=== PATIENT | female | born 1975 | race Two or more races ===

== ENCOUNTER → 2024-08-18 | Outpatient (CLI) | payer MEDICAID, SELFPAY ==
--- NOTE | 2024-08-18 13:30 | XR_ITS ---
Examination: Screening digital mammography, bilateral Computer aided detection 3-D breast Tomosynthesis, bilateral Date and time of exam: August 18, 2024 1338 hours No priors Indication: Screening Technique: Nonmagnified MLO, CC views of the breasts to been obtained, reconstructed from 3-D Tomosynthesis images. R2 computer aided detection program utilized for evaluation of suspicious masses and/or abnormal calcifications. 3-D Tomosynthesis images obtained. Findings: Scattered areas of fibroglandular density. Benign calcifications. No suspicious masses Impression: BI-RADS category II: Benign Findings. Recommend 1 year follow-up mammogram.
== END | disposition home or self-care (01) ==
LOC: CDIM 13:16
PROVIDERS: Referring Provider Obstetrics & Gynecology; Visit Provider Obstetrics & Gynecology
DX: Z12.31 Encounter for screening mammogram for malignant neoplasm of breast (principal); R92.323 Mammographic fibroglandular density, bilateral breasts; R92.1 Mammographic calcification found on diagnostic imaging of breast
CPT/HCPCS: 77063; 77067

== ENCOUNTER 2024-11-13 09:19 | Inpatient (IN) | payer MEDICAID, SELFPAY ==
[2024-11-13] VITALS (8 sets, daily range): BP systolic 94–123; BP diastolic 58–84; PULSE 79–106; RESP 14–98; TEMP 36.8–37.6; O2SAT 96–99; BMI 34.9
--- NOTE | 2024-11-13 09:56 | EKG_ITS ---
[facility] [place] [facility] Test Date: 2024-11-13 Pat Name: LISA STRINGER Department: Room: - Gender: Female Armor Officer: : 1975 Requested By: ED Temporary Provider Order Number: [id number] Reading MD: ED Temporary Provider Measurements Intervals [place] Rate: 88 P: 59 OK: 145 QRS: -1 QRSD: 93 T: 38 QT: 370 QTc: 450 Interpretive Statements SINUS RHYTHM LOW QRS VOLTAGE IN PRECORDIAL LEADS [QRS DEFLECTION < 1.0 mV IN CHEST LEADS] POSSIBLE RIGHT VENTRICULAR CONDUCTION DELAY [RSR (QR) IN V1/V2] No previous ECG available for comparison /store/S0/[id number]
--- NOTE | 2024-11-13 09:56 | PC.NURSE ---
PT BIBA FROM HOME, HAD SYNCOPAL EPISODE LAST NIGHT FELL FACE FORWARD, HAS BRUISING TO FOREHEAD. PT HAD NEAR SYNCOOPAL EPISODE TODAY. PER EMS PT TOOK MELATONIN, SUBOXONE, AND IBUPROFEN. PT UNABLE TO EEP FEET STILL. WHEN ASKING PT WHAT YEAR SHE SAID 2023, THIS RN TOLD PT IT IS 2024, THEN ASKED A FEW MORE QUESTIONS, ASKED THE YEAR AGAIN AND PT CONTINUED TO AY 2023 AFTER BE REMINDED IT WAS 2024 1-2 MINUTES PRIOR. WHEN ASKING PT HER HEIGHT PT REPEATED HEGHT MULTIPLE TIMES, AND KEPT ASKING WHAT DID YOU ASK FOR MY HEIGHT? THEN REPEATED HER HEIGHT AGAIN. AWAITING PROVIDER EEVALUATION
--- NOTE | 2024-11-13 10:15 | PC.NURSE ---
SON AT BEDSIDE ATTENTIVE TO PT. VSS ON TELE
--- NOTE | 2024-11-13 10:33 | XR_ITS ---
Examination: CT brain head without contrast. 2-D sagittal coronal reconstructions Date and time of exam:2024 1119 hours Comparison November 12, 2023 INDICATIONS: Multiple falls yesterday with injury of the head followed by altered mental status CTDI: vol (mGy):3.9 DLP: (mGycm):955 Technique: Multiple CT axial sections of the brain have been obtained, 5 mm slice thickness. Contrast has not been administered. 2-D sagittal, coronal reconstructions have been obtained Low dose protocols were performed. One or more of the following dose reduction techniques were used; automated exposure control, adjustment of the mA and/or KV according to patient size, use of iterative reconstruction technique. Findings: No significant ventricular enlargement. Intra-axial or extra-axial hemorrhage density is not seen. No mass effect or midline shift Basal cisterns are not remarkable. Fourth ventricle is midline. Cranial vault intact. Impression: Negative for acute hemorrhage, mass effect or midline shift Advise clinical correlation follow-up accordingly
[2024-11-13 10:39] LABS: Basophils % (Auto) 0 % (0-2.5); Eosinophils % (Auto) 0 % (0-10); Hematocrit 33.6 % (36.0-46.0); Hemoglobin 11.6 g/dL (12.0-16.0); Immature Granulocytes % (Auto) 0 % (0-0); Immature Granulocytes Auto 0.02 Thou/mm3 (0.00-0.00); Lymphocytes # (Auto) 1.2 Thou/mm3 (1.0-4.8); Lymphocytes % (Auto) 12 % (10-50); Mean Corpuscular HGB Conc 34.5 g/dl (31.0-37.0); Mean Corpuscular Hemoglobin 32.6 pg (25.0-35.0); Mean Corpuscular Volume 94 fL (80-100); Monocytes # (Auto) 0.8 Thou/mm3 (0.0-0.8); Monocytes % (Auto) 8 % (0-12); Neutrophils # (Auto) 7.9 Thou/mm3 (1.8-7.7); Neutrophils % (Auto) 79 % (37-80); Nucleated Red Blood Cell % 0 /100 WBC (0); Platelet Count 353 Thou/mm3 (140-440); RDW Standard Deviation 42.3 fL (36.4-46.3); Red Blood Count 3.56 Miln/mm3 (4.00-5.20)
[2024-11-13 11:02] LABS: Acetaminophen < 2.0 mcg/mL (10.0-20.0); Alanine Aminotransferase 312 U/L (10-49); Albumin, Serum 4.7 gm/dL (3.5-5.0); Albumin/Globulin Ratio 1.6 (1.2-2.2); Alkaline Phosphatase 161 U/L (46-116); Anion Gap 10 (7-16); Aspartate Amino Transferase 130 U/L (0-34); BUN/Creatinine Ratio 16 Ratio (12-20); Bilirubin,Total 0.6 mg/dL (0.3-1.2); Blood Urea Nitrogen 26 mg/dL (9-23); Carbon Dioxide 24.4 mMol/L (20.0-31.0); Chloride 110 mMol/L (98-107); Creatinine (Component) 1.6 mg/dL (0.6-1.3); Estimated Creatinine Clearance 39.7 mL/min (>60); Globulin 2.9 gm/dL (2.3-3.5); Glucose 131 mg/dL (74-106); Osmolality,Calculated 293 (275-295); Potassium 3.5 mMol/L (3.4-5.1); Salicylate < 3.0 mg/dL; Sodium 144 mMol/L (136-145); Total Protein 7.6 gm/dL (5.7-8.2); eGFR 40 See Note
--- NOTE | 2024-11-13 11:16 | PC.NURSE ---
PT AWARE URINE NEEDED.
--- NOTE | 2024-11-13 11:29 | PD.EDSYNC ---
ED Syncope RME/HPI General Chief Complaint: Syncope / Near Syncope Stated Complaint: SYNCOPE Time Seen by Provider: 11/13/24 10:25 Arrival date/time: 11/13/24 09:19 RME / HPI RME / HPI narrative: 48 year old female with history of fibromylagia, anxiety, depression, trouble sleeping presents to the ED BIBA from home for evaluation of syncopal episode today. Patient reports she was in her room when she passed out and does not recall much of what occurred. States she stood up and I just passed out , unable to provide any additional details. Denies having any chest pain, headache, or palpitations prior to syncope. Although states while in the ED is having palpitations. Mentioned she has had one similar episode of passing out in August of this year and consulted with PCP who ordered an MRI. Patient often triangulated back to the same answer of I just passed out . Son additionally reported years ago the patient had overdosed on medications and during that time had similar presentation. PCP: Dr. Hatfield. 1230: Son later quietly adds more information. States last night they found the patient on the ground having a breakdown with empty bottles of medications surrounding her. Most of the pills were on the ground and unaccounted for vs possible overdose. States there were three bottles that were broken and/or do not have lids. Medications unaccounted for and filled on 11/03/2024 include: 100mg Gabapentin 90 tablets, 10mg Propanolol 120 tablets, 20mg Furosemide 30 tablets, Tizanidine (filled 11/11/2024), 20mg Baclofen 120 tablets (bottle empty and covered), Venlafaxine (30 tablets left and 4-5 tablets are unaccounted for). Benazepril filled 11/03/2024 is accounted for. Related Data Home Medications ?Medication ?Instructions ?Recorded ?Confirmed Benazepril Hcl 40 mg PO QDAY ##0 02/28/16 Hydrocodone/Acetaminophen * (NORCO 1 tab PO 5 TIMES DAILY PRN #0 tabs 02/28/16 7.5/325 *) Venlafaxine * (EFFEXOR *) 75 mg PO QDAY #0 tabs 02/28/16 alprazolam 1 mg tablet (Xanax) 1 mg PO TID #0 tabs 02/28/16 baclofen 20 mg tablet 20 mg PO QID #0 tabs 02/28/16 furosemide 20 mg tablet (Lasix) 20 mg PO QDAY #0 tabs 02/28/16 hydrochlorothiazide 25 mg tablet 25 mg PO QAM #0 tabs 02/28/16 Previous Rx's ?Medication ?Instructions ?Recorded clindamycin HCl 300 mg capsule 300 mg PO TID #30 caps 03/27/20 naproxen 500 mg tablet (Naprosyn) 500 mg PO BID PRN pain #30 tabs 03/27/20 Allergies Allergy/AdvReac Type Severity Reaction Status Date / Time No Known Allergies Allergy Verified 11/13/24 16:01 Review of Systems Review of Systems Narrative Review of Systems: Gen: No fever, no chills EYES: No discharge, no pain HEENT: No ear pain, no congestion, no sore throat PULM: no shortness of breath, no cough, no congestion CV: No chest pain, no palpitations, no chest tightness GI: No nausea, no vomiting, no diarrhea, no pain, no constipation : No frequency, no urgency,? no dysuria Musc/skel: No joint pain, no back pain Skin: No rash, no ecchymosis, no lesions Neuro: No weakness, no headache, +syncopal episode per patient Past Medical History Past Medical History CARDIAC: Negative Congestive Heart Failure RESPIRATORY: Negative Chronic Obstructive Pulmonary Disease (COPD) GENITOURINARY: Negative Renal Disease ENDOCRINE: Negative Diabetes Mellitus Type 1 or Diabetes Mellitus Type 2 Social History SMOKING STATUS: Never smoker ED Exam Narrative Physical exam: GENERAL APPEARANCE: Awake, alert, fidgeting, hyperactive, seems to be responding to internal stimuli, patient would often triangulate back to the same answer of I just passed out . HEENT: NC, AT. MMM. EOMI, clear conjunctiva, oropharynx clear. NECK: Supple without lymphadenopathy. No stiffness or restricted ROM. HEART: Tachycardic, normal S1/S1, no m/r/g LUNGS: CTAB, moving air well. No crackles or wheezes are heard. ABDOMEN: Soft, nontender, nondistended with good bowel sounds heard. BACK: No midline C/T/L spine pain or deformity, No CVAT, no obvious deformity. EXTREMITIES: Without cyanosis, clubbing or edema. MUSCULOSKELETAL: FROM of all major joints, no chest tenderness NEUROLOGICAL: Grossly nonfocal. Alert and oriented, moving all 4 extremities. CN not formally tested but appear grossly intact. Fidgeting, hyperactive, seems to be responding to internal stimuli, patient would often triangulate back to the same answer of I just passed out . Skin: Warm and dry without any rash. Course Quality Measures none Orders Category Date Time Status Admit to Inpatient Status Routine Admission 11/13/24 13:49 Active Patient Condition Routine Admission 11/13/24 13:49 Ordered 1799 Psychiatric Hold NOW Care 11/13/24 13:45 Ordered Aspiration precautions NOW Care 11/13/24 13:50 Active COVID-19 Screening Questionnaire NOW Care 11/13/24 13:17 Active COVID-19 Screening Questionnaire NOW Care 11/13/24 14:10 Active Continuous Pulse Oximetry NOW Care 11/13/24 13:49 Completed Decision to Admit X1 Care 11/13/24 13:17 Completed Decision to Admit X1 Care 11/13/24 14:09 Completed EKG (ED ONLY) *Do not use* NOW Care 11/13/24 09:56 Completed Glucose [Bedside Blood Glucose] Q6HR Care 11/13/24 13:54 Active In and Out Catheter X1 Care 11/13/24 13:37 Completed Miscellaneous Nursing Order NOW Care 11/13/24 13:49 Active NPO NOW Care 11/13/24 13:50 Active Neuro Check Q4H Care 11/13/24 13:49 Active Notify provider NEEDED Care 11/13/24 13:49 Active Nurse Swallow Screen X1 Care 11/13/24 13:58 Active One-to-one observation NOW Care 11/13/24 13:56 Active Seizure precautions NOW Care 11/13/24 13:50 Active Sequential Compression Device QSHIFT Care 11/13/24 13:49 Active Strict Intake and Output Routine Care 11/13/24 13:50 Ordered Suicide precautions NOW Care 11/13/24 13:56 Active Referral Psych Eval Stat Cons 11/13/24 14:29 Active Referral Wound Care Routine Cons 11/13/24 13:58 Active Diet NPO (NOW) Diet 11/13/24 13:[address] head/brain wo con Stat Exams 11/13/24 10:33 Completed EKG (ED Only) Stat Exams 11/13/24 09:56 Draft Acetaminophen Stat Lab 11/13/24 10:27 Completed Alcohol, Urine Stat Lab 11/13/24 13:37 Ordered BNP [B-Type Natriuretic Peptide] Routine Lab 11/13/24 10:27 Completed CBC AM DRAW Lab 11/14/24 05:00 Ordered CBC AM DRAW Lab 11/15/24 05:00 Ordered CBC AM DRAW Lab 11/16/24 05:00 Ordered CBC AM DRAW Lab 11/17/24 05:00 Ordered CBC AM DRAW Lab 11/18/24 05:00 Ordered CBC AM DRAW Lab 11/19/24 05:00 Ordered CBC AM DRAW Lab 11/20/24 05:00 Ordered CBC Stat Lab 11/13/24 10:27 Completed Comprehensive Metabolic Panel AM DRAW Lab 11/14/24 05:00 Ordered Comprehensive Metabolic Panel AM DRAW Lab 11/15/24 05:00 Ordered Comprehensive Metabolic Panel AM DRAW Lab 11/16/24 05:00 Ordered Comprehensive Metabolic Panel AM DRAW Lab 11/17/24 05:00 Ordered Comprehensive Metabolic Panel AM DRAW Lab 11/18/24 05:00 Ordered Comprehensive Metabolic Panel AM DRAW Lab 11/19/24 05:00 Ordered Comprehensive Metabolic Panel AM DRAW Lab 11/20/24 05:00 Ordered Comprehensive Metabolic Panel Stat Lab 11/13/24 10:27 Completed Creatine Kinase Stat Lab 11/13/24 13:25 Completed Drug Screen,Urine Stat Lab 11/13/24 13:19 Completed Hemoglobin A1C [Glycohemoglobin w (eAG)] AM DRAW Lab 11/14/24 05:00 Ordered Lactic Acid [Lactate (Lactic Acid)] Stat Lab 11/13/24 13:25 Completed Lipid Panel AM DRAW Lab 11/14/24 05:00 Ordered Magnesium AM DRAW Lab 11/14/24 05:00 Ordered Magnesium AM DRAW Lab 11/15/24 05:00 Ordered Magnesium AM DRAW Lab 11/16/24 05:00 Ordered Magnesium AM DRAW Lab 11/17/24 05:00 Ordered Magnesium AM DRAW Lab 11/18/24 05:00 Ordered Magnesium AM DRAW Lab 11/19/24 05:00 Ordered Magnesium AM DRAW Lab 11/20/24 05:00 Ordered Magnesium Stat Lab 11/13/24 13:25 Completed Phosphorous AM DRAW Lab 11/14/24 05:00 Ordered Phosphorous AM DRAW Lab 11/15/24 05:00 Ordered Phosphorous AM DRAW Lab 11/16/24 05:00 Ordered Prothrombin Time with INR AM DRAW Lab 11/14/24 05:00 Ordered Prothrombin Time with INR AM DRAW Lab 11/15/24 05:00 Ordered Prothrombin Time with INR AM DRAW Lab 11/16/24 05:00 Ordered Renal Function Panel Routine Lab 11/13/24 17:00 Ordered Salicylate Stat Lab 11/13/24 10:27 Completed Thyroid Stimulating Hormone AM DRAW Lab 11/14/24 05:00 Ordered Troponin I Stat Lab 11/13/24 13:25 Completed Urinalysis Stat Lab 11/13/24 13:19 Completed Acetaminophen Tab [Tylenol Tab] Med 11/13/24 13:49 Active 650 mg PO Q6H PRN Folic Acid Med 11/13/24 21:00 Active 1 mg PO BID Heparin Inj Med 11/13/24 21:00 Active 5,000 unit SC Q12HR KCL 10% Liq UDC 15 ML Med 11/13/24 13:55 Discontinued 40 meq PO X1 ONE LORazepam [Ativan Inj] Med 11/13/24 14:32 Active 0.5 mg IV Q4H PRN LORazepam [Ativan Inj] Med 11/13/24 14:32 Active 1 mg IV Q4H PRN LORazepam [Ativan Inj] Med 11/13/24 13:59 Discontinued 1 mg IV X1 PRN LORazepam [Ativan Inj] Med 11/13/24 14:32 Active 2 mg IV Q4H PRN LORazepam [Ativan Inj] Med 11/13/24 14:32 Active 2 mg IVP X1 PRN LORazepam [Ativan] Med 11/13/24 13:59 Discontinued 0.5 mg PO Q4HR PRN LORazepam [Ativan] Med 11/13/24 13:59 Discontinued 1 mg PO Q4HR PRN LORazepam [Ativan] Med 11/13/24 13:59 Discontinued 2 mg PO Q4HR PRN Pantoprazole Inj [Protonix Inj] Med 11/14/24 09:00 Active 40 mg IVP QDAY Ringers Lactated 1000 ml [Lactated Ringers] 1,000 ml Med 11/13/24 14:00 Active IV 75 mls/hr Ringers Lactated 1000 ml [Lactated Ringers] 1,000 ml Med 11/13/24 13:22 Discontinued IV 999 mls/hr Senna [Senokot] Med 11/13/24 13:49 Active 2 tab PO BID PRN Thiamine [Vitamin B-1] Med 11/13/24 21:00 Active 100 mg PO BID Code Status Routine Oth 11/13/24 13:49 Ordered EKG (RT) Q8H RT 11/13/24 14:00 Draft EKG (RT) Q8H RT 11/13/24 22:00 Ordered EKG (RT) Q8H RT 11/14/24 06:00 Ordered EKG (RT) Q8H RT 11/14/24 14:00 Ordered EKG (RT) Q8H RT 11/14/24 22:00 Ordered Oxygen Delivery PRN RT 11/13/24 13:49 Active Referral Oceanographic Meteorologist NOW 11/13/24 14:29 Active Reevaluation(s) Reevaluation #1: Patient is now getting sedated, hypotensive, and bradycardic on telemetry. Patient placed on a 1799. Time: 12:55 Vital Signs Vital signs: Vital Signs Temperature 98.3 F 11/13/24 09:29 Pulse Rate 96 11/13/24 09:29 Respiratory Rate 17 11/13/24 09:29 Blood Pressure 104/69 11/13/24 09:29 Pulse Oximetry (%) 98 11/13/24 09:29 Oxygen Delivery Method Room Air 11/13/24 09:29 Pulse ox is 98% on room air which is adequate. Syncope MDM Narrative MDM Narrative:: Rachel Zaragoza am scribing for and in the presence of Dr. Diaz. RN contacted poison control and they recommend patient be observed for 12 hours, connected to telemetry, IV fluid bolus with electrolytes, seizure precautions, EKG Q4H. Advised if the QRS is >120ms to give 1-2 amps of sodium bicarb, if the QTc is >500ms to give 2mg of IV Magnesium. If the blood pressure is low after IV fluids recommended Glucagon 5-10mg bolus and starting at 5-10mg/hr. If blood pressure remains persistently low to contact them again. Patient data External records reviewed:: [facility] previous records (I reviewed ED visit on 03/27/2020 ) and EMS form Clinical information provided by:: patient and family (Son and patients sister add to HPI ) Social determinants that could affect healthcare access:: none Patient has the following chronic illnesses:: fibromylagia, anxiety, depression, trouble sleeping How is presenting disease/condition affected by chronic disease/condition?: exacerbated by Evaluation data The following diagnostics were reviewed and interpreted by me:: lab results, radiology exam(s) and EKG tracing(s) (EKG #1 @ 10:18 AM shows sinus rhythm, rate 88, NJ interval 145ms, QRS dur 93ms, QT/QTc 370/416 ms, no acute ischemic changes, no STEMI. EKG #2 @ 14:26 shows sinus rhythm, rate 84, NJ interval 144ms, QRS dur 94ms, QT/QTc 378/419ms, no ischemic changes, no STEMI. ) Lab and/or radiology exams considered but not ordered:: None Interpretation Summary: Ordering Physician: Jim Diaz MD Date of Service: 11/13/24 Procedure(s): CT head/brain wo con Accession Number(s): [id number] cc: Jim Diaz MD; Jc Meneses MD; NO PRIMARY/FAMILY,PHYSICIAN~ Examination: CT brain head without contrast. 2-D sagittal coronal reconstructions Date and time of exam:2024 1119 hours Comparison November 12, 2023 INDICATIONS: Multiple falls yesterday with injury of the head followed by altered mental status CTDI: vol (mGy):3.9 DLP: (mGycm):955 Technique: Multiple CT axial sections of the brain have been obtained, 5 mm slice thickness. Contrast has not been administered. 2-D sagittal, coronal reconstructions have been obtained Low dose protocols were performed. One or more of the following dose reduction techniques were used; automated exposure control, adjustment of the mA and/or KV according to patient size, use of iterative reconstruction technique. Findings: No significant ventricular enlargement. Intra-axial or extra-axial hemorrhage density is not seen. No mass effect or midline shift Basal cisterns are not remarkable. Fourth ventricle is midline. Cranial vault intact. Impression: Negative for acute hemorrhage, mass effect or midline shift Advise clinical correlation follow-up accordingly Dictated By: Jc Meneses MD Signed By: <Electronically signed by Jc Meneses MD in OV> 11/13/24 1213 Medications / Prescriptions Medications or Prescriptions considered but not ordered:: None Medication administrations:: Medication Administration History Acetaminophen (Acetaminophen 325 Mg Tablet) 650 mg PO Q6H PRN PRN Reason: Pain (1-3) & Fever >100.4 Stop: 12/13/24 13:48 Folic Acid (Folic Acid 1 Mg Tablet) 1 mg PO BID [facility] Stop: 11/18/24 20:59 Heparin Sodium (Porcine) (Heparin Sod Inj 5000 Unit/Ml Vial) 5,000 unit SC Q12HR [facility] Stop: 11/27/24 20:59 Lactated Ringer's (Lactated Ringers) 1,000 mls @ 75 mls/hr IV .[id number] Stop: 12/13/24 13:59 Last Admin: 11/13/24 15:03 Dose: 75 mls/hr Documented By: JEREMI Lorazepam (Lorazepam 2 Mg/Ml Vial) 0.5 mg IV Q4H PRN PRN Reason: CIWA SCORE 8-13 Stop: 11/18/24 14:31 Lorazepam (Lorazepam 2 Mg/Ml Vial) 1 mg IV Q4H PRN PRN Reason: CIWA SCORE 14-19 Stop: 11/18/24 14:31 Lorazepam (Lorazepam 2 Mg/Ml Vial) 2 mg IV Q4H PRN PRN Reason: CIWA SCORE 20- Stop: 11/18/24 14:31 Lorazepam (Lorazepam 2 Mg/Ml Vial) 2 mg IVP X1 PRN PRN Reason: Breakthrough Agitation Pantoprazole Sodium (Pantoprazole Inj 40 Mg Vial) 40 mg IVP QDAY [facility] Stop: 12/14/24 08:59 Sennosides (Senna Tablet) 2 tab PO BID PRN; Protocol PRN Reason: CONSTIPATION Stop: 12/13/24 13:48 Thiamine HCl (Thiamine 100 Mg Tablet) 100 mg PO BID [facility] Stop: 11/18/24 20:59 Discontinued Medications Lactated Ringer's (Lactated Ringers) 1,000 mls @ 999 mls/hr IV .Q1H1M ONE Stop: 11/13/24 14:22 Last Infusion: 11/13/24 14:39 Dose: Infused Documented By: Admin: 11/13/24 13:38 Dose: 999 mls/hr Documented By: TM Lorazepam (Lorazepam 0.5 Mg Tablet) 0.5 mg PO Q4HR PRN PRN Reason: CIWA Score 2-6 Stop: 11/18/24 13:58 Lorazepam (Lorazepam 0.5 Mg Tablet) 1 mg PO Q4HR PRN PRN Reason: CIWA SCORE 7-11 Stop: 11/18/24 13:58 Lorazepam (Lorazepam 0.5 Mg Tablet) 2 mg PO Q4HR PRN PRN Reason: CIWA SCORE 12-15 Stop: 11/18/24 13:58 Lorazepam (Lorazepam 2 Mg/Ml Vial) 1 mg IV X1 PRN PRN Reason: Breakthrough Agitation Potassium Chloride (Potassium Chloride 10% 20 Meq/15 Ml Udc) 40 meq PO X1 ONE Stop: 11/13/24 13:56 Last Admin: 11/13/24 15:03 Dose: 40 meq Documented By: TM See above Consultations Consultation(s) initiated? (list below): Yes Consultation #1 (Physician, Specialty, Details): I spoke with hospitalist Dr. Wood regarding admission. Discussed patients PMHx, HPI, ED course, exam findings, labs, and radiology results. The hospitalist agree to accept the patient for admission. Time: 13:10 Diagnosis Syncope Differential Diagnosis: syncope due to orthostatic hypotension, vasovagal syncope, subarachnoid hemorrhage and dehydration Most likely diagnosis given after review of the tests above:: Altered mental status Bipolar Toxic encephalopathy Admission Indicated Admission indicated?: indicated Admission Request Was there a request for admission?: Yes Admission Attestation Admission request attestation: Discussed case with [] from Hospitalist service regarding admission. Discussed patients ED course, exam findings, labs, and radiology results. The Hospitalist [agrees,declines] to accept the patient for admission. Disposition Plan Disposition Plan: Admit Critical Care Time Critical Care Time Critical Care Time: Yes Total Critical Care Time (min.): 35 Attestation: The high probability of sudden, clinically significant deterioration in the patient's condition required the highest level of my preparedness to intervene urgently. The services I provided to this patient were to treat and/or prevent clinically significant deterioration. Services included the following: chart data review, reviewing nursing notes and/or old charts, documentation time, it architecture consultant collaboration regarding findings and treatment options, medication orders and management, direct patient care, vital sign assessments and ordering, interpreting and reviewing diagnostic studies and lab tests. Aggregate critical care time includes only time during which I was engaged in work directly related to the patient's care, as described above, whether at bedside or elsewhere in the Emergency Department. It did not include time spent performing other reported procedures or the services of residents, students, nurses or physician assistants. Discharge Plan Plan Patient Disposition: Admit Acute Care w/in Hospital Prescriptions/Referrals Prescriptions/Med Rec: No Action alprazolam [Xanax] 1 MG tablet 1 mg PO TID Qty: 0 baclofen 20 MG tablet 20 mg PO QID Qty: 0 hydrochlorothiazide 25 MG tablet 25 mg PO QAM Qty: 0 furosemide [Lasix] 20 MG tablet 20 mg PO QDAY Qty: 0 Benazepril Hcl 40 MG tablet 40 mg PO QDAY Qty: 0 Hydrocodone/Acetaminophen * (NORCO 7.5/325 *) 1 TAB tablet 1 tab PO 5 TIMES DAILY PRNQty: 0 Venlafaxine * (EFFEXOR *) 75 MG tablet 75 mg PO QDAY Qty: 0 clindamycin HCl 300 mg capsule 300 mg PO TID Qty: 30 0RF naproxen [Naprosyn] 500 mg tablet 500 mg PO BID PRN (Reason: pain) Qty: 30 0RF Referrals: No Primary/Family,Physician [Primary Care Provider] - In 1 week Problem List Clinical Impression: Altered mental status, Bipolar disorder, Toxic encephalopathy Patient/Caregiver Discharge Instructions Print Language: Sinhala Stand Alone Forms: Brandi Award Info., Patient Portal Info Letter
--- NOTE | 2024-11-13 13:26 | PC.NURSE ---
PROVIDER LEARNED THAT SISTER FOUND PT WITH PILLS ALL AROUND HER AND EMPTY PILL BOTTLES, THAT WERE JUST FILLED ON 11/03/24 (SEE PROVIDERS NOTE). AT 1235 SPOKE WITH GEOVANNA, PHARMACIST AT [facility] (PC). PC RECOMMENDS PT TO GET - MULTIPLE IV BOLUSES PREFERABLY TO KEEP HER ELECTROLYTES ON HIGHER SIDE, - 12 HOUR OBSERVATION, - CONNECTED TO TELE MONITOR, - SEIZURE PRECAUTIONS - EKG Q 4 HS (MONITOR FOR QRS AND QTC WIDENING) - IF QRS IS GREATER THAN 120MS GIVE 1-2 AMPS OF SODIUM BI-CARB - IF QTC IS GREATER THAT 500MS GIVE 2GM OF MAGNESIUM - MULTIPLE CHEM PANELS TO ASSESS ELECTROLYTES - LACTIC ACID - CK TO CHECK FOR RHABDO - IF BP REMAINS LOW AFTER BOLUSES GIVE 5-10MG IV BOLUS OF GLUCAGON THEN START ON GLUCAGON GTT @ 5-10MG/HR. IF BP REMAINS LOW DURING GTT CALL POISON [facility] BACK FOR FURTHER INSTRUCTIONS.
[2024-11-13 13:27] LABS: Collection Type, Urine Clean Catch
[2024-11-13] MEDS: RINGERS LACTATED 1000 ML 1,000 ML 999 ML IV (13:38)
--- NOTE | 2024-11-13 13:49 | PC.NURSE ---
WATER PROVIDED AT PTS REQUEST.
[2024-11-13 13:52] LABS: Creatine Kinase 148 U/L (34-171); Magnesium 2.4 mg/dL (1.6-2.6)
[2024-11-13 13:57] LABS: Amphetamine/Methamp Scrn,U Negative (Negative); Barbiturate Screen,Urine Negative (Negative); Benzodiazepines Screen,Urine Negative (Negative); Benzoylecgonine Screen, Ur Negative (Negative); Fentanyl Screen,Urine Negative (Negative); Opiate Screen,Urine Negative (Negative); THC Screen,Urine Negative (Negative)
--- NOTE | 2024-11-13 14:00 | EKG_ITS ---
[facility] Test Date: 2024-11-13 Pat Name: LSIA STRINGER Department: Room: - Gender: Female [employer] Administrator: : 1975 Requested By: Angelina Richmond Order Number: [id number] Reading MD: Angelina Richmond Measurements Intervals [place] Rate: 84 P: 59 NV: 144 QRS: 5 QRSD: 94 T: 39 QT: 378 QTc: 448 Interpretive Statements SINUS RHYTHM LOW QRS VOLTAGE IN PRECORDIAL LEADS [QRS DEFLECTION < 1.0 mV IN CHEST LEADS] POSSIBLE RIGHT VENTRICULAR CONDUCTION DELAY [RSR (QR) IN V1/V2] Compared to ECG 11/13/2024 10:18:52 No significant changes /store/S0/[id number]
[2024-11-13 14:01] LABS: Bacteria,Urine Rare; Bilirubin,Urine Negative (Negative); Blood,Urine Negative (Negative); Clarity,Urine Clear (Clear/Hazy); Color,Urine Yellow (Lt Yel-Yel); Glucose, Urine Negative (Negative); Hyaline Casts,Urine < 1 /hpf (0-1); Ketones,Urine Negative (Negative); Leukocyte Esterase,Urine Negative (Negative); Nitrite,Urine Negative (Negative); Protein,Urine 1+ (Neg - Trace); RBC,Urine < 1 /hpf (0-3); Specific Gravity,Urine 1.019 (1.001-1.035); Squamous Epithelial Cell,Urine 1 /hpf (0-5); WBC,Urine 3 /hpf (0-5)
[2024-11-13 14:56] LABS: Troponin I < 0.020 ng/mL (0.0-0.045)
[2024-11-13] MEDS: RINGERS LACTATED 1000 ML 1,000 ML 75 ML IV ×2 (15:03→19:32)
[2024-11-13] MEDS: POTASSIUM CHLORIDE 10% 20 MEQ/15 ML UDC 40 MEQ PO (15:03)
[2024-11-13 15:26] LABS: B-Type Natriuretic Peptide 25 pg/mL (0-100)
--- NOTE | 2024-11-13 15:27 | ESHP_ITS ---
<Statement entered by Korey Kennedy MD - 11/14/24 07:45> I discussed with and supervised the exercise science internship physician involved in the care of this patient. Patient assessment and plan was discussed with entire medicine team, including my attending. I agree with the assessment and plan as documented by exercise science internship doctor. Patient care was discussed with my attending physician Dr. Nina Kennedy, PGY-2 Documentation for date of: 11/13/24 HPI History of Present Illness Chief complaint: Syncopal episode History of present illness: Ms. Day is a 48-year-old female with past medical history of fibromyalgia, anxiety, depression, insomnia and hypertension who presented to [facility] emergency department on 11/13/2024 with a chief complaint of syncopal episode. Patient reported that she was in her room when she passed out, reports that she was dehydrated. Patient also reports history of multiple falls, reports that she has been falling multiple times in the last couple of days. Patient complains of throbbing headache, otherwise denies any pain. 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 Patient's son informed that patient was found last night on the ground having a breakdown with empty bottles of medications surrounding her. Most of the pills were on the ground and unaccounted for versus possible overdose. States there were three bottles that were broken and/or do not have lids. Medications unaccounted for and filled on 11/03/2024 include: 100mg Gabapentin 90 tablets, 10mg Propanolol 120 tablets, 20mg Furosemide 30 tablets, Tizanidine (filled 11/11/2024), 20mg Baclofen 120 tablets (bottle empty and covered), Venlafaxine (30 tablets left and 4-5 tablets are unaccounted for). Patient placed on 179 psychiatric hold by ED physician. ED Course: ED Vitals: On presentation in ED patient's blood pressure 104/69, heart rate 96, respiratory 17, temp 98.3, O2 sat 98 on room ED Labs: ED labs significant from RBC 3.56, hemoglobin 11.6, hematocrit 33.6, chloride 110, BUN 26, creatinine 1.6, GFR 40, glucose 131, AST 130, ALT 312, alk phos 161. Patient's urine showed protein 1+, bacteria rare. Urine tox screen negative, Tylenol less than 2, salicylate less than 3 ED Imaging: EKG in ED shows sinus rhythm, QTc 450, CT scan of the head negative for any acute hemorrhage, mass effect or midline shift ED Treatment: Patient was given 1 L LR bolus in ED, placed on 1798 psychiatric hold. Poison control contacted in the ED, recommended observation admission for about 24 hours. Review of Systems Review of Systems Narrative Review of Systems: ROS: -CONSTITUTIONAL: Denies weight loss, fever and chills. -HEENT: Denies changes in vision and hearing. -RESPIRATORY: Denies SOB and cough. -CV: Denies palpitations and Chest Pain. -GI: Denies abdominal pain, nausea, vomiting,constipation and diarrhea. -: Denies dysuria and urinary frequency. -MSK: Denies myalgia and joint pain. -SKIN: Denies rash and pruritus. -NEUROLOGICAL: Denies headache and syncope. 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 Exam Vital Signs Temp Pulse Resp BP Pulse Ox O2 Del Method 98.5 F 85 18 102/71 98 Room Air 11/13/24 14:00 11/13/24 14:15 11/13/24 14:15 11/13/24 14:00 11/13/24 14:00 11/13/24 14:00 Narrative Exam Physical Exam General: Awake and in no acute distress. Conversational and non-toxic appearing. HEENT: Normocephalic, atraumatic, mucous membranes moist. Pupils normally reactive Heart: Tachycardic and regular rhythm, no murmurs. Lungs: Clear to auscultation with no wheezing or crackles. Abdomen: Soft, nondistended, nontender, positive bowel sounds. ?No guarding or rebound tenderness. Neurologic: Alert and oriented x3, no gross neurological deficit, and patient able to move all 4 extremities. Tremors noted bilateral arm, some rigidity bilateral lower legs. Extremities: No edema. Skin: No rash or ecchymoses. Results: Labs 11/13/24 10:27 11/13/24 20:51 Labs: Short CBC 11/13/24 Range/Units 10:27 WBC 10.0 (3.6-11.0) Thou/mm3 Hgb 11.6 L (12.0-16.0) g/dL Hct 33.6 L (36.0-46.0) % Plt Count 353 (140-440) Thou/mm3 BMP 11/13/24 10:27 Sodium 144 Potassium 3.5 Chloride 110 H Carbon Dioxide 24.4 BUN 26 H Creatinine 1.6 H Glucose 131 H Calcium 10.0 Cardiac Enzymes 11/13/24 Range/Units 13:25 Total Creatine Kinase 148 (34-171) U/L Troponin I < 0.020 (0.0-0.045) ng/mL Liver Function 11/13/24 Range/Units 10:27 Total Bilirubin 0.6 (0.3-1.2) mg/dL AST 130 H (0-34) U/L ALT 312 H (10-49) U/L Alkaline Phosphatase 161 H (46-116) U/L Albumin 4.7 (3.5-5.0) gm/dL Urine 11/13/24 Range/Units 13:19 Urine Color Yellow (Lt Yel-Yel) Urine Clarity Clear (Clear/Hazy) Urine pH 7.0 (5.0-7.0) Ur Specific [place] 1.019 (1.001-1.035) Urine Protein 1+ A (Neg - Trace) Urine Glucose (UA) Negative (Negative) Quality Measures Quality Measures none Medications Home Medications and Allergies Home Medications ?Medication ?Instructions ?Recorded ?Confirmed ?Type Benazepril Hcl 40 mg PO QDAY ##0 02/28/16 History Hydrocodone/Acetaminophen * (NORCO 1 tab PO 5 TIMES DA ROCKY PRN #0 tabs 02/28/16 History 7.5/325 *) Venlafaxine * (EFFEXOR *) 75 mg PO QDAY #0 tabs History alprazolam 1 mg tablet (Xanax) 1 mg PO TID #0 tabs 08/14 History baclofen 20 mg tablet 20 mg PO QID #0 tabs 6 History furosemide 20 mg tablet (Lasix) 20 mg PO QDAY #0 tabs 02/28/16 History hydrochlorothiazide 25 mg tablet 25 mg PO QAM #0 tabs 02/28/16 History Allergies Allergy/AdvReac Type Severity Reaction Status Date / Time No Known Allergies Allergy Verified 11/13/24 16:01 Visit Medications Acetaminophen (Acetaminophen 325 Mg Tablet) 650 mg PO Q6H PRN PRN Reason: Pain (1-3) & Fever >100.4 Stop: 12/13/24 13:48 Folic Acid (Folic Acid 1 Mg Tablet) 1 mg PO BID URSULA Stop: 11/18/24 20:59 Heparin Sodium (Porcine) (Heparin Sod Inj 5000 Unit/Ml Vial) 5,000 unit SC Q12HR [facility] Stop: 11/27/24 20:59 Lactated Ringer's (Lactated Ringers) 1,000 mls @ 75 mls/hr IV .[id number] URSULA Stop: 12/13/24 13:59 Last Admin: 11/13/24 15:03 Dose: 75 mls/hr Lorazepam (Lorazepam 2 Mg/Ml Vial) 0.5 mg IV Q4H PRN PRN Reason: CIWA SCORE 8-13 Stop: 11/18/24 14:31 Lorazepam (Lorazepam 2 Mg/Ml Vial) 1 mg IV Q4H PRN PRN Reason: CIWA SCORE 14-19 Stop: 11/18/24 14:31 Lorazepam (Lorazepam 2 Mg/Ml Vial) 2 mg IV Q4H PRN PRN Reason: CIWA SCORE 20-25 Stop: 11/18/24 14:31 Lorazepam (Lorazepam 2 Mg/Ml Vial) 2 mg IVP X1 PRN PRN Reason: Breakthrough Agitation Pantoprazole Sodium (Pantoprazole Inj 40 Mg Vial) 40 mg IVP QDAY [facility] Stop: 12/14/24 08:59 Sennosides (Senna Tablet) 2 tab PO BID PRN; Protocol PRN Reason: CONSTIPATION Stop: 12/13/24 13:48 Thiamine HCl (Thiamine 100 Mg Tablet) 100 mg PO BID URSULA Stop: 11/18/24 20:59 Discontinued Medications Lactated Ringer's (Lactated Ringers) 1,000 mls @ 999 mls/hr IV .Q1H1M ONE Stop: 11/13/24 14:22 Last Infusion: 11/13/24 14:39 Dose: Infused Lorazepam (Lorazepam 0.5 Mg Tablet) 0.5 mg PO Q4HR PRN PRN Reason: CIWA Score 2-6 Stop: 11/18/24 13:58 Lorazepam (Lorazepam 0.5 Mg Tablet) 1 mg PO Q4HR PRN PRN Reason: CIWA SCORE 7-11 Stop: 11/18/24 13:58 Lorazepam (Lorazepam 0.5 Mg Tablet) 2 mg PO Q4HR PRN PRN Reason: CIWA SCORE 12-15 Stop: 11/18/24 13:58 Lorazepam (Lorazepam 2 Mg/Ml Vial) 1 mg IV X1 PRN PRN Reason: Breakthrough Agitation Potassium Chloride (Potassium Chloride 10% 20 Meq/15 Ml Udc) 40 meq PO X1 ONE Stop: 11/13/24 13:56 Last Admin: 11/13/24 15:03 Dose: 40 meq Assessment & Plan Plan Assessment and plan: Summary:Ms. Day is a 48-year-old female with past medical history of fibromyalgia, anxiety, depression, insomnia and hypertension who presented to [facility] emergency department on 11/13/2024 with a chief complaint of syncopal episode. ED Course: ED Vitals: On presentation in ED patient's blood pressure 104/69, heart rate 96, respiratory 17, temp 98.3, O2 sat 98 on room ED Labs: ED labs significant from RBC 3.56, hemoglobin 11.6, hematocrit 33.6, chloride 110, BUN 26, creatinine 1.6, GFR 40, glucose 131, AST 130, ALT 312, alk phos 161. Patient's urine showed protein 1+, bacteria rare. Urine tox screen negative, Tylenol less than 2, salicylate less than 3 ED Imaging: ED Treatment: Patient was given 1 L LR bolus in ED, placed on 179 psychiatric hold #Medication overdose #?Suicidal ideation #Dizziness #Recurrent falls #?Syncope Patient reported that she was in her room when she passed out, reports that she was dehydrated. Patient also reports history of multiple falls, reports that she has been falling multiple times in the last couple of days. Patient complains of throbbing headache, otherwise denies any pain. 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 Patient's son informed that patient was found last night on the ground having a breakdown with empty bottles of medications surrounding her. Most of the pills were on the ground and unaccounted for versus possible overdose. States there were three bottles that were broken and/or do not have lids. Medications unaccounted for and filled on 11/03/2024 include: 100mg Gabapentin 90 tablets, 10mg Propanolol 120 tablets, 20mg Furosemide 30 tablets, Tizanidine (filled 11/11/2024), 20mg Baclofen 120 tablets (bottle empty and covered), Venlafaxine (30 tablets left and 4-5 tablets are unaccounted for). EKG in ED shows sinus rhythm, QTc 450, CT scan of the head negative for any acute hemorrhage, mass effect or midline shift Patient was given 1 L LR bolus in ED, placed on 1798 psychiatric hold Urine tox screen negative, CT negative, magnesium within normal limits, moderate, lactate normal Plan: - Admitted to observation for 24 hours - Maintenance fluids IV LR 75 cc/h - Hold all medications - Serial EKG monitoring, assess QTc - Fingerstick every 6 hours - Neurocheck every 4 hours - seizure precaution - Referral to social work program coordinator for further evaluation #Acute kidney injury On presentation BUN 26, creatinine 1.6, GFR 40, baseline within normal limits Patient received 1 L LR bolus in ED plan Plan: - Maintenance fluids LR 75 cc/h - Avoid nephrotoxic agents - Renally dose medication - Follow CMP in a.m. #Transaminitis likely secondary to overdose AST 130, ALT 312 on presentation, possible in setting of medication overdose - follow CMP in a.m. #?Alcohol withdrawal Per patient's history, patient takes alcohol, drinks medications with alcohol at times. Plan: - [facility] protocol - Folate p.o. - Thiamine p.o. DVT prophylaxis: Heparin every 12 hours GI prophylaxis: Protonix IV daily Diet: N.p.o., pending swallow eval Lines: Peripheral IV Code status: Full code Case discussed with Attending Dr. Wood and Dr. Kennedy PGY2. Angelina Richmond PGY1 Disclaimer: This note was dictated by speech recognition. Minor errors in chinese language professor may be present due to voice recognition software. Attending Provider Attestation/Addendum I have discussed and was present for the essential components of the history, physical examination, diagnosis, and treatment plan with the resident. I agree with the patient's care as documented by the resident and amended herein by me. Indio Wood, DO. Although this document has been carefully reviewed, there may still be some phonetic and other typographical errors. These errors are purely grammatical due to imperfections in the software program and should not be construed in any way to compromise the substance of the patient's medical care during this visit.
--- NOTE | 2024-11-13 15:40 | PC.CC ---
Patient presents to the hospital for Syncope. ASWJanay made [id number] contact with patient. ASW introduced self, role, and reason for visit. Patient appeared alert and oriented to self, location, and situation. Patient was pleasant and engaged in initial assessment. Patient reports she resides with her mother, Alka Giron and sister, Marleen Giron . Patient reports her medical decision maker in the event she is unable to make her own medical decisions would be her son, Nikos Day . At home patient ambulates independently and completes her own ADLs. Patient does not require any DME while at home. Patient receives primary care at [facility] and uses [facility] in [place]. Patient reports she has a mental health diagnosis of depression which she was diagnosed with 12 years ago. Patient reports she has one prior suicide attempt 12 years ago. At the time of encounter patient denied suicidal and homicidal ideations and visual and auditory hallucinations. Patient reports she is not connected to any mental health provider and receives her medication from her primary care provider. ASW explored with the patient events that led to the hospital. Patient reports she does not recall what occurred and just fainted. Patient reports she keeps her pills in a pill box. Patient provided consent for ASW to get collateral information from patient's sister and son. ASW and bedside RN Kim made [id number] contact with patient's sister and son introduced self, role, and reason for contact. Patient's sister reports the patient was found on the ground with a bunch of her pills scattered and empty pill bottles. Sister reports the patient has not slept for the past 3 days. Patient stays in her room for most of the day and will go two weeks without showering and days without eating. Patient has been having auditory and visual hallucinations talking to people who are not present. Patient sister reports the patient is good at being deceiving. Patient son confirmed patient had an intentional overdose 12 years ago and by overdosing on medication but did not receive treatment. He reports his father his mother because she would not receive treatment for her mental health. Patient has never been placed on a 5150-hold. Patient will receive a mental health evaluation upon being medically cleared. pupil personnel services director to follow up with any discharge needs.
[2024-11-13] MEDS: HEPARIN SOD INJ 5000 UNIT/ML VIAL SC (19:32)
[2024-11-13 19:53] LABS: Albumin, Serum 4.3 gm/dL (3.5-5.0); Anion Gap 9 (7-16); BUN/Creatinine Ratio 19 Ratio (12-20); Blood Urea Nitrogen 19 mg/dL (9-23); Calcium 9.6 mg/dL (8.3-10.6); Calcium (Corrected) 9.6 mg/dL (8.5-10.1); Carbon Dioxide 25.5 mMol/L (20.0-31.0); Chloride 112 mMol/L (98-107); Estimated Creatinine Clearance 63.6 mL/min (>60); Glucose 95 mg/dL (74-106); Osmolality,Calculated 292 (275-295); Phosphorous 2.9 mg/dL (2.4-5.1); Potassium 3.7 mMol/L (3.4-5.1); Sodium 146 mMol/L (136-145); eGFR > 60 See Note
[2024-11-13] MEDS: THIAMINE 100 MG TABLET PO (20:11)
[2024-11-13] MEDS: FOLIC ACID 1 MG TABLET PO (20:11)
--- NOTE | 2024-11-13 20:32 | PC.NURSE ---
spoke with kiel from [facility] regarding patients labs. Kiel is concerned about elevated liver enzymes and suggests to do a follow up CMP tonight to monitor for changes. Dr negro notified and agrees, states she will place the order for CMP and also for EKG Q4hrs per [facility] recommendations.
--- NOTE | 2024-11-13 20:45 | EKG_ITS ---
[facility] Test Date: 2024-11-13 Pat Name: LISA STRINGER [facility] Gender[facility] Female Playground Equipment Erector: [id number] : 1975 Requested By: Germaine Soto Order Number: [id number] Reading MD: Germaine Soto Measurements Intervals [place] Rate: 106 P: 45 [place]: 137 QRS: -5 QRSD: 85 T: 37 QT: 334 QTc: 444 Interpretive Statements SINUS TACHYCARDIA LOW QRS VOLTAGE IN PRECORDIAL LEADS ABNORMAL RHYTHM ECG Compared to ECG 11/13/2024 14:26:57 Sinus rhythm no longer present /store/S0/[id number].pdf
[2024-11-13 22:07] LABS: Alanine Aminotransferase 305 U/L (10-49); Albumin, Serum 4.2 gm/dL (3.5-5.0); Albumin/Globulin Ratio 1.6 (1.2-2.2); Alkaline Phosphatase 150 U/L (46-116); Anion Gap 10 (7-16); Aspartate Amino Transferase 138 U/L (0-34); BUN/Creatinine Ratio 18 Ratio (12-20); Bilirubin,Total 0.8 mg/dL (0.3-1.2); Blood Urea Nitrogen 18 mg/dL (9-23); Calcium 9.4 mg/dL (8.3-10.6); Calcium (Corrected) 9.4 mg/dL (8.5-10.1); Carbon Dioxide 23.2 mMol/L (20.0-31.0); Chloride 113 mMol/L (98-107); Estimated Creatinine Clearance 63.6 mL/min (>60); Globulin 2.7 gm/dL (2.3-3.5); Glucose 96 mg/dL (74-106); Osmolality,Calculated 292 (275-295); Potassium 3.4 mMol/L (3.4-5.1); Sodium 146 mMol/L (136-145); Total Protein 6.9 gm/dL (5.7-8.2); eGFR > 60 See Note
[2024-11-14] VITALS (9 sets, daily range): BP systolic 117–143; BP diastolic 76–93; PULSE 77–120; RESP 17–99; TEMP 36.6–38.2; O2SAT 94–100; BMI 34.1
--- NOTE | 2024-11-14 00:45 | EKG_ITS ---
[facility] Test Date: 2024-11-14 Pat Name: LISA STRINGER [facility] Wildlife Veterinarian: [email or web address] : 1975 Requested By: Germaine Soto Order Number: [id number] Reading MD: Germaine Soto Measurements Intervals [place] Rate: 95 P: 27 [place]: 133 QRS: -10 QRSD: 89 T: 23 QT: 354 QTc: 445 Interpretive Statements SINUS RHYTHM LOW QRS VOLTAGE IN PRECORDIAL LEADS Compared to ECG 11/13/2024 21:24:46 Sinus tachycardia no longer present /store/S0/[id number].pdf
--- NOTE | 2024-11-14 04:45 | EKG_ITS ---
[facility] Test Date: 2024-11-14 Pat Name: LISA STRINGER [facility] Chemical Dependency Therapist: [email or web address] : 1975 Requested By: Germaine Soto Order Number: [id number] Reading MD: Germaine Soto Measurements Intervals [place] Rate: 94 P: 45 [place]: 128 QRS: -9 QRSD: 89 T: 25 QT: 359 QTc: 449 Interpretive Statements SINUS RHYTHM LOW QRS VOLTAGE IN PRECORDIAL LEADS Compared to ECG 11/14/2024 01:41:29 No significant changes /store/S0/[id number]
[2024-11-14] MEDS: HEPARIN SOD INJ 5000 UNIT/ML VIAL SC ×2 (05:27→16:46)
[2024-11-14] MEDS: ACETAMINOPHEN 325 MG TABLET 650 MG PO (06:23)
[2024-11-14] MEDS: RINGERS LACTATED 1000 ML 1,000 ML 75 ML IV (08:06)
[2024-11-14] MEDS: FOLIC ACID 1 MG TABLET PO ×2 (08:17→20:40)
[2024-11-14] MEDS: THIAMINE 100 MG TABLET PO ×2 (08:18→20:40)
[2024-11-14] MEDS: PANTOPRAZOLE INJ 40 MG VIAL IVP (08:18)
--- NOTE | 2024-11-14 09:11 | PC.SS ---
Follow up note: Pending medical clearance for crises mental health evaluation.
[2024-11-14 10:20] LABS: Basophils % (Auto) 0 % (0-2.5); Eosinophils # (Auto) 0.1 Thou/mm3 (0.0-0.5); Eosinophils % (Auto) 1 % (0-10); Hematocrit 30.3 % (36.0-46.0); Hemoglobin 10.4 g/dL (12.0-16.0); Immature Granulocytes % (Auto) 0 % (0-0); Immature Granulocytes Auto 0.02 Thou/mm3 (0.00-0.00); Lymphocytes % (Auto) 26 % (10-50); Mean Corpuscular HGB Conc 34.3 g/dl (31.0-37.0); Mean Corpuscular Hemoglobin 32.9 pg (25.0-35.0); Mean Corpuscular Volume 96 fL (80-100); Monocytes # (Auto) 0.7 Thou/mm3 (0.0-0.8); Monocytes % (Auto) 8 % (0-12); Neutrophils # (Auto) 5.1 Thou/mm3 (1.8-7.7); Neutrophils % (Auto) 65 % (37-80); Nucleated Red Blood Cell % 0 /100 WBC (0); Platelet Count 280 Thou/mm3 (140-440); RDW Standard Deviation 42.6 fL (36.4-46.3); Red Blood Count 3.16 Miln/mm3 (4.00-5.20); White Blood Count 7.9 Thou/mm3 (3.6-11.0)
[2024-11-14 10:29] LABS: Glucose Estimated Average 103 mg/dL (80-131); Hemoglobin A1C 5.2 % Hgb (4.8-6.0)
[2024-11-14 11:01] LABS: Alanine Aminotransferase 315 U/L (10-49); Albumin, Serum 3.9 gm/dL (3.5-5.0); Albumin/Globulin Ratio 1.5 (1.2-2.2); Alkaline Phosphatase 132 U/L (46-116); Anion Gap 11 (7-16); Aspartate Amino Transferase 148 U/L (0-34); BUN/Creatinine Ratio 18 Ratio (12-20); Bilirubin,Total 0.9 mg/dL (0.3-1.2); Blood Urea Nitrogen 14 mg/dL (9-23); Calcium 8.9 mg/dL (8.3-10.6); Carbon Dioxide 23.5 mMol/L (20.0-31.0); Chloride 110 mMol/L (98-107); Creatinine (Component) 0.8 mg/dL (0.6-1.3); Estimated Creatinine Clearance 78.5 mL/min (>60); Globulin 2.6 gm/dL (2.3-3.5); Glucose 130 mg/dL (74-106); Magnesium 1.8 mg/dL (1.6-2.6); Osmolality,Calculated 289 (275-295); Phosphorous 2.6 mg/dL (2.4-5.1); Potassium 3.6 mMol/L (3.4-5.1); Sodium 144 mMol/L (136-145); Total Protein 6.5 gm/dL (5.7-8.2); eGFR > 60 See Note
--- NOTE | 2024-11-14 11:01 | PC.NURSE ---
Updated Levi from Poison Control on patients status. --Ja
[2024-11-14 11:16] LABS: Cardiac Risk Estimate 5.2 RATIO (3.7-5.6); Cholesterol 192 mg/dL (132-200); HDL Cholesterol 37 mg/dL (40-60); LDL Cholesterol,Calculated 128 mg/dL (0-130); Triglycerides 137 mg/dL (30-150)
--- NOTE | 2024-11-14 11:58 | PC.SS ---
SS update: per attending Dr. Wood the patient is medically cleared for mental health evaluation.
--- NOTE | 2024-11-14 12:29 | PC.NURSE ---
Sandie friedman at bedside to see pt. Privacy provided.
--- NOTE | 2024-11-14 13:08 | PC.NURSE ---
Notified Dr. Richmond of patient condition seeing number in her food. Spot check blood sugar check 124. will continue to monitor
--- NOTE | 2024-11-14 13:45 | ESPR_ITS ---
<Statement entered by Korey Kennedy MD - 11/15/24 07:38> I discussed with and supervised the production intern physician involved in the care of this patient. Patient assessment and plan was discussed with entire medicine team, including my attending. I agree with the assessment and plan as documented by production intern doctor. Patient care was discussed with my attending physician Dr. Nina Kennedy, PGY-2 Documentation for date of: 11/14/24 Subjective Subjective Interval history: Patient seen and examined at bedside. Patient's EKG looks stable, sinus, no QT prolongation. Will discontinue serial EKGs. Started on low-dose gabapentin, as patient noted to be on gabapentin at home. Will discontinue with CIWA protocol, was noted to be tachycardic, patient reported that she was significantly anxious, was given Ativan 1 mg IV x 1. Patient does have transaminitis, will continue to trend CMP. Patient started on regular diet, will continue. Patient is medically clear for evaluation by child welfare social worker for possible psych placement. Exam Vital Signs Temp Pulse Resp BP Pulse Ox O2 Del Method 98.1 F 113 H 17 143/93 H 99 Room Air 11/14/24 12:00 11/14/24 12:00 11/14/24 12:00 11/14/24 12:00 11/14/24 12:00 11/14/24 12:00 Narrative Exam Physical Exam General: Awake and in no acute distress. Conversational and non-toxic appearing. HEENT: Normocephalic, atraumatic, mucous membranes moist. Pupils normally reactive Heart: Tachycardic and regular rhythm, no murmurs. Lungs: Clear to auscultation with no wheezing or crackles. Abdomen: Soft, nondistended, nontender, positive bowel sounds. ?No guarding or rebound tenderness. Neurologic: Alert and oriented x3, no gross neurological deficit, and patient able to move all 4 extremities. Extremities: No edema. Skin: No rash or ecchymoses. Objective Labs 11/14/24 09:46 11/14/24 09:46 Labs: Laboratory Results - last 24 hr 11/13/24 11/13/24 11/13/24 10:27 13:19 13:25 WBC RBC Hgb Hct MCV MCH MCHC RDW Std Deviation Plt Count Neut % (Auto) Lymph % (Auto) [place] % (Auto) Eos % (Auto) Baso % (Auto) Neut # (Auto) Lymph # (Auto) [place] # (Auto) Eos # (Auto) Baso # (Auto) Immature Gran # (Auto) Absolute Nucleated RBC Immature Gran % Nucleated RBC % Sodium Potassium Chloride Carbon Dioxide Anion Gap BUN Creatinine Estim Creat Clear Calc eGFR BUN/Creatinine Ratio Glucose Estimated Ave Glu mg/dL Hemoglobin A1c Calculated Osmolality Calcium Corrected Calcium Phosphorus Magnesium 2.4 Total Bilirubin AST ALT Alkaline Phosphatase Total Creatine Kinase 148 Troponin I < 0.020 B-Natriuretic Peptide 25 Total Protein Albumin Globulin Albumin/Globulin Ratio Triglycerides Cholesterol LDL Cholesterol, Calc HDL Cholesterol Cholesterol/HDL Ratio TSH Ur Collection Type Clean Catch Urine Color Yellow Urine Clarity Clear Urine pH 7.0 Ur Specific [place] 1.019 Urine Protein 1+ A Urine Glucose (UA) Negative Urine Ketones Negative Urine Blood Negative Urine Nitrite Negative Urine Bilirubin Negative Urine Urobilinogen (Auto) 4.0 Ur Leukocyte Esterase Negative Urine RBC < 1 Urine WBC 3 Ur Squamous Epith Cells 1 Urine Bacteria Rare Hyaline Casts < 1 Urine Opiates Screen Negative Urine Fentanyl Screen Negative Ur Barbiturates Screen Negative U Amphetamin/Meth Scrn Negative U Benzodiazepines Scrn Negative U Cocaine Metab Screen Negative U Marijuana (THC) Screen Negative 11/13/24 11/13/24 11/14/24 19:16 20:51 09:46 WBC 7.9 RBC 3.16 L Hgb 10.4 L Hct 30.3 L MCV 96 MCH 32.9 MCHC 34.3 RDW Std Deviation 42.6 Plt Count 280 D Neut % (Auto) 65 Lymph % (Auto) 26 [place] % (Auto) 8 Eos % (Auto) 1 Baso % (Auto) 0 Neut # (Auto) 5.1 Lymph # (Auto) 2.0 [place] # (Auto) 0.7 Eos # (Auto) 0.1 Baso # (Auto) 0.0 Immature Gran # (Auto) 0.02 H Absolute Nucleated RBC 0.00 Immature Gran % 0 Nucleated RBC % 0 Sodium 146 H 146 H 144 Potassium 3.7 3.4 3.6 Chloride 112 H 113 H 110 H Carbon Dioxide 25.5 23.2 23.5 Anion Gap 9 10 11 BUN 19 18 14 Creatinine 1.0 D 1.0 0.8 Estim Creat Clear Calc 63.6 63.6 78.5 eGFR > 60 > 60 > 60 BUN/Creatinine Ratio 19 18 18 Glucose [address] Glu mg/dL 103 Hemoglobin A1c 5.2 Calculated Osmolality 292 292 289 Calcium 9.6 9.4 8.9 Corrected Calcium 9.6 9.4 9.0 Phosphorus 2.9 2.6 Magnesium 1.8 Total Bilirubin 0.8 0.9 AST 138 H 148 H ALT 305 H 315 H Alkaline Phosphatase 150 H 132 H Total Creatine Kinase Troponin I B-Natriuretic Peptide Total Protein 6.9 6.5 Albumin 4.3 4.2 3.9 Globulin 2.7 2.6 Albumin/Globulin Ratio 1.6 1.5 Triglycerides 137 Cholesterol 192 LDL Cholesterol, Calc 128 HDL Cholesterol 37 L Cholesterol/HDL Ratio 5.2 TSH 1.00 Ur Collection Type Urine Color Urine Clarity Urine pH Ur Specific [place] Urine Protein Urine Glucose (UA) Urine Ketones Urine Blood Urine Nitrite Urine Bilirubin Urine Urobilinogen (Auto) Ur Leukocyte Esterase Urine RBC Urine WBC Ur Squamous Epith Cells Urine Bacteria Hyaline Casts Urine Opiates Screen Urine Fentanyl Screen Ur Barbiturates Screen U Amphetamin/Meth Scrn U Benzodiazepines Scrn U Cocaine Metab Screen U Marijuana (THC) Screen Quality Measures Quality Measures none Assessment & Plan Assessment Current Active Medications: Generic Name Dose Route Start Last Admin Trade Name Freq PRN Reason Stop Dose Admin Acetaminophen 650 mg 11/13/24 17:28 11/14/24 06:23 Acetaminophen 325 Mg Tablet PO 12/13/24 17:27 650 mg Q6H PRN Administration Pain (1-3) & Fever >100.4 Folic Acid 1 mg 11/13/24 21:00 11/14/24 08:17 Folic Acid 1 Mg Tablet PO 11/18/24 20:59 1 mg BID URSULA Administration Gabapentin 100 mg 11/14/24 21:00 Gabapentin 100 Mg Capsule PO 12/14/24 20:59 BID URSULA Heparin Sodium (Porcine) 5,000 unit 11/13/24 17:30 11/14/24 05:27 Heparin Sod Inj 5000 Unit/Ml Vial SC 11/27/24 17:29 5,000 unit Q12H URSULA Administration Lactated Ringer's 1,000 mls @ 75 mls/hr 11/13/24 17:30 11/14/24 08:06 Lactated Ringers IV 12/13/24 17:29 75 mls/hr .[id number] URSULA Administration Lorazepam 0.5 mg 11/13/24 18:02 Lorazepam 2 Mg/Ml Vial IV 11/18/24 17:34 Q4H PRN CIWA SCORE 8-13 Lorazepam 1 mg 11/13/24 18:02 Lorazepam 2 Mg/Ml Vial IV 11/18/24 17:34 Q4H PRN CIWA SCORE 14-19 Lorazepam 2 mg 11/13/24 18:02 Lorazepam 2 Mg/Ml Vial IV 11/18/24 17:34 Q4H PRN CIWA SCORE 20-25 Lorazepam 2 mg 11/13/24 18:02 Lorazepam 2 Mg/Ml Vial IVP X1 PRN Breakthrough Agitation Pantoprazole Sodium 40 mg 11/14/24 09:00 11/14/24 08:18 Pantoprazole Inj 40 Mg Vial IVP 12/14/24 08:59 40 mg QDAY URSULA Administration Sennosides 2 tab 11/13/24 17:28 Senna Tablet PO 12/13/24 17:27 BID PRN CONSTIPATION Protocol Thiamine HCl 100 mg 11/13/24 21:00 11/14/24 08:18 Thiamine 100 Mg Tablet PO 11/18/24 20:59 100 mg BID URSULA Administration Plan Assessment and plan: Summary:Ms. Day is a 48-year-old female with past medical history of fibromyalgia, anxiety, depression, insomnia and hypertension who presented to [facility] emergency department on 11/13/2024 with a chief complaint of syncopal episode. #Medication overdose #?Suicidal ideation #Dizziness #Recurrent falls #?Syncope Patient reported that she was in her room when she passed out, reports that she was dehydrated. Patient also reports history of multiple falls, reports that she has been falling multiple times in the last couple of days. Patient complains of throbbing headache, otherwise denies any pain. 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 Patient's son informed that patient was found last night on the ground having a breakdown with empty bottles of medications surrounding her. Most of the pills were on the ground and unaccounted for versus possible overdose. States there were three bottles that were broken and/or do not have lids. Medications unaccounted for and filled on 11/03/2024 include: 100mg Gabapentin 90 tablets, 10mg Propanolol 120 tablets, 20mg Furosemide 30 tablets, Tizanidine (filled 11/11/2024), 20mg Baclofen 120 tablets (bottle empty and covered), Venlafaxine (30 tablets left and 4-5 tablets are unaccounted for). EKG in ED shows sinus rhythm, QTc 450, CT scan of the head negative for any acute hemorrhage, mass effect or midline shift. Serial EKG negative, no acute evaluation noted Patient was given 1 L LR bolus in ED, placed on 179 psychiatric hold Urine tox screen negative, CT negative, magnesium within normal limits, moderate, lactate normal Fingerstick every 6 hours within normal limits Plan: - Medically clear for evaluation by child welfare social worker - seizure precaution - Referral to child welfare social worker for further evaluation - Resume gabapentin low-dose #Acute kidney injury, resolved On presentation BUN 26, creatinine 1.6, GFR 40, baseline within normal limits Patient received 1 L LR bolus in ED plan Responded well to IV fluids, RAMON is resolved. Plan: - Avoid nephrotoxic agents - Renally dose medication - Follow CMP in a.m. #Transaminitis likely secondary to overdose AST 130, ALT 312 on presentation, possible in setting of medication overdose - follow CMP in a.m. #Alcohol use Per patient's history, patient takes alcohol, drinks medications with alcohol at times. Plan: - Discontinued CIWA protocol, patient CIWA was significantly low throughout hospitalization, no signs of withdrawal noted - Folate p.o. - Thiamine p.o. #Severe anxiety #Major depressive disorder DVT prophylaxis: Heparin every 12 hours GI prophylaxis: Protonix IV daily Diet: N.p.o., pending swallow eval Lines: Peripheral IV Code status: Full code Case discussed with Attending Dr. Wood and Dr. Kennedy PGY2. Angelina Richmond PGY1 Disclaimer: This note was dictated by speech recognition. Minor errors in medical recruiter may be present due to voice recognition software. Attending Provider Attestation/Addendum I have discussed and was present for the essential components of the history, physical examination, diagnosis, and treatment plan with the resident. I agree with the patient's care as documented by the resident and amended herein by me. Indio Wood DO. Patient seen and evaluated this AM. No acute events overnight, patient cleared medically for social work evaluation, patient will remain on 5150 hold, the search for an inpatient psych facility is ongoing. Although this document has been carefully reviewed, there may still be some phonetic and other typographical errors. These errors are purely grammatical due to imperfections in the software program and should not be construed in any way to compromise the substance of the patient's medical care during this visit.
--- NOTE | 2024-11-14 15:36 | PD.RESEVENT ---
Documentation for date of: 11/14/24 Event Note Event Note: Patient was evaluated and examined by hospital team this morning. She is medically cleared for Crisis evaluation. Korey Kennedy, PGY-2
--- NOTE | 2024-11-14 15:47 | PC.SS ---
ASWSandie made [id number] contact with patient for mental health evaluation. ASW introduced self, role, and reason for contact. ASW notified the patient of the limits of confidentiality. Patient appeared alert and oriented to self, location, and situation. Patient was able to engage in assessment. Patient appeared to be sad and spoke in a soft tone voice. Patient also presented as guarded in assessment. Patient reports she resides with her mother, Alka Giron and sister, Marleen Giron . Patient reports her emergency contact to be her son, Nikos Day . Patient reports she ambulates independently and completes her own ADLs. Patient does not require any DME while at home. Patient receives primary care at [facility] with provider Rakel and uses [facility] in [place] for medication purposes. Patient reports she has a mental health diagnosis of depression which she was diagnosed with 12 years ago. Patient reports she has one prior suicide attempt 12 years ago, where she attempted to jump out of a moving vehicle. Patient denies being on a 5150 hold in the past. At the time of encounter patient denies suicidal and homicidal ideation and visual and auditory hallucinations. Although the patient informs she experiences audio hallucinations at home, from what her family reports to her. Patient reports she is not connected to any mental health provider and receives her medication from her primary care provider, Dr. Ellington. Patient denies substance use. Patient informs she is not employed and is supported by her mother Alka, to whom she owes a lot of rent money to. ASW asked the patient what led her to the hospital. Patient reports she does not recall what occurred and states that she simply passed out . Per patient, she does not believe she attempted suicide during this event. Patient appears to be holding back in being truthful with what truly occurred. Patient is guarded and informs her mother and sister were both in the home when this occurred. Patient reports her family contacted EMS and she does not recall how she arrived to the hospital, that is just what she was told. Patient denies taking multiple pills and states she keeps her medications in a box. Patient provided consent for ASW to get collateral information from her sister, Marleen Giron. In speaking with Marleen, she reports the patient has been severely depressed for a few years now. Marleen reports the patient does not sleep and is up at night. Per Marleen, she believes the patient attempted suicide the day she was admitted to the hospital on intentional overdose, due to the multiple amount of pills that were located and the patient being untruthful with her intentions. Per Marleen, she and her mother Alka had tried on several occasions to connect the patient to outpatient mental health services, and the patient has not been complaint. Marleen believes the untreated mental health was the reason the patient and her ex- ended their marriage. For the past 20 years, Marleen reports the patient has been unemployed and does not do much in the home, but be in her room and sleep at random times of the day. Marleen reports on several occasions the patient has been found asleep on the toilet or standing in the kitchen area, not remembering what she was doing. Per Marleen, the patient has also been experiencing audio and visual hallucinations at home and has been found to be talking to herself, responding to stimuli. Per Marleen and her mother Alka, they are not willing to safety plan with the patient, they believe the patient requires more help than what they can provide at this time and do not feel safe with her returning home at this time. After clinical consultation with [facility], Jasmine Hernandez, the patient meets criteria for 5150 Hold for Danger to self. Patient was provided with advisement and attending provider Dr. Wood and bed side nurse, including family were updated on status. Patient is pending LPS placement.
--- NOTE | 2024-11-14 15:57 | PC.NURSE ---
Update given to Sandip from [facility] over the phone on current pt status and recent vs.
[2024-11-14] MEDS: LORazepam 2 MG/ML VIAL 1 MG IVP (16:45)
--- NOTE | 2024-11-14 17:34 | PC.NURSE ---
Spoke with Levi from Poison Control. Updated patient condition. Poison control recomended an ammonia level. Notified Dr. Richmond. --Ja
--- NOTE | 2024-11-14 18:33 | PC.CC ---
[facility] unable to accept patient at this time they report her liver enzymes are still high, kidney labs are elevated, would like to see a new set of labs, and patient continues to be a 10 with alcohol withdrawals.
--- NOTE | 2024-11-14 18:53 | PC.NURSE ---
Spoke to Christie from [facility] for update on pt.
[2024-11-14 19:11] LABS: Ammonia < 10 uMol/L (11-32)
[2024-11-14] MEDS: GABAPENTIN 100 MG CAPSULE PO (20:40)
[2024-11-15] VITALS (13 sets, daily range): BP systolic 125–159; BP diastolic 80–99; PULSE 118–147; RESP 13–99; TEMP 36.1–37.2; O2SAT 94–100; BMI 34.1; BMI 34.0
--- NOTE | 2024-11-15 01:02 | PC.NURSE ---
Dr lewis notified again about pt hr sustainting in the 130's while pt asleep. Dr states to continue to monitor and no new orders placed at this time.
--- NOTE | 2024-11-15 01:04 | EKG_ITS ---
[facility] Test Date: 2024-11-15 Pat Name: LISA STRINGER Department: Room: S356A Gender: Female Retort Firer: VALENTINE : 1975 Requested By: Anne-Marie Aragon Order Number: [id number] Reading MD: Anne-Marie Aragon Measurements Intervals [place] Rate: 121 P: [place]: QRS: -18 QRSD: 97 T: 23 QT: 322 QTc: 459 Interpretive Statements ATRIAL FLUTTER/TACHYCARDIA WITH RAPID VENTRICULAR RESPONSE LOW QRS VOLTAGE IN PRECORDIAL LEADS INCOMPLETE RIGHT BUNDLE BRANCH BLOCK POSSIBLE ANTERIOR MYOCARDIAL INFARCTION , OF INDETERMINATE AGE Compared to ECG 11/14/2024 04:46:00 Incomplete right bundle-branch block now present Myocardial infarct finding now present Sinus rhythm no longer present /store/S0/[id number].pdf
--- NOTE | 2024-11-15 01:14 | PC.NURSE ---
Addendum entered by Anh Marie RN 11/15/24 03:33: Dr lewis, not chalino. Original Note: received a call from dr allred, she states she placed an order for routine EKG, but to only call RT to do the EKG if the HR rises to 140 or above. PT current HR 120.
--- NOTE | 2024-11-15 02:09 | PC.NURSE ---
Pts HR increased to 147, dr lewis notified. No patient complaints, RT called to do EKG.
[2024-11-15] MEDS: METOPROLOL TARTRATE INJ 1 MG/ML AMP 5 ML 5 MG IVP (02:40)
--- NOTE | 2024-11-15 03:30 | PC.NURSE ---
Ekg done, provider at bedside to read ekg, states it is a flutter with RVR at 121. Still no complaints from patient, provider ordered metoprolol IV. ICU charge came to floor to administer the medication. HR eventually increased again to 130, Providers notified and stated they will order an AM EKG and medication to help the patient sleep.
[2024-11-15] MEDS: MELATONIN 3 MG TABLET 6 MG PO (03:48)
[2024-11-15] MEDS: HEPARIN SOD INJ 5000 UNIT/ML VIAL SC ×2 (05:17→20:34)
--- NOTE | 2024-11-15 06:00 | EKG_ITS ---
[facility] Test Date: 2024-11-15 Pat Name: LISA STRINGER [facility] Gender[facility] Female Statistical Reporting Analyst: RYAN : 1975 Requested By: Anne-Marie Aragon Order Number: [id number] Reading MD: Anne-Marie Aragon Measurements Intervals [place] Rate: 117 P: 37 VT: 140 QRS: -10 QRSD: 87 T: 20 QT: 319 QTc: 447 Interpretive Statements SINUS TACHYCARDIA LOW QRS VOLTAGE IN PRECORDIAL LEADS POSSIBLE RIGHT VENTRICULAR CONDUCTION DELAY ABNORMAL RHYTHM ECG Compared to ECG 11/15/2024 02:21:27 Atrial flutter no longer present Incomplete right bundle-branch block no longer present Myocardial infarct finding no longer present /store/S0/[id number]/[id number].pdf
[2024-11-15 06:25] LABS: Basophils % (Auto) 0 % (0-2.5); Eosinophils % (Auto) 0 % (0-10); Hemoglobin 10.9 g/dL (12.0-16.0); Immature Granulocytes % (Auto) 0 % (0-0); Immature Granulocytes Auto 0.02 Thou/mm3 (0.00-0.00); Lymphocytes # (Auto) 1.6 Thou/mm3 (1.0-4.8); Lymphocytes % (Auto) 17 % (10-50); Mean Corpuscular HGB Conc 34.1 g/dl (31.0-37.0); Mean Corpuscular Hemoglobin 32.4 pg (25.0-35.0); Mean Corpuscular Volume 95 fL (80-100); Monocytes # (Auto) 0.7 Thou/mm3 (0.0-0.8); Monocytes % (Auto) 7 % (0-12); Neutrophils # (Auto) 7.3 Thou/mm3 (1.8-7.7); Neutrophils % (Auto) 76 % (37-80); Nucleated Red Blood Cell % 0 /100 WBC (0); Platelet Count 303 Thou/mm3 (140-440); RDW Standard Deviation 41.6 fL (36.4-46.3); Red Blood Count 3.36 Miln/mm3 (4.00-5.20); White Blood Count 9.6 Thou/mm3 (3.6-11.0)
[2024-11-15 06:47] LABS: Alanine Aminotransferase 335 U/L (10-49); Albumin/Globulin Ratio 1.5 (1.2-2.2); Alkaline Phosphatase 141 U/L (46-116); Anion Gap 11 (7-16); Aspartate Amino Transferase 147 U/L (0-34); BUN/Creatinine Ratio 11 Ratio (12-20); Bilirubin,Total 0.7 mg/dL (0.3-1.2); Blood Urea Nitrogen 8 mg/dL (9-23); Calcium 9.1 mg/dL (8.3-10.6); Calcium (Corrected) 9.1 mg/dL (8.5-10.1); Carbon Dioxide 22.8 mMol/L (20.0-31.0); Chloride 106 mMol/L (98-107); Creatinine (Component) 0.7 mg/dL (0.6-1.3); Estimated Creatinine Clearance 89.7 mL/min (>60); Globulin 2.7 gm/dL (2.3-3.5); Glucose 134 mg/dL (74-106); Magnesium 1.9 mg/dL (1.6-2.6); Osmolality,Calculated 279 (275-295); Potassium 3.6 mMol/L (3.4-5.1); Sodium 140 mMol/L (136-145); Total Protein 6.7 gm/dL (5.7-8.2); eGFR > 60 See Note
[2024-11-15] MEDS: THIAMINE 100 MG TABLET PO ×2 (08:16→20:25)
[2024-11-15] MEDS: PANTOPRAZOLE INJ 40 MG VIAL IVP (08:17)
[2024-11-15] MEDS: GABAPENTIN 100 MG CAPSULE PO ×2 (08:17→20:25)
[2024-11-15] MEDS: FOLIC ACID 1 MG TABLET PO ×2 (08:17→20:25)
--- NOTE | 2024-11-15 09:13 | XR_ITS ---
Examination: Abdomen sonogram, Limited Date and time of exam: November 15, 2024 9:53 AM Indications: Hepatic encephalopathy, elevated liver function tests (examination today Technique: Real-time braga scale transabdominal sonographic images of the upper abdomen obtained. Findings: Multiple gallstones with gallbladder sludge Gallbladder wall 0.3 cm Enlarged common bile duct 0.8 cm no definite stones Pancreatic head 2.3 cm Liver 12.9 cm fatty infiltration Normal hepatopedal portal venous flow Patent IVC Impression: Cholelithiasis Abnormally enlarged common bile duct 0.8 cm, consider MRCP follow-up to exclude common bile duct stones or stricture
[2024-11-15 09:52] LABS: HIV (1&2) Antibody Rapid Non-Reactive
[2024-11-15 10:59] LABS: HCG,Qualitative Serum Negative
--- NOTE | 2024-11-15 11:53 | PC.SS ---
SS contacted Dr. Wood and GME Resident Dr. Will to confirm if patient is medically clear. Dr. Wood informed SS additional tests were being ordered and patient's tachycardia was to be addressed, poison control was to be contacted again for guidance. SS to follow up during rounding meeting at 1400.
--- NOTE | 2024-11-15 12:25 | PC.NURSE ---
Spoke with Shay from Poison Control, he stated that at this point Poison Control will close the case and defer to medical management, if Hepatitis panels are positive, recommend following up with hepatology specialist.
--- NOTE | 2024-11-15 13:41 | PD.RESPRO ---
Documentation for date of: 11/15/24 Subjective Subjective Interval history: Overnight patient was found to be tachycardic in the 140s, EKG was ordered which indicated sinus tachycardia. Labs significant for negative ammonia levels, LFTs stable/same as yesterday. Hep serology ordered, HIV antibody nonreactive. Abdominal ultrasound showed: abnormally enlarged common bile duct 0.8 cm. MRCP ordered. This morning patient was telling her nurse that she might be , no hCG on admission, serum hCG ordered which was negative. Pending these results, patient not yet cleared for crisis. Patient will remain in 5150. Exam Vital Signs Temp Pulse Resp BP Pulse Ox O2 Del Method 97.4 F 121 H 14 159/99 H 98 Room Air 11/15/24 12:00 11/15/24 12:00 11/15/24 12:00 11/15/24 12:00 11/15/24 12:00 11/15/24 12:00 Narrative Exam General: Awake and in no acute distress. Conversational and non-toxic appearing. HEENT: Normocephalic, atraumatic, mucous membranes moist. Pupils normally reactive Heart: Tachycardic and regular rhythm, no murmurs. Lungs: Clear to auscultation with no wheezing or crackles. Abdomen: Soft, nondistended, nontender, positive bowel sounds. ?No guarding or rebound tenderness. Neurologic: Alert and oriented x3, no gross neurological deficit, and patient able to move all 4 extremities. Extremities: No edema. Objective Labs 11/15/24 05:00 11/15/24 05:00 Labs: Laboratory Results - last 24 hr 11/14/24 11/15/24 18:42 05:00 WBC 9.6 RBC 3.36 L Hgb 10.9 L Hct 32.0 L MCV 95 MCH 32.4 MCHC 34.1 RDW Std Deviation 41.6 Plt Count 303 Neut % (Auto) 76 Lymph % (Auto) 17 [place] % (Auto) 7 Eos % (Auto) 0 Baso % (Auto) 0 Neut # (Auto) 7.3 Lymph # (Auto) 1.6 [place] # (Auto) 0.7 Eos # (Auto) 0.0 Baso # (Auto) 0.0 Immature Gran # (Auto) 0.02 H Absolute Nucleated RBC 0.00 Immature Gran % 0 Nucleated RBC % 0 Sodium 140 Potassium 3.6 Chloride 106 Carbon Dioxide 22.8 Anion Gap 11 BUN 8 L Creatinine 0.7 Estim Creat Clear Calc 89.7 eGFR > 60 BUN/Creatinine Ratio 11 L Glucose 134 H Calculated Osmolality 279 Calcium 9.1 Corrected Calcium 9.1 Magnesium 1.9 Total Bilirubin 0.7 AST 147 H ALT 335 H Alkaline Phosphatase 141 H Ammonia < 10 L Total Protein 6.7 Albumin 4.0 Globulin 2.7 Albumin/Globulin Ratio 1.5 HCG, Qual Negative HIV 1&2 Antibody Rapid Non-Reactive Quality Measures Quality Measures none Assessment & Plan Assessment Current Active Medications: Generic Name Dose Route Start Last Admin Trade Name Freq PRN Reason Stop Dose Admin Acetaminophen 650 mg 11/13/24 17:28 11/14/24 06:23 Acetaminophen 325 Mg Tablet PO 12/13/24 17:27 650 mg Q6H PRN Administration Pain (1-3) & Fever >100.4 Folic Acid 1 mg 11/13/24 21:00 11/15/24 08:17 Folic Acid 1 Mg Tablet PO 11/18/24 20:59 1 mg BID URSULA Administration Gabapentin 100 mg 11/14/24 21:00 11/15/24 08:17 Gabapentin 100 Mg Capsule PO 12/14/24 20:59 100 mg BID URSULA Administration Heparin Sodium (Porcine) 5,000 unit 11/13/24 17:30 11/15/24 05:17 Heparin Sod Inj 5000 Unit/Ml Vial SC 11/27/24 17:29 5,000 unit Q12H URSULA Administration Pantoprazole Sodium 40 mg 11/14/24 09:00 11/15/24 08:17 Pantoprazole Inj 40 Mg Vial IVP 12/14/24 08:59 40 mg QDAY URSULA Administration Sennosides 2 tab 11/13/24 17:28 Senna Tablet PO 12/13/24 17:27 BID PRN CONSTIPATION Protocol Thiamine HCl 100 mg 11/13/24 21:00 11/15/24 08:16 Thiamine 100 Mg Tablet PO 11/18/24 20:59 100 mg BID URSULA Administration Plan Ms. Day is a 48-year-old female with past medical history of fibromyalgia, anxiety, depression, insomnia and hypertension who presented to [facility] emergency department on 11/13/2024 with a chief complaint of syncopal episode. #Medication overdose #?Suicidal ideation #Dizziness #Recurrent falls #?Syncope Patient reported that she was in her room when she passed out, reports that she was dehydrated. Patient also reports history of multiple falls, reports that she has been falling multiple times in the last couple of days. Patient complains of throbbing headache, otherwise denies any pain. 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 Patient's son informed that patient was found last night on the ground having a breakdown with empty bottles of medications surrounding her. Most of the pills were on the ground and unaccounted for versus possible overdose. States there were three bottles that were broken and/or do not have lids. Medications unaccounted for and filled on 11/03/2024 include: 100mg Gabapentin 90 tablets, 10mg Propanolol 120 tablets, 20mg Furosemide 30 tablets, Tizanidine (filled 11/11/2024), 20mg Baclofen 120 tablets (bottle empty and covered), Venlafaxine (30 tablets left and 4-5 tablets are unaccounted for). EKG in ED shows sinus rhythm, QTc 450, CT scan of the head negative for any acute hemorrhage, mass effect or midline shift. Serial EKG negative, no acute evaluation noted Patient was given 1 L LR bolus in ED, placed on 179 psychiatric hold Urine tox screen negative, CT negative, magnesium within normal limits, moderate, lactate normal Fingerstick every 6 hours within normal limits Plan: - Needs medical clear for evaluation by social services specialist - Seizure precaution - Referral to social services specialist for further evaluation - Continue gabapentin low-dose #Transaminitis likely secondary to overdose AST 130, ALT 312 on presentation, possible in setting of medication overdose US indicated dilated CBD Patient asymptomatic with normal T bili - Ordered MRCP - Hep panel pending - follow CMP in a.m. #Alcohol use Per patient's history, patient takes alcohol, drinks medications with alcohol at times. Plan: - Discontinued CIWA protocol, patient CIWA was significantly low throughout hospitalization, no signs of withdrawal noted - Folate p.o. - Thiamine p.o. #Acute kidney injury, resolved On presentation BUN 26, creatinine 1.6, GFR 40, baseline within normal limits Patient received 1 L LR bolus in ED plan Responded well to IV fluids, RAMON is resolved. Plan: - Avoid nephrotoxic agents - Renally dose medication - Follow CMP in a.m. #Severe anxiety #Major depressive disorder DVT prophylaxis: Heparin every 12 hours GI prophylaxis: Protonix IV daily Diet: Regular diet Lines: Peripheral IV Code status: Full code This patient care was discussed with my attending Dr. Nina Kennedy MD PGY-2 Disclaimer: Minor errors in table lever operator may be present since this note was dictated by speech recognition software. Attending Provider Attestation/Addendum I have discussed and was present for the essential components of the history, physical examination, diagnosis, and treatment plan with the resident. I agree with the patient's care as documented by the resident and amended herein by me. Indio Wood DO. Patient seen and evaluated this AM. In Short, patient is a 48-year-old female with significant past medical history of anxiety, depression, fibromyalgia, hypertension and insomnia who presented to [facility] for an apparent syncopal episode. Patient does not recall many of the events that transpired before, during or after reported loss of consciousness. Patient was apparently found per son, on the ground with empty bottles of medications surrounding her. Patient has a history of overdose in the past per family and episodes of manic like episodes with hypersexuality, pressured speech, increased energy levels, etc. patient was subsequently admitted for possible suicide attempt via overdose, apparent medications the patient was prescribed was gabapentin, propranolol, Lasix, tizanidine, baclofen and venlafaxine, see resident note above and ED note for specific doses and amount that was found. Patient was initially placed on a 1799 hold by the ED physician Today, blood pressure 159/99, patient has been tachycardic overnight, she states she feels very anxious, per nursing staff, she thought she may be however an hCG was done and was negative. Fluid bolus was given however I think this may be due to either medication withdrawal or anxiety. Other labs today include hemoglobin 10.9 which has been stable, glucose within normal range, elevated liver enzymes to include an AST 147, ALT 335, relatively unchanged since admission. Alk phos 141, T. bili 0.7. Likely hepatocellular injury, R factor 5.6, I do not have records for this patient however no history of any hepatic issues reported by patient, may be secondary to medication overdose, viral, autoimmune etc. The patient is completely asymptomatic, no right upper quadrant pain, no abdominal pain whatsoever. hepatitis panel, HIV was drawn, HIV negative, hepatitis panel pending. We also ordered a right upper quadrant ultrasound which demonstrated a slightly enlarged CBD at 0.8 cm, we did order an MRCP however low concern for choledocholithiasis, the patient does have gallstones however T. bili is normal and the patient has no right upper quadrant tenderness, Johnson sign negative. Per poison control recs yesterday, we did get an ammonia level which was negative, patient also has no asterixis on physical exam since admission. Will continue to monitor closely, the patient is doing well just very anxious.
[2024-11-15] MEDS: SODIUM CHLORIDE 0.9% 1000 ML 1,000 ML 999 ML IV (16:02)
[2024-11-16] VITALS (12 sets, daily range): BP systolic 106–155; BP diastolic 74–113; PULSE 103–131; RESP 14–98; TEMP -12.7–37.4; O2SAT 93–99; BMI 33.5
[2024-11-16] MEDS: MELATONIN 3 MG TABLET 6 MG PO (01:23)
[2024-11-16] MEDS: LORazepam 2 MG/ML VIAL 0.5 MG IVP (01:23)
[2024-11-16 05:46] LABS: Basophils % (Auto) 0 % (0-2.5); Eosinophils % (Auto) 0 % (0-10); Hematocrit 32.4 % (36.0-46.0); Immature Granulocytes % (Auto) 1 % (0-0); Immature Granulocytes Auto 0.06 Thou/mm3 (0.00-0.00); Lymphocytes # (Auto) 2.8 Thou/mm3 (1.0-4.8); Lymphocytes % (Auto) 25 % (10-50); Mean Corpuscular Hemoglobin 32.7 pg (25.0-35.0); Mean Corpuscular Volume 96 fL (80-100); Monocytes # (Auto) 1.1 Thou/mm3 (0.0-0.8); Monocytes % (Auto) 10 % (0-12); Neutrophils # (Auto) 7.4 Thou/mm3 (1.8-7.7); Neutrophils % (Auto) 64 % (37-80); Nucleated Red Blood Cell % 0 /100 WBC (0); Platelet Count 338 Thou/mm3 (140-440); RDW Standard Deviation 42.5 fL (36.4-46.3); Red Blood Count 3.36 Miln/mm3 (4.00-5.20); White Blood Count 11.4 Thou/mm3 (3.6-11.0)
[2024-11-16 06:40] LABS: Alanine Aminotransferase 342 U/L (10-49); Albumin, Serum 4.3 gm/dL (3.5-5.0); Albumin/Globulin Ratio 1.5 (1.2-2.2); Alkaline Phosphatase 137 U/L (46-116); Anion Gap 13 (7-16); Aspartate Amino Transferase 136 U/L (0-34); BUN/Creatinine Ratio 7 Ratio (12-20); Bilirubin,Total 0.6 mg/dL (0.3-1.2); Blood Urea Nitrogen < 5 mg/dL (9-23); Calcium 9.4 mg/dL (8.3-10.6); Calcium (Corrected) 9.4 mg/dL (8.5-10.1); Carbon Dioxide 22.5 mMol/L (20.0-31.0); Chloride 107 mMol/L (98-107); Creatinine (Component) 0.7 mg/dL (0.6-1.3); Estimated Creatinine Clearance 88.9 mL/min (>60); Globulin 2.8 gm/dL (2.3-3.5); Glucose 124 mg/dL (74-106); Magnesium 1.8 mg/dL (1.6-2.6); Osmolality,Calculated 281 (275-295); Potassium 3.2 mMol/L (3.4-5.1); Sodium 142 mMol/L (136-145); Total Protein 7.1 gm/dL (5.7-8.2); eGFR > 60 See Note
[2024-11-16] MEDS: SODIUM CHLORIDE 0.9% 1000 ML 1,000 ML 999 ML IV (08:28)
[2024-11-16] MEDS: POTASSIUM CHLORIDE 20 mEq TABCR 40 MEQ PO ×2 (08:28→11:18)
[2024-11-16] MEDS: Magnesium Sulfate 2 GM Ivpb 2 GM/50 ML BAG IV (08:28)
[2024-11-16] MEDS: THIAMINE 100 MG TABLET PO ×2 (08:29→21:40)
[2024-11-16] MEDS: Lisinopril 20 MG TABLET PO (08:29)
[2024-11-16] MEDS: GABAPENTIN 100 MG CAPSULE PO ×2 (08:29→21:40)
[2024-11-16] MEDS: PANTOPRAZOLE INJ 40 MG VIAL IVP (08:29)
[2024-11-16] MEDS: FOLIC ACID 1 MG TABLET PO ×2 (08:29→21:40)
[2024-11-16] MEDS: HEPARIN SOD INJ 5000 UNIT/ML VIAL SC ×2 (08:30→21:43)
--- NOTE | 2024-11-16 08:58 | PC.SS ---
SS follow up note; MRCP pending. Once medically cleared patient will need crisis evaluation.
[2024-11-16 09:03] LABS: Creatine Kinase 247 U/L (34-171)
[2024-11-16] MEDS: PROPRANOLOL 10 MG TABLET PO (11:17)
--- NOTE | 2024-11-16 14:17 | PD.RESPRO ---
Documentation for date of: 11/16/24 Subjective Subjective Interval history: Per nurse, patient continues to be hallucinating intermittently and having insomnia with average sleep of 20 to 25 minutes. We are still pending medical clearance as patient is to undergo MRCP. Morning lab indicated downtrending of liver enzymes.Patient continues to be tachycardic in the 120s. Despite propranolol patient continued to be tachycardic, started on metoprolol tartrate 25 mg twice daily scheduled. Patient still pending hep panel. Exam Vital Signs Temp Pulse Resp BP Pulse Ox O2 Del Method 97.6 F 120 H 18 153/102 H 98 Room Air 11/16/24 12:00 11/16/24 12:00 11/16/24 12:00 11/16/24 12:00 11/16/24 12:00 11/16/24 04:00 Narrative Exam General: Awake and in no acute distress. Conversational and non-toxic appearing. HEENT: Normocephalic, atraumatic, mucous membranes moist. Pupils normally reactive Heart: Tachycardic and regular rhythm, no murmurs. Lungs: Clear to auscultation with no wheezing or crackles. Abdomen: Soft, nondistended, nontender, positive bowel sounds. ?No guarding or rebound tenderness. Neurologic: Alert and oriented x3, no gross neurological deficit, and patient able to move all 4 extremities. Extremities: No edema. Objective Labs 11/17/24 04:27 11/17/24 04:27 Labs: Laboratory Results - last 24 hr 11/16/24 11/16/24 04:15 08:15 WBC 11.4 H RBC 3.36 L Hgb 11.0 L Hct 32.4 L MCV 96 MCH 32.7 MCHC 34.0 RDW Std Deviation 42.5 Plt Count 338 D Neut % (Auto) 64 Lymph % (Auto) 25 [place] % (Auto) 10 Eos % (Auto) 0 Baso % (Auto) 0 Neut # (Auto) 7.4 Lymph # (Auto) 2.8 [place] # (Auto) 1.1 H Eos # (Auto) 0.0 Baso # (Auto) 0.0 Immature Gran # (Auto) 0.06 H Absolute Nucleated RBC 0.00 Immature Gran % 1 H Nucleated RBC % 0 Sodium 142 Potassium 3.2 L Chloride 107 Carbon Dioxide 22.5 Anion Gap 13 BUN < 5 L Creatinine 0.7 Estim Creat Clear Calc 88.9 eGFR > 60 BUN/Creatinine Ratio 7 L Glucose 124 H Calculated Osmolality 281 Calcium 9.4 Corrected Calcium 9.4 Magnesium 1.8 Total Bilirubin 0.6 AST 136 H ALT 342 H Alkaline Phosphatase 137 H Total Creatine Kinase 247 H D Total Protein 7.1 Albumin 4.3 Globulin 2.8 Albumin/Globulin Ratio 1.5 Quality Measures Quality Measures none Assessment & Plan Assessment Current Active Medications: Generic Name Dose Route Start Last Admin Trade Name Freq PRN Reason Stop Dose Admin Acetaminophen 650 mg 11/13/24 17:28 11/14/24 06:23 Acetaminophen 325 Mg Tablet PO 12/13/24 17:27 650 mg Q6H PRN Administration Pain (1-3) & Fever >100.4 Folic Acid 1 mg 11/13/24 21:00 11/16/24 08:29 Folic Acid 1 Mg Tablet PO 11/18/24 20:59 1 mg BID URSULA Administration Gabapentin 100 mg 11/14/24 21:00 11/16/24 08:29 Gabapentin 100 Mg Capsule PO 12/14/24 20:59 100 mg BID URSULA Administration Heparin Sodium (Porcine) 5,000 unit 11/15/24 21:00 11/16/24 08:30 Heparin Sod Inj 5000 Unit/Ml Vial SC 11/29/24 20:59 5,000 unit Q12HR URSULA Administration Lisinopril 20 mg 11/16/24 09:00 11/16/24 08:29 Lisinopril 20 Mg Tablet PO 12/16/24 08:59 20 mg QDAY URSULA Administration Melatonin 6 mg 11/16/24 01:15 11/16/24 01:23 Melatonin 3 Mg Tablet PO 12/16/24 01:14 6 mg HS URSULA Administration Pantoprazole Sodium 40 mg 11/14/24 09:00 11/16/24 08:29 Pantoprazole Inj 40 Mg Vial IVP 12/14/24 08:59 40 mg QDAY URSULA Administration Propranolol HCl 10 mg 11/16/24 10:32 Propranolol 10 Mg Tablet PO 12/16/24 20:59 BID PRN anxiety Quetiapine Fumarate 12.5 mg 11/16/24 21:00 Quetiapine Fumarate 25 Mg Tablet PO 12/16/24 20:59 HS URSULA Sennosides 2 tab 11/13/24 17:28 Senna Tablet PO 12/13/24 17:27 BID PRN CONSTIPATION Protocol Thiamine HCl 100 mg 11/13/24 21:00 11/16/24 08:29 Thiamine 100 Mg Tablet PO 11/18/24 20:59 100 mg BID URSULA Administration Plan Ms. Day is a 48-year-old female with past medical history of fibromyalgia, anxiety, depression, insomnia and hypertension who presented to [facility] emergency department on 11/13/2024 with a chief complaint of syncopal episode. #Medication overdose #?Suicidal ideation #Dizziness #Recurrent falls #?Syncope Patient reported that she was in her room when she passed out, reports that she was dehydrated. Patient also reports history of multiple falls, reports that she has been falling multiple times in the last couple of days. Patient complains of throbbing headache, otherwise denies any pain. 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 Patient's son informed that patient was found last night on the ground having a breakdown with empty bottles of medications surrounding her. Most of the pills were on the ground and unaccounted for versus possible overdose. States there were three bottles that were broken and/or do not have lids. Medications unaccounted for and filled on 11/03/2024 include: 100mg Gabapentin 90 tablets, 10mg Propanolol 120 tablets, 20mg Furosemide 30 tablets, Tizanidine (filled 11/11/2024), 20mg Baclofen 120 tablets (bottle empty and covered), Venlafaxine (30 tablets left and 4-5 tablets are unaccounted for). EKG in ED shows sinus rhythm, QTc 450, CT scan of the head negative for any acute hemorrhage, mass effect or midline shift. Serial EKG negative, no acute evaluation noted Patient was given 1 L LR bolus in ED, placed on 179 psychiatric hold Urine tox screen negative, CT negative, magnesium within normal limits, moderate, lactate normal Fingerstick every 6 hours within normal limits Plan: - Needs medical clear for evaluation by high school social science teacher - Seizure precaution - Referral to high school social science teacher for further evaluation - Continue gabapentin low-dose #Transaminitis likely secondary to overdose AST 130, ALT 312 on presentation, possible in setting of medication overdose US indicated dilated CBD Patient asymptomatic with normal T bili - Ordered MRCP - Hep panel pending - follow CMP in a.m. #Alcohol use Per patient's history, patient takes alcohol, drinks medications with alcohol at times. Plan: - Discontinued CIWA protocol, patient CIWA was significantly low throughout hospitalization, no signs of withdrawal noted - Folate p.o. - Thiamine p.o. #Acute kidney injury, resolved On presentation BUN 26, creatinine 1.6, GFR 40, baseline within normal limits Patient received 1 L LR bolus in ED plan Responded well to IV fluids, RAMON is resolved. Plan: - Avoid nephrotoxic agents - Renally dose medication - Follow CMP in a.m. #Severe anxiety #Major depressive disorder DVT prophylaxis: Heparin every 12 hours GI prophylaxis: Protonix IV daily Diet: Regular diet Lines: Peripheral IV Code status: Full code This patient care was discussed with my attending Dr. Nina Kennedy MD PGY-2 Disclaimer: Minor errors in line worker may be present since this note was dictated by speech recognition software. Attending Provider Attestation/Addendum I have discussed and was present for the essential components of the history, physical examination, diagnosis, and treatment plan with the resident. I agree with the patient's care as documented by the resident and amended herein by me. Indio Wood, . Patient seen and evaluated this AM. No acute events overnight, vital signs stable, patient afebrile, significant labs include a stable hemoglobin of 11, WBC 11, patient still demonstrating transaminitis which may possibly due to medication adjustment, T. bili completely normal, patient not demonstrating any abdominal pain whatsoever. As such, MRCP pending considering slight dilation of the patient's CBD per abdominal ultrasound, hepatitis panel pending, HIV negative. Considering the patient's lack of sleep, will attempt a dose of Seroquel 12.5 mg tonight and see how she does. Will continue to monitor closely while she is here. Although this document has been carefully reviewed, there may still be some phonetic and other typographical errors. These errors are purely grammatical due to imperfections in the software program and should not be construed in any way to compromise the substance of the patient's medical care during this visit.
[2024-11-16] MEDS: QUEtiapine FUMARATE 25 MG TABLET PO (17:09)
[2024-11-16 17:54] LABS: Lactate (Lactic Acid) 1.4 mMol/L (0.4-2.0)
[2024-11-16 17:55] LABS: Basophils % (Auto) 0 % (0-2.5); Eosinophils % (Auto) 0 % (0-10); Hematocrit 32.9 % (36.0-46.0); Hemoglobin 11.2 g/dL (12.0-16.0); Immature Granulocytes % (Auto) 1 % (0-0); Immature Granulocytes Auto 0.05 Thou/mm3 (0.00-0.00); Lymphocytes # (Auto) 1.9 Thou/mm3 (1.0-4.8); Lymphocytes % (Auto) 18 % (10-50); Mean Corpuscular Hemoglobin 32.9 pg (25.0-35.0); Mean Corpuscular Volume 97 fL (80-100); Monocytes # (Auto) 1.1 Thou/mm3 (0.0-0.8); Monocytes % (Auto) 10 % (0-12); Neutrophils # (Auto) 7.5 Thou/mm3 (1.8-7.7); Neutrophils % (Auto) 71 % (37-80); Nucleated Red Blood Cell % 0 /100 WBC (0); Platelet Count 375 Thou/mm3 (140-440); RDW Standard Deviation 43.7 fL (36.4-46.3); White Blood Count 10.6 Thou/mm3 (3.6-11.0)
[2024-11-16 18:29] LABS: Alanine Aminotransferase 301 U/L (10-49); Albumin, Serum 3.9 gm/dL (3.5-5.0); Albumin/Globulin Ratio 1.5 (1.2-2.2); Alkaline Phosphatase 132 U/L (46-116); Anion Gap 7 (7-16); Aspartate Amino Transferase 113 U/L (0-34); BUN/Creatinine Ratio 6 Ratio (12-20); Bilirubin,Total 0.5 mg/dL (0.3-1.2); Blood Urea Nitrogen < 5 mg/dL (9-23); Calcium 9.1 mg/dL (8.3-10.6); Calcium (Corrected) 9.2 mg/dL (8.5-10.1); Carbon Dioxide 21.7 mMol/L (20.0-31.0); Chloride 112 mMol/L (98-107); Creatine Kinase 220 U/L (34-171); Creatinine (Component) 0.8 mg/dL (0.6-1.3); Estimated Creatinine Clearance 77.8 mL/min (>60); Globulin 2.6 gm/dL (2.3-3.5); Glucose 131 mg/dL (74-106); Osmolality,Calculated 280 (275-295); Phosphorous 2.1 mg/dL (2.4-5.1); Potassium 4.6 mMol/L (3.4-5.1); Sodium 141 mMol/L (136-145); Total Protein 6.5 gm/dL (5.7-8.2); eGFR > 60 See Note
[2024-11-16] MEDS: HALOPERIDOL LACT INJ 5 MG/ML VIAL IM (19:28)
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
[2024-11-16] MEDS: METOPROLOL TARTRATE 25 MG TABLET PO (21:41)
[2024-11-17] VITALS (10 sets, daily range): BP systolic 128–155; BP diastolic 78–104; PULSE 96–125; RESP 14–28; TEMP 36.1–37.1; O2SAT 95–98; BMI 34.0
--- NOTE | 2024-11-17 | XR_ITS ---
MRI abdomen, without contrast. MRCP Date and time of exam: November 17, 2024 1143 hours INDICATIONS: Elevated transaminase on liver function tests this week, history hepatic encephalopathy, abdomen sonogram November 15, 2024 enlarged common bile duct 0.8 cm Technique: Multiple axial and coronal images of the abdomen have been obtained with the Siemens 1.5T MRI scanner. Images obtained included T1 weighted transverse images, T2-weighted transverse images, T2-weighted transverse images fat-suppressed, T2 weighted haste fat suppressed transverse images, T1 weighted images, in and out of phase images, T2-weighted coronal images, breath hold, T2 weighted haze coronal images as well as T2 weighted coronal thick slab images, MRCP. Findings: No focal liver lesions Cholelithiasis Gallbladder wall is not enlarged Abnormal enlargement common hepatic duct 10 mm Abrupt termination of the distal common bile duct No common hepatic or common bile Bones Negative for pancreatitis Spleen not enlarged No hydronephrosis No ascites IMPRESSION: Cholelithiasis Abnormal enlargement common hepatic common bile duct with abrupt termination of the distal common bile duct Recommend ERCP follow-up to exclude stricture at the ampulla
[2024-11-17 02:23] LABS: Hepatitis A Antibody IgM Non Reactive (Non React); Hepatitis B Core Antibody IgM Non Reactive (Non React); Hepatitis B Surface Antigen Non Reactive (Non React); Hepatitis C Antibody Non Reactive (Non React)
[2024-11-17 06:07] LABS: Basophils # (Auto) 0.1 Thou/mm3 (0.0-0.2); Basophils % (Auto) 1 % (0-2.5); Eosinophils # (Auto) 0.2 Thou/mm3 (0.0-0.5); Eosinophils % (Auto) 2 % (0-10); Immature Granulocytes % (Auto) 0 % (0-0); Immature Granulocytes Auto 0.03 Thou/mm3 (0.00-0.00); Lymphocytes # (Auto) 2.4 Thou/mm3 (1.0-4.8); Lymphocytes % (Auto) 30 % (10-50); Mean Corpuscular HGB Conc 33.3 g/dl (31.0-37.0); Mean Corpuscular Hemoglobin 32.4 pg (25.0-35.0); Mean Corpuscular Volume 97 fL (80-100); Monocytes # (Auto) 0.7 Thou/mm3 (0.0-0.8); Monocytes % (Auto) 9 % (0-12); Neutrophils # (Auto) 4.7 Thou/mm3 (1.8-7.7); Neutrophils % (Auto) 58 % (37-80); Nucleated Red Blood Cell % 0 /100 WBC (0); Platelet Count 344 Thou/mm3 (140-440); RDW Standard Deviation 43.4 fL (36.4-46.3); Red Blood Count 3.39 Miln/mm3 (4.00-5.20); White Blood Count 8.1 Thou/mm3 (3.6-11.0)
[2024-11-17 06:36] LABS: Alanine Aminotransferase 279 U/L (10-49); Albumin, Serum 3.7 gm/dL (3.5-5.0); Albumin/Globulin Ratio 1.4 (1.2-2.2); Alkaline Phosphatase 128 U/L (46-116); Anion Gap 9 (7-16); Aspartate Amino Transferase 113 U/L (0-34); BUN/Creatinine Ratio 7 Ratio (12-20); Bilirubin,Total 0.5 mg/dL (0.3-1.2); Blood Urea Nitrogen < 5 mg/dL (9-23); Calcium (Corrected) 9.2 mg/dL (8.5-10.1); Carbon Dioxide 23.1 mMol/L (20.0-31.0); Chloride 111 mMol/L (98-107); Creatinine (Component) 0.7 mg/dL (0.6-1.3); Estimated Creatinine Clearance 89.7 mL/min (>60); Globulin 2.7 gm/dL (2.3-3.5); Glucose 110 mg/dL (74-106); Magnesium 2.1 mg/dL (1.6-2.6); Osmolality,Calculated 283 (275-295); Potassium 4.1 mMol/L (3.4-5.1); Sodium 143 mMol/L (136-145); Total Protein 6.4 gm/dL (5.7-8.2); eGFR > 60 See Note
[2024-11-17] MEDS: METOPROLOL TARTRATE 25 MG TABLET PO ×2 (08:57→20:13)
[2024-11-17] MEDS: FOLIC ACID 1 MG TABLET PO ×2 (08:57→20:12)
[2024-11-17] MEDS: THIAMINE 100 MG TABLET PO ×2 (08:57→20:12)
[2024-11-17] MEDS: HEPARIN SOD INJ 5000 UNIT/ML VIAL SC ×2 (08:58→20:12)
[2024-11-17] MEDS: Lisinopril 20 MG TABLET PO (08:58)
[2024-11-17] MEDS: PANTOPRAZOLE INJ 40 MG VIAL IVP (08:58)
[2024-11-17] MEDS: GABAPENTIN 100 MG CAPSULE PO ×2 (09:00→20:12)
--- NOTE | 2024-11-17 11:06 | PC.SS ---
Follow up note: MRCP is pending. Pt will require crises evaluation once she is medically cleared.
[2024-11-17] MEDS: LORazepam 2 MG/ML VIAL IVP (11:25)
--- NOTE | 2024-11-17 13:04 | ESPR_ITS ---
<Statement entered by Korey Kennedy MD - 11/18/24 08:05> I discussed with and supervised the recording studio intern physician involved in the care of this patient. Patient assessment and plan was discussed with entire medicine team, including my attending. I agree with the assessment and plan as documented by recording studio intern doctor. Patient care was discussed with my attending physician Dr. Nina Kennedy, PGY-2 Documentation for date of: 11/17/24 Subjective Subjective Interval history: Patient seen and examined at bedside. Patient continues to have hallucinations, overnight had a code braga called patient was agitated and threatening staff with a comb. Patient was given Haldol overnight, restrained, patient has one-to-one sitter. Will continue Seroquel at night, patient had MRCP done which showed Cholelithiasis Abnormal enlargement common hepatic common bile duct with abrupt termination of the distal common bile duct. Radiologist recommended ERCP follow-up to exclude stricture at the ampulla. Consulted Dr. Funes marketing services vice president who recommended direct bilirubin in a.m. and HIDA scan Will keep patient n.p.o. after midnight scheduled for HIDA scan in a.m. Pending medical clearance for psychiatric evaluation. Exam Vital Signs Temp Pulse Resp BP Pulse Ox O2 Del Method 97.2 F 107 H 28 H 155/104 H 97 Room Air 11/17/24 07:19 11/17/24 12:00 11/17/24 07:19 11/17/24 08:58 11/17/24 07:19 11/17/24 07:19 Narrative Exam General: Awake and in no acute distress. Conversational and non-toxic appearing. HEENT: Normocephalic, atraumatic, mucous membranes moist. Pupils normally reactive Heart: Tachycardic and regular rhythm, no murmurs. Lungs: Clear to auscultation with no wheezing or crackles. Abdomen: Soft, nondistended, nontender, positive bowel sounds. ?No guarding or rebound tenderness. Neurologic: Alert and oriented x3, hallucinations at times, confused at times, no gross neurological deficit, and patient able to move all 4 extremities. Extremities: No edema. Objective Labs 11/21/24 06:50 11/21/24 06:50 Labs: Laboratory Results - last 24 hr 11/15/24 11/16/24 11/17/24 05:00 17:38 04:27 WBC 10.6 8.1 RBC 3.40 L 3.39 L Hgb 11.2 L 11.0 L Hct 32.9 L 33.0 L MCV 97 97 MCH 32.9 32.4 MCHC 34.0 33.3 RDW Std Deviation 43.7 43.4 Plt Count 375 D 344 D Neut % (Auto) 71 58 Lymph % (Auto) 18 30 [place] % (Auto) 10 9 Eos % (Auto) 0 2 Baso % (Auto) 0 1 Neut # (Auto) 7.5 4.7 Lymph # (Auto) 1.9 2.4 [place] # (Auto) 1.1 H 0.7 Eos # (Auto) 0.0 0.2 Baso # (Auto) 0.0 0.1 Immature Gran # (Auto) 0.05 H 0.03 H Absolute Nucleated RBC 0.00 0.00 Immature Gran % 1 H 0 Nucleated RBC % 0 0 Sodium 141 143 Potassium 4.6 D 4.1 D Chloride 112 H 111 H Carbon Dioxide 21.7 23.1 Anion Gap 7 9 BUN < 5 L < 5 L Creatinine 0.8 0.7 Estim Creat Clear Calc 77.8 89.7 eGFR > 60 > 60 BUN/Creatinine Ratio 6 L 7 L Glucose 131 H 110 H Calculated Osmolality 280 283 Lactic Acid 1.4 Calcium 9.1 9.0 Corrected Calcium 9.2 9.2 Phosphorus 2.1 L Magnesium 2.0 2.1 Total Bilirubin 0.5 0.5 AST 113 H 113 H ALT 301 H 279 H Alkaline Phosphatase 132 H 128 H Total Creatine Kinase 220 H Total Protein 6.5 6.4 Albumin 3.9 3.7 Globulin 2.6 2.7 Albumin/Globulin Ratio 1.5 1.4 Hepatitis A IgM Ab Non Reactive Hep Bs Antigen Non Reactive Hep B Core IgM Ab Non Reactive Hepatitis C Antibody Non Reactive Quality Measures Quality Measures none Assessment & Plan Assessment Current Active Medications: Generic Name Dose Route Start Last Admin Trade Name Freq PRN Reason Stop Dose Admin Acetaminophen 650 mg 11/13/24 17:28 11/14/24 06:23 Acetaminophen 325 Mg Tablet PO 12/13/24 17:27 650 mg Q6H PRN Administration Pain (1-3) & Fever >100.4 Folic Acid 1 mg 11/13/24 21:00 11/17/24 08:57 Folic Acid 1 Mg Tablet PO 11/18/24 20:59 1 mg BID URSULA Administration Gabapentin 100 mg 11/14/24 21:00 11/17/24 09:00 Gabapentin 100 Mg Capsule PO 12/14/24 20:59 100 mg BID URSULA Administration Heparin Sodium (Porcine) 5,000 unit 11/15/24 21:00 11/17/24 08:58 Heparin Sod Inj 5000 Unit/Ml Vial SC 11/29/24 20:59 5,000 unit Q12HR URSULA Administration Lisinopril 20 mg 11/16/24 09:00 11/17/24 08:58 Lisinopril 20 Mg Tablet PO 12/16/24 08:59 20 mg QDAY URSULA Administration Lorazepam 2 mg 11/17/24 10:04 11/17/24 11:25 Lorazepam 2 Mg/Ml Vial IVP 11/22/24 10:03 2 mg PRN PRN Administration for agitation Metoprolol Tartrate 25 mg 11/16/24 21:00 11/17/24 08:57 Metoprolol Tartrate 25 Mg Tablet PO 12/16/24 20:59 25 mg BID URSULA Administration Pantoprazole Sodium 40 mg 11/14/24 09:00 11/17/24 08:58 Pantoprazole Inj 40 Mg Vial IVP 12/14/24 08:59 40 mg QDAY URSULA Administration Sennosides 2 tab 11/13/24 17:28 Senna Tablet PO 12/13/24 17:27 BID PRN CONSTIPATION Protocol Thiamine HCl 100 mg 11/13/24 21:00 11/17/24 08:57 Thiamine 100 Mg Tablet PO 11/18/24 20:59 100 mg BID URSULA Administration Plan Ms. Day is a 48-year-old female with past medical history of fibromyalgia, anxiety, depression, insomnia and hypertension who presented to [facility] emergency department on 11/13/2024 with a chief complaint of syncopal episode. #Medication overdose #Underlying psychiatric disorder #Auditory and visual hallucinations #?Suicidal ideation #Dizziness #Recurrent falls #?Syncope Patient reported that she was in her room when she passed out, reports that she was dehydrated. Patient also reports history of multiple falls, reports that she has been falling multiple times in the last couple of days. Patient complains of throbbing headache, otherwise denies any pain. 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 Patient's son informed that patient was found last night on the ground having a breakdown with empty bottles of medications surrounding her. Most of the pills were on the ground and unaccounted for versus possible overdose. States there were three bottles that were broken and/or do not have lids. Medications unaccounted for and filled on 11/03/2024 include: 100mg Gabapentin 90 tablets, 10mg Propanolol 120 tablets, 20mg Furosemide 30 tablets, Tizanidine (filled 11/11/2024), 20mg Baclofen 120 tablets (bottle empty and covered), Venlafaxine (30 tablets left and 4-5 tablets are unaccounted for). EKG in ED shows sinus rhythm, QTc 450, CT scan of the head negative for any acute hemorrhage, mass effect or midline shift. Serial EKG negative, no acute evaluation noted Patient was given 1 L LR bolus in ED, placed on 1798 psychiatric hold Urine tox screen negative, CT negative, magnesium within normal limits, moderate, lactate normal Fingerstick every 6 hours within normal limits Plan: - Seroquel 25 mg at bedtime - Will consider Haldol as needed and physical restraints as needed - Needs medical clearance for evaluation by social work msw - Seizure precaution - Referral to social work msw for further evaluation - Continue gabapentin low-dose Patient seen and examined at bedside. Patient continues to have hallucinations, overnight had a code braga called patient was agitated and threatening staff with a comb. Patient was given Haldol overnight, restrained, patient has one-to-one sitter. Will continue Seroquel at night, patient had Pending medical clearance for psychiatric evaluation. #Transaminitis likely secondary to overdose AST 130, ALT 312 on presentation, possible in setting of medication overdose US indicated dilated CBD Patient asymptomatic with normal total bilirubin MRCP done which showed Cholelithiasis Abnormal enlargement common hepatic common bile duct with abrupt termination of the distal common bile duct. Radiologist recommended ERCP follow-up to exclude stricture at the ampulla. Consulted Dr. Funes marketing services vice president who recommended direct bilirubin in a.m. and HIDA scan Will keep patient n.p.o. after midnight scheduled for HIDA scan in a.m. Hepatitis panel negative. Plan: -N.p.o. after midnight -Scheduled for HIDA scan in a.m. -Follow CMP in a.m. -direct bilirubin in a.m. #Alcohol use Per patient's history, patient takes alcohol, drinks medications with alcohol at times. Plan: - Discontinued CIWA protocol, patient CIWA was significantly low throughout hospitalization, no signs of withdrawal noted - Folate p.o. - Thiamine p.o. #Acute kidney injury, resolved On presentation BUN 26, creatinine 1.6, GFR 40, baseline within normal limits Patient received 1 L LR bolus in ED plan Responded well to IV fluids, RAMON is resolved. Plan: - Avoid nephrotoxic agents - Renally dose medication - Follow CMP in a.m. #Severe anxiety #Major depressive disorder DVT prophylaxis: Heparin every 12 hours GI prophylaxis: Protonix IV daily Diet: Regular diet Lines: Peripheral IV Code status: Full code This patient care was discussed with my attending Dr. Wood and my senior PGY2 Dr. Brent Richmond, PGY1 Disclaimer: Minor errors in packaging inspector may be present since this note was dictated by speech recognition software. Attending Provider Attestation/Addendum I have discussed and was present for the essential components of the history, physical examination, diagnosis, and treatment plan with the resident. I agree with the patient's care as documented by the resident and amended herein by me. Indio Wood, DO. Patient seen and evaluated this AM. Overnight, apparently the patient became very agitated and was threatening staff with a comb, patient was given Haldol in which she did calm down. This morning, BP 155/104, pulse 107, patient afebrile overnight. Patient was calm and collected this morning, they did attempt MRCP this morning however patient was agitated and could not tolerate hence we will try again this afternoon with a possible small dose of Ativan to help calm her. MRCP pending, hepatitis panel did come back negative, HIV negative, liver enzymes are downtrending and patient is still completely asymptomatic as far as any abdominal pain is concerned. Will continue to monitor closely, will clear patient as soon as all testing comes back to satisfy tertiary psychiatry facility. Although this document has been carefully reviewed, there may still be some phonetic and other typographical errors. These errors are purely grammatical due to imperfections in the software program and should not be construed in any way to compromise the substance of the patient's medical care during this visit.
[2024-11-17 14:44] LABS: Bilirubin,Direct 0.2 mg/dL (0.0-0.3)
[2024-11-17] MEDS: NAPH,KPH MBDB 1 PACKET (1.5 GM) PO ×2 (14:52→20:12)
[2024-11-17] MEDS: QUEtiapine FUMARATE 25 MG TABLET PO (20:12)
[2024-11-17] MEDS: QUEtiapine FUMARATE 25 MG TABLET 50 MG PO (23:54)
[2024-11-17] MEDS: LORazepam 0.5 MG TABLET 2 MG PO (23:55)
[2024-11-18] VITALS (8 sets, daily range): BP systolic 130–147; BP diastolic 81–112; PULSE 107–127; RESP 17–20; TEMP 36.1–36.7; O2SAT 95–97; BMI 34.0
--- NOTE | 2024-11-18 | XR_ITS ---
Examination: MRI abdomen with intravenous contrast. MRI abdomen without intravenous contrast. Date and time of exam: November 18, 2024 1608 hrs. Comparison MRCP November 17, 2024 Indications: Elevated liver enzymes, hepatic encephalopathy, enlarged common bile duct, 10 mm with abrupt termination of the distal common bile duct on MRCP November 17, 2024 Technique: Multiple axial, sagittal and coronal sections of the abdomen obtained. Coronal images, TR 4210, TE 107. Findings: At this time, coronal images have been present for interpretation There remains enlarged common hepatic common bile duct with abrupt termination of the distal common bile duct Pancreatic duct is not dilated Liver is not enlarged Spleen is not enlarged No ascites Impression: Extrahepatic biliary tract dilatation with abrupt termination of the distal common bile duct Addendum will be made when the complete sequences are available for interpretation
--- NOTE | 2024-11-18 05:28 | PC.NURSE ---
Emelia Collier called at 0520 as patient attempted to push 1:1 sitter out of the room and stated I am going to leave right now . Upon entering the room, I was able to keep patient calm and have her sit on the bed. Dr jiménez and security came to bedside. Patient was able to remain calm. Emelia collier all clear.
--- NOTE | 2024-11-18 06:00 | XR_ITS ---
Examination: Nuclear medicine hepatobiliary scan, static HIDA scan Date of exam: November 18, 2024 1338 hours INDICATIONS: Elevated liver function tests on laboratory examination this week Technique And Findings: 5.6 mCi 99m Hepatolite administered intravenously. Serial imaging obtained immediately through 60 minutes. Homogenous uptake in the liver. Common bile duct small bowel activity noted no gallbladder activity Impression: Abnormal study, no gallbladder activity, cystic duct obstruction
[2024-11-18 07:06] LABS: Alanine Aminotransferase 321 U/L (10-49); Albumin, Serum 4.5 gm/dL (3.5-5.0); Albumin/Globulin Ratio 1.5 (1.2-2.2); Alkaline Phosphatase 140 U/L (46-116); Anion Gap 12 (7-16); Aspartate Amino Transferase 144 U/L (0-34); BUN/Creatinine Ratio 9 Ratio (12-20); Bilirubin,Total 0.5 mg/dL (0.3-1.2); Blood Urea Nitrogen 7 mg/dL (9-23); Calcium 9.6 mg/dL (8.3-10.6); Calcium (Corrected) 9.6 mg/dL (8.5-10.1); Carbon Dioxide 20.7 mMol/L (20.0-31.0); Chloride 103 mMol/L (98-107); Creatinine (Component) 0.8 mg/dL (0.6-1.3); Estimated Creatinine Clearance 78.5 mL/min (>60); Globulin 3.1 gm/dL (2.3-3.5); Glucose 112 mg/dL (74-106); Magnesium 2.2 mg/dL (1.6-2.6); Osmolality,Calculated 270 (275-295); Potassium 3.7 mMol/L (3.4-5.1); Sodium 136 mMol/L (136-145); Total Protein 7.6 gm/dL (5.7-8.2); eGFR > 60 See Note
[2024-11-18 07:25] LABS: Bilirubin,Direct 0.2 mg/dL (0.0-0.3)
[2024-11-18] MEDS: HEPARIN SOD INJ 5000 UNIT/ML VIAL SC ×2 (08:21→20:17)
[2024-11-18] MEDS: PANTOPRAZOLE INJ 40 MG VIAL IVP (08:21)
[2024-11-18] MEDS: Lisinopril 20 MG TABLET PO (08:22)
[2024-11-18] MEDS: METOPROLOL TARTRATE 25 MG TABLET PO ×2 (08:22→20:17)
[2024-11-18] MEDS: FOLIC ACID 1 MG TABLET PO (08:22)
[2024-11-18] MEDS: GABAPENTIN 100 MG CAPSULE PO ×2 (08:22→20:17)
[2024-11-18] MEDS: THIAMINE 100 MG TABLET PO (08:22)
[2024-11-18 08:51] LABS: Basophils % (Auto) 0 % (0-2.5); Eosinophils # (Auto) 0.3 Thou/mm3 (0.0-0.5); Eosinophils % (Auto) 3 % (0-10); Hematocrit 35.2 % (36.0-46.0); Hemoglobin 11.9 g/dL (12.0-16.0); Immature Granulocytes % (Auto) 0 % (0-0); Immature Granulocytes Auto 0.02 Thou/mm3 (0.00-0.00); Lymphocytes # (Auto) 4.1 Thou/mm3 (1.0-4.8); Lymphocytes % (Auto) 44 % (10-50); Mean Corpuscular HGB Conc 33.8 g/dl (31.0-37.0); Mean Corpuscular Hemoglobin 31.9 pg (25.0-35.0); Mean Corpuscular Volume 94 fL (80-100); Monocytes # (Auto) 0.8 Thou/mm3 (0.0-0.8); Monocytes % (Auto) 9 % (0-12); Neutrophils # (Auto) 4.2 Thou/mm3 (1.8-7.7); Neutrophils % (Auto) 45 % (37-80); Nucleated Red Blood Cell % 0 /100 WBC (0); Platelet Count 405 Thou/mm3 (140-440); Red Blood Count 3.73 Miln/mm3 (4.00-5.20); White Blood Count 9.3 Thou/mm3 (3.6-11.0)
[2024-11-18 10:31] LABS: HCG Qualitative,Urine Negative
[2024-11-18] MEDS: LORazepam 2 MG/ML VIAL IVP (13:30)
--- NOTE | 2024-11-18 13:50 | ESPR_ITS ---
<Statement entered by Korey Kennedy MD - 11/19/24 08:55> I discussed with and supervised the intern brand physician involved in the care of this patient. Patient assessment and plan was discussed with entire medicine team, including my attending. I agree with the assessment and plan as documented by intern brand doctor. Patient care was discussed with my attending physician Dr. Alejo Kennedy, PGY-2 Documentation for date of: 11/18/24 Subjective Subjective Interval history: Patient seen and examined at bedside. Gallbladder nuclear medicine scan showed abnormal study, no gallbladder activity, cystic duct obstruction Case discussed with switchboard troubleshooter Dr. Funes who recommended consulting general surgery, following up with a abdominal MRI with and without contrast and CA 19-[address] Atwood general surgeon, case discussed with him, discussed MRCP findings of possible stricture at ampulla and recommendation for ERCP. Dr. Atwood will evaluate the patient, recommends getting possibly ERCP prior to the procedure. We will obtain MRI and follow-up accordingly with gastroenterology tomorrow, patient is asymptomatic. Patient continues to have hallucinations. Pending medical clearance for psych evaluation. Patient has odd behavior, actively hallucinating, holds phone and talks to son, patient's phone had no battery. Will continue with suicide precautions, one-to-one observation Exam Vital Signs Temp Pulse Resp BP Pulse Ox O2 Del Method 97.8 F 119 H 20 141/96 H 97 Room Air 11/18/24 12:00 11/18/24 12:00 11/18/24 12:00 11/18/24 12:00 11/18/24 12:00 11/18/24 12:00 Narrative Exam General: Awake and in no acute distress. Conversational and non-toxic appearing. HEENT: Normocephalic, atraumatic, mucous membranes moist. Pupils normally reactive Heart: Tachycardic and regular rhythm, no murmurs. Lungs: Clear to auscultation with no wheezing or crackles. Abdomen: Soft, nondistended, nontender, positive bowel sounds. ?No guarding or rebound tenderness. Neurologic: Alert and oriented x1, hallucinations at times, confused at times, no gross neurological deficit, and patient able to move all 4 extremities. Extremities: No edema. Objective Labs 11/18/24 07:40 11/18/24 05:20 Labs: Laboratory Results - last 24 hr 11/17/24 11/18/24 11/18/24 04:23 05:20 07:40 WBC 9.3 RBC 3.73 L Hgb 11.9 L Hct 35.2 L MCV 94 MCH 31.9 MCHC 33.8 RDW Std Deviation 43.0 Plt Count 405 D Neut % (Auto) 45 Lymph % (Auto) 44 [place] % (Auto) 9 Eos % (Auto) 3 Baso % (Auto) 0 Neut # (Auto) 4.2 Lymph # (Auto) 4.1 [place] # (Auto) 0.8 Eos # (Auto) 0.3 Baso # (Auto) 0.0 Immature Gran # (Auto) 0.02 H Absolute Nucleated RBC 0.00 Immature Gran % 0 Nucleated RBC % 0 Sodium 136 Potassium 3.7 Chloride 103 Carbon Dioxide 20.7 Anion Gap 12 BUN 7 L Creatinine 0.8 Estim Creat Clear Calc 78.5 eGFR > 60 BUN/Creatinine Ratio 9 L Glucose 112 H Calculated Osmolality 270 L Calcium 9.6 Corrected Calcium 9.6 Magnesium 2.2 Total Bilirubin 0.5 Direct Bilirubin 0.2 0.2 AST 144 H ALT 321 H Alkaline Phosphatase 140 H Total Protein 7.6 Albumin 4.5 D Globulin 3.1 Albumin/Globulin Ratio 1.5 Urine HCG, Qual 11/18/24 10:15 WBC RBC Hgb Hct MCV MCH MCHC RDW Std Deviation Plt Count Neut % (Auto) Lymph % (Auto) Door % (Auto) Eos % (Auto) Baso % (Auto) Neut # (Auto) Lymph # (Auto) Door # (Auto) Eos # (Auto) Baso # (Auto) Immature Gran # (Auto) Absolute Nucleated RBC Immature Gran % Nucleated RBC % Sodium Potassium Chloride Carbon Dioxide Anion Gap BUN Creatinine Estim Creat Clear Calc eGFR BUN/Creatinine Ratio Glucose Calculated Osmolality Calcium Corrected Calcium Magnesium Total Bilirubin Direct Bilirubin AST ALT Alkaline Phosphatase Total Protein Albumin Globulin Albumin/Globulin Ratio Urine HCG, Qual Negative Quality Measures Quality Measures none Assessment & Plan Assessment Current Active Medications: Generic Name Dose Route Start Last Admin Trade Name Freq PRN Reason Stop Dose Admin Acetaminophen 650 mg 11/13/24 17:28 11/14/24 06:23 Acetaminophen 325 Mg Tablet PO 12/13/24 17:27 650 mg Q6H PRN Administration Pain (1-3) & Fever >100.4 Folic Acid 1 mg 11/13/24 21:00 11/18/24 08:22 Folic Acid 1 Mg Tablet PO 11/18/24 20:59 1 mg BID URSULA Administration Gabapentin 100 mg 11/14/24 21:00 11/18/24 08:22 Gabapentin 100 Mg Capsule PO 12/14/24 20:59 100 mg BID URSULA Administration Heparin Sodium (Porcine) 5,000 unit 11/15/24 21:00 11/18/24 08:21 Heparin Sod Inj 5000 Unit/Ml Vial SC 11/29/24 20:59 5,000 unit Q12HR URSULA Administration Lisinopril 20 mg 11/16/24 09:00 11/18/24 08:22 Lisinopril 20 Mg Tablet PO 12/16/24 08:59 20 mg QDAY URSULA Administration Lorazepam 2 mg 11/17/24 23:49 11/18/24 13:30 Lorazepam 2 Mg/Ml Vial IVP 11/22/24 10:03 2 mg Q8H PRN Administration for severe agitation Lorazepam 2 mg 11/17/24 23:49 Lorazepam 0.5 Mg Tablet PO 11/22/24 23:48 Q8HR PRN For moderate agitation Metoprolol Tartrate 25 mg 11/16/24 21:00 11/18/24 08:22 Metoprolol Tartrate 25 Mg Tablet PO 12/16/24 20:59 25 mg BID URSULA Administration Pantoprazole Sodium 40 mg 11/14/24 09:00 11/18/24 08:21 Pantoprazole Inj 40 Mg Vial IVP 12/14/24 08:59 40 mg QDAY URSULA Administration Quetiapine Fumarate 50 mg 11/18/24 21:00 Quetiapine Fumarate 25 Mg Tablet PO 12/18/24 20:[address] [facility] Sennosides 2 tab 11/13/24 17:28 Senna Tablet PO 12/13/24 17:27 BID PRN CONSTIPATION Protocol Thiamine HCl 100 mg 11/13/24 21:00 11/18/24 08:22 Thiamine 100 Mg Tablet PO 11/18/24 20:59 100 mg BID URSULA Administration Plan Ms. Day is a 48-year-old female with past medical history of fibromyalgia, anxiety, depression, insomnia and hypertension who presented to [facility] [place] emergency department on 11/13/2024 with a chief complaint of syncopal episode. #Cystic duct obstruction, no gallbladder activity #?Possible stricture at ampulla #Transaminitis AST 130, ALT 312 on presentation, possible in setting of medication overdose US indicated dilated CBD Patient asymptomatic with normal total bilirubin. Hepatitis panel negative. Direct Bilirubin 0.2. MRCP done which showed Cholelithiasis Abnormal enlargement common hepatic common bile duct with abrupt termination of the distal common bile duct. Radiologist recommended ERCP follow-up to exclude stricture at the ampulla. Consulted Dr. Funes switchboard troubleshooter who recommended direct bilirubin in a.m. and HIDA scan Gallbladder nuclear medicine scan showed abnormal study, no gallbladder activity, cystic duct obstruction Case discussed with switchboard troubleshooter Dr. Funes who recommended consulting general surgery, following up with a abdominal MRI with and without contrast and CA 19-[address] Atwood general surgeon, case discussed with him, discussed MRCP findings of possible stricture at ampulla and recommendation for ERCP. Dr. Atwood will evaluate the patient, recommends getting possibly ERCP prior to the procedure. Plan: -Scheduled for MRI with and without contrast -Patient will be given Ativan prior to MRI -Follow CMP in a.m. -CA 19-9 in a.m. - GI consulted, appreciate recommendations - General Surgery consulted, appreciate recommendations #Medication overdose #Underlying psychiatric disorder #Auditory and visual hallucinations #?Suicidal ideation #Dizziness #Recurrent falls #?Syncope Patient reported that she was in her room when she passed out, reports that she was dehydrated. Patient also reports history of multiple falls, reports that she has been falling multiple times in the last couple of days. Patient complains of throbbing headache, otherwise denies any pain. 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 Patient's son informed that patient was found last night on the ground having a breakdown with empty bottles of medications surrounding her. Most of the pills were on the ground and unaccounted for versus possible overdose. States there were three bottles that were broken and/or do not have lids. Medications unaccounted for and filled on 11/03/2024 include: 100mg Gabapentin 90 tablets, 10mg Propanolol 120 tablets, 20mg Furosemide 30 tablets, Tizanidine (filled 11/11/2024), 20mg Baclofen 120 tablets (bottle empty and covered), Venlafaxine (30 tablets left and 4-5 tablets are unaccounted for). EKG in ED shows sinus rhythm, QTc 450, CT scan of the head negative for any acute hemorrhage, mass effect or midline shift. Serial EKG negative, no acute evaluation noted Patient was given 1 L LR bolus in ED, placed on 1799 psychiatric hold Urine tox screen negative, CT negative, magnesium within normal limits, moderate, lactate normal Fingerstick every 6 hours within normal limits Plan: - Seroquel 50 mg at bedtime - Will consider Haldol as needed and physical restraints as needed - Needs medical clearance for evaluation by manager social - Seizure precaution - Referral to manager social for further evaluation - Continue gabapentin low-dose Pending medical clearance for psychiatric evaluation. #Alcohol use Per patient's history, patient takes alcohol, drinks medications with alcohol at times. Plan: - Discontinued CIWA protocol, patient CIWA was significantly low throughout hospitalization, no signs of withdrawal noted - Folate p.o. - Thiamine p.o. #Acute kidney injury, resolved On presentation BUN 26, creatinine 1.6, GFR 40, baseline within normal limits Patient received 1 L LR bolus in ED plan Responded well to IV fluids, RAMON is resolved. Plan: - Avoid nephrotoxic agents - Renally dose medication - Follow CMP in a.m. #Severe anxiety #Major depressive disorder DVT prophylaxis: Heparin every 12 hours GI prophylaxis: Protonix IV daily Diet: Regular diet Lines: Peripheral IV Code status: Full code This patient care was discussed with my attending Dr. Dhillon and my senior PGY2 Dr. Kennedy. Angelina Richmond, PGY1 Disclaimer: Minor errors in hydro technician may be present since this note was dictated by speech recognition software. Attending Provider Attestation/Addendum 48-year-old female with major depressive disorder, alcohol use was admitted for medication. The patient is on one-to-one. The patient is being worked up for possible hepatobiliary disease. HIDA scan pending. Discussed with housestaff
[2024-11-18] MEDS: QUEtiapine FUMARATE 25 MG TABLET 50 MG PO (17:27)
--- NOTE | 2024-11-18 18:01 | PC.NURSE ---
Pt continues to have visual and audible hallucination, talking about herself that she had killed someone and she is hurt because she is gonna have to testify against her, pt crying on and off and wanting to leave to go see her son and father that she believes is in the hospital , MD Richmond made aware and ask to give bedtime dose of seroquel
--- NOTE | 2024-11-18 19:46 | PD.SURCONS ---
HPI Consult details Consult date: 11/18/24 Reason for consultation narrative: Cholecystitis History of present illness: 48-year-old female who was poor historian and not responding. History is obtained from medical record and patient's mother. Patient was admitted with syncopal episode. During hospitalization she has had multiple episodes of hallucinations and combativeness. She also was found to have transaminitis, ultrasound revealed multiple gallstones with dilated CBD. MRCP revealed dilated CBD with abrupt tapering and ERCP was recommended. She also underwent HIDA scan that showed cystic duct obstruction. According to patient's nurse she has been eating and tolerating diet without nausea or vomiting or complaining of abdominal pain. Review of Systems Review of Systems ROS Unobtainable: unobtainable due to mental status Past Medical History Surgical History OTHER SURGICAL HX: No surgeries in the past Meds Home Medications and Allergies Home Medications ?Medication ?Instructions ?Recorded ?Confirmed ?Type Benazepril Hcl 40 mg PO QDAY ##0 02/28/16 11/14/24 History Venlafaxine * (EFFEXOR *) 150 mg PO QDAY #0 tabs 02/28/16 11/14/24 History alprazolam 1 mg tablet (Xanax) 1 mg PO TID #0 tabs 02/28/16 11/14/24 History baclofen 20 mg tablet 20 mg PO HS #0 tabs 02/28/16 11/14/24 History furosemide 20 mg tablet (Lasix) 20 mg PO QDAY #0 tabs 02/28/16 11/14/24 History hydrochlorothiazide 25 mg tablet 25 mg PO QAM #0 tabs 02/28/16 11/14/24 History Allergies Allergy/AdvReac Type Severity Reaction Status Date / Time No Known Allergies Allergy Verified 11/13/24 16:01 Exam Vital Signs Temp Pulse Resp BP Pulse Ox O2 Del Method 97.8 F 119 H 20 141/96 H 97 Room Air 11/18/24 12:00 11/18/24 12:00 11/18/24 12:00 11/18/24 12:00 11/18/24 12:11/18/24 12:00 Constitutional Constitutional: no acute distress Routine Abdominal Exam Abdominal: Present soft and normoactive bowel sounds; Absent tenderness or distended Results Results: Laboratory Laboratory results: results reviewed Results: Imaging Imaging narrative: U/S, MRCP and HIDA scan images reviewed, Radiologist's interpretation noted Assessment & Plan Problem List (1) Biliary calculus with cholecystitis: Status: Acute Plan Pt has cystic duct obstruction and will require cholecystectomy. However, she will require ERCP to clear CBD first. I will schedule for cholecystectomy after the ERCP.
--- NOTE | 2024-11-18 20:07 | PC.NURSE ---
Dr jiménez notified of pt receiving 2100 dose of seroquel 50mg early at 1727. Dr jiménez stated to hold 2100 dose of 50mg and give 1 time 25mg PO dose of seroquel.
[2024-11-18] MEDS: QUEtiapine FUMARATE 25 MG TABLET PO (20:17)
[2024-11-19] VITALS (11 sets, daily range): BP systolic 141–159; BP diastolic 62–105; PULSE 95–122; RESP 17–20; TEMP 36.3–36.8; O2SAT 94–98; BMI 32.3
[2024-11-19 06:20] LABS: Basophils # (Auto) 0.1 Thou/mm3 (0.0-0.2); Basophils % (Auto) 1 % (0-2.5); Eosinophils # (Auto) 0.2 Thou/mm3 (0.0-0.5); Eosinophils % (Auto) 3 % (0-10); Hematocrit 33.6 % (36.0-46.0); Hemoglobin 11.2 g/dL (12.0-16.0); Immature Granulocytes % (Auto) 0 % (0-0); Immature Granulocytes Auto 0.02 Thou/mm3 (0.00-0.00); Lymphocytes # (Auto) 3.3 Thou/mm3 (1.0-4.8); Lymphocytes % (Auto) 42 % (10-50); Mean Corpuscular HGB Conc 33.3 g/dl (31.0-37.0); Mean Corpuscular Hemoglobin 32.7 pg (25.0-35.0); Mean Corpuscular Volume 98 fL (80-100); Monocytes # (Auto) 0.8 Thou/mm3 (0.0-0.8); Monocytes % (Auto) 10 % (0-12); Neutrophils # (Auto) 3.6 Thou/mm3 (1.8-7.7); Neutrophils % (Auto) 45 % (37-80); Nucleated Red Blood Cell % 0 /100 WBC (0); Platelet Count 334 Thou/mm3 (140-440); RDW Standard Deviation 44.1 fL (36.4-46.3); Red Blood Count 3.43 Miln/mm3 (4.00-5.20); White Blood Count 8.1 Thou/mm3 (3.6-11.0)
[2024-11-19 06:41] LABS: Alanine Aminotransferase 245 U/L (10-49); Albumin, Serum 4.1 gm/dL (3.5-5.0); Albumin/Globulin Ratio 1.5 (1.2-2.2); Alkaline Phosphatase 129 U/L (46-116); Anion Gap 13 (7-16); Aspartate Amino Transferase 90 U/L (0-34); BUN/Creatinine Ratio 9 Ratio (12-20); Bilirubin,Total 0.7 mg/dL (0.3-1.2); Blood Urea Nitrogen 7 mg/dL (9-23); Calcium 9.3 mg/dL (8.3-10.6); Calcium (Corrected) 9.3 mg/dL (8.5-10.1); Carbon Dioxide 23.3 mMol/L (20.0-31.0); Chloride 107 mMol/L (98-107); Creatinine (Component) 0.8 mg/dL (0.6-1.3); Estimated Creatinine Clearance 78.5 mL/min (>60); Globulin 2.8 gm/dL (2.3-3.5); Glucose 101 mg/dL (74-106); Magnesium 2.3 mg/dL (1.6-2.6); Osmolality,Calculated 282 (275-295); Potassium 3.6 mMol/L (3.4-5.1); Sodium 143 mMol/L (136-145); Total Protein 6.9 gm/dL (5.7-8.2); eGFR > 60 See Note
[2024-11-19] MEDS: METOPROLOL TARTRATE 25 MG TABLET PO ×2 (08:27→21:07)
[2024-11-19] MEDS: HEPARIN SOD INJ 5000 UNIT/ML VIAL SC ×2 (08:27→21:06)
[2024-11-19] MEDS: Lisinopril 20 MG TABLET PO (08:28)
[2024-11-19] MEDS: GABAPENTIN 100 MG CAPSULE PO ×2 (08:28→21:06)
[2024-11-19] MEDS: PANTOPRAZOLE INJ 40 MG VIAL IVP (08:28)
--- NOTE | 2024-11-19 09:02 | PC.SS ---
Addendum entered by JESSICA Howard 11/19/24 14:49: Rounding note: patient had code braga called as she was feeling agitated. Patient given Seroquel per medical team. Original Note: SS update: patient is pending MRI, general surgery consult and GI consult. Patient will need a mental health evaluation once medically cleared.
--- NOTE | 2024-11-19 12:23 | PC.NURSE ---
Clarification done over the phone on seroquel orders. per signjose continue with 50 mg administration of seroquel give both doses entered (x2 doses of 25mg each) ordered.
[2024-11-19] MEDS: QUEtiapine FUMARATE 25 MG TABLET PO ×2 (12:27)
[2024-11-19] MEDS: HALOPERIDOL LACT INJ 5 MG/ML VIAL 2 MG IM (13:52)
--- NOTE | 2024-11-19 15:55 | PC.CM ---
Late entry for 11/15/2024- 5149 Hold rescinded on this day due to patient not being medically cleared. Patient is still pending medical clearance at this time.
--- NOTE | 2024-11-19 17:41 | ESPR_ITS ---
<Statement entered by Korey Kennedy MD - 11/20/24 14:27> I discussed with and supervised the intern retail physician involved in the care of this patient. Patient assessment and plan was discussed with entire medicine team, including my attending. I agree with the assessment and plan as documented by intern retail doctor. Patient care was discussed with my attending physician Dr. Alejo Kennedy, PGY-2 Documentation for date of: 11/19/24 Subjective Subjective Interval history: Patient seen and examined at bedside. Patient continues to remain agitated, pending MRI Patient was given Haldol x 1 for agitation today General surgery and gastroenterology following case closely. Seroquel changed to 50 twice daily, will uptitrate as needed Exam Vital Signs Temp Pulse Resp BP Pulse Ox O2 Del Method 98.2 F 108 H 17 154/97 H 96 Room Air 11/19/24 15:49 11/19/24 16:00 11/19/24 15:49 11/19/24 15:49 11/19/24 15:49 11/19/24 15:49 Narrative Exam General: Awake and in no acute distress. Conversational and non-toxic appearing. HEENT: Normocephalic, atraumatic, mucous membranes moist. Pupils normally reactive Heart: Tachycardic and regular rhythm, no murmurs. Lungs: Clear to auscultation with no wheezing or crackles. Abdomen: Soft, nondistended, nontender, positive bowel sounds. ?No guarding or rebound tenderness. Neurologic: Alert and oriented x1, hallucinations at times, confused at times, no gross neurological deficit, and patient able to move all 4 extremities. Extremities: No edema. Objective Labs 11/19/24 05:07 11/20/24 06:40 Labs: Laboratory Results - last 24 hr 11/19/24 05:07 WBC 8.1 RBC 3.43 L Hgb 11.2 L Hct 33.6 L MCV 98 MCH 32.7 MCHC 33.3 RDW Std Deviation 44.1 Plt Count 334 D Neut % (Auto) 45 Lymph % (Auto) 42 [place] % (Auto) 10 Eos % (Auto) 3 Baso % (Auto) 1 Neut # (Auto) 3.6 Lymph # (Auto) 3.3 [place] # (Auto) 0.8 Eos # (Auto) 0.2 Baso # (Auto) 0.1 Immature Gran # (Auto) 0.02 H Absolute Nucleated RBC 0.00 Immature Gran % 0 Nucleated RBC % 0 Sodium 143 Potassium 3.6 Chloride 107 Carbon Dioxide 23.3 Anion Gap 13 BUN 7 L Creatinine 0.8 Estim Creat Clear Calc 78.5 eGFR > 60 BUN/Creatinine Ratio 9 L Glucose 101 Calculated Osmolality 282 Calcium 9.3 Corrected Calcium 9.3 Magnesium 2.3 Total Bilirubin 0.7 AST 90 H ALT 245 H Alkaline Phosphatase 129 H Total Protein 6.9 Albumin 4.1 Globulin 2.8 Albumin/Globulin Ratio 1.5 Quality Measures Quality Measures none Assessment & Plan Assessment Current Active Medications: Generic Name Dose Route Start Last Admin Trade Name Freq PRN Reason Stop Dose Admin Acetaminophen 650 mg 11/13/24 17:28 11/14/24 06:23 Acetaminophen 325 Mg Tablet PO 12/13/24 17:27 650 mg Q6H PRN Administration Pain (1-3) & Fever >100.4 Gabapentin 100 mg 11/14/24 21:00 11/19/24 08:28 Gabapentin 100 Mg Capsule PO 12/14/24 20:59 100 mg BID URSULA Administration Heparin Sodium (Porcine) 5,000 unit 11/15/24 21:00 11/19/24 08:27 Heparin Sod Inj 5000 Unit/Ml Vial SC 11/29/24 20:59 5,000 unit Q12HR URSULA Administration Lisinopril 20 mg 11/16/24 09:00 11/19/24 08:28 Lisinopril 20 Mg Tablet PO 12/16/24 08:59 20 mg QDAY URSULA Administration Lorazepam 2 mg 11/19/24 08:52 Lorazepam 2 Mg/Ml Vial IVP 11/24/24 08:51 X1 PRN Prior to MRI for Anxiety Metoprolol Tartrate 25 mg 11/16/24 21:00 11/19/24 08:27 Metoprolol Tartrate 25 Mg Tablet PO 12/16/24 20:59 25 mg BID URSULA Administration Pantoprazole Sodium 40 mg 11/14/24 09:00 11/19/24 08:28 Pantoprazole Inj 40 Mg Vial IVP 12/14/24 08:59 40 mg QDAY URSULA Administration Quetiapine Fumarate 50 mg 11/19/24 21:00 Quetiapine Fumarate 25 Mg Tablet PO 12/19/24 20:59 BID URSULA Sennosides 2 tab 11/13/24 17:28 Senna Tablet PO 12/13/24 17:27 BID PRN CONSTIPATION Protocol Plan Ms. Day is a 48-year-old female with past medical history of fibromyalgia, anxiety, depression, insomnia and hypertension who presented to [facility] emergency department on 11/13/2024 with a chief complaint of syncopal episode. #Cystic duct obstruction, no gallbladder activity #?Possible stricture at ampulla #Transaminitis AST 130, ALT 312 on presentation, possible in setting of medication overdose US indicated dilated CBD Patient asymptomatic with normal total bilirubin. Hepatitis panel negative. Direct Bilirubin 0.2. MRCP done which showed Cholelithiasis Abnormal enlargement common hepatic common bile duct with abrupt termination of the distal common bile duct. Radiologist recommended ERCP follow-up to exclude stricture at the ampulla. Consulted Dr. Funes airworthiness safety inspector who recommended direct bilirubin in a.m. and HIDA scan Gallbladder nuclear medicine scan showed abnormal study, no gallbladder activity, cystic duct obstruction Case discussed with airworthiness safety inspector Dr. Funes who recommended consulting general surgery, following up with a abdominal MRI with and without contrast and CA 19-[address] Atwood general surgeon, case discussed with him, discussed MRCP findings of possible stricture at ampulla and recommendation for ERCP. Dr. Atwood will evaluate the patient, recommends getting possibly ERCP prior to the procedure. Plan: -Scheduled for MRI with and without contrast -Patient will be given Ativan prior to MRI -Follow CMP in a.m. -CA 19-9 in a.m. - GI consulted, appreciate recommendations - General Surgery consulted, appreciate recommendations #Medication overdose #Underlying psychiatric disorder #Auditory and visual hallucinations #?Suicidal ideation #Dizziness #Recurrent falls #?Syncope Patient reported that she was in her room when she passed out, reports that she was dehydrated. Patient also reports history of multiple falls, reports that she has been falling multiple times in the last couple of days. Patient complains of throbbing headache, otherwise denies any pain. 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 Patient's son informed that patient was found last night on the ground having a breakdown with empty bottles of medications surrounding her. Most of the pills were on the ground and unaccounted for versus possible overdose. States there were three bottles that were broken and/or do not have lids. Medications unaccounted for and filled on 11/03/2024 include: 100mg Gabapentin 90 tablets, 10mg Propanolol 120 tablets, 20mg Furosemide 30 tablets, Tizanidine (filled 11/11/2024), 20mg Baclofen 120 tablets (bottle empty and covered), Venlafaxine (30 tablets left and 4-5 tablets are unaccounted for). EKG in ED shows sinus rhythm, QTc 450, CT scan of the head negative for any acute hemorrhage, mass effect or midline shift. Serial EKG negative, no acute evaluation noted Patient was given 1 L LR bolus in ED, placed on 179 psychiatric hold Urine tox screen negative, CT negative, magnesium within normal limits, moderate, lactate normal Fingerstick every 6 hours within normal limits Plan: - Seroquel 50 mg twice daily - Will consider Haldol as needed and physical restraints as needed - Needs medical clearance for evaluation by social group worker - Seizure precaution - Referral to social group worker for further evaluation - Continue gabapentin low-dose Pending medical clearance for psychiatric evaluation. #Alcohol use Per patient's history, patient takes alcohol, drinks medications with alcohol at times. Plan: - Discontinued CIWA protocol, patient CIWA was significantly low throughout hospitalization, no signs of withdrawal noted - Folate p.o. - Thiamine p.o. #Acute kidney injury, resolved On presentation BUN 26, creatinine 1.6, GFR 40, baseline within normal limits Patient received 1 L LR bolus in ED plan Responded well to IV fluids, RAMON is resolved. Plan: - Avoid nephrotoxic agents - Renally dose medication - Follow CMP in a.m. #Severe anxiety #Major depressive disorder DVT prophylaxis: Heparin every 12 hours GI prophylaxis: Protonix IV daily Diet: Regular diet Lines: Peripheral IV Code status: Full code This patient care was discussed with my attending Dr. Dhillon and my senior PGY2 Dr. Kennedy. Angelina Richmond, PGY1 Disclaimer: Minor errors in promotions associate may be present since this note was dictated by speech recognition software. Attending Provider Attestation/Addendum 48-year-old female with depression, admitted for intentional drug overdose. The patient has transaminitis and possible DILI. MRCP, HIDA, MRI of the abdomen done. GI and surgery consulted. Awaiting further recommendations from GI and surgery Patient had code braga around noon time. She got additional dose of Seroquel before that. Patient received Haldol. Discussed with housestaff.
[2024-11-19] MEDS: QUEtiapine FUMARATE 25 MG TABLET 50 MG PO (21:06)
[2024-11-20] VITALS (9 sets, daily range): BP systolic 118–152; BP diastolic 77–94; PULSE 95–122; RESP 16–18; TEMP 36.3–36.7; O2SAT 93–99; BMI 32.4
[2024-11-20 07:43] LABS: Basophils % (Auto) 1 % (0-2.5); Eosinophils # (Auto) 0.2 Thou/mm3 (0.0-0.5); Eosinophils % (Auto) 4 % (0-10); Hematocrit 33.4 % (36.0-46.0); Hemoglobin 11.3 g/dL (12.0-16.0); Immature Granulocytes % (Auto) 0 % (0-0); Immature Granulocytes Auto 0.02 Thou/mm3 (0.00-0.00); Lymphocytes # (Auto) 1.8 Thou/mm3 (1.0-4.8); Lymphocytes % (Auto) 30 % (10-50); Mean Corpuscular HGB Conc 33.8 g/dl (31.0-37.0); Mean Corpuscular Hemoglobin 33.5 pg (25.0-35.0); Mean Corpuscular Volume 99 fL (80-100); Monocytes # (Auto) 0.5 Thou/mm3 (0.0-0.8); Monocytes % (Auto) 8 % (0-12); Neutrophils # (Auto) 3.4 Thou/mm3 (1.8-7.7); Neutrophils % (Auto) 57 % (37-80); Nucleated Red Blood Cell % 0 /100 WBC (0); Platelet Count 350 Thou/mm3 (140-440); RDW Standard Deviation 45.5 fL (36.4-46.3); Red Blood Count 3.37 Miln/mm3 (4.00-5.20); White Blood Count 5.9 Thou/mm3 (3.6-11.0)
[2024-11-20 08:01] LABS: Alanine Aminotransferase 181 U/L (10-49); Albumin, Serum 4.2 gm/dL (3.5-5.0); Albumin/Globulin Ratio 1.7 (1.2-2.2); Alkaline Phosphatase 115 U/L (46-116); Anion Gap 6 (7-16); Aspartate Amino Transferase 55 U/L (0-34); BUN/Creatinine Ratio 10 Ratio (12-20); Bilirubin,Total 0.5 mg/dL (0.3-1.2); Blood Urea Nitrogen 7 mg/dL (9-23); Calcium 9.3 mg/dL (8.3-10.6); Calcium (Corrected) 9.3 mg/dL (8.5-10.1); Carbon Dioxide 27.1 mMol/L (20.0-31.0); Chloride 104 mMol/L (98-107); Creatinine (Component) 0.7 mg/dL (0.6-1.3); Estimated Creatinine Clearance 91.1 mL/min (>60); Globulin 2.5 gm/dL (2.3-3.5); Glucose 115 mg/dL (74-106); Magnesium 2.2 mg/dL (1.6-2.6); Osmolality,Calculated 272 (275-295); Potassium 3.7 mMol/L (3.4-5.1); Sodium 137 mMol/L (136-145); Total Protein 6.7 gm/dL (5.7-8.2); eGFR > 60 See Note
[2024-11-20] MEDS: PANTOPRAZOLE INJ 40 MG VIAL IVP (08:13)
[2024-11-20] MEDS: GABAPENTIN 100 MG CAPSULE PO ×2 (08:13→21:24)
[2024-11-20] MEDS: QUEtiapine FUMARATE 25 MG TABLET 50 MG PO ×2 (08:13→21:23)
[2024-11-20] MEDS: HEPARIN SOD INJ 5000 UNIT/ML VIAL SC ×2 (08:14→21:24)
[2024-11-20] MEDS: Lisinopril 20 MG TABLET PO (08:15)
[2024-11-20] MEDS: METOPROLOL TARTRATE 25 MG TABLET PO ×2 (08:15→21:26)
--- NOTE | 2024-11-20 11:15 | EKG_ITS ---
[facility] Test Date: 2024-11-20 Pat Name: LISA STRINGER Department: Room: S356A Gender: Female Probate Clerk: BRISSA : 1975 Requested By: Angelina Richmond Order Number: [id number] Reading MD: Angelina Richmond Measurements Intervals [place] Rate: 98 P: 31 MD: 129 QRS: -25 QRSD: 78 T: -4 QT: 363 QTc: 465 Interpretive Statements SINUS RHYTHM LOW QRS VOLTAGE IN PRECORDIAL LEADS POSSIBLE RIGHT VENTRICULAR CONDUCTION DELAY VOLTAGE CRITERIA FOR LVH POSSIBLE ANTERIOR MYOCARDIAL INFARCTION , OF INDETERMINATE AGE Compared to ECG 11/15/2024 06:13:09 Left ventricular hypertrophy now present Myocardial infarct finding now present Sinus tachycardia no longer present /store/S0/[id number]/[id number].pdf
--- NOTE | 2024-11-20 14:05 | ESPR_ITS ---
<Statement entered by Korey Kennedy MD - 11/20/24 18:36> I discussed with and supervised the recruiting internship physician involved in the care of this patient. Patient assessment and plan was discussed with entire medicine team, including my attending. I agree with the assessment and plan as documented by recruiting internship doctor. Patient care was discussed with my attending physician Dr. Alejo Kennedy, PGY-2 Documentation for date of: 11/20/24 Subjective Subjective Interval history: Patient seen and examined at bedside. Patient continues to remain agitated, pending MRI, will give Ativan prior to MRI General surgery and gastroenterology following case closely. Continue Seroquel to 50 twice daily, will uptitrate as needed Exam Vital Signs Temp Pulse Resp BP Pulse Ox O2 Del Method 97.7 F 106 H 18 151/87 H 99 Room Air 11/20/24 12:00 11/20/24 12:00 11/20/24 12:00 11/20/24 12:00 11/20/24 12:00 11/20/24 12:00 Narrative Exam General: Awake and in no acute distress. Conversational and non-toxic appearing. HEENT: Normocephalic, atraumatic, mucous membranes moist. Pupils normally reactive Heart: Tachycardic and regular rhythm, no murmurs. Lungs: Clear to auscultation with no wheezing or crackles. Abdomen: Soft, nondistended, nontender, positive bowel sounds. ?No guarding or rebound tenderness. Neurologic: Alert and oriented x1, hallucinations at times, confused at times, no gross neurological deficit, and patient able to move all 4 extremities. Extremities: No edema. Objective Labs 11/21/24 06:50 11/21/24 06:50 Labs: Laboratory Results - last 24 hr 11/20/24 06:40 WBC 5.9 RBC 3.37 L Hgb 11.3 L Hct 33.4 L MCV 99 MCH 33.5 MCHC 33.8 RDW Std Deviation 45.5 Plt Count 350 Neut % (Auto) 57 Lymph % (Auto) 30 [place] % (Auto) 8 Eos % (Auto) 4 Baso % (Auto) 1 Neut # (Auto) 3.4 Lymph # (Auto) 1.8 [place] # (Auto) 0.5 Eos # (Auto) 0.2 Baso # (Auto) 0.0 Immature Gran # (Auto) 0.02 H Absolute Nucleated RBC 0.00 Immature Gran % 0 Nucleated RBC % 0 Sodium 137 Potassium 3.7 Chloride 104 Carbon Dioxide 27.1 Anion Gap 6 L BUN 7 L Creatinine 0.7 Estim Creat Clear Calc 91.1 eGFR > 60 BUN/Creatinine Ratio 10 L Glucose 115 H Calculated Osmolality 272 L Calcium 9.3 Corrected Calcium 9.3 Phosphorus 4.0 Magnesium 2.2 Total Bilirubin 0.5 AST 55 H ALT 181 H Alkaline Phosphatase 115 Total Protein 6.7 Albumin 4.2 Globulin 2.5 Albumin/Globulin Ratio 1.7 Quality Measures Quality Measures none Assessment & Plan Assessment Current Active Medications: Generic Name Dose Route Start Last Admin Trade Name Freq PRN Reason Stop Dose Admin Acetaminophen 650 mg 11/13/24 17:28 11/14/24 06:23 Acetaminophen 325 Mg Tablet PO 12/13/24 17:27 650 mg Q6H PRN Administration Pain (1-3) & Fever >100.4 Gabapentin 100 mg 11/14/24 21:00 11/20/24 08:13 Gabapentin 100 Mg Capsule PO 12/14/24 20:59 100 mg BID URSULA Administration Heparin Sodium (Porcine) 5,000 unit 11/15/24 21:00 11/20/24 08:14 Heparin Sod Inj 5000 Unit/Ml Vial SC 11/29/24 20:59 5,000 unit Q12HR URSULA Administration Lisinopril 20 mg 11/16/24 09:00 11/20/24 08:15 Lisinopril 20 Mg Tablet PO 12/16/24 08:59 20 mg QDAY URSULA Administration Lorazepam 2 mg 11/19/24 08:52 Lorazepam 2 Mg/Ml Vial IVP 11/24/24 08:51 X1 PRN Prior to MRI for Anxiety Metoprolol Tartrate 25 mg 11/16/24 21:00 11/20/24 08:15 Metoprolol Tartrate 25 Mg Tablet PO 12/16/24 20:59 25 mg BID URSULA Administration Pantoprazole Sodium 40 mg 11/14/24 09:00 11/20/24 08:13 Pantoprazole Inj 40 Mg Vial IVP 12/14/24 08:59 40 mg QDAY URSULA Administration Quetiapine Fumarate 50 mg 11/19/24 21:00 11/20/24 08:13 Quetiapine Fumarate 25 Mg Tablet PO 12/19/24 20:59 50 mg BID URSULA Administration Sennosides 2 tab 11/13/24 17:28 Senna Tablet PO 12/13/24 17:27 BID PRN CONSTIPATION Protocol Plan Ms. Day is a 48-year-old female with past medical history of fibromyalgia, anxiety, depression, insomnia and hypertension who presented to [facility] emergency department on 11/13/2024 with a chief complaint of syncopal episode. #Cystic duct obstruction, no gallbladder activity #?Possible stricture at ampulla #Transaminitis AST 130, ALT 312 on presentation, possible in setting of medication overdose US indicated dilated CBD Patient asymptomatic with normal total bilirubin. Hepatitis panel negative. Direct Bilirubin 0.2. MRCP done which showed Cholelithiasis Abnormal enlargement common hepatic common bile duct with abrupt termination of the distal common bile duct. Radiologist recommended ERCP follow-up to exclude stricture at the ampulla. Consulted Dr. Funes television operator who recommended direct bilirubin in a.m. and HIDA scan Gallbladder nuclear medicine scan showed abnormal study, no gallbladder activity, cystic duct obstruction Case discussed with television operator Dr. Funes who recommended consulting general surgery, following up with a abdominal MRI with and without contrast and CA 19-[address] Atwood general surgeon, case discussed with him, discussed MRCP findings of possible stricture at ampulla and recommendation for ERCP. Dr. Atwood will evaluate the patient, recommends getting possibly ERCP prior to the procedure. Plan: -Scheduled for MRI with and without contrast -Patient will be given Ativan prior to MRI -Follow CMP in a.m. -CA 19-9 in a.m. -GI consulted, appreciate recommendations -General Surgery consulted, appreciate recommendations #Medication overdose #Underlying psychiatric disorder #Auditory and visual hallucinations #?Suicidal ideation #Dizziness #Recurrent falls #?Syncope Patient reported that she was in her room when she passed out, reports that she was dehydrated. Patient also reports history of multiple falls, reports that she has been falling multiple times in the last couple of days. Patient complains of throbbing headache, otherwise denies any pain. 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 Patient's son informed that patient was found last night on the ground having a breakdown with empty bottles of medications surrounding her. Most of the pills were on the ground and unaccounted for versus possible overdose. States there were three bottles that were broken and/or do not have lids. Medications unaccounted for and filled on 11/03/2024 include: 100mg Gabapentin 90 tablets, 10mg Propanolol 120 tablets, 20mg Furosemide 30 tablets, Tizanidine (filled 11/11/2024), 20mg Baclofen 120 tablets (bottle empty and covered), Venlafaxine (30 tablets left and 4-5 tablets are unaccounted for). EKG in ED shows sinus rhythm, QTc 450, CT scan of the head negative for any acute hemorrhage, mass effect or midline shift. Serial EKG negative, no acute evaluation noted Patient was given 1 L LR bolus in ED, placed on 1798 psychiatric hold Urine tox screen negative, CT negative, magnesium within normal limits, moderate, lactate normal Fingerstick every 6 hours within normal limits Plan: - Seroquel 50 mg twice daily - Will consider Haldol as needed and physical restraints as needed - Needs medical clearance for evaluation by social services aide - Seizure precaution - Referral to social services aide for further evaluation - Continue gabapentin low-dose Pending medical clearance for psychiatric evaluation. #Alcohol use Per patient's history, patient takes alcohol, drinks medications with alcohol at times. Plan: - Discontinued CIWA protocol, patient CIWA was significantly low throughout hospitalization, no signs of withdrawal noted - Folate p.o. - Thiamine p.o. #Acute kidney injury, resolved On presentation BUN 26, creatinine 1.6, GFR 40, baseline within normal limits Patient received 1 L LR bolus in ED plan Responded well to IV fluids, RAMON is resolved. Plan: - Avoid nephrotoxic agents - Renally dose medication - Follow CMP in a.m. #Severe anxiety #Major depressive disorder DVT prophylaxis: Heparin every 12 hours GI prophylaxis: Protonix IV daily Diet: Regular diet Lines: Peripheral IV Code status: Full code This patient care was discussed with my attending Dr. Dhillon and my senior PGY2 Dr. Kennedy. Angelina Richmond, PGY1 Disclaimer: Minor errors in insecticide maker may be present since this note was dictated by speech recognition software. Attending Provider Attestation/Addendum Pending MRI. Patient is more coherent today. She is more calm and cooperative. She will continue on Seroquel. She got Haldol yesterday. I discussed with and supervised the resident physician who took care of this patient. I agree with the assessment and plan as above.
--- NOTE | 2024-11-20 15:16 | PC.SS ---
Rounding note: patient is pending MRI of the abdomen. Patient will require a mental health evaluation once medically cleared.
[2024-11-20] MEDS: LORazepam 2 MG/ML VIAL IVP (17:01)
--- NOTE | 2024-11-20 18:42 | PC.NURSE ---
Pt to MRI @ 1707 via wc, returned @ 1722. MRI was not obtained.
[2024-11-21] VITALS (12 sets, daily range): BP systolic 119–132; BP diastolic 78–86; PULSE 94–112; RESP 18–20; TEMP 36.2–37.5; O2SAT 92–98; BMI 30.1
[2024-11-21 07:11] LABS: Basophils # (Auto) 0.1 Thou/mm3 (0.0-0.2); Basophils % (Auto) 1 % (0-2.5); Eosinophils # (Auto) 0.2 Thou/mm3 (0.0-0.5); Eosinophils % (Auto) 2 % (0-10); Hematocrit 37.7 % (36.0-46.0); Hemoglobin 12.6 g/dL (12.0-16.0); Immature Granulocytes % (Auto) 0 % (0-0); Immature Granulocytes Auto 0.02 Thou/mm3 (0.00-0.00); Lymphocytes # (Auto) 2.2 Thou/mm3 (1.0-4.8); Lymphocytes % (Auto) 27 % (10-50); Mean Corpuscular HGB Conc 33.4 g/dl (31.0-37.0); Mean Corpuscular Hemoglobin 33.2 pg (25.0-35.0); Mean Corpuscular Volume 99 fL (80-100); Monocytes # (Auto) 0.7 Thou/mm3 (0.0-0.8); Monocytes % (Auto) 9 % (0-12); Neutrophils # (Auto) 4.9 Thou/mm3 (1.8-7.7); Neutrophils % (Auto) 62 % (37-80); Nucleated Red Blood Cell % 0 /100 WBC (0); Platelet Count 397 Thou/mm3 (140-440); RDW Standard Deviation 46.9 fL (36.4-46.3)
[2024-11-21 07:39] LABS: Alanine Aminotransferase 150 U/L (10-49); Albumin, Serum 4.8 gm/dL (3.5-5.0); Albumin/Globulin Ratio 1.7 (1.2-2.2); Alkaline Phosphatase 128 U/L (46-116); Anion Gap 13 (7-16); Aspartate Amino Transferase 46 U/L (0-34); BUN/Creatinine Ratio 11 Ratio (12-20); Bilirubin,Total 0.7 mg/dL (0.3-1.2); Blood Urea Nitrogen 9 mg/dL (9-23); Calcium 9.9 mg/dL (8.3-10.6); Calcium (Corrected) 9.9 mg/dL (8.5-10.1); Chloride 103 mMol/L (98-107); Creatinine (Component) 0.8 mg/dL (0.6-1.3); Estimated Creatinine Clearance 76.7 mL/min (>60); Globulin 2.8 gm/dL (2.3-3.5); Glucose 96 mg/dL (74-106); Osmolality,Calculated 278 (275-295); Potassium 3.5 mMol/L (3.4-5.1); Sodium 140 mMol/L (136-145); Total Protein 7.6 gm/dL (5.7-8.2); eGFR > 60 See Note
[2024-11-21] MEDS: METOPROLOL TARTRATE 25 MG TABLET PO ×2 (08:46→20:21)
[2024-11-21] MEDS: Lisinopril 20 MG TABLET PO (08:46)
[2024-11-21] MEDS: HEPARIN SOD INJ 5000 UNIT/ML VIAL SC ×2 (08:46→20:20)
[2024-11-21] MEDS: PANTOPRAZOLE INJ 40 MG VIAL IVP (08:46)
[2024-11-21] MEDS: QUEtiapine FUMARATE 25 MG TABLET 50 MG PO ×2 (08:46→20:20)
[2024-11-21] MEDS: GABAPENTIN 100 MG CAPSULE PO ×2 (08:46→20:21)
[2024-11-21] MEDS: HALOPERIDOL LACT INJ 5 MG/ML VIAL 2.5 MG IV (10:54)
--- NOTE | 2024-11-21 16:49 | PD.RESPRO ---
Documentation for date of: 11/21/24 Subjective Subjective Interval history: Patient seen and examined at bedside. Tried to contact surgery aid, unable to reach, pending GI recommendations. General surgery and gastroenterology following case closely. Continue Seroquel to 50 twice daily, will uptitrate as needed Exam Vital Signs Temp Pulse Resp BP Pulse Ox O2 Del Method 97.2 F 94 20 119/78 95 Room Air 11/21/24 15:49 11/21/24 16:00 11/21/24 15:49 11/21/24 15:49 11/21/24 15:49 11/21/24 15:49 Narrative Exam General: Awake and in no acute distress. Conversational and non-toxic appearing. HEENT: Normocephalic, atraumatic, mucous membranes moist. Pupils normally reactive Heart: Tachycardic and regular rhythm, no murmurs. Lungs: Clear to auscultation with no wheezing or crackles. Abdomen: Soft, nondistended, nontender, positive bowel sounds. ?No guarding or rebound tenderness. Neurologic: Alert and oriented x1, hallucinations at times, confused at times, no gross neurological deficit, and patient able to move all 4 extremities. Extremities: No edema. Objective Labs 11/22/24 08:31 11/22/24 08:31 Labs: Laboratory Results - last 24 hr 11/21/24 06:50 WBC 8.0 RBC 3.80 L Hgb 12.6 Hct 37.7 MCV 99 MCH 33.2 MCHC 33.4 RDW Std Deviation 46.9 H Plt Count 397 D Neut % (Auto) 62 Lymph % (Auto) 27 [place] % (Auto) 9 Eos % (Auto) 2 Baso % (Auto) 1 Neut # (Auto) 4.9 Lymph # (Auto) 2.2 [place] # (Auto) 0.7 Eos # (Auto) 0.2 Baso # (Auto) 0.1 Immature Gran # (Auto) 0.02 H Absolute Nucleated RBC 0.00 Immature Gran % 0 Nucleated RBC % 0 Sodium 140 Potassium 3.5 Chloride 103 Carbon Dioxide 24.0 Anion Gap 13 BUN 9 Creatinine 0.8 Estim Creat Clear Calc 76.7 eGFR > 60 BUN/Creatinine Ratio 11 L Glucose 96 Calculated Osmolality 278 Calcium 9.9 Corrected Calcium 9.9 Total Bilirubin 0.7 AST 46 H ALT 150 H Alkaline Phosphatase 128 H Total Protein 7.6 Albumin 4.8 D Globulin 2.8 Albumin/Globulin Ratio 1.7 Quality Measures Quality Measures none Assessment & Plan Assessment Current Active Medications: Generic Name Dose Route Start Last Admin Trade Name Freq PRN Reason Stop Dose Admin Acetaminophen 650 mg 11/13/24 17:28 11/14/24 06:23 Acetaminophen 325 Mg Tablet PO 12/13/24 17:27 650 mg Q6H PRN Administration Pain (1-3) & Fever >100.4 Gabapentin 100 mg 11/14/24 21:00 11/21/24 08:46 Gabapentin 100 Mg Capsule PO 12/14/24 20:59 100 mg BID URSULA Administration Heparin Sodium (Porcine) 5,000 unit 11/15/24 21:00 11/21/24 08:46 Heparin Sod Inj 5000 Unit/Ml Vial SC 11/29/24 20:59 5,000 unit Q12HR URSULA Administration Lisinopril 20 mg 11/16/24 09:00 11/21/24 08:46 Lisinopril 20 Mg Tablet PO 12/16/24 08:59 20 mg QDAY URSULA Administration Metoprolol Tartrate 25 mg 11/16/24 21:00 11/21/24 08:46 Metoprolol Tartrate 25 Mg Tablet PO 12/16/24 20:59 25 mg BID URSULA Administration Pantoprazole Sodium 40 mg 11/14/24 09:00 11/21/24 08:46 Pantoprazole Inj 40 Mg Vial IVP 12/14/24 08:59 40 mg QDAY URSULA Administration Quetiapine Fumarate 50 mg 11/19/24 21:00 11/21/24 08:46 Quetiapine Fumarate 25 Mg Tablet PO 12/19/24 20:59 50 mg BID URSULA Administration Sennosides 2 tab 11/13/24 17:28 Senna Tablet PO 12/13/24 17:27 BID PRN CONSTIPATION Protocol Plan Ms. Day is a 48-year-old female with past medical history of fibromyalgia, anxiety, depression, insomnia and hypertension who presented to [facility] emergency department on 11/13/2024 with a chief complaint of syncopal episode. #Cystic duct obstruction, no gallbladder activity #?Possible stricture at ampulla #Transaminitis AST 130, ALT 312 on presentation, possible in setting of medication overdose US indicated dilated CBD Patient asymptomatic with normal total bilirubin. Hepatitis panel negative. Direct Bilirubin 0.2. MRCP done which showed Cholelithiasis Abnormal enlargement common hepatic common bile duct with abrupt termination of the distal common bile duct. Radiologist recommended ERCP follow-up to exclude stricture at the ampulla. Consulted Dr. Funes surgery aid who recommended direct bilirubin in a.m. and HIDA scan Gallbladder nuclear medicine scan showed abnormal study, no gallbladder activity, cystic duct obstruction Case discussed with surgery aid Dr. Funes who recommended consulting general surgery, following up with a abdominal MRI with and without contrast and CA 19-[address] Atwood general surgeon, case discussed with him, discussed MRCP findings of possible stricture at ampulla and recommendation for ERCP. Dr. Atwood will evaluate the patient, recommends getting possibly ERCP prior to the procedure. MRI 11/18/24: Extrahepatic biliary tract dilatation with abrupt termination of the distal common bile duct Plan: -Will follow-up with gastroenterology -Follow CMP in a.m. -CA 19-9 in a.m. -GI consulted, appreciate recommendations -General Surgery consulted, appreciate recommendations #Medication overdose #Underlying psychiatric disorder #Auditory and visual hallucinations #?Suicidal ideation #Dizziness #Recurrent falls #?Syncope Patient reported that she was in her room when she passed out, reports that she was dehydrated. Patient also reports history of multiple falls, reports that she has been falling multiple times in the last couple of days. Patient complains of throbbing headache, otherwise denies any pain. 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 Patient's son informed that patient was found last night on the ground having a breakdown with empty bottles of medications surrounding her. Most of the pills were on the ground and unaccounted for versus possible overdose. States there were three bottles that were broken and/or do not have lids. Medications unaccounted for and filled on 11/03/2024 include: 100mg Gabapentin 90 tablets, 10mg Propanolol 120 tablets, 20mg Furosemide 30 tablets, Tizanidine (filled 11/11/2024), 20mg Baclofen 120 tablets (bottle empty and covered), Venlafaxine (30 tablets left and 4-5 tablets are unaccounted for). EKG in ED shows sinus rhythm, QTc 450, CT scan of the head negative for any acute hemorrhage, mass effect or midline shift. Serial EKG negative, no acute evaluation noted Patient was given 1 L LR bolus in ED, placed on 1799 psychiatric hold Urine tox screen negative, CT negative, magnesium within normal limits, moderate, lactate normal Fingerstick every 6 hours within normal limits Plan: - Seroquel 50 mg twice daily - Will consider Haldol as needed and physical restraints as needed - Needs medical clearance for evaluation by criminal justice social worker - Seizure precaution - Referral to criminal justice social worker for further evaluation - Continue gabapentin low-dose Pending medical clearance for psychiatric evaluation. #Alcohol use Per patient's history, patient takes alcohol, drinks medications with alcohol at times. Plan: - Discontinued CIWA protocol, patient CIWA was significantly low throughout hospitalization, no signs of withdrawal noted - Folate p.o. - Thiamine p.o. #Acute kidney injury, resolved On presentation BUN 26, creatinine 1.6, GFR 40, baseline within normal limits Patient received 1 L LR bolus in ED plan Responded well to IV fluids, RAMON is resolved. Plan: - Avoid nephrotoxic agents - Renally dose medication - Follow CMP in a.m. #Severe anxiety #Major depressive disorder DVT prophylaxis: Heparin every 12 hours GI prophylaxis: Protonix IV daily Diet: Regular diet Lines: Peripheral IV Code status: Full code This patient care was discussed with my attending Dr. Dhillon. Angelina Richmond, PGY1 Disclaimer: Minor errors in supervisor bridges and buildings may be present since this note was dictated by speech recognition software. Attending Provider Attestation/Addendum Pending completion of MRI evaluation. The patient is alert. She has normal visual or auditory hallucinations. Vital signs are stable. She is afebrile. She has no complaints of dizziness no lightheadedness no syncopal episode. She has no seizure. She has good urine output.
--- NOTE | 2024-11-21 16:52 | PC.SS ---
Rounding Note: MRI pending. Dr. Funes recommendations are pending. Patient not medically cleared for mental health evaluation.
[2024-11-22] VITALS (9 sets, daily range): BP systolic 110–137; BP diastolic 80–89; PULSE 87–108; RESP 16–18; TEMP 36.3–36.9; O2SAT 95–99; BMI 30.7; BMI 34.0
[2024-11-22] MEDS: HEPARIN SOD INJ 5000 UNIT/ML VIAL SC ×2 (08:45→21:51)
[2024-11-22] MEDS: QUEtiapine FUMARATE 25 MG TABLET 50 MG PO ×2 (08:45→21:50)
[2024-11-22] MEDS: PANTOPRAZOLE INJ 40 MG VIAL IVP (08:45)
[2024-11-22] MEDS: GABAPENTIN 100 MG CAPSULE PO ×2 (08:45→21:50)
[2024-11-22] MEDS: METOPROLOL TARTRATE 25 MG TABLET PO ×2 (08:45→21:51)
[2024-11-22] MEDS: Lisinopril 20 MG TABLET PO (08:46)
[2024-11-22 09:08] LABS: Basophils % (Auto) 1 % (0-2.5); Eosinophils # (Auto) 0.2 Thou/mm3 (0.0-0.5); Eosinophils % (Auto) 2 % (0-10); Hematocrit 37.2 % (36.0-46.0); Hemoglobin 12.4 g/dL (12.0-16.0); Immature Granulocytes % (Auto) 0 % (0-0); Immature Granulocytes Auto 0.03 Thou/mm3 (0.00-0.00); Lymphocytes # (Auto) 1.8 Thou/mm3 (1.0-4.8); Lymphocytes % (Auto) 25 % (10-50); Mean Corpuscular HGB Conc 33.3 g/dl (31.0-37.0); Mean Corpuscular Volume 99 fL (80-100); Monocytes # (Auto) 0.5 Thou/mm3 (0.0-0.8); Monocytes % (Auto) 7 % (0-12); Neutrophils # (Auto) 4.7 Thou/mm3 (1.8-7.7); Neutrophils % (Auto) 65 % (37-80); Nucleated Red Blood Cell % 0 /100 WBC (0); Platelet Count 349 Thou/mm3 (140-440); RDW Standard Deviation 45.8 fL (36.4-46.3); Red Blood Count 3.76 Miln/mm3 (4.00-5.20); White Blood Count 7.1 Thou/mm3 (3.6-11.0)
[2024-11-22 09:18] LABS: Alanine Aminotransferase 113 U/L (10-49); Albumin, Serum 4.4 gm/dL (3.5-5.0); Albumin/Globulin Ratio 1.5 (1.2-2.2); Alkaline Phosphatase 121 U/L (46-116); Anion Gap 10 (7-16); Aspartate Amino Transferase 43 U/L (0-34); BUN/Creatinine Ratio 10 Ratio (12-20); Bilirubin,Total 0.6 mg/dL (0.3-1.2); Blood Urea Nitrogen 8 mg/dL (9-23); Calcium 9.4 mg/dL (8.3-10.6); Calcium (Corrected) 9.4 mg/dL (8.5-10.1); Carbon Dioxide 25.5 mMol/L (20.0-31.0); Chloride 106 mMol/L (98-107); Creatinine (Component) 0.8 mg/dL (0.6-1.3); Estimated Creatinine Clearance 77.4 mL/min (>60); Globulin 2.9 gm/dL (2.3-3.5); Glucose 137 mg/dL (74-106); Osmolality,Calculated 281 (275-295); Potassium 3.5 mMol/L (3.4-5.1); Sodium 141 mMol/L (136-145); Total Protein 7.3 gm/dL (5.7-8.2); eGFR > 60 See Note
--- NOTE | 2024-11-22 12:57 | PD.RESPRO ---
Documentation for date of: 11/22/24 Subjective Subjective Interval history: Patient seen and examined at bedside. Patient continues to have hallucinations, remains agitated at times. Patient is scheduled for ERCP on Sunday per marble machine operator Dr. Funes. Will continue to monitor patient. Exam Vital Signs Temp Pulse Resp BP Pulse Ox O2 Del Method 97.3 F 107 H 18 113/80 99 Room Air 11/22/24 08:00 11/22/24 12:00 11/22/24 08:00 11/22/24 08:46 11/22/24 08:00 11/22/24 08:00 Narrative Exam General: Awake and in no acute distress. Conversational and non-toxic appearing. HEENT: Normocephalic, atraumatic, mucous membranes moist. Pupils normally reactive Heart: Tachycardic and regular rhythm, no murmurs. Lungs: Clear to auscultation with no wheezing or crackles. Abdomen: Soft, nondistended, nontender, positive bowel sounds. ?No guarding or rebound tenderness. Neurologic: Alert and oriented x1, hallucinations at times, confused at times, no gross neurological deficit, and patient able to move all 4 extremities. Extremities: No edema. Objective Labs 11/23/24 05:13 11/23/24 05:13 Labs: Laboratory Results - last 24 hr 11/22/24 08:31 WBC 7.1 RBC 3.76 L Hgb 12.4 Hct 37.2 MCV 99 MCH 33.0 MCHC 33.3 RDW Std Deviation 45.8 Plt Count 349 D Neut % (Auto) 65 Lymph % (Auto) 25 [place] % (Auto) 7 Eos % (Auto) 2 Baso % (Auto) 1 Neut # (Auto) 4.7 Lymph # (Auto) 1.8 [place] # (Auto) 0.5 Eos # (Auto) 0.2 Baso # (Auto) 0.0 Immature Gran # (Auto) 0.03 H Absolute Nucleated RBC 0.00 Immature Gran % 0 Nucleated RBC % 0 Sodium 141 Potassium 3.5 Chloride 106 Carbon Dioxide 25.5 Anion Gap 10 BUN 8 L Creatinine 0.8 Estim Creat Clear Calc 77.4 eGFR > 60 BUN/Creatinine Ratio 10 L Glucose 137 H Calculated Osmolality 281 Calcium 9.4 Corrected Calcium 9.4 Total Bilirubin 0.6 AST 43 H ALT 113 H Alkaline Phosphatase 121 H Total Protein 7.3 Albumin 4.4 Globulin 2.9 Albumin/Globulin Ratio 1.5 Quality Measures Quality Measures none Assessment & Plan Assessment Current Active Medications: Generic Name Dose Route Start Last Admin Trade Name Freq PRN Reason Stop Dose Admin Acetaminophen 650 mg 11/13/24 17:28 11/14/24 06:23 Acetaminophen 325 Mg Tablet PO 12/13/24 17:27 650 mg Q6H PRN Administration Pain (1-3) & Fever >100.4 Gabapentin 100 mg 11/14/24 21:00 11/22/24 08:45 Gabapentin 100 Mg Capsule PO 12/14/24 20:59 100 mg BID URSULA Administration Heparin Sodium (Porcine) 5,000 unit 11/15/24 21:00 11/22/24 08:45 Heparin Sod Inj 5000 Unit/Ml Vial SC 11/29/24 20:59 5,000 unit Q12HR URSULA Administration Lisinopril 20 mg 11/16/24 09:00 11/22/24 08:46 Lisinopril 20 Mg Tablet PO 12/16/24 08:59 20 mg QDAY URSULA Administration Metoprolol Tartrate 25 mg 11/16/24 21:00 11/22/24 08:45 Metoprolol Tartrate 25 Mg Tablet PO 12/16/24 20:59 25 mg BID URSULA Administration Pantoprazole Sodium 40 mg 11/14/24 09:00 11/22/24 08:45 Pantoprazole Inj 40 Mg Vial IVP 12/14/24 08:59 40 mg QDAY URSULA Administration Quetiapine Fumarate 50 mg 11/19/24 21:00 11/22/24 08:45 Quetiapine Fumarate 25 Mg Tablet PO 12/19/24 20:59 50 mg BID URSULA Administration Sennosides 2 tab 11/13/24 17:28 Senna Tablet PO 12/13/24 17:27 BID PRN CONSTIPATION Protocol Plan Ms. Day is a 48-year-old female with past medical history of fibromyalgia, anxiety, depression, insomnia and hypertension who presented to [facility] emergency department on 11/13/2024 with a chief complaint of syncopal episode. #Cystic duct obstruction, no gallbladder activity #?Possible stricture at ampulla #Transaminitis AST 130, ALT 312 on presentation, possible in setting of medication overdose US indicated dilated CBD Patient asymptomatic with normal total bilirubin. Hepatitis panel negative. Direct Bilirubin 0.2. MRCP done which showed Cholelithiasis Abnormal enlargement common hepatic common bile duct with abrupt termination of the distal common bile duct. Radiologist recommended ERCP follow-up to exclude stricture at the ampulla. Consulted Dr. Funes marble machine operator who recommended direct bilirubin in a.m. and HIDA scan Gallbladder nuclear medicine scan showed abnormal study, no gallbladder activity, cystic duct obstruction Case discussed with marble machine operator Dr. Funes who recommended consulting general surgery, following up with a abdominal MRI with and without contrast and CA 19-[address] Atwood general surgeon, case discussed with him, discussed MRCP findings of possible stricture at ampulla and recommendation for ERCP. Dr. Atwood will evaluate the patient, recommends getting possibly ERCP prior to the procedure. MRI 11/18/24: Extrahepatic biliary tract dilatation with abrupt termination of the distal common bile duct Plan: -Will follow-up with gastroenterology -Follow CMP in a.m. -CA 19-9 in a.m. -GI consulted, appreciate recommendations -General Surgery consulted, appreciate recommendations #Medication overdose #Underlying psychiatric disorder #Auditory and visual hallucinations #?Suicidal ideation #Dizziness #Recurrent falls #?Syncope Patient reported that she was in her room when she passed out, reports that she was dehydrated. Patient also reports history of multiple falls, reports that she has been falling multiple times in the last couple of days. Patient complains of throbbing headache, otherwise denies any pain. 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 Patient's son informed that patient was found last night on the ground having a breakdown with empty bottles of medications surrounding her. Most of the pills were on the ground and unaccounted for versus possible overdose. States there were three bottles that were broken and/or do not have lids. Medications unaccounted for and filled on 11/03/2024 include: 100mg Gabapentin 90 tablets, 10mg Propanolol 120 tablets, 20mg Furosemide 30 tablets, Tizanidine (filled 11/11/2024), 20mg Baclofen 120 tablets (bottle empty and covered), Venlafaxine (30 tablets left and 4-5 tablets are unaccounted for). EKG in ED shows sinus rhythm, QTc 450, CT scan of the head negative for any acute hemorrhage, mass effect or midline shift. Serial EKG negative, no acute evaluation noted Patient was given 1 L LR bolus in ED, placed on 1799 psychiatric hold Urine tox screen negative, CT negative, magnesium within normal limits, moderate, lactate normal Fingerstick every 6 hours within normal limits Plan: - Seroquel 50 mg twice daily - Will consider Haldol as needed and physical restraints as needed - Needs medical clearance for evaluation by perinatal social worker - Seizure precaution - Referral to perinatal social worker for further evaluation - Continue gabapentin low-dose Pending medical clearance for psychiatric evaluation. #Alcohol use Per patient's history, patient takes alcohol, drinks medications with alcohol at times. Was on CIWA protocol, no withdrawal noted. #Acute kidney injury, resolved On presentation BUN 26, creatinine 1.6, GFR 40, baseline within normal limits Patient received 1 L LR bolus in ED plan Responded well to IV fluids, RAMON is resolved. Plan: - Avoid nephrotoxic agents - Renally dose medication - Follow CMP in a.m. #Severe anxiety #Major depressive disorder DVT prophylaxis: Heparin every 12 hours GI prophylaxis: Protonix IV daily Diet: Regular diet Lines: Peripheral IV Code status: Full code This patient care was discussed with my attending Dr. Dhillon. Angelina Richmond, PGY1 Disclaimer: Minor errors in collections attorney may be present since this note was dictated by speech recognition software. Attending Provider Attestation/Addendum I discussed with and supervised the resident physician who took care of this patient. I agree with the assessment and plan as above.
--- NOTE | 2024-11-22 16:07 | PC.NURSE ---
@ 7103 Dr. Richmond was made aware pt removed oxygen furnace operator and was agitated, upon nurse arrival to room pt was allowed to vent reason for oxygen furnace operator removal, per doctor Basilio monzon to remove monitor cardiac. Pt was left with REPORTING MANAGER and family in the room in a relax mood.
[2024-11-22] MEDS: HALOPERIDOL LACT INJ 5 MG/ML VIAL IM (17:47)
[2024-11-22] MEDS: hydrOXYzine HCL 25 MG TABLET 50 MG PO (19:27)
[2024-11-23] VITALS (10 sets, daily range): BP systolic 99–130; BP diastolic 68–83; PULSE 82–130; RESP 16–20; TEMP 36.2–36.6; O2SAT 92–100; BMI 30.7
[2024-11-23 06:30] LABS: Prothrombin Time 11.4 Seconds (9.0-12.2)
[2024-11-23 06:43] LABS: Alanine Aminotransferase 101 U/L (10-49); Albumin, Serum 4.8 gm/dL (3.5-5.0); Albumin/Globulin Ratio 1.5 (1.2-2.2); Alkaline Phosphatase 126 U/L (46-116); Anion Gap 13 (7-16); Aspartate Amino Transferase 39 U/L (0-34); BUN/Creatinine Ratio 11 Ratio (12-20); Bilirubin,Total 0.7 mg/dL (0.3-1.2); Blood Urea Nitrogen 9 mg/dL (9-23); Chloride 101 mMol/L (98-107); Creatinine (Component) 0.8 mg/dL (0.6-1.3); Estimated Creatinine Clearance 77.4 mL/min (>60); Globulin 3.2 gm/dL (2.3-3.5); Glucose 102 mg/dL (74-106); Magnesium 2.3 mg/dL (1.6-2.6); Osmolality,Calculated 274 (275-295); Potassium 3.4 mMol/L (3.4-5.1); Sodium 138 mMol/L (136-145); eGFR > 60 See Note
[2024-11-23 06:44] LABS: Basophils # (Auto) 0.1 Thou/mm3 (0.0-0.2); Basophils % (Auto) 1 % (0-2.5); Eosinophils # (Auto) 0.2 Thou/mm3 (0.0-0.5); Eosinophils % (Auto) 3 % (0-10); Hematocrit 39.2 % (36.0-46.0); Hemoglobin 12.9 g/dL (12.0-16.0); Immature Granulocytes % (Auto) 0 % (0-0); Immature Granulocytes Auto 0.01 Thou/mm3 (0.00-0.00); Lymphocytes # (Auto) 2.9 Thou/mm3 (1.0-4.8); Lymphocytes % (Auto) 36 % (10-50); Mean Corpuscular HGB Conc 32.9 g/dl (31.0-37.0); Mean Corpuscular Hemoglobin 32.9 pg (25.0-35.0); Mean Corpuscular Volume 100 fL (80-100); Monocytes # (Auto) 0.7 Thou/mm3 (0.0-0.8); Monocytes % (Auto) 8 % (0-12); Neutrophils # (Auto) 4.4 Thou/mm3 (1.8-7.7); Neutrophils % (Auto) 53 % (37-80); Nucleated Red Blood Cell % 0 /100 WBC (0); Platelet Count 398 Thou/mm3 (140-440); Red Blood Count 3.92 Miln/mm3 (4.00-5.20); White Blood Count 8.2 Thou/mm3 (3.6-11.0)
[2024-11-23] MEDS: Lisinopril 20 MG TABLET PO (08:42)
[2024-11-23] MEDS: GABAPENTIN 100 MG CAPSULE PO ×2 (08:42→21:16)
[2024-11-23] MEDS: QUEtiapine FUMARATE 25 MG TABLET 50 MG PO ×2 (08:42→21:16)
[2024-11-23] MEDS: HEPARIN SOD INJ 5000 UNIT/ML VIAL SC ×2 (08:43→21:17)
[2024-11-23] MEDS: METOPROLOL TARTRATE 25 MG TABLET PO ×2 (08:43→21:16)
[2024-11-23] MEDS: PANTOPRAZOLE INJ 40 MG VIAL IVP (08:43)
--- NOTE | 2024-11-23 11:03 | PD.RESPRO ---
Documentation for date of: 11/23/24 Subjective Subjective Interval history: Patient is pending ERCP to be completed by GI Dr. Funes on Sunday. Patient has been on soft restrains since last night, multiple code randall's called overnight. There was concern for QT prolongation as patient had multiple administration of possible QT prolonging meds, EKG was ordered this morning which indicated normal QTc. Exam Vital Signs Temp Pulse Resp BP Pulse Ox O2 Del Method 97.1 F 99 16 130/83 99 Room Air 11/23/24 08:00 11/23/24 08:43 11/23/24 08:00 11/23/24 08:43 11/23/24 08:00 11/23/24 08:00 Narrative Exam General: Awake and in no acute distress. Conversational and non-toxic appearing. HEENT: Normocephalic, atraumatic, mucous membranes moist. Pupils normally reactive Heart: Tachycardic and regular rhythm, no murmurs. Lungs: Clear to auscultation with no wheezing or crackles. Abdomen: Soft, nondistended, nontender, positive bowel sounds. ?No guarding or rebound tenderness. Neurologic: Alert and oriented x1, hallucinations at times, confused at times, no gross neurological deficit, and patient able to move all 4 extremities. Objective Labs 11/23/24 05:13 11/23/24 05:13 Labs: Laboratory Results - last 24 hr 11/23/24 05:13 WBC 8.2 RBC 3.92 L Hgb 12.9 Hct 39.2 MCV 100 MCH 32.9 MCHC 32.9 RDW Std Deviation 46.0 Plt Count 398 D Neut % (Auto) 53 Lymph % (Auto) 36 [place] % (Auto) 8 Eos % (Auto) 3 Baso % (Auto) 1 Neut # (Auto) 4.4 Lymph # (Auto) 2.9 [place] # (Auto) 0.7 Eos # (Auto) 0.2 Baso # (Auto) 0.1 Immature Gran # (Auto) 0.01 H Absolute Nucleated RBC 0.00 Immature Gran % 0 Nucleated RBC % 0 PT 11.4 INR 1.0 Sodium 138 Potassium 3.4 Chloride 101 Carbon Dioxide 24.0 Anion Gap 13 BUN 9 Creatinine 0.8 Estim Creat Clear Calc 77.4 eGFR > 60 BUN/Creatinine Ratio 11 L Glucose 102 Calculated Osmolality 274 L Calcium 10.0 Corrected Calcium 10.0 Phosphorus 4.0 Magnesium 2.3 Total Bilirubin 0.7 AST 39 H ALT 101 H Alkaline Phosphatase 126 H Total Protein 8.0 Albumin 4.8 Globulin 3.2 Albumin/Globulin Ratio 1.5 Quality Measures Quality Measures none Assessment & Plan Assessment Current Active Medications: Generic Name Dose Route Start Last Admin Trade Name Freq PRN Reason Stop Dose Admin Acetaminophen 650 mg 11/13/24 17:28 11/14/24 06:23 Acetaminophen 325 Mg Tablet PO 12/13/24 17:27 650 mg Q6H PRN Administration Pain (1-3) & Fever >100.4 Gabapentin 100 mg 11/14/24 21:00 11/23/24 08:42 Gabapentin 100 Mg Capsule PO 12/14/24 20:59 100 mg BID URSULA Administration Haloperidol Lactate 2 mg 11/23/24 02:00 Haloperidol Lact Inj 5 Mg/Ml Vial IM 12/23/24 01:59 Q12H PRN AGITATION (MODERATE-SEVERE) Heparin Sodium (Porcine) 5,000 unit 11/15/24 21:00 11/23/24 08:43 Heparin Sod Inj 5000 Unit/Ml Vial SC 11/29/24 20:59 5,000 unit Q12HR URSULA Administration Hydroxyzine HCl 50 mg 11/22/24 18:28 11/22/24 19:27 Hydroxyzine Hcl 25 Mg Tablet PO 12/22/24 21:59 50 mg TID PRN Administration AGITATION (MILD) Lisinopril 20 mg 11/16/24 09:00 11/23/24 08:42 Lisinopril 20 Mg Tablet PO 12/16/24 08:59 20 mg QDAY URSULA Administration Metoprolol Tartrate 25 mg 11/16/24 21:00 11/23/24 08:43 Metoprolol Tartrate 25 Mg Tablet PO 12/16/24 20:59 25 mg BID URSULA Administration Pantoprazole Sodium 40 mg 11/14/24 09:00 11/23/24 08:43 Pantoprazole Inj 40 Mg Vial IVP 12/14/24 08:59 40 mg QDAY URSULA Administration Quetiapine Fumarate 50 mg 11/19/24 21:00 11/23/24 08:42 Quetiapine Fumarate 25 Mg Tablet PO 12/19/24 20:59 50 mg BID URSULA Administration Sennosides 2 tab 11/13/24 17:28 Senna Tablet PO 12/13/24 17:27 BID PRN CONSTIPATION Protocol Plan Ms. Day is a 48-year-old female with past medical history of fibromyalgia, anxiety, depression, insomnia and hypertension who presented to [facility] emergency department on 11/13/2024 with a chief complaint of syncopal episode. #Cystic duct obstruction, no gallbladder activity #?Possible stricture at ampulla #Transaminitis AST 130, ALT 312 on presentation, possible in setting of medication overdose US indicated dilated CBD Patient asymptomatic with normal total bilirubin. Hepatitis panel negative. Direct Bilirubin 0.2. MRCP done which showed Cholelithiasis Abnormal enlargement common hepatic common bile duct with abrupt termination of the distal common bile duct. Radiologist recommended ERCP follow-up to exclude stricture at the ampulla. Consulted Dr. Funes coating and embossing unit operator who recommended direct bilirubin in a.m. and HIDA scan Gallbladder nuclear medicine scan showed abnormal study, no gallbladder activity, cystic duct obstruction Case discussed with coating and embossing unit operator Dr. Funes who recommended consulting general surgery, following up with a abdominal MRI with and without contrast and CA 19-[address] Atwood general surgeon, case discussed with him, discussed MRCP findings of possible stricture at ampulla and recommendation for ERCP. Dr. Atwood will evaluate the patient, recommends getting possibly ERCP prior to the procedure. MRI 11/18/24: Extrahepatic biliary tract dilatation with abrupt termination of the distal common bile duct Plan: -Will follow-up with gastroenterology -Follow CMP in a.m. -CA 19-9 in a.m. -GI consulted, appreciate recommendations -General Surgery consulted, appreciate recommendations #Medication overdose #Underlying psychiatric disorder #Auditory and visual hallucinations #?Suicidal ideation #Dizziness #Recurrent falls #?Syncope Patient reported that she was in her room when she passed out, reports that she was dehydrated. Patient also reports history of multiple falls, reports that she has been falling multiple times in the last couple of days. Patient complains of throbbing headache, otherwise denies any pain. 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 Patient's son informed that patient was found last night on the ground having a breakdown with empty bottles of medications surrounding her. Most of the pills were on the ground and unaccounted for versus possible overdose. States there were three bottles that were broken and/or do not have lids. Medications unaccounted for and filled on 11/03/2024 include: 100mg Gabapentin 90 tablets, 10mg Propanolol 120 tablets, 20mg Furosemide 30 tablets, Tizanidine (filled 11/11/2024), 20mg Baclofen 120 tablets (bottle empty and covered), Venlafaxine (30 tablets left and 4-5 tablets are unaccounted for). EKG in ED shows sinus rhythm, QTc 450, CT scan of the head negative for any acute hemorrhage, mass effect or midline shift. Serial EKG negative, no acute evaluation noted Patient was given 1 L LR bolus in ED, placed on 179 psychiatric hold Urine tox screen negative, CT negative, magnesium within normal limits, moderate, lactate normal Fingerstick every 6 hours within normal limits Plan: - Seroquel 50 mg twice daily - Will consider Haldol as needed and physical restraints as needed - Needs medical clearance for evaluation by social media marketer - Seizure precaution - Referral to social media marketer for further evaluation - Continue gabapentin low-dose Pending medical clearance for psychiatric evaluation. #Alcohol use Per patient's history, patient takes alcohol, drinks medications with alcohol at times. Was on CIWA protocol, no withdrawal noted. #Acute kidney injury, resolved On presentation BUN 26, creatinine 1.6, GFR 40, baseline within normal limits Patient received 1 L LR bolus in ED plan Responded well to IV fluids, RAMON is resolved. Plan: - Avoid nephrotoxic agents - Renally dose medication - Follow CMP in a.m. #Severe anxiety #Major depressive disorder DVT prophylaxis: Heparin every 12 hours GI prophylaxis: Protonix IV daily Diet: Regular diet Lines: Peripheral IV Code status: Full code This patient care was discussed with my attending Dr. Alejo Kennedy MD PGY-2 Disclaimer: Minor errors in uptwister tender may be present since this note was dictated by speech recognition software. Attending Provider Attestation/Addendum Patient is agitated today. She has one-to-one sitter. She is scheduled for ERCP. Discussed with housestaff.
[2024-11-23] MEDS: hydrOXYzine HCL 25 MG TABLET 50 MG PO (19:39)
[2024-11-24] VITALS (9 sets, daily range): BP systolic 104–135; BP diastolic 64–95; PULSE 88–115; RESP 16–21; TEMP 36.4–37; O2SAT 95–99; BMI 30.7
[2024-11-24] MEDS: hydrOXYzine HCL 25 MG TABLET 50 MG PO ×3 (03:59→23:57)
[2024-11-24 05:42] LABS: Basophils # (Auto) 0.1 Thou/mm3 (0.0-0.2); Basophils % (Auto) 1 % (0-2.5); Eosinophils # (Auto) 0.2 Thou/mm3 (0.0-0.5); Eosinophils % (Auto) 2 % (0-10); Hematocrit 36.2 % (36.0-46.0); Hemoglobin 12.2 g/dL (12.0-16.0); Immature Granulocytes % (Auto) 0 % (0-0); Immature Granulocytes Auto 0.01 Thou/mm3 (0.00-0.00); Lymphocytes # (Auto) 2.2 Thou/mm3 (1.0-4.8); Lymphocytes % (Auto) 32 % (10-50); Mean Corpuscular HGB Conc 33.7 g/dl (31.0-37.0); Mean Corpuscular Hemoglobin 33.3 pg (25.0-35.0); Mean Corpuscular Volume 99 fL (80-100); Monocytes # (Auto) 0.6 Thou/mm3 (0.0-0.8); Monocytes % (Auto) 9 % (0-12); Neutrophils % (Auto) 57 % (37-80); Nucleated Red Blood Cell % 0 /100 WBC (0); Platelet Count 340 Thou/mm3 (140-440); RDW Standard Deviation 45.3 fL (36.4-46.3); Red Blood Count 3.66 Miln/mm3 (4.00-5.20); White Blood Count 7.1 Thou/mm3 (3.6-11.0)
[2024-11-24 06:02] LABS: Alanine Aminotransferase 71 U/L (10-49); Albumin, Serum 4.5 gm/dL (3.5-5.0); Albumin/Globulin Ratio 1.7 (1.2-2.2); Alkaline Phosphatase 111 U/L (46-116); Anion Gap 10 (7-16); Aspartate Amino Transferase 27 U/L (0-34); BUN/Creatinine Ratio 11 Ratio (12-20); Bilirubin,Total 0.5 mg/dL (0.3-1.2); Blood Urea Nitrogen 9 mg/dL (9-23); Calcium 9.5 mg/dL (8.3-10.6); Calcium (Corrected) 9.5 mg/dL (8.5-10.1); Carbon Dioxide 23.6 mMol/L (20.0-31.0); Chloride 103 mMol/L (98-107); Creatinine (Component) 0.8 mg/dL (0.6-1.3); Estimated Creatinine Clearance 77.4 mL/min (>60); Globulin 2.7 gm/dL (2.3-3.5); Glucose 106 mg/dL (74-106); Osmolality,Calculated 272 (275-295); Phosphorous 3.9 mg/dL (2.4-5.1); Potassium 3.2 mMol/L (3.4-5.1); Sodium 137 mMol/L (136-145); Total Protein 7.2 gm/dL (5.7-8.2); eGFR > 60 See Note
[2024-11-24 06:46] LABS: CA 19-9 Antigen* 27 U/mL (<34)
[2024-11-24] MEDS: POTASSIUM CHLORIDE 20 mEq TABCR 40 MEQ PO (08:56)
[2024-11-24] MEDS: QUEtiapine FUMARATE 25 MG TABLET 50 MG PO ×2 (08:58→21:29)
[2024-11-24] MEDS: METOPROLOL TARTRATE 25 MG TABLET PO ×2 (08:58→21:29)
[2024-11-24] MEDS: Lisinopril 20 MG TABLET PO (08:58)
[2024-11-24] MEDS: GABAPENTIN 100 MG CAPSULE PO ×2 (08:58→21:29)
[2024-11-24] MEDS: HEPARIN SOD INJ 5000 UNIT/ML VIAL SC ×2 (08:59→21:29)
[2024-11-24] MEDS: PANTOPRAZOLE INJ 40 MG VIAL IVP (08:59)
--- NOTE | 2024-11-24 10:39 | ESPR_ITS ---
Documentation for date of: 11/24/24 Subjective Subjective Interval history: Patient seen and examined at bedside. Patient has bilateral wrist restraints, agitated at times, still actively hallucinating. Is alert and oriented x 3, patient is scheduled for ERCP by gastroenterology tomorrow. Will keep patient n.p.o. after midnight. Continue to monitor patient. Exam Vital Signs Temp Pulse Resp BP Pulse Ox O2 Del Method 97.6 F 102 H 19 126/89 H 99 Room Air 11/24/24 08:00 11/24/24 08:58 11/24/24 08:00 11/24/24 08:58 11/24/24 08:00 11/24/24 08:00 Narrative Exam General: Awake and in no acute distress. Conversational and non-toxic appearing. HEENT: Normocephalic, atraumatic, mucous membranes moist. Pupils normally reactive Heart: Tachycardic and regular rhythm, no murmurs. Lungs: Clear to auscultation with no wheezing or crackles. Abdomen: Soft, nondistended, nontender, positive bowel sounds. ?No guarding or rebound tenderness. Neurologic: Alert and oriented x3, hallucinations at times, confused at times, no gross neurological deficit, and patient able to move all 4 extremities. Objective Labs 11/24/24 04:42 11/24/24 04:42 Labs: Laboratory Results - last 24 hr 11/18/24 11/24/24 07:40 04:42 WBC 7.1 RBC 3.66 L Hgb 12.2 Hct 36.2 MCV 99 MCH 33.3 MCHC 33.7 RDW Std Deviation 45.3 Plt Count 340 D Neut % (Auto) 57 Lymph % (Auto) 32 [place] % (Auto) 9 Eos % (Auto) 2 Baso % (Auto) 1 Neut # (Auto) 4.0 Lymph # (Auto) 2.2 [place] # (Auto) 0.6 Eos # (Auto) 0.2 Baso # (Auto) 0.1 Immature Gran # (Auto) 0.01 H Absolute Nucleated RBC 0.00 Immature Gran % 0 Nucleated RBC % 0 Sodium 137 Potassium 3.2 L Chloride 103 Carbon Dioxide 23.6 Anion Gap 10 BUN 9 Creatinine 0.8 Estim Creat Clear Calc 77.4 eGFR > 60 BUN/Creatinine Ratio 11 L Glucose 106 Calculated Osmolality 272 L Calcium 9.5 Corrected Calcium 9.5 Phosphorus 3.9 Magnesium 2.0 Total Bilirubin 0.5 AST 27 ALT 71 H Alkaline Phosphatase 111 Total Protein 7.2 Albumin 4.5 Globulin 2.7 Albumin/Globulin Ratio 1.7 CA 19-9 Antigen 27 Quality Measures Quality Measures none Assessment & Plan Assessment Current Active Medications: Generic Name Dose Route Start Last Admin Trade Name Freq PRN Reason Stop Dose Admin Acetaminophen 650 mg 11/13/24 17:28 11/14/24 06:23 Acetaminophen 325 Mg Tablet PO 12/13/24 17:27 650 mg Q6H PRN Administration Pain (1-3) & Fever >100.4 Gabapentin 100 mg 11/14/24 21:00 11/24/24 08:58 Gabapentin 100 Mg Capsule PO 12/14/24 20:59 100 mg BID URSULA Administration Haloperidol Lactate 2 mg 11/23/24 02:00 Haloperidol Lact Inj 5 Mg/Ml Vial IM 12/23/24 01:59 Q12H PRN AGITATION (MODERATE-SEVERE) Heparin Sodium (Porcine) 5,000 unit 11/15/24 21:00 11/24/24 08:59 Heparin Sod Inj 5000 Unit/Ml Vial SC 11/29/24 20:59 5,000 unit Q12HR URSULA Administration Hydroxyzine HCl 50 mg 11/22/24 18:28 11/24/24 03:59 Hydroxyzine Hcl 25 Mg Tablet PO 12/22/24 21:59 50 mg TID PRN Administration AGITATION (MILD) Lisinopril 20 mg 11/16/24 09:00 11/24/24 08:58 Lisinopril 20 Mg Tablet PO 12/16/24 08:59 20 mg QDAY URSULA Administration Metoprolol Tartrate 25 mg 11/16/24 21:00 11/24/24 08:58 Metoprolol Tartrate 25 Mg Tablet PO 12/16/24 20:59 25 mg BID URSULA Administration Pantoprazole Sodium 40 mg 11/14/24 09:00 11/24/24 08:59 Pantoprazole Inj 40 Mg Vial IVP 12/14/24 08:59 40 mg QDAY URSULA Administration Quetiapine Fumarate 50 mg 11/19/24 21:00 11/24/24 08:58 Quetiapine Fumarate 25 Mg Tablet PO 12/19/24 20:59 50 mg BID URSULA Administration Sennosides 2 tab 11/13/24 17:28 Senna Tablet PO 12/13/24 17:27 BID PRN CONSTIPATION Protocol Plan Assessment and plan: Summary: Ms. Day is a 48-year-old female with past medical history of fibromyalgia, anxiety, depression, insomnia and hypertension who presented to [facility] emergency department on 11/13/2024 with a chief complaint of syncopal episode. #Cystic duct obstruction, no gallbladder activity #?Possible stricture at ampulla #Transaminitis AST 130, ALT 312 on presentation, possible in setting of medication overdose US indicated dilated CBD Patient asymptomatic with normal total bilirubin. Hepatitis panel negative. Direct Bilirubin 0.2. MRCP done which showed Cholelithiasis Abnormal enlargement common hepatic common bile duct with abrupt termination of the distal common bile duct. Radiologist recommended ERCP follow-up to exclude stricture at the ampulla. Consulted Dr. Funes budget record clerk who recommended direct bilirubin in a.m. and HIDA scan Gallbladder nuclear medicine scan showed abnormal study, no gallbladder activity, cystic duct obstruction Case discussed with budget record clerk Dr. Funes who recommended consulting general surgery, following up with a abdominal MRI with and without contrast and CA 19-[address] Atwood general surgeon, case discussed with him, discussed MRCP findings of possible stricture at ampulla and recommendation for ERCP. Dr. Atwood will evaluate the patient, recommends getting possibly ERCP prior to the procedure. MRI 11/18/24: Extrahepatic biliary tract dilatation with abrupt termination of the distal common bile duct CA 19-9, within normal limits Plan: - Patient scheduled for ERCP in a.m. - N.p.o. after midnight - Follow CMP in a.m. - GI consulted, appreciate recommendations - General Surgery consulted, appreciate recommendations #Medication overdose #Underlying psychiatric disorder #Auditory and visual hallucinations #?Suicidal ideation #Dizziness #Recurrent falls #?Syncope Patient reported that she was in her room when she passed out, reports that she was dehydrated. Patient also reports history of multiple falls, reports that she has been falling multiple times in the last couple of days. Patient complains of throbbing headache, otherwise denies any pain. 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 Patient's son informed that patient was found last night on the ground having a breakdown with empty bottles of medications surrounding her. Most of the pills were on the ground and unaccounted for versus possible overdose. States there were three bottles that were broken and/or do not have lids. Medications unaccounted for and filled on 11/03/2024 include: 100mg Gabapentin 90 tablets, 10mg Propanolol 120 tablets, 20mg Furosemide 30 tablets, Tizanidine (filled 11/11/2024), 20mg Baclofen 120 tablets (bottle empty and covered), Venlafaxine (30 tablets left and 4-5 tablets are unaccounted for). EKG in ED shows sinus rhythm, QTc 450, CT scan of the head negative for any acute hemorrhage, mass effect or midline shift. Serial EKG negative, no acute evaluation noted Patient was given 1 L LR bolus in ED, placed on 1798 psychiatric hold Urine tox screen negative, CT negative, magnesium within normal limits, moderate, lactate normal Fingerstick every 6 hours within normal limits Plan: - Seroquel 50 mg twice daily - Hydroxyzine as needed for mild agitation - Haldol IV as needed for moderate to severe agitation - Needs medical clearance for evaluation by social and political studies professor - Seizure precaution - Referral to social and political studies professor for further evaluation - Continue gabapentin low-dose Pending medical clearance for psychiatric evaluation. #Hypertension Patient has history of hypertension on benazepril 40 mg daily, Lasix 20 mg p.o. daily at home - Continue lisinopril 20 mg p.o. daily - Continue metoprolol tartrate 25 mg p.o. twice daily #Alcohol use Per patient's history, patient takes alcohol, drinks medications with alcohol at times. Was on CIWA protocol, no withdrawal noted. #Acute kidney injury, resolved On presentation BUN 26, creatinine 1.6, GFR 40, baseline within normal limits Patient received 1 L LR bolus in ED plan Responded well to IV fluids, RAMON is resolved. Plan: - Avoid nephrotoxic agents - Renally dose medication - Follow CMP in a.m. #Electrolyte abnormalities #Hypokalemia - Correct and replace electrolytes as needed #Severe anxiety #Major depressive disorder DVT prophylaxis: Heparin every 12 hours GI prophylaxis: Protonix IV daily Diet: Regular diet Lines: Peripheral IV Code status: Full code This patient care was discussed with my attending Dr. Dhillon and my senior Dr Will PGY-3 Angelina Richmond PGY1 Disclaimer: Minor errors in buttermaker continuous churn may be present since this note was dictated by speech recognition software. MIKE discussed with and supervised the integrated marketing intern physician who took care of this patient. I personally saw and examined the patient and discussed the assessment and plan with the entire medicine team, including my attending Dr. Alejo YOUNG. I agree with the assessment and plan as documented above. Patient interviewed and examined at bedside this a.m. No acute overnight events reported. Spoke with GI specialist regards to previous findings of biliary duct dilation as evidenced on MRCP. Per the recommendations of the specialist we will keep the patient n.p.o. after midnight for ERCP to be performed tomorrow. LFTs are mostly within normal limits. Will continue to follow trend a.m. CMP and CBC. Piter Will M.D. Internal Medicine PGY-3 Attending Provider Attestation/Addendum Patient has flight of ideas, hallucinations, occasional word salad. The patient will undergo ERCP tomorrow. N.p.o. tonight. The patient has one-to-one sitter. Vital signs are stable. She has no jaundice. No report of nausea or vomiting.
--- NOTE | 2024-11-24 16:50 | PD.ADDCONS ---
Addendum Consultation Addendum Date of report being addended: 11/24/24 Narrative: 48-year-old female who was poor historian and not responding. History is obtained from medical record and patient's mother. Patient was admitted with syncopal episode. During hospitalization she has had multiple episodes of hallucinations and combativeness. She also was found to have transaminitis, ultrasound revealed multiple gallstones with dilated CBD. MRCP revealed dilated CBD with abrupt tapering and ERCP was recommended. She also underwent HIDA scan that showed cystic duct obstruction. According to patient's nurse she has been eating and tolerating diet without nausea or vomiting or complaining of abdominal pain ERCP tomorrow
--- NOTE | 2024-11-24 16:52 | PD.IMCONS ---
HPI Data of Consult Requesting Physician: Alfonso Dhillon MD Primary Care Provider: Physician No Primary/Family Consult Narrative History of present illness: 48-year-old female who was poor historian and not responding. History is obtained from medical record and patient's mother. Patient was admitted with syncopal episode. During hospitalization she has had multiple episodes of hallucinations and combativeness. She also was found to have transaminitis, ultrasound revealed multiple gallstones with dilated CBD. MRCP revealed dilated CBD with abrupt tapering and ERCP was recommended. She also underwent HIDA scan that showed cystic duct obstruction. According to patient's nurse she has been eating and tolerating diet without nausea or vomiting or complaining of abdominal pain cc:: cc: Alfonso Dhillon MD Review of Systems Review of Systems Narrative Review of Systems: 12 reviewed Meds Home Medications and Allergies Home Medications ?Medication ?Instructions ?Recorded ?Confirmed ?Type Benazepril Hcl 40 mg PO QDAY ##0 02/28/16 11/14/24 History Venlafaxine * (EFFEXOR *) 150 mg PO QDAY #0 tabs 02/28/16 11/14/24 History alprazolam 1 mg tablet (Xanax) 1 mg PO TID #0 tabs 02/28/16 11/14/24 History baclofen 20 mg tablet 20 mg PO HS #0 tabs 02/28/16 11/14/24 History furosemide 20 mg tablet (Lasix) 20 mg PO QDAY #0 tabs 02/28/16 11/14/24 History hydrochlorothiazide 25 mg tablet 25 mg PO QAM #0 tabs 02/28/16 11/14/24 History Allergies Allergy/AdvReac Type Severity Reaction Status Date / Time No Known Allergies Allergy Verified 11/13/24 16:01 Exam Vital Signs Temp Pulse Resp BP Pulse Ox O2 Del Method 97.7 F 100 16 105/67 98 Room Air 11/24/24 16:00 11/24/24 16:00 11/24/24 16:00 11/24/24 16:00 11/24/24 16:00 11/24/24 16:00 Routine Abdominal Exam Comments: not tender Results Labs 11/24/24 04:42 11/24/24 04:42 Labs: Short CBC 11/24/24 Range/Units 04:42 WBC 7.1 (3.6-11.0) Thou/mm3 Hgb 12.2 (12.0-16.0) g/dL Hct 36.2 (36.0-46.0) % Plt Count 340 D (140-440) Thou/mm3 BMP 11/24/24 04:42 Sodium 137 Potassium 3.2 L Chloride 103 Carbon Dioxide 23.6 BUN 9 Creatinine 0.8 Glucose 106 Calcium 9.5 Liver Function 11/24/24 Range/Units 04:42 Total Bilirubin 0.5 (0.3-1.2) mg/dL AST 27 (0-34) U/L ALT 71 H (10-49) U/L Alkaline Phosphatase 111 (46-116) U/L Albumin 4.5 (3.5-5.0) gm/dL Assessment and Plan Additional Assessment & Plan Additional Plan: ERCP tomorrow NPO at [facility]
[2024-11-25] VITALS (8 sets, daily range): BP systolic 97–163; BP diastolic 62–75; PULSE 62–96; RESP 18–19; TEMP 36.2–36.5; O2SAT 92–98; BMI 30.1
[2024-11-25 06:07] LABS: Basophils # (Auto) 0.1 Thou/mm3 (0.0-0.2); Basophils % (Auto) 1 % (0-2.5); Eosinophils # (Auto) 0.1 Thou/mm3 (0.0-0.5); Eosinophils % (Auto) 2 % (0-10); Hematocrit 36.4 % (36.0-46.0); Hemoglobin 12.1 g/dL (12.0-16.0); Immature Granulocytes % (Auto) 0 % (0-0); Immature Granulocytes Auto 0.01 Thou/mm3 (0.00-0.00); Lymphocytes # (Auto) 2.7 Thou/mm3 (1.0-4.8); Lymphocytes % (Auto) 39 % (10-50); Mean Corpuscular HGB Conc 33.2 g/dl (31.0-37.0); Mean Corpuscular Volume 99 fL (80-100); Monocytes # (Auto) 0.7 Thou/mm3 (0.0-0.8); Monocytes % (Auto) 9 % (0-12); Neutrophils # (Auto) 3.5 Thou/mm3 (1.8-7.7); Neutrophils % (Auto) 49 % (37-80); Nucleated Red Blood Cell % 0 /100 WBC (0); Platelet Count 321 Thou/mm3 (140-440); RDW Standard Deviation 45.3 fL (36.4-46.3); Red Blood Count 3.67 Miln/mm3 (4.00-5.20); White Blood Count 7.1 Thou/mm3 (3.6-11.0)
[2024-11-25 06:34] LABS: Alanine Aminotransferase 58 U/L (10-49); Albumin, Serum 4.6 gm/dL (3.5-5.0); Albumin/Globulin Ratio 1.6 (1.2-2.2); Alkaline Phosphatase 112 U/L (46-116); Anion Gap 10 (7-16); Aspartate Amino Transferase 25 U/L (0-34); BUN/Creatinine Ratio 10 Ratio (12-20); Bilirubin,Total 0.6 mg/dL (0.3-1.2); Blood Urea Nitrogen 8 mg/dL (9-23); Calcium 9.7 mg/dL (8.3-10.6); Calcium (Corrected) 9.7 mg/dL (8.5-10.1); Carbon Dioxide 24.2 mMol/L (20.0-31.0); Chloride 102 mMol/L (98-107); Creatinine (Component) 0.8 mg/dL (0.6-1.3); Estimated Creatinine Clearance 76.7 mL/min (>60); Globulin 2.8 gm/dL (2.3-3.5); Glucose 105 mg/dL (74-106); Osmolality,Calculated 270 (275-295); Phosphorous 4.3 mg/dL (2.4-5.1); Potassium 3.8 mMol/L (3.4-5.1); Sodium 136 mMol/L (136-145); Total Protein 7.4 gm/dL (5.7-8.2); eGFR > 60 See Note
[2024-11-25] MEDS: METOPROLOL TARTRATE 25 MG TABLET PO (08:54)
[2024-11-25] MEDS: PANTOPRAZOLE INJ 40 MG VIAL IVP (08:54)
[2024-11-25] MEDS: GABAPENTIN 100 MG CAPSULE PO ×2 (08:55→20:14)
[2024-11-25] MEDS: QUEtiapine FUMARATE 25 MG TABLET 50 MG PO ×2 (08:55→20:14)
[2024-11-25] MEDS: Lisinopril 20 MG TABLET PO (08:55)
[2024-11-25] MEDS: HEPARIN SOD INJ 5000 UNIT/ML VIAL SC ×2 (08:56→20:14)
[2024-11-25] MEDS: hydrOXYzine HCL 25 MG TABLET 50 MG PO ×2 (11:19→21:12)
--- NOTE | 2024-11-25 11:32 | PC.NURSE ---
Dr. Will made aware pt is becoming agitated with patient monitor and she is banging it on bed side rail. okay to remove patient monitor. orders received, read back and carried out.
--- NOTE | 2024-11-25 14:24 | ESPR_ITS ---
Documentation for date of: 11/25/24 Subjective Subjective Interval history: Patient seen and examined at bedside. Agitated at times, still actively hallucinating. Is alert and oriented x 3, ERCP rescheduled for tomorrow. Will keep patient n.p.o. after midnight. Continue to monitor patient. Exam Vital Signs Temp Pulse Resp BP Pulse Ox O2 Del Method 97.2 F 62 18 163/62 H 98 Room Air 11/25/24 08:00 11/25/24 08:55 11/25/24 08:00 11/25/24 08:55 11/25/24 08:00 11/25/24 08:00 Narrative Exam General: Awake and in no acute distress. Conversational and non-toxic appearing. HEENT: Normocephalic, atraumatic, mucous membranes moist. Pupils normally reactive Heart: Tachycardic and regular rhythm, no murmurs. Lungs: Clear to auscultation with no wheezing or crackles. Abdomen: Soft, nondistended, nontender, positive bowel sounds. ?No guarding or rebound tenderness. Neurologic: Alert and oriented x3, hallucinations at times, confused at times, no gross neurological deficit, and patient able to move all 4 extremities. Objective Labs 11/25/24 05:28 11/25/24 05:28 Labs: Laboratory Results - last 24 hr 11/25/24 05:28 WBC 7.1 RBC 3.67 L Hgb 12.1 Hct 36.4 MCV 99 MCH 33.0 MCHC 33.2 RDW Std Deviation 45.3 Plt Count 321 Neut % (Auto) 49 Lymph % (Auto) 39 [place] % (Auto) 9 Eos % (Auto) 2 Baso % (Auto) 1 Neut # (Auto) 3.5 Lymph # (Auto) 2.7 Andrews # (Auto) 0.7 Eos # (Auto) 0.1 Baso # (Auto) 0.1 Immature Gran # (Auto) 0.01 H Absolute Nucleated RBC 0.00 Immature Gran % 0 Nucleated RBC % 0 Sodium 136 Potassium 3.8 D Chloride 102 Carbon Dioxide 24.2 Anion Gap 10 BUN 8 L Creatinine 0.8 Estim Creat Clear Calc 76.7 eGFR > 60 BUN/Creatinine Ratio 10 L Glucose 105 Calculated Osmolality 270 L Calcium 9.7 Corrected Calcium 9.7 Phosphorus 4.3 Magnesium 2.0 Total Bilirubin 0.6 AST 25 ALT 58 H Alkaline Phosphatase 112 Total Protein 7.4 Albumin 4.6 Globulin 2.8 Albumin/Globulin Ratio 1.6 Quality Measures Quality Measures none Assessment & Plan Assessment Current Active Medications: Generic Name Dose Route Start Last Admin Trade Name Freq PRN Reason Stop Dose Admin Acetaminophen 650 mg 11/13/24 17:28 11/14/24 06:23 Acetaminophen 325 Mg Tablet PO 12/13/24 17:27 650 mg Q6H PRN Administration Pain (1-3) & Fever >100.4 Gabapentin 100 mg 11/14/24 21:00 11/25/24 08:55 Gabapentin 100 Mg Capsule PO 12/14/24 20:59 100 mg BID URSULA Administration Haloperidol Lactate 2 mg 11/23/24 02:00 Haloperidol Lact Inj 5 Mg/Ml Vial IM 12/23/24 01:59 Q12H PRN AGITATION (MODERATE-SEVERE) Heparin Sodium (Porcine) 5,000 unit 11/15/24 21:00 11/25/24 08:56 Heparin Sod Inj 5000 Unit/Ml Vial SC 11/29/24 20:59 5,000 unit Q12HR URSULA Administration Hydroxyzine HCl 50 mg 11/22/24 18:28 11/25/24 11:19 Hydroxyzine Hcl 25 Mg Tablet PO 12/22/24 21:59 50 mg TID PRN Administration AGITATION (MILD) Lisinopril 20 mg 11/16/24 09:00 11/25/24 08:55 Lisinopril 20 Mg Tablet PO 12/16/24 08:59 20 mg QDAY URSULA Administration Metoprolol Tartrate 25 mg 11/16/24 21:00 11/25/24 08:54 Metoprolol Tartrate 25 Mg Tablet PO 12/16/24 20:59 25 mg BID URSULA Administration Pantoprazole Sodium 40 mg 11/14/24 09:00 11/25/24 08:54 Pantoprazole Inj 40 Mg Vial IVP 12/14/24 08:59 40 mg QDAY URSULA Administration Quetiapine Fumarate 50 mg 11/19/24 21:00 11/25/24 08:55 Quetiapine Fumarate 25 Mg Tablet PO 12/19/24 20:59 50 mg BID URSULA Administration Sennosides 2 tab 11/13/24 17:28 Senna Tablet PO 12/13/24 17:27 BID PRN CONSTIPATION Protocol Plan Assessment and plan: Summary: Ms. Day is a 48-year-old female with past medical history of fibromyalgia, anxiety, depression, insomnia and hypertension who presented to [facility] emergency department on 11/13/2024 with a chief complaint of syncopal episode. #Cystic duct obstruction, no gallbladder activity #?Possible stricture at ampulla #Transaminitis AST 130, ALT 312 on presentation, possible in setting of medication overdose US indicated dilated CBD Patient asymptomatic with normal total bilirubin. Hepatitis panel negative. Direct Bilirubin 0.2. MRCP done which showed Cholelithiasis Abnormal enlargement common hepatic common bile duct with abrupt termination of the distal common bile duct. Radiologist recommended ERCP follow-up to exclude stricture at the ampulla. Consulted Dr. Funes esthetics instructor who recommended direct bilirubin in a.m. and HIDA scan Gallbladder nuclear medicine scan showed abnormal study, no gallbladder activity, cystic duct obstruction Case discussed with esthetics instructor Dr. Funes who recommended consulting general surgery, following up with a abdominal MRI with and without contrast and CA 19-[address] Atwood general surgeon, case discussed with him, discussed MRCP findings of possible stricture at ampulla and recommendation for ERCP. Dr. Atwood will evaluate the patient, recommends getting possibly ERCP prior to the procedure. MRI 11/18/24: Extrahepatic biliary tract dilatation with abrupt termination of the distal common bile duct CA 19-9, within normal limits Plan: - Patient scheduled for ERCP in a.m. - N.p.o. after midnight - Follow CMP in a.m. - GI consulted, appreciate recommendations - General Surgery consulted, appreciate recommendations #Medication overdose #Underlying psychiatric disorder #Auditory and visual hallucinations #?Suicidal ideation #Dizziness #Recurrent falls #?Syncope Patient reported that she was in her room when she passed out, reports that she was dehydrated. Patient also reports history of multiple falls, reports that she has been falling multiple times in the last couple of days. Patient complains of throbbing headache, otherwise denies any pain. 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 Patient's son informed that patient was found last night on the ground having a breakdown with empty bottles of medications surrounding her. Most of the pills were on the ground and unaccounted for versus possible overdose. States there were three bottles that were broken and/or do not have lids. Medications unaccounted for and filled on 11/03/2024 include: 100mg Gabapentin 90 tablets, 10mg Propanolol 120 tablets, 20mg Furosemide 30 tablets, Tizanidine (filled 11/11/2024), 20mg Baclofen 120 tablets (bottle empty and covered), Venlafaxine (30 tablets left and 4-5 tablets are unaccounted for). EKG in ED shows sinus rhythm, QTc 450, CT scan of the head negative for any acute hemorrhage, mass effect or midline shift. Serial EKG negative, no acute evaluation noted Patient was given 1 L LR bolus in ED, placed on 179 psychiatric hold Urine tox screen negative, CT negative, magnesium within normal limits, moderate, lactate normal Fingerstick every 6 hours within normal limits Plan: - Seroquel 50 mg twice daily - Hydroxyzine as needed for mild agitation - Haldol IV as needed for moderate to severe agitation - Needs medical clearance for evaluation by social sciences instructor - Seizure precaution - Referral to social sciences instructor for further evaluation - Continue gabapentin low-dose Pending medical clearance for psychiatric evaluation. #Hypertension Patient has history of hypertension on benazepril 40 mg daily, Lasix 20 mg p.o. daily at home - Continue lisinopril 20 mg p.o. daily - Continue metoprolol tartrate 25 mg p.o. twice daily #Alcohol use Per patient's history, patient takes alcohol, drinks medications with alcohol at times. Was on CIWA protocol, no withdrawal noted. #Acute kidney injury, resolved On presentation BUN 26, creatinine 1.6, GFR 40, baseline within normal limits Patient received 1 L LR bolus in ED plan Responded well to IV fluids, RAMON is resolved. Plan: - Avoid nephrotoxic agents - Renally dose medication - Follow CMP in a.m. #Electrolyte abnormalities #Hypokalemia - Correct and replace electrolytes as needed #Severe anxiety #Major depressive disorder DVT prophylaxis: Heparin every 12 hours GI prophylaxis: Protonix IV daily Diet: Regular diet Lines: Peripheral IV Code status: Full code This patient care was discussed with my attending Dr. Koenig and my senior Dr Will PGY-3 Angelina Richmond PGY1 Disclaimer: Minor errors in cardiac nurse practitioner may be present since this note was dictated by speech recognition software. MIKE discussed with and supervised the international controller physician who took care of this patient. I personally saw and examined the patient and discussed the assessment and plan with the entire medicine team, including my attending Dr. Arya YOUNG. I agree with the assessment and plan as documented above. Patient interviewed and examined at bedside this a.m. No acute overnight events were reported. Patient was kept n.p.o. plan to ER. ERCP was canceled. Patient will be kept n.p.o. overnight and ERCP tomorrow. LFTs have since normalized and the patient still remains asymptomatic in terms of abdominal pain. Will continue to trend LFTs with daily labs. Piter Will M.D. Internal Medicine PGY-3 Attending Provider Attestation/Addendum I have examined the patient, reviewed labs and imaging findings, discussed the case with the resident(s), and reviewed entered orders. I agree with the plan of care as outlined in this note, with these additional summaries/recommendations: Patient seen at bedside. Patient has had multiple code robert for combativeness although she appears easily redirectable. She does appear to have underlying psychiatric disorder either bipolar disorder versus schizophrenia. She appears to have features of both including pressured speech, flight of ideas, grandiosity, and also hallucinations. Nonetheless patient appears easily redirectable and will continue to give as needed sedating medicines. Patient is pending ERCP and medical clearance before she can be transferred for psychiatric evaluation. All questions answered to satisfaction. Dr. Arya MD
--- NOTE | 2024-11-25 16:09 | PC.NURSE ---
Nikos patient's son at bedside nurse attempted multiple times to contact Dr. Funes, and to get consent for ERCP, no answer.
[2024-11-26] VITALS (18 sets, daily range): BP systolic 90–141; BP diastolic 57–115; PULSE 58–107; RESP 12–24; TEMP 36.1–36.9; O2SAT 94–100; BMI 29.3
[2024-11-26] MEDS: HALOPERIDOL LACT INJ 5 MG/ML VIAL 2 MG IM
[2024-11-26 08:07] LABS: Basophils # (Auto) 0.1 Thou/mm3 (0.0-0.2); Basophils % (Auto) 1 % (0-2.5); Eosinophils # (Auto) 0.1 Thou/mm3 (0.0-0.5); Eosinophils % (Auto) 2 % (0-10); Hematocrit 35.9 % (36.0-46.0); Hemoglobin 12.4 g/dL (12.0-16.0); Immature Granulocytes % (Auto) 0 % (0-0); Immature Granulocytes Auto 0.02 Thou/mm3 (0.00-0.00); Lymphocytes % (Auto) 35 % (10-50); Mean Corpuscular HGB Conc 34.5 g/dl (31.0-37.0); Mean Corpuscular Hemoglobin 33.6 pg (25.0-35.0); Mean Corpuscular Volume 97 fL (80-100); Monocytes # (Auto) 0.8 Thou/mm3 (0.0-0.8); Monocytes % (Auto) 10 % (0-12); Neutrophils # (Auto) 4.5 Thou/mm3 (1.8-7.7); Neutrophils % (Auto) 53 % (37-80); Nucleated Red Blood Cell % 0 /100 WBC (0); Platelet Count 288 Thou/mm3 (140-440); RDW Standard Deviation 45.3 fL (36.4-46.3); Red Blood Count 3.69 Miln/mm3 (4.00-5.20); White Blood Count 8.6 Thou/mm3 (3.6-11.0)
[2024-11-26 08:29] LABS: Alanine Aminotransferase 45 U/L (10-49); Albumin, Serum 4.4 gm/dL (3.5-5.0); Albumin/Globulin Ratio 1.6 (1.2-2.2); Alkaline Phosphatase 113 U/L (46-116); Anion Gap 10 (7-16); Aspartate Amino Transferase 22 U/L (0-34); BUN/Creatinine Ratio 11 Ratio (12-20); Bilirubin,Total 0.5 mg/dL (0.3-1.2); Blood Urea Nitrogen 14 mg/dL (9-23); Calcium 9.6 mg/dL (8.3-10.6); Calcium (Corrected) 9.6 mg/dL (8.5-10.1); Carbon Dioxide 24.2 mMol/L (20.0-31.0); Chloride 106 mMol/L (98-107); Creatinine (Component) 1.3 mg/dL (0.6-1.3); Estimated Creatinine Clearance 46.6 mL/min (>60); Globulin 2.7 gm/dL (2.3-3.5); Glucose 102 mg/dL (74-106); Magnesium 2.1 mg/dL (1.6-2.6); Osmolality,Calculated 279 (275-295); Phosphorous 5.6 mg/dL (2.4-5.1); Potassium 3.7 mMol/L (3.4-5.1); Sodium 140 mMol/L (136-145); Total Protein 7.1 gm/dL (5.7-8.2); eGFR 51 See Note
[2024-11-26] MEDS: SODIUM CHLORIDE 0.9% 1000 ML 1,000 ML 999 ML IV (08:54)
--- NOTE | 2024-11-26 09:02 | PC.SS ---
SS update: ERCP planned for today. On IV fluid. Blood pressure is soft. Patient continues pending medical clearance.
[2024-11-26] MEDS: PANTOPRAZOLE INJ 40 MG VIAL IVP (09:33)
[2024-11-26] MEDS: HEPARIN SOD INJ 5000 UNIT/ML VIAL SC ×2 (09:33→21:38)
[2024-11-26] MEDS: GABAPENTIN 100 MG CAPSULE PO ×2 (10:39→21:38)
[2024-11-26] MEDS: QUEtiapine FUMARATE 25 MG TABLET 50 MG PO ×2 (10:39→21:38)
--- NOTE | 2024-11-26 10:49 | PC.NURSE ---
Per Dr. Richmond, BP medication held.
[2024-11-26] MEDS: PIPER/TAZO 3.375 GM PREMIX 3.375 GM/50 ML BAG IV ×2 (13:03→16:16)
--- NOTE | 2024-11-26 14:22 | ESPR_ITS ---
Documentation for date of: 11/26/24 Subjective Subjective Interval history: Patient seen and examined at bedside. Agitated at times, still actively hallucinating. Is alert and oriented x 3, ERCP scheduled for today. Currently n.p.o. Continue to monitor patient. Exam Vital Signs Temp Pulse Resp BP Pulse Ox O2 Del Method 97.4 F 58 L 24 H 107/61 96 Room Air 11/26/24 11:58 11/26/24 12:00 11/26/24 11:58 11/26/24 11:58 11/26/24 11:58 11/26/24 11:58 Narrative Exam General: Awake and in no acute distress. Conversational and non-toxic appearing. HEENT: Normocephalic, atraumatic, mucous membranes moist. Pupils normally reactive Heart: Sinus regular rhythm, no murmurs. Lungs: Clear to auscultation with no wheezing or crackles. Abdomen: Soft, nondistended, nontender, positive bowel sounds. ?No guarding or rebound tenderness. Neurologic: Alert and oriented x3, hallucinations at times, confused at times, no gross neurological deficit, and patient able to move all 4 extremities. Objective Labs 11/27/24 04:41 11/27/24 04:41 Labs: Laboratory Results - last 24 hr 11/26/24 07:35 WBC 8.6 RBC 3.69 L Hgb 12.4 Hct 35.9 L MCV 97 MCH 33.6 MCHC 34.5 RDW Std Deviation 45.3 Plt Count 288 D Neut % (Auto) 53 Lymph % (Auto) 35 [place] % (Auto) 10 Eos % (Auto) 2 Baso % (Auto) 1 Neut # (Auto) 4.5 Lymph # (Auto) 3.0 [place] # (Auto) 0.8 Eos # (Auto) 0.1 Baso # (Auto) 0.1 Immature Gran # (Auto) 0.02 H Absolute Nucleated RBC 0.00 Immature Gran % 0 Nucleated RBC % 0 Sodium 140 Potassium 3.7 Chloride 106 Carbon Dioxide 24.2 Anion Gap 10 BUN 14 Creatinine 1.3 D Estim Creat Clear Calc 46.6 L eGFR 51 L BUN/Creatinine Ratio 11 L Glucose 102 Calculated Osmolality 279 Calcium 9.6 Corrected Calcium 9.6 Phosphorus 5.6 H Magnesium 2.1 Total Bilirubin 0.5 AST 22 ALT 45 Alkaline Phosphatase 113 Total Protein 7.1 Albumin 4.4 Globulin 2.7 Albumin/Globulin Ratio 1.6 Quality Measures Quality Measures none Assessment & Plan Assessment Current Active Medications: Generic Name Dose Route Start Last Admin Trade Name Freq PRN Reason Stop Dose Admin Acetaminophen 650 mg 11/13/24 17:28 11/14/24 06:23 Acetaminophen 325 Mg Tablet PO 12/13/24 17:27 650 mg Q6H PRN Administration Pain (1-3) & Fever >100.4 Gabapentin 100 mg 11/14/24 21:00 11/26/24 10:39 Gabapentin 100 Mg Capsule PO 12/14/24 20:59 100 mg BID URSULA Administration Haloperidol Lactate 2 mg 11/23/24 02:00 11/26/24 00:00 Haloperidol Lact Inj 5 Mg/Ml Vial IM 12/23/24 01:59 2 mg Q12H PRN Administration AGITATION (MODERATE-SEVERE) Heparin Sodium (Porcine) 5,000 unit 11/15/24 21:00 11/26/24 09:33 Heparin Sod Inj 5000 Unit/Ml Vial SC 11/29/24 20:59 5,000 unit Q12HR URSULA Administration Hydroxyzine HCl 50 mg 11/22/24 18:28 11/25/24 21:12 Hydroxyzine Hcl 25 Mg Tablet PO 12/22/24 21:59 50 mg TID PRN Administration AGITATION (MILD) Lisinopril 20 mg 11/16/24 09:00 11/26/24 10:48 Lisinopril 20 Mg Tablet PO 12/16/24 08:59 Not Given QDAY URSULA Metoprolol Tartrate 25 mg 11/16/24 21:00 11/26/24 10:49 Metoprolol Tartrate 25 Mg Tablet PO 12/16/24 20:59 Not Given BID URSULA Pantoprazole Sodium 40 mg 11/14/24 09:00 11/26/24 09:33 Pantoprazole Inj 40 Mg Vial IVP 12/14/24 08:59 40 mg QDAY URSULA Administration Quetiapine Fumarate 50 mg 11/19/24 21:00 11/26/24 10:39 Quetiapine Fumarate 25 Mg Tablet PO 12/19/24 20:59 50 mg BID URSULA Administration Sennosides 2 tab 11/13/24 17:28 Senna Tablet PO 12/13/24 17:27 BID PRN CONSTIPATION Protocol Plan Assessment and plan: Summary: Ms. Day is a 48-year-old female with past medical history of fibromyalgia, anxiety, depression, insomnia and hypertension who presented to [facility] emergency department on 11/13/2024 with a chief complaint of syncopal episode. #Cystic duct obstruction, no gallbladder activity #?Possible stricture at ampulla #Transaminitis AST 130, ALT 312 on presentation, possible in setting of medication overdose US indicated dilated CBD Patient asymptomatic with normal total bilirubin. Hepatitis panel negative. Direct Bilirubin 0.2. MRCP done which showed Cholelithiasis Abnormal enlargement common hepatic common bile duct with abrupt termination of the distal common bile duct. Radiologist recommended ERCP follow-up to exclude stricture at the ampulla. Consulted Dr. Funes retail and restaurant who recommended direct bilirubin in a.m. and HIDA scan Gallbladder nuclear medicine scan showed abnormal study, no gallbladder activity, cystic duct obstruction Case discussed with retail and restaurant Dr. Funes who recommended consulting general surgery, following up with a abdominal MRI with and without contrast and CA 19-[address] Atwood general surgeon, case discussed with him, discussed MRCP findings of possible stricture at ampulla and recommendation for ERCP. Dr. Atwood will evaluate the patient, recommends getting possibly ERCP prior to the procedure. MRI 11/18/24: Extrahepatic biliary tract dilatation with abrupt termination of the distal common bile duct CA 19-9, within normal limits Plan: - Patient scheduled for ERCP today - N.p.o. - Follow CMP in a.m. - GI consulted, appreciate recommendations - Per Dr. Atwood patient will need cholecystectomy post ERCP. - General Surgery consulted, appreciate recommendations #Medication overdose #Underlying psychiatric disorder #Auditory and visual hallucinations #?Suicidal ideation #Dizziness #Recurrent falls #?Syncope Patient reported that she was in her room when she passed out, reports that she was dehydrated. Patient also reports history of multiple falls, reports that she has been falling multiple times in the last couple of days. Patient complains of throbbing headache, otherwise denies any pain. 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 Patient's son informed that patient was found last night on the ground having a breakdown with empty bottles of medications surrounding her. Most of the pills were on the ground and unaccounted for versus possible overdose. States there were three bottles that were broken and/or do not have lids. Medications unaccounted for and filled on 11/03/2024 include: 100mg Gabapentin 90 tablets, 10mg Propanolol 120 tablets, 20mg Furosemide 30 tablets, Tizanidine (filled 11/11/2024), 20mg Baclofen 120 tablets (bottle empty and covered), Venlafaxine (30 tablets left and 4-5 tablets are unaccounted for). EKG in ED shows sinus rhythm, QTc 450, CT scan of the head negative for any acute hemorrhage, mass effect or midline shift. Serial EKG negative, no acute evaluation noted Patient was given 1 L LR bolus in ED, placed on 179 psychiatric hold Urine tox screen negative, CT negative, magnesium within normal limits, moderate, lactate normal Fingerstick every 6 hours within normal limits Plan: - Seroquel 50 mg twice daily - Hydroxyzine as needed for mild agitation - Haldol IV as needed for moderate to severe agitation - Needs medical clearance for evaluation by medical social worker - Seizure precaution - Referral to medical social worker for further evaluation - Continue gabapentin low-dose Pending medical clearance for psychiatric evaluation. #Hypertension Patient has history of hypertension on benazepril 40 mg daily, Lasix 20 mg p.o. daily at home - Continue lisinopril 20 mg p.o. daily - Continue metoprolol tartrate 25 mg p.o. twice daily #Alcohol use Per patient's history, patient takes alcohol, drinks medications with alcohol at times. Was on CIWA protocol, no withdrawal noted. #Acute kidney injury, resolved On presentation BUN 26, creatinine 1.6, GFR 40, baseline within normal limits Patient received 1 L LR bolus in ED plan Responded well to IV fluids, RAMON is resolved. Plan: - Avoid nephrotoxic agents - Renally dose medication - Follow CMP in a.m. #Electrolyte abnormalities #Hypokalemia - Correct and replace electrolytes as needed #Severe anxiety #Major depressive disorder DVT prophylaxis: Heparin every 12 hours GI prophylaxis: Protonix IV daily Diet: Regular diet Lines: Peripheral IV Code status: Full code This patient care was discussed with my attending Dr. Koenig and my senior Dr Will PGY-3 Angelina Richmond PGY1 Disclaimer: Minor errors in data processing systems consultant may be present since this note was dictated by speech recognition software. MIKE discussed with and supervised the internal recruiter physician who took care of this patient. I personally saw and examined the patient and discussed the assessment and plan with the entire medicine team, including my attending Dr. Arya YOUNG. I agree with the assessment and plan as documented above. Patient interviewed and examined at bedside this a.m. Patient underwent ERCP and was found to have choledocholithiasis which was removed via biliary sphincterotomy and balloon extraction. Patient will undergo cholecystectomy at a later time under the care of general surgery. Piter Will M.D. Internal Medicine PGY-3 Attending Provider Attestation/Addendum I have examined the patient, reviewed labs and imaging findings, discussed the case with the resident(s), and reviewed entered orders. I agree with the plan of care as outlined in this note, with these additional summaries/recommendations: Patient & son seen at bedside. Son reports patient has never been formally diagnosed with any psychiatric disorder but does note she ask abnormal when she is sleep deprived. Discussed with son that she most likely has bipolar versus schizophrenia and will be evaluated for psychiatric transfer once medically cleared. She appears to have features of both including pressured speech, flight of ideas, grandiosity, and also hallucinations. Nonetheless patient appears easily redirectable and will continue to give as needed sedating medicines. Patient will go for ERCP today with gastroenterology and then likely cholecystectomy based on ERCP results within the coming days. All questions answered to satisfaction. Dr. Arya MD
--- NOTE | 2024-11-26 14:30 | XR_ITS ---
Examination: ERCP Fluoroscopy 30 spot fluoroscopic films of the abdomen Examination type: November 26, 2024 1604 hours INDICATIONS: Abdominal pain this week, with elevated liver enzymes, MRI abdomen November 18, 2024 extrahepatic biliary tract dilatation with abrupt termination of the distal common bile duct TECHNIQUE AND FINDINGS: 30 spot fluoroscopic films of the abdomen with opacification of enlarged common hepatic common bile duct up to 17 mm Balloon sweeping of the common hepatic common bile duct, stent in place on the later films Fluoroscopy 3 minutes radiation dose 12.261 mg IMPRESSION: ERCP as above with stent placement in satisfactory position
--- NOTE | 2024-11-26 14:30 | PC.SS ---
Rounding note: ERCP planned for today with Dr. Funes. Patient will have possible gallbladder removal. Patient continues pending medical clearance for mental health evaluation.
[2024-11-26] MEDS: INDOMETHACIN 50 MG SUPP 100 MG PR (15:38)
--- NOTE | 2024-11-26 15:57 | SUR.PHASEI ---
1557: Pt. AAOx4, vitals stable, breathing unlabored, no complaint of pain or nausea, no dressing in place, no active bleed noted, report received from MD Oropeza and Jennifer WU.
--- NOTE | 2024-11-26 16:15 | PC.NURSE ---
At 1405 pt transfer via gurney to [facility], pt is alert, confuse, and follows commands, accompanied by Arianna WU and her son Nikos.
--- NOTE | 2024-11-26 16:43 | PC.NURSE ---
received report from Johnathan, from Monica WU.
--- NOTE | 2024-11-26 16:44 | SUR.PHASEI ---
1644: Pt. AAOx4, vitals stable, breathing unlabored, no complaint of pain or nausea, no dressing in place, no active bleed noted, pt. tolerated bites of ice chips well, gave report to Kisha WU prior to transfer to room 356. Family made aware of transfer to room.
--- NOTE | 2024-11-26 18:07 | PC.NURSE ---
1700 pt in the room accompanied by mother and sister, she is alert and follows commands.
[2024-11-27] VITALS (13 sets, daily range): BP systolic 138–161; BP diastolic 77–96; PULSE 72–106; RESP 14–17; TEMP 36.6–37.9; O2SAT 95–100; BMI 31.2
[2024-11-27] MEDS: ACETAMINOPHEN 325 MG TABLET 650 MG PO ×4 (00:16→15:36)
[2024-11-27] MEDS: KETOROLAC INJ 30 MG/ML VIAL 15 MG IVP (02:36)
[2024-11-27] MEDS: PIPER/TAZO INJ 3.375 GM in SODIUM CHLORIDE 0.9% (Popper) 50 ML IV (06:04)
[2024-11-27 06:18] LABS: Basophils % (Auto) 0 % (0-2.5); Eosinophils % (Auto) 0 % (0-10); Hematocrit 35.7 % (36.0-46.0); Hemoglobin 12.2 g/dL (12.0-16.0); Immature Granulocytes % (Auto) 0 % (0-0); Immature Granulocytes Auto 0.04 Thou/mm3 (0.00-0.00); Lymphocytes # (Auto) 1.1 Thou/mm3 (1.0-4.8); Lymphocytes % (Auto) 12 % (10-50); Mean Corpuscular HGB Conc 34.2 g/dl (31.0-37.0); Mean Corpuscular Hemoglobin 32.9 pg (25.0-35.0); Mean Corpuscular Volume 96 fL (80-100); Monocytes # (Auto) 0.9 Thou/mm3 (0.0-0.8); Monocytes % (Auto) 9 % (0-12); Neutrophils # (Auto) 7.4 Thou/mm3 (1.8-7.7); Neutrophils % (Auto) 79 % (37-80); Nucleated Red Blood Cell % 0 /100 WBC (0); Platelet Count 354 Thou/mm3 (140-440); RDW Standard Deviation 42.2 fL (36.4-46.3); Red Blood Count 3.71 Miln/mm3 (4.00-5.20); White Blood Count 9.4 Thou/mm3 (3.6-11.0)
[2024-11-27 06:33] LABS: Alanine Aminotransferase 43 U/L (10-49); Albumin, Serum 4.3 gm/dL (3.5-5.0); Albumin/Globulin Ratio 1.7 (1.2-2.2); Alkaline Phosphatase 105 U/L (46-116); Anion Gap 12 (7-16); Aspartate Amino Transferase 26 U/L (0-34); BUN/Creatinine Ratio 11 Ratio (12-20); Bilirubin,Total 0.6 mg/dL (0.3-1.2); Blood Urea Nitrogen 10 mg/dL (9-23); Calcium 9.2 mg/dL (8.3-10.6); Calcium (Corrected) 9.2 mg/dL (8.5-10.1); Carbon Dioxide 21.1 mMol/L (20.0-31.0); Chloride 101 mMol/L (98-107); Creatinine (Component) 0.9 mg/dL (0.6-1.3); Estimated Creatinine Clearance 69.5 mL/min (>60); Globulin 2.6 gm/dL (2.3-3.5); Glucose 104 mg/dL (74-106); Magnesium 1.9 mg/dL (1.6-2.6); Osmolality,Calculated 267 (275-295); Phosphorous 3.7 mg/dL (2.4-5.1); Potassium 3.9 mMol/L (3.4-5.1); Sodium 134 mMol/L (136-145); Total Protein 6.9 gm/dL (5.7-8.2); eGFR > 60 See Note
[2024-11-27] MEDS: PANTOPRAZOLE INJ 40 MG VIAL IVP (08:07)
[2024-11-27] MEDS: METOPROLOL TARTRATE 25 MG TABLET PO ×2 (08:07→21:45)
[2024-11-27] MEDS: Lisinopril 20 MG TABLET PO (08:08)
[2024-11-27] MEDS: GABAPENTIN 100 MG CAPSULE PO ×2 (08:08→21:45)
[2024-11-27] MEDS: QUEtiapine FUMARATE 25 MG TABLET 50 MG PO ×2 (08:08→21:45)
[2024-11-27] MEDS: HEPARIN SOD INJ 5000 UNIT/ML VIAL SC ×2 (08:08→21:46)
[2024-11-27] MEDS: SENNA TABLET 2 TAB PO (08:21)
--- NOTE | 2024-11-27 10:38 | EKG_ITS ---
[facility] Test Date: 2024-11-27 Pat Name: LISA STRINGER Department: Room: S356A Gender: Female Pulp Mixer: [id number] : [id number] Requested By: Saurabh Devi Order Number: [id number] Reading MD: Saurabh Devi Measurements Intervals [place] Rate: 89 P: 49 NH: 111 QRS: -20 QRSD: 96 T: 21 QT: 430 QTc: 524 Interpretive Statements SINUS RHYTHM WITH SHORT NH INTERVAL WITH OCCASIONAL VENTRICULAR PREMATURE COMPLEXES INCOMPLETE RIGHT BUNDLE BRANCH BLOCK MINIMAL VOLTAGE CRITERIA FOR LVH, CONSIDER NORMAL VARIANT PROLONGED QT INTERVAL Compared to ECG 11/20/2024 11:27:20 Ventricular premature complex(es) now present Short NH interval now present Incomplete right bundle-branch block now present Prolonged QT interval now present Myocardial infarct finding no longer present /store/[id number]
--- NOTE | 2024-11-27 13:59 | PD.SURPROG ---
Documentation for date of: 11/27/24 Subjective Subjective Narrative: Patient is seen and examined. She is tolerating diet with occasional epigastric and right upper quadrant abdominal pain Exam Vital Signs Temp Pulse Resp BP Pulse Ox O2 Del Method O2 Flow Rate 98 F 92 16 145/85 H 99 Room Air 2 11/27/24 12:00 11/27/24 12:00 11/27/24 12:00 11/27/24 12:11/27/24 12:11/27/24 12:11/26/24 16:10 Constitutional Constitutional: no acute distress Routine Abdominal Exam Abdominal: Present soft, normoactive bowel sounds and tenderness (Minimal tenderness to deep palpation in the right upper quadrant, no rebound tenderness or peritonitis); Absent distended Assessment & Plan Assessment Additional comments: Cholecystitis with cystic duct obstruction. Patient underwent ERCP with stent placement Plan Will plan for laparoscopic possible open cholecystectomy tomorrow. Risks include but not limited to infection, bleeding, injury to bowel, liver, stomach, bile duct, retained stone, bile leak, abdominal sepsis and or abdominal abscess, need for further procedure and or operation discussed with the patient and her family who are the decision-maker. Benefits and alternatives explained to them, all their questions answered, they agreed and consented to proceed with the operation.
--- NOTE | 2024-11-27 14:01 | PD.IMPROG ---
Documentation for date of: 11/27/24 Subjective Subjective Interval history: s/p ERCP with stent placement, fully covered metallic stent. no abdominal pain. 11/27/2024 Exam Vital Signs Temp Pulse Resp BP Pulse Ox O2 Del Method O2 Flow Rate 98 F 92 16 145/85 H 99 Room Air 2 11/27/24 12:00 11/27/24 12:00 11/27/24 12:00 11/27/24 12:00 11/27/24 12:00 11/27/24 12:00 11/26/24 16:10 Routine Abdominal Exam Comments: Normal exam Objective Labs 11/27/24 04:41 11/27/24 04:41 Labs: Laboratory Results - last 24 hr 11/26/24 11/27/24 07:35 04:41 WBC 9.4 RBC 3.71 L Hgb 12.2 Hct 35.7 L MCV 96 MCH 32.9 MCHC 34.2 RDW Std Deviation 42.2 Plt Count 354 D Neut % (Auto) 79 Lymph % (Auto) 12 Kershaw % (Auto) 9 Eos % (Auto) 0 Baso % (Auto) 0 Neut # (Auto) 7.4 Lymph # (Auto) 1.1 Kershaw # (Auto) 0.9 H Eos # (Auto) 0.0 Baso # (Auto) 0.0 Immature Gran # (Auto) 0.04 H Absolute Nucleated RBC 0.00 Immature Gran % 0 Nucleated RBC % 0 Sodium 134 L Potassium 3.9 Chloride 101 Carbon Dioxide 21.1 Anion Gap 12 BUN 10 Creatinine 0.9 Estim Creat Clear Calc 69.5 eGFR > 60 BUN/Creatinine Ratio 11 L Glucose 104 Calculated Osmolality 267 L Calcium 9.2 Corrected Calcium 9.2 Phosphorus 3.7 Magnesium 1.9 Total Bilirubin 0.6 AST 26 ALT 43 Alkaline Phosphatase 105 Total Protein 6.9 Albumin 4.3 Globulin 2.6 Albumin/Globulin Ratio 1.7 Tumor Marker AFP 2.60 Assessment & Plan A&P Narrative s/p ERCP with stent placement, fully covered metallic stent. no abdominal pain. with biopsy Follow path ERCP in 3 months Follow with GI in 2-4 weeks Needs ERCP with Spyglass advance diet Time Spent With Patient Time: Total time spent is greater than 50% in coordination of care (as documented) at patient's floor/unit and/or counseling patient:
[2024-11-27] MEDS: PIPER/TAZO 3.375 GM PREMIX 3.375 GM/50 ML BAG IV ×2 (14:50→21:46)
--- NOTE | 2024-11-27 15:04 | PC.SS ---
Rounding note: pending general surgery recommendations. Patient not medically cleared for mental health evaluation at this time.
--- NOTE | 2024-11-27 15:05 | PC.SS ---
SS follow up: met with patient at bed side. Patient appeared to be comfortable and rested. Patient provided proper eye contact during contact. Patient reports she has been sleeping well at night. Patient reports eating while she has been here, although she has had poor appetite. Patient informs she has been ambulating and has been utilizing the restroom. Per patient she is not feeling agitated. Patient denies any code robert being called this week. Patient informs she has had family visiting her. Patient denies experiencing audio and visual hallucinations at this time. Per patient, she has been doing well, no concerns reported by the patient at the time. Patient is aware once she is medically cleared she will have a mental health evaluation completed to determine discharge disposition. Patient verbalized understanding and had no questions at this time.
--- NOTE | 2024-11-27 15:30 | PD.RESPRO ---
Documentation for date of: 11/27/24 Subjective Subjective Interval history: Patient was seen and examined at bedside this AM. No acute exents overnight. Patient tolerating diet, adequate urine output and mentation is at baseline. Patient complains of intermittent biliary colic, somnolence and nausea. No longer endorses any auditory or visual hallucinations. EKG ordered S/p ERCP with biliary stent placement on 11/26. General surgeon, Dr Atwood updated on the above and closely following the case. Exam Vital Signs Temp Pulse Resp BP Pulse Ox O2 Del Method O2 Flow Rate 98 F 92 16 145/85 H 99 Room Air 2 11/27/24 12:00 11/27/24 12:00 11/27/24 12:00 11/27/24 12:11/27/24 12:11/27/24 12:00 11/26/24 16:10 Narrative Exam Constitutional Alert, oriented x 3 and comfortable HEENT Vision grossly intact. Patent nares. Trachea midline Respiratory Chest normal on inspection and clear auscultation bilaterally Cardiovascular S1 and S2 audible, RRR. No murmurs carotid bruit. No gross JVD. Abdominal Soft and tender to palpation in right upper quadrant, BS + Genitourinary No bladder tenderness, no flank pain. Normal to palpation Musculoskeletal Extremities tone within normal limits. No LE edema. Neurological CN II - XII grossly intact. Extremity motor and sensation grossly intact. Skin Warm, dry and intact. No apparent lesions. Psychiatric Patient has good affect, is cooperative Objective Labs 11/28/24 05:40 11/28/24 05:40 Labs: Laboratory Results - last 24 hr 11/26/24 11/27/24 07:35 04:41 WBC 9.4 RBC 3.71 L Hgb 12.2 Hct 35.7 L MCV 96 MCH 32.9 MCHC 34.2 RDW Std Deviation 42.2 Plt Count 354 D Neut % (Auto) 79 Lymph % (Auto) 12 Wright % (Auto) 9 Eos % (Auto) 0 Baso % (Auto) 0 Neut # (Auto) 7.4 Lymph # (Auto) 1.1 Wright # (Auto) 0.9 H Eos # (Auto) 0.0 Baso # (Auto) 0.0 Immature Gran # (Auto) 0.04 H Absolute Nucleated RBC 0.00 Immature Gran % 0 Nucleated RBC % 0 Sodium 134 L Potassium 3.9 Chloride 101 Carbon Dioxide 21.1 Anion Gap 12 BUN 10 Creatinine 0.9 Estim Creat Clear Calc 69.5 eGFR > 60 BUN/Creatinine Ratio 11 L Glucose 104 Calculated Osmolality 267 L Calcium 9.2 Corrected Calcium 9.2 Phosphorus 3.7 Magnesium 1.9 Total Bilirubin 0.6 AST 26 ALT 43 Alkaline Phosphatase 105 Total Protein 6.9 Albumin 4.3 Globulin 2.6 Albumin/Globulin Ratio 1.7 Tumor Marker AFP 2.60 Quality Measures Quality Measures none Assessment & Plan Assessment Current Active Medications: Generic Name Dose Route Start Last Admin Trade Name Freq PRN Reason Stop Dose Admin Acetaminophen 650 mg 11/13/24 17:28 11/27/24 08:21 Acetaminophen 325 Mg Tablet PO 12/13/24 17:27 650 mg Q6H PRN Administration Pain (1-3) & Fever >100.4 Gabapentin 100 mg 11/14/24 21:00 11/27/24 08:08 Gabapentin 100 Mg Capsule PO 12/14/24 20:59 100 mg BID URSULA Administration Haloperidol Lactate 2 mg 11/23/24 02:00 11/26/24 00:00 Haloperidol Lact Inj 5 Mg/Ml Vial IM 12/23/24 01:59 2 mg Q12H PRN Administration AGITATION (MODERATE-SEVERE) Heparin Sodium (Porcine) 5,000 unit 11/15/24 21:00 11/27/24 08:08 Heparin Sod Inj 5000 Unit/Ml Vial SC 11/29/24 20:59 5,000 unit Q12HR URSULA Administration Hydroxyzine HCl 50 mg 11/22/24 18:28 11/25/24 21:12 Hydroxyzine Hcl 25 Mg Tablet PO 12/22/24 21:59 50 mg TID PRN Administration AGITATION (MILD) Piperacillin/Tazobactam/Dextrose 3.375 gm in 50 mls @ 12.5 mls/hr 11/27/24 14:00 11/27/24 14:50 Zosyn IV 12/04/24 13:59 12.5 mls/hr Q8HR URSULA Administration Lisinopril 20 mg 11/16/24 09:00 11/27/24 08:08 Lisinopril 20 Mg Tablet PO 12/16/24 08:59 20 mg QDAY URSULA Administration Metoprolol Tartrate 25 mg 11/16/24 21:00 11/27/24 08:07 Metoprolol Tartrate 25 Mg Tablet PO 12/16/24 20:59 25 mg BID URSULA Administration Pantoprazole Sodium 40 mg 11/14/24 09:00 11/27/24 08:07 Pantoprazole Inj 40 Mg Vial IVP 12/14/24 08:59 40 mg QDAY URSULA Administration Quetiapine Fumarate 50 mg 11/19/24 21:00 11/27/24 08:08 Quetiapine Fumarate 25 Mg Tablet PO 12/19/24 20:59 50 mg BID URSULA Administration Sennosides 2 tab 11/13/24 17:28 11/27/24 08:21 Senna Tablet PO 12/13/24 17:27 2 tab BID PRN Administration CONSTIPATION Protocol Plan Assessment and plan: Summary: Ms. Day is a 48-year-old female with past medical history of fibromyalgia, anxiety, depression, insomnia and hypertension who presented to [facility] emergency department on 11/13/2024 with a chief complaint of syncopal episode. # Choledocholithiasis and stricture, s/p ERCP with sphincterotomy, balloon extraction and biliary stent placement on 11/26 # Transaminitis?resolved #Cholelithiasis AST 130, ALT 312 on presentation, possible in setting of medication overdose US indicated dilated CBD Patient asymptomatic with normal total bilirubin. Hepatitis panel negative. Direct Bilirubin 0.2. MRCP done which showed Cholelithiasis Abnormal enlargement common hepatic common bile duct with abrupt termination of the distal common bile duct. Gallbladder nuclear medicine scan showed abnormal study, no gallbladder activity, cystic duct obstruction MRI 11/18/24: Extrahepatic biliary tract dilatation with abrupt termination of the distal common bile duct CA 19-9, within normal limits ERCP completed on 11/26/2024 findings include: Entire main bile duct was dilated secondary to stricture. Choledocholithiasis was found and biliary sphincterotomy and balloon extraction were completed. Full metal stent was placed. Plan: ?Follow-up with GI for stent exchange at ERCP in 3 months ? GI consulted appreciate recommendations. ? General Surgery, Dr Atwood consulted re cholecystectomy. Appreciate recommendations ? Once medically cleared for crisis evaluation. #Prolonged QTC QTc 524 from EKG today Plan: - Will discontinue Haldol prn and switch to Olanzapine prn #Medication overdose #Underlying psychiatric disorder #Auditory and visual hallucinations #?Suicidal ideation #Dizziness #Recurrent falls #?Syncope Patient reported that she was in her room when she passed out, reports that she was dehydrated. Patient also reports history of multiple falls, reports that she has been falling multiple times in the last couple of days. Patient complains of throbbing headache, otherwise denies any pain. 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 Patient's son informed that patient was found last night on the ground having a breakdown with empty bottles of medications surrounding her. Most of the pills were on the ground and unaccounted for versus possible overdose. States there were three bottles that were broken and/or do not have lids. Medications unaccounted for and filled on 11/03/2024 include: 100mg Gabapentin 90 tablets, 10mg Propanolol 120 tablets, 20mg Furosemide 30 tablets, Tizanidine (filled 11/11/2024), 20mg Baclofen 120 tablets (bottle empty and covered), Venlafaxine (30 tablets left and 4-5 tablets are unaccounted for). EKG in ED shows sinus rhythm, QTc 450, CT scan of the head negative for any acute hemorrhage, mass effect or midline shift. Serial EKG negative, no acute evaluation noted Patient was given 1 L LR bolus in ED, placed on 179 psychiatric hold Urine tox screen negative, CT negative, magnesium within normal limits, moderate, lactate normal Fingerstick every 6 hours within normal limits Plan: - Seroquel 50 mg twice daily - Hydroxyzine as needed for mild agitation - Needs medical clearance for evaluation by social insurance administrator - Seizure precaution - Referral to social insurance administrator for further evaluation - Continue gabapentin low-dose Pending medical clearance for psychiatric evaluation. #Hypertension Patient has history of hypertension on benazepril 40 mg daily, Lasix 20 mg p.o. daily at home - Continue lisinopril 20 mg p.o. daily - Continue metoprolol tartrate 25 mg p.o. twice daily #Alcohol use Per patient's history, patient takes alcohol, drinks medications with alcohol at times. Was on CIWA protocol, no withdrawal noted. #Acute kidney injury, resolved On presentation BUN 26, creatinine 1.6, GFR 40, baseline within normal limits Patient received 1 L LR bolus in ED plan Responded well to IV fluids, RAMON is resolved. Plan: - Avoid nephrotoxic agents - Renally dose medication - Follow CMP in a.m. #Electrolyte abnormalities #Hypokalemia - Correct and replace electrolytes as needed #Severe anxiety #Major depressive disorder DVT prophylaxis: Heparin every 12 hours GI prophylaxis: Protonix IV daily Diet: Regular diet Lines: Peripheral IV Code status: Full code Dispo: Pending General surgery evaluation. Plan of care discussed with Attending Dr. Arya Devi MD PGY 1 Disclaimer: This note was dictated by speech recognition. Minor errors in senior commercial loan officer may be present due to voice recognition software. Attending Provider Attestation/Addendum I have examined the patient, reviewed labs and imaging findings, discussed the case with the resident(s), and reviewed entered orders. I agree with the plan of care as outlined in this note, with these additional summaries/recommendations: Patient seen at bedside. No acute overnight events. Patient underwent ERCP yesterday which revealed papillary stenosis, dilated CBD with stricture, choledocholithiasis with complete removal by biliary sphincterotomy and balloon extraction and stent placement. Patient resumed on diet and will need to follow-up with GI outpatient and stent exchange in 3 months. We will touch base with general surgery to evaluate for cholecystectomy. Once medically cleared we will notify case management to have patient transferred for psychiatric evaluation. Patient showed understanding of the plan. Dr. Arya MD
[2024-11-28] VITALS (18 sets, daily range): BP systolic 133–168; BP diastolic 69–103; PULSE 73–108; RESP 16–22; TEMP 36.1–37.4; O2SAT 95–99; BMI 30.9
[2024-11-28] MEDS: hydrOXYzine HCL 25 MG TABLET 50 MG PO (00:36)
[2024-11-28] MEDS: ACETAMINOPHEN 325 MG TABLET 650 MG PO (00:36)
[2024-11-28] MEDS: PIPER/TAZO 3.375 GM PREMIX 3.375 GM/50 ML BAG IV ×3 (05:21→21:40)
[2024-11-28 06:21] LABS: Basophils % (Auto) 0 % (0-2.5); Eosinophils % (Auto) 0 % (0-10); Hematocrit 35.2 % (36.0-46.0); Hemoglobin 12.5 g/dL (12.0-16.0); Immature Granulocytes % (Auto) 0 % (0-0); Immature Granulocytes Auto 0.07 Thou/mm3 (0.00-0.00); Lymphocytes # (Auto) 1.2 Thou/mm3 (1.0-4.8); Lymphocytes % (Auto) 7 % (10-50); Mean Corpuscular HGB Conc 35.5 g/dl (31.0-37.0); Mean Corpuscular Hemoglobin 33.2 pg (25.0-35.0); Mean Corpuscular Volume 93 fL (80-100); Monocytes # (Auto) 1.5 Thou/mm3 (0.0-0.8); Monocytes % (Auto) 8 % (0-12); Neutrophils # (Auto) 16.1 Thou/mm3 (1.8-7.7); Neutrophils % (Auto) 85 % (37-80); Nucleated Red Blood Cell % 0 /100 WBC (0); Platelet Count 302 Thou/mm3 (140-440); RDW Standard Deviation 42.1 fL (36.4-46.3); Red Blood Count 3.77 Miln/mm3 (4.00-5.20); White Blood Count 18.9 Thou/mm3 (3.6-11.0)
[2024-11-28 06:52] LABS: Alanine Aminotransferase 28 U/L (10-49); Albumin/Globulin Ratio 1.6 (1.2-2.2); Alkaline Phosphatase 102 U/L (46-116); Anion Gap 10 (7-16); Aspartate Amino Transferase 16 U/L (0-34); BUN/Creatinine Ratio 14 Ratio (12-20); Bilirubin,Total 0.8 mg/dL (0.3-1.2); Blood Urea Nitrogen 11 mg/dL (9-23); Carbon Dioxide 24.8 mMol/L (20.0-31.0); Chloride 102 mMol/L (98-107); Creatinine (Component) 0.8 mg/dL (0.6-1.3); Estimated Creatinine Clearance 74.5 mL/min (>60); Globulin 2.5 gm/dL (2.3-3.5); Glucose 92 mg/dL (74-106); Magnesium 1.7 mg/dL (1.6-2.6); Osmolality,Calculated 273 (275-295); Phosphorous 3.8 mg/dL (2.4-5.1); Potassium 3.6 mMol/L (3.4-5.1); Sodium 137 mMol/L (136-145); Total Protein 6.5 gm/dL (5.7-8.2); eGFR > 60 See Note
--- NOTE | 2024-11-28 09:09 | PC.SS ---
Follow up note: Surgery today by Dr. Atwood. Pt will require crises evaluation once pt is medically cleared.
[2024-11-28] MEDS: METOPROLOL TARTRATE 25 MG TABLET PO ×2 (09:41→20:49)
[2024-11-28] MEDS: PANTOPRAZOLE INJ 40 MG VIAL IVP (09:42)
[2024-11-28 09:54] LABS: Collection Type, Urine Clean Catch
[2024-11-28 10:14] LABS: Bilirubin,Urine Negative (Negative); Blood,Urine Negative (Negative); Clarity,Urine Clear (Clear/Hazy); Color,Urine Lt-Yellow (Lt Yel-Yel); Culture Indicated,Urine Not Indicated; Glucose, Urine Negative (Negative); Ketones,Urine 1+ (Negative); Leukocyte Esterase,Urine Negative (Negative); Nitrite,Urine Negative (Negative); PH,Urine 6.5 (5.0-7.0); Protein,Urine Negative (Neg - Trace); RBC,Urine 1 /hpf (0-3); Specific Gravity,Urine 1.022 (1.001-1.035); Squamous Epithelial Cell,Urine < 1 /hpf (0-5); Urobilinogen,Urine Negative mg/dL (0.0-1.0); WBC,Urine 1 /hpf (0-5)
--- NOTE | 2024-11-28 12:18 | PC.NURSE ---
Patient transferred via gurney to OR.
--- NOTE | 2024-11-28 13:41 | ESOP_ITS ---
Date of Procedure 11/28/24 Pre Op Diagnosis Cholelithiasis with cholecystitis Post Op Diagnosis Cholelithiasis with cholecystitis Procedure Laparoscopic cholecystectomy Findings Moderately distended gallbladder with small gallstones and chronic cholecystitis. Anterior surface of the liver was smooth without nodules or any lesions, no evidence of ascites Procedure Description Patient was brought into the operating room in supine position. After administration of general endotracheal anesthesia abdomen was prepped and draped in standard surgical manner. A Veress needle was inserted through the umbilicus and pneumoperitoneum was obtained up to 15 mmHg. The Veress needle was then removed, a 5 mm infraumbilical incision was made and the 5mm trocar was inserted. Laparoscopic camera was placed. Under direct visualization a laparoscopic camera a 10 mm trocar was placed in subxiphoid and two 5 mm trocars placed in right upper quadrant. The anterior surface of the liver was smooth without nodules or any lesions. There was no evidence of ascites. The gallbladder was identified and was noted to be moderately distended with small gallstones and chronic cholecystitis. It was retracted cephalad and laterally. Dissection started near the infundibulum of gallbladder where cystic duct and gallbladder junction clearly identified. The cystic duct was circumferentially dissected off the peritoneum and surrounding inflammatory tissue. The critical view of safety was clearly demonstrated. Cystic duct was then divided between 2 endoclips proximally and one distally. The cystic artery was similarly dissected and divided. The gallbladder was then from the liver bed using electrocautery. The gallbladder was then placed inside an Endo Catch and removed from the abdomen utilizing subxiphoid trocar site. The area was copiously and thoroughly washed and irrigated, all the fluid was suctioned and the suction fluid returned clear. Hemostasis achieved using electrocautery. Endoclips noted be in place and intact without any bleeding or any leakage. Hemostasis was adequate and satisfactory. The subxiphoid trocar sites fascial defect was closed with 0 Vicryl using Endo Closure device. Instruments and trocars removed, pneumoperitoneum was evacuated and the incisions closed with 4- 0 Monocryl in subcuticular fashion. Instrument needle and sponge counts were all reported to be correct X2. Patient tolerated the procedure well, was extubated, breathing spontaneously and without difficulty and was transferred to postanesthesia care in stable condition. Anesthesia GETA and local Pathology / specimen Other (Gallbladder and contents) Estimated Blood Loss 10 Condition Stable Disposition PACU Surgeon Al Atwood MD Surgical Staff Operation Date: 11/28/24 13:30 <No data on this case meets the specified criteria>
--- NOTE | 2024-11-28 13:55 | SUR.PHASEI ---
pt received from OR in recovery bay 1. pt asleep but responds to voice, breathing unlabored on oxymask 8l. v/s stable. pt dressing to abd dermabond x4 cdi. report received from Yann WALLER and Andrew WU.
--- NOTE | 2024-11-28 14:23 | PC.NURSE ---
Report received from ELECTRICAL ENGINEERING INTERNJAZMIN Carranza.
--- NOTE | 2024-11-28 14:35 | PC.NURSE ---
Patient arrived to floor from PACU via gurney with no s/s of distress.
--- NOTE | 2024-11-28 14:35 | SUR.PHASEI ---
pt awake and alert, breathing unlabored on room air. v/s stable. pt dressing to abd dermabond x4 cdi. report called to Rich Toledo. pt will be transferred to room at this time.
[2024-11-28] MEDS: HYDROcodone/APAP 5/325 TABLET 1 TAB PO (15:29)
--- NOTE | 2024-11-28 16:39 | ESPR_ITS ---
<Statement entered by Nima Nevarez MD - 11/28/24 21:55> Patient was seen and examined at bedside. Overnight patient developed low-grade fever went up to 99.4, WBCs increased to 18.8. Otherwise patient stable. General surgeon Dr. Atwood will perform the surgery today for cholecystectomy. After that we will try to advance diet. Depression screening and suicidal risk index although showed low risk however we will wait for crisis eval after patient cleared medically. Patient still on 5150 observation. - Patient's plan and care discussed with my attending, Dr. Arya Nevarez MD Internal Medicine PGY-2 Documentation for date of: 11/28/24 Subjective Subjective Interval history: Patient was seen and examined at bedside this AM. No acute exents overnight. Patient NPO, adequate urine output and mentation is at baseline. Patient complains of intermittent biliary colic, somnolence and nausea. No longer endorses any auditory or visual hallucinations. Patient is scheduled for laparoscopic cholecystectomy by Dr. Atwood today. Postop, once patient tolerates diet she will be medically cleared for crisis evaluation. [facility] suicide risk assessment was low risk. Major depression index was 6 points; no depression. Exam Vital Signs Temp Pulse Resp BP Pulse Ox O2 Del Method O2 Flow Rate 97.1 F 83 17 146/103 H 96 Room Air 8 11/28/24 14:25 11/28/24 16:00 11/28/24 14:25 11/28/24 14:25 11/28/24 14:25 11/28/24 08:00 11/28/24 13:55 Narrative Exam Constitutional Alert, oriented x 3 and comfortable HEENT Vision grossly intact. Patent nares. Trachea midline Respiratory Chest normal on inspection and clear auscultation bilaterally Cardiovascular S1 and S2 audible, RRR. No murmurs carotid bruit. No gross JVD. Abdominal Soft and tender to palpation in right upper quadrant, BS + Genitourinary No bladder tenderness, no flank pain. Normal to palpation Musculoskeletal Extremities tone within normal limits. No LE edema. Neurological CN II - XII grossly intact. Extremity motor and sensation grossly intact. Skin Warm, dry and intact. No apparent lesions. Psychiatric Patient has good affect, is cooperative Objective Labs 11/29/24 05:01 11/29/24 05:01 Labs: Laboratory Results - last 24 hr 11/28/24 11/28/24 05:40 09:45 WBC 18.9 H D RBC 3.77 L Hgb 12.5 Hct 35.2 L MCV 93 MCH 33.2 MCHC 35.5 RDW Std Deviation 42.1 Plt Count 302 D Neut % (Auto) 85 H Lymph % (Auto) 7 L [place] % (Auto) 8 Eos % (Auto) 0 Baso % (Auto) 0 Neut # (Auto) 16.1 H Lymph # (Auto) 1.2 [place] # (Auto) 1.5 H Eos # (Auto) 0.0 Baso # (Auto) 0.0 Immature Gran # (Auto) 0.07 H Absolute Nucleated RBC 0.00 Immature Gran % 0 Nucleated RBC % 0 Sodium 137 Potassium 3.6 Chloride 102 Carbon Dioxide 24.8 Anion Gap 10 BUN 11 Creatinine 0.8 Estim Creat Clear Calc 74.5 eGFR > 60 BUN/Creatinine Ratio 14 Glucose 92 Calculated Osmolality 273 L Calcium 9.0 Corrected Calcium 9.0 Phosphorus 3.8 Magnesium 1.7 Total Bilirubin 0.8 AST 16 ALT 28 Alkaline Phosphatase 102 Total Protein 6.5 Albumin 4.0 Globulin 2.5 Albumin/Globulin Ratio 1.6 Ur Collection Type Clean Catch Urine Color Lt-Yellow Urine Clarity Clear Urine pH 6.5 Ur Specific [place] 1.022 Urine Protein Negative Urine Glucose (UA) Negative Urine Ketones 1+ A Urine Blood Negative Urine Nitrite Negative Urine Bilirubin Negative Urine Urobilinogen (Auto) Negative Ur Leukocyte Esterase Negative Urine RBC 1 Urine WBC 1 Ur Squamous Epith Cells < 1 Urine Bacteria None Ur Culture Indicated? Not Indicated Quality Measures Quality Measures none Assessment & Plan Assessment Current Active Medications: Generic Name Dose Route Start Last Admin Trade Name Alo PRN Reason Stop Dose Admin Acetaminophen 650 mg 11/13/24 17:28 11/28/24 00:36 Acetaminophen 325 Mg Tablet PO 12/13/24 17:27 650 mg Q6H PRN Administration Pain (1-3) & Fever >100.4 Hydrocodone Bitart/Acetaminophen 1 tab 11/28/24 14:42 11/28/24 15:29 Hydrocodone/Apap 5/325 Tablet PO 12/03/24 14:41 1 tab Q6HR PRN Administration PAIN 4-6 Olanzapine 2.5 mg/ Sterile 0 mg 11/27/24 15:59 Water 2.1 ml IM 12/27/24 15:58 Q2HR PRN AGITATION Gabapentin 100 mg 11/14/24 21:00 11/28/24 09:47 Gabapentin 100 Mg Capsule PO 12/14/24 20:59 Not Given BID URSULA Hydroxyzine HCl 50 mg 11/27/24 16:00 11/28/24 00:36 Hydroxyzine Hcl 25 Mg Tablet PO 12/22/24 21:59 50 mg TID PRN Administration AGITATION (MILD) Piperacillin/Tazobactam/Dextrose 3.375 gm in 50 mls @ 12.5 mls/hr 11/27/24 14:00 11/28/24 15:29 Zosyn IV 12/04/24 13:59 12.5 mls/hr Q8HR URSULA Administration Lisinopril 20 mg 11/16/24 09:00 11/28/24 09:47 Lisinopril 20 Mg Tablet PO 12/16/24 08:59 Not Given QDAY URSULA Metoprolol Tartrate 25 mg 11/16/24 21:00 11/28/24 09:41 Metoprolol Tartrate 25 Mg Tablet PO 12/16/24 20:59 25 mg BID URSULA Administration Morphine Sulfate 2 mg 11/28/24 14:42 Morphine Sulf Inj 10 Mg/Ml Vial IVP 12/03/24 14:41 Q3H PRN PAIN SCALE 7-10 (Severe Pantoprazole Sodium 40 mg 11/14/24 09:00 11/28/24 09:42 Pantoprazole Inj 40 Mg Vial IVP 12/14/24 08:59 40 mg QDAY URSULA Administration Quetiapine Fumarate 50 mg 11/19/24 21:00 11/28/24 09:47 Quetiapine Fumarate 25 Mg Tablet PO 12/19/24 20:59 Not Given BID URSULA Sennosides 2 tab 11/13/24 17:28 11/27/24 08:21 Senna Tablet PO 12/13/24 17:27 2 tab BID PRN Administration CONSTIPATION Protocol Plan Assessment and plan: Summary: Ms. Day is a 48-year-old female with past medical history of fibromyalgia, anxiety, depression, insomnia and hypertension who presented to [facility] emergency department on 11/13/2024 with a chief complaint of syncopal episode. # Choledocholithiasis and stricture, s/p ERCP with sphincterotomy, balloon extraction and biliary stent placement on 11/26 # Transaminitis?resolved # Cholelithiasis s/p Laproscopic cholecystectomy 11/28 AST 130, ALT 312 on presentation, possible in setting of medication overdose US indicated dilated CBD Patient asymptomatic with normal total bilirubin. Hepatitis panel negative. Direct Bilirubin 0.2. MRCP done which showed Cholelithiasis Abnormal enlargement common hepatic common bile duct with abrupt termination of the distal common bile duct. Gallbladder nuclear medicine scan showed abnormal study, no gallbladder activity, cystic duct obstruction MRI 11/18/24: Extrahepatic biliary tract dilatation with abrupt termination of the distal common bile duct CA 19-9, within normal limits ERCP completed on 11/26/2024 findings include: Entire main bile duct was dilated secondary to stricture. Choledocholithiasis was found and biliary sphincterotomy and balloon extraction were completed. Full metal stent was placed. Plan: ? Follow-up with GI for stent exchange at ERCP in 3 months ? GI consulted appreciate recommendations. ? General Surgery, Dr Atwood consulted. Appreciate recommendations ? Will advance diet to solids in the am. Once tolerating, will medically clear for crisis evaluation #Prolonged QTC QTc 524 from EKG 11/27 Plan: -Continue Olanzapine prn #Medication overdose #Underlying psychiatric disorder #Auditory and visual hallucinations #?Suicidal ideation #Dizziness #Recurrent falls #?Syncope Patient reported that she was in her room when she passed out, reports that she was dehydrated. Patient also reports history of multiple falls, reports that she has been falling multiple times in the last couple of days. Patient complains of throbbing headache, otherwise denies any pain. 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 Patient's son informed that patient was found last night on the ground having a breakdown with empty bottles of medications surrounding her. Most of the pills were on the ground and unaccounted for versus possible overdose. States there were three bottles that were broken and/or do not have lids. Medications unaccounted for and filled on 11/03/2024 include: 100mg Gabapentin 90 tablets, 10mg Propanolol 120 tablets, 20mg Furosemide 30 tablets, Tizanidine (filled 11/11/2024), 20mg Baclofen 120 tablets (bottle empty and covered), Venlafaxine (30 tablets left and 4-5 tablets are unaccounted for). EKG in ED shows sinus rhythm, QTc 450, CT scan of the head negative for any acute hemorrhage, mass effect or midline shift. Serial EKG negative, no acute evaluation noted Patient was given 1 L LR bolus in ED, placed on 1799 psychiatric hold Urine tox screen negative, CT negative, magnesium within normal limits, moderate, lactate normal Fingerstick every 6 hours within normal limits [place] suicide risk assessment was low risk. Major depression index was 6 points; no depression. Plan: - Seroquel 50 mg twice daily - Hydroxyzine as needed for mild agitation - Needs medical clearance for evaluation by social and human services assistant - Seizure precaution - Referral to social and human services assistant for further evaluation - Continue gabapentin low-dose - Pending medical clearance for psychiatric evaluation. #Hypertension Patient has history of hypertension on benazepril 40 mg daily, Lasix 20 mg p.o. daily at home - Continue lisinopril 20 mg p.o. daily - Continue metoprolol tartrate 25 mg p.o. twice daily #Alcohol use Per patient's history, patient takes alcohol, drinks medications with alcohol at times. Was on CIWA protocol, no withdrawal noted. #Acute kidney injury, resolved On presentation BUN 26, creatinine 1.6, GFR 40, baseline within normal limits Patient received 1 L LR bolus in ED plan Responded well to IV fluids, RAMON is resolved. Plan: - Avoid nephrotoxic agents - Renally dose medication - Follow CMP in a.m. #Severe anxiety DVT prophylaxis: Heparin every 12 hours GI prophylaxis: Protonix IV daily Diet: Full liquid Lines: Peripheral IV Code status: Full code Dispo: After diet is advanced, can be medically cleared Plan of care discussed with Attending Dr. Koenig and PGY 2 Dr. Geri Devi MD PGY 1 Disclaimer: This note was dictated by speech recognition. Minor errors in molten iron pourer may be present due to voice recognition software. Attending Provider Attestation/Addendum I have examined the patient, reviewed labs and imaging findings, discussed the case with the resident(s), and reviewed entered orders. I agree with the plan of care as outlined in this note, with these additional summaries/recommendations: Patient seen at bedside. No acute overnight events. Patients mental status seems slightly improved today. She denies any hallucinations at this time. Patient underwent ERCP yesterday which revealed papillary stenosis, dilated CBD with stricture, choledocholithiasis with complete removal by biliary sphincterotomy and balloon extraction and stent placement. Patient will need to follow-up with GI outpatient and stent exchange in 3 months. Patient will go for cholecystectomy today with general surgery. Leukocytosis present today, which is mostly reactive. Continue IV abx. Once medically cleared we will notify case management to have patient transferred for psychiatric evaluation. Patient showed understanding of the plan. Dr. Arya MD
--- NOTE | 2024-11-28 18:05 | PC.NURSE ---
Called Dr. Bowie regarding BP 168/93, informed him that patient was NPO for surgical procedure and did not take daily lisinopril 20mg. stated will put in order for 1 time.
[2024-11-28] MEDS: Lisinopril 20 MG TABLET PO (18:30)
[2024-11-28] MEDS: GABAPENTIN 100 MG CAPSULE PO (20:49)
[2024-11-28] MEDS: QUEtiapine FUMARATE 25 MG TABLET 50 MG PO (20:49)
--- NOTE | 2024-11-28 21:26 | PC.NURSE ---
Preliminary results of blood culture came back positive for Gram Positive Rods and Gram Positive Cocci. Dr. Fountain was made aware. No new orders at this time.
[2024-11-29] VITALS (14 sets, daily range): BP systolic 120–145; BP diastolic 65–98; PULSE 78–114; RESP 18–20; TEMP 36.2–37.2; O2SAT 92–99; BMI 30.9; BMI 34.0
[2024-11-29] MEDS: PIPER/TAZO 3.375 GM PREMIX 3.375 GM/50 ML BAG IV ×3 (05:26→21:00)
[2024-11-29 05:34] LABS: Basophils % (Auto) 0 % (0-2.5); Eosinophils % (Auto) 0 % (0-10); Hematocrit 31.8 % (36.0-46.0); Hemoglobin 11.5 g/dL (12.0-16.0); Immature Granulocytes % (Auto) 0 % (0-0); Immature Granulocytes Auto 0.05 Thou/mm3 (0.00-0.00); Lymphocytes # (Auto) 1.1 Thou/mm3 (1.0-4.8); Lymphocytes % (Auto) 7 % (10-50); Mean Corpuscular HGB Conc 36.2 g/dl (31.0-37.0); Mean Corpuscular Hemoglobin 33.5 pg (25.0-35.0); Mean Corpuscular Volume 93 fL (80-100); Monocytes # (Auto) 1.2 Thou/mm3 (0.0-0.8); Monocytes % (Auto) 7 % (0-12); Neutrophils # (Auto) 14.1 Thou/mm3 (1.8-7.7); Neutrophils % (Auto) 86 % (37-80); Nucleated Red Blood Cell % 0 /100 WBC (0); Platelet Count 255 Thou/mm3 (140-440); RDW Standard Deviation 41.6 fL (36.4-46.3); Red Blood Count 3.43 Miln/mm3 (4.00-5.20); White Blood Count 16.4 Thou/mm3 (3.6-11.0)
[2024-11-29 05:51] LABS: Alanine Aminotransferase 34 U/L (10-49); Albumin, Serum 3.7 gm/dL (3.5-5.0); Albumin/Globulin Ratio 1.5 (1.2-2.2); Alkaline Phosphatase 90 U/L (46-116); Anion Gap 13 (7-16); Aspartate Amino Transferase 37 U/L (0-34); BUN/Creatinine Ratio 11 Ratio (12-20); Bilirubin,Total 0.7 mg/dL (0.3-1.2); Blood Urea Nitrogen 8 mg/dL (9-23); Calcium 8.4 mg/dL (8.3-10.6); Calcium (Corrected) 8.6 mg/dL (8.5-10.1); Carbon Dioxide 22.5 mMol/L (20.0-31.0); Chloride 101 mMol/L (98-107); Creatinine (Component) 0.7 mg/dL (0.6-1.3); Estimated Creatinine Clearance 85.2 mL/min (>60); Globulin 2.5 gm/dL (2.3-3.5); Glucose 95 mg/dL (74-106); Magnesium 1.7 mg/dL (1.6-2.6); Osmolality,Calculated 270 (275-295); Phosphorous 3.4 mg/dL (2.4-5.1); Potassium 3.6 mMol/L (3.4-5.1); Sodium 136 mMol/L (136-145); Total Protein 6.2 gm/dL (5.7-8.2); eGFR > 60 See Note
--- NOTE | 2024-11-29 08:14 | EKG_ITS ---
[facility] Test Date: 2024-11-29 Pat Name: LISA STRINGER [facility] Gender[facility] Finance Vice President: AALIYAH : 1975 Requested By: Nima Nevarez Order Number: [id number] Reading MD: Nima Nevarez Measurements Intervals [place]on Rate: 81 P: 35 AK: 119 QRS: 32 QRSD: 96 T: 31 QT: 449 QTc: 521 Interpretive Statements SINUS RHYTHM WITH SHORT AK INTERVAL INCOMPLETE RIGHT BUNDLE BRANCH BLOCK POSSIBLE ANTERIOR MYOCARDIAL INFARCTION , PROBABLY OLD Compared to ECG 11/27/2024 11:03:49 Myocardial infarct finding now present Ventricular premature complex(es) no longer present Prolonged QT interval no longer present /store/S0/[id number]/ecg/[id number].pdf
[2024-11-29] MEDS: Lisinopril 20 MG TABLET PO (09:58)
[2024-11-29] MEDS: QUEtiapine FUMARATE 25 MG TABLET 50 MG PO ×2 (09:59→20:36)
[2024-11-29] MEDS: METOPROLOL TARTRATE 25 MG TABLET PO ×2 (09:59→20:36)
[2024-11-29] MEDS: GABAPENTIN 100 MG CAPSULE PO ×2 (09:59→20:36)
[2024-11-29] MEDS: PANTOPRAZOLE INJ 40 MG VIAL IVP (09:59)
[2024-11-29] MEDS: hydrOXYzine HCL 25 MG TABLET 50 MG PO ×2 (13:29→21:46)
--- NOTE | 2024-11-29 17:13 | PD.RESPRO ---
Documentation for date of: 11/29/24 Exam Vital Signs Temp Pulse Resp BP Pulse Ox O2 Del Method O2 Flow Rate 97.5 F 95 18 133/82 H 92 L Room Air 8 11/29/24 16:00 11/29/24 16:00 11/29/24 16:00 11/29/24 16:00 11/29/24 16:00 11/29/24 16:00 11/28/24 13:55 Objective Labs 11/29/24 05:01 11/29/24 05:01 Labs: Laboratory Results - last 24 hr 11/29/24 05:01 WBC 16.4 H RBC 3.43 L Hgb 11.5 L Hct 31.8 L MCV 93 MCH 33.5 MCHC 36.2 RDW Std Deviation 41.6 Plt Count 255 D Neut % (Auto) 86 H Lymph % (Auto) 7 L [place] % (Auto) 7 Eos % (Auto) 0 Baso % (Auto) 0 Neut # (Auto) 14.1 H Lymph # (Auto) 1.1 [place] # (Auto) 1.2 H Eos # (Auto) 0.0 Baso # (Auto) 0.0 Immature Gran # (Auto) 0.05 H Absolute Nucleated RBC 0.00 Immature Gran % 0 Nucleated RBC % 0 Sodium 136 Potassium 3.6 Chloride 101 Carbon Dioxide 22.5 Anion Gap 13 BUN 8 L Creatinine 0.7 Estim Creat Clear Calc 85.2 eGFR > 60 BUN/Creatinine Ratio 11 L Glucose 95 Calculated Osmolality 270 L Calcium 8.4 Corrected Calcium 8.6 Phosphorus 3.4 Magnesium 1.7 Total Bilirubin 0.7 AST 37 H ALT 34 Alkaline Phosphatase 90 Total Protein 6.2 Albumin 3.7 Globulin 2.5 Albumin/Globulin Ratio 1.5 Quality Measures Quality Measures none Assessment & Plan Assessment Current Active Medications: Generic Name Dose Route Start Last Admin Trade Name Freq PRN Reason Stop Dose Admin Acetaminophen 650 mg 11/13/24 17:28 11/28/24 00:36 Acetaminophen 325 Mg Tablet PO 12/13/24 17:27 650 mg Q6H PRN Administration Pain (1-3) & Fever >100.4 Hydrocodone Bitart/Acetaminophen 1 tab 11/28/24 14:42 11/28/24 15:29 Hydrocodone/Apap 5/325 Tablet PO 12/03/24 14:41 1 tab Q6HR PRN Administration PAIN 4-6 Olanzapine 2.5 mg/ Sterile 0 mg 11/27/24 15:59 Water 2.1 ml IM 12/27/24 15:58 Q2HR PRN AGITATION Protocol Gabapentin 100 mg 11/14/24 21:00 11/29/24 09:59 Gabapentin 100 Mg Capsule PO 12/14/24 20:59 100 mg BID URSULA Administration Hydroxyzine HCl 50 mg 11/27/24 16:00 11/29/24 13:29 Hydroxyzine Hcl 25 Mg Tablet PO 12/22/24 21:59 50 mg TID PRN Administration AGITATION (MILD) Piperacillin/Tazobactam/Dextrose 3.375 gm in 50 mls @ 12.5 mls/hr 11/27/24 14:00 11/29/24 13:08 Zosyn IV 12/04/24 13:59 12.5 mls/hr Q8HR URSULA Administration Lisinopril 20 mg 11/16/24 09:00 11/29/24 09:58 Lisinopril 20 Mg Tablet PO 12/16/24 08:59 20 mg QDAY URSULA Administration Metoprolol Tartrate 25 mg 11/16/24 21:00 11/29/24 09:59 Metoprolol Tartrate 25 Mg Tablet PO 12/16/24 20:59 25 mg BID URSULA Administration Morphine Sulfate 2 mg 11/28/24 14:42 Morphine Sulf Inj 10 Mg/Ml Vial IVP 12/03/24 14:41 Q3H PRN PAIN SCALE 7-10 (Severe Pantoprazole Sodium 40 mg 11/14/24 09:00 11/29/24 09:59 Pantoprazole Inj 40 Mg Vial IVP 12/14/24 08:59 40 mg QDAY URSULA Administration Quetiapine Fumarate 50 mg 11/19/24 21:00 11/29/24 09:59 Quetiapine Fumarate 25 Mg Tablet PO 12/19/24 20:59 50 mg BID URSULA Administration Sennosides 2 tab 11/13/24 17:28 11/27/24 08:21 Senna Tablet PO 12/13/24 17:27 2 tab BID PRN Administration CONSTIPATION Protocol
--- NOTE | 2024-11-29 17:14 | PD.RESPRO ---
Documentation for date of: 11/29/24 Subjective Subjective Interval history: Patient was seen and examined at bedside. Patient reported good pain control after the surgery. Denied any nausea or vomiting. Denied also any fever or chills. She had passed gas however she has not passed any stool at this moment. Patient denied any suicidal ideation at this time however was still keeping the patient on 5150 hold. Vitally patient is stable her labs showed GPC positive and one of the blood cultures, we are waiting for the final results. Today the general surgeon Dr. Atwood advance the patient diet to low-fat diet. Will keep the patient until we get the final culture results and clearance from the neurosurgeon Dr. Munoz. After that we will clear the patient for crisis eval and psych placement. Exam Vital Signs Temp Pulse Resp BP Pulse Ox O2 Del Method O2 Flow Rate 97.5 F 95 18 133/82 H 92 L Room Air 8 11/29/24 16:11/29/24 16:11/29/24 16:11/29/24 16:11/29/24 16:11/29/24 16:11/28/24 13:55 Narrative Exam GEN: AOx3, able to speak full sentences, flat mood and affect HEENT: NC/AC, oral mucosa moist, neck supple CVS: RRR, S1-S2 present, no murmurs appreciated RESP: CTAB GI: soft, surgical sites covered with no signs of bleeding or leak. Non distended, non tender, NBS MSK: able to move all 4 limbs, no lower extremity edema SKIN: warm and dry METALLURGICAL SPECIALIST: CN II-XII and Sensation grossly intact. Objective Labs 11/30/24 06:27 11/29/24 05:01 Labs: Laboratory Results - last 24 hr 11/29/24 05:01 WBC 16.4 H RBC 3.43 L Hgb 11.5 L Hct 31.8 L MCV 93 MCH 33.5 MCHC 36.2 RDW Std Deviation 41.6 Plt Count 255 D Neut % (Auto) 86 H Lymph % (Auto) 7 L Boundary % (Auto) 7 Eos % (Auto) 0 Baso % (Auto) 0 Neut # (Auto) 14.1 H Lymph # (Auto) 1.1 Boundary # (Auto) 1.2 H Eos # (Auto) 0.0 Baso # (Auto) 0.0 Immature Gran # (Auto) 0.05 H Absolute Nucleated RBC 0.00 Immature Gran % 0 Nucleated RBC % 0 Sodium 136 Potassium 3.6 Chloride 101 Carbon Dioxide 22.5 Anion Gap 13 BUN 8 L Creatinine 0.7 Estim Creat Clear Calc 85.2 eGFR > 60 BUN/Creatinine Ratio 11 L Glucose 95 Calculated Osmolality 270 L Calcium 8.4 Corrected Calcium 8.6 Phosphorus 3.4 Magnesium 1.7 Total Bilirubin 0.7 AST 37 H ALT 34 Alkaline Phosphatase 90 Total Protein 6.2 Albumin 3.7 Globulin 2.5 Albumin/Globulin Ratio 1.5 Quality Measures Quality Measures none Assessment & Plan Assessment Current Active Medications: Generic Name Dose Route Start Last Admin Trade Name Freq PRN Reason Stop Dose Admin Acetaminophen 650 mg 11/13/24 17:28 11/28/24 00:36 Acetaminophen 325 Mg Tablet PO 12/13/24 17:27 650 mg Q6H PRN Administration Pain (1-3) & Fever >100.4 Hydrocodone Bitart/Acetaminophen 1 tab 11/28/24 14:42 11/28/24 15:29 Hydrocodone/Apap 5/325 Tablet PO 12/03/24 14:41 1 tab Q6HR PRN Administration PAIN 4-6 Olanzapine 2.5 mg/ Sterile 0 mg 11/27/24 15:59 Water 2.1 ml IM 12/27/24 15:58 Q2HR PRN AGITATION Protocol Gabapentin 100 mg 11/14/24 21:00 11/29/24 09:59 Gabapentin 100 Mg Capsule PO 12/14/24 20:59 100 mg BID URSULA Administration Hydroxyzine HCl 50 mg 11/27/24 16:00 11/29/24 13:29 Hydroxyzine Hcl 25 Mg Tablet PO 12/22/24 21:59 50 mg TID PRN Administration AGITATION (MILD) Piperacillin/Tazobactam/Dextrose 3.375 gm in 50 mls @ 12.5 mls/hr 11/27/24 14:00 11/29/24 13:08 Zosyn IV 12/04/24 13:59 12.5 mls/hr Q8HR URSULA Administration Lisinopril 20 mg 11/16/24 09:00 11/29/24 09:58 Lisinopril 20 Mg Tablet PO 12/16/24 08:59 20 mg QDAY URSULA Administration Metoprolol Tartrate 25 mg 11/16/24 21:00 05/03/25 09:59 Metoprolol Tartrate 25 Mg Tablet PO 12/16/24 20:59 25 mg BID URSULA Administration Morphine Sulfate 2 mg 11/28/24 14:42 Morphine Sulf Inj 10 Mg/Ml Vial IVP 12/03/24 14:41 Q3H PRN PAIN SCALE 7-10 (Severe Pantoprazole Sodium 40 mg 11/14/24 09:00 11/29/24 09:59 Pantoprazole Inj 40 Mg Vial IVP 12/14/24 08:59 40 mg QDAY URSULA Administration Quetiapine Fumarate 50 mg 11/19/24 21:00 11/29/24 09:59 Quetiapine Fumarate 25 Mg Tablet PO 12/19/24 20:59 50 mg BID URSULA Administration Sennosides 2 tab 11/13/24 17:28 11/27/24 08:21 Senna Tablet PO 12/13/24 17:27 2 tab BID PRN Administration CONSTIPATION Protocol Plan Assessment and plan: Summary: Ms. Day is a 48-year-old female with past medical history of fibromyalgia, anxiety, depression, insomnia and hypertension who presented to [facility] emergency department on 11/13/2024 with a chief complaint of syncopal episode. # Choledocholithiasis and stricture, s/p ERCP with sphincterotomy, balloon extraction and biliary stent placement on 11/26 # Transaminitis?resolved # Cholelithiasis s/p Laproscopic cholecystectomy 11/28 AST 130, ALT 312 on presentation, possible in setting of medication overdose US indicated dilated CBD Patient asymptomatic with normal total bilirubin. Hepatitis panel negative. Direct Bilirubin 0.2. MRCP done which showed Cholelithiasis Abnormal enlargement common hepatic common bile duct with abrupt termination of the distal common bile duct. Gallbladder nuclear medicine scan showed abnormal study, no gallbladder activity, cystic duct obstruction MRI 11/18/24: Extrahepatic biliary tract dilatation with abrupt termination of the distal common bile duct CA 19-9, within normal limits ERCP completed on 11/26/2024 findings include: Entire main bile duct was dilated secondary to stricture. Choledocholithiasis was found and biliary sphincterotomy and balloon extraction were completed. Full metal stent was placed. Plan: ?Diet was advanced by the general surgeon to low-fat meals, will follow-up on the bowel movement and for tolerability and follow-up with the general surgeon Dr. Atwood recommendations ? Follow-up with GI for stent exchange at ERCP in 3 months ? GI consulted appreciate recommendations. ? Will advance diet to solids in the am. Once tolerating, will medically clear for crisis evaluation #Possible bacteremia Preliminary report of blood culture resulted in GPC in 1 bottle. Her WBCs downtrending. Plan ? Continue patient on Zosyn ? Follow-up with final results of blood culture. #Prolonged QTC QTc 524 from EKG 11/27 Plan: -Continue Olanzapine prn #Medication overdose #Underlying psychiatric disorder #Auditory and visual hallucinations #?Suicidal ideation #Dizziness #Recurrent falls #?Syncope Patient reported that she was in her room when she passed out, reports that she was dehydrated. Patient also reports history of multiple falls, reports that she has been falling multiple times in the last couple of days. Patient complains of throbbing headache, otherwise denies any pain. 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 Patient's son informed that patient was found last night on the ground having a breakdown with empty bottles of medications surrounding her. Most of the pills were on the ground and unaccounted for versus possible overdose. States there were three bottles that were broken and/or do not have lids. Medications unaccounted for and filled on 11/03/2024 include: 100mg Gabapentin 90 tablets, 10mg Propanolol 120 tablets, 20mg Furosemide 30 tablets, Tizanidine (filled 11/11/2024), 20mg Baclofen 120 tablets (bottle empty and covered), Venlafaxine (30 tablets left and 4-5 tablets are unaccounted for). EKG in ED shows sinus rhythm, QTc 450, CT scan of the head negative for any acute hemorrhage, mass effect or midline shift. Serial EKG negative, no acute evaluation noted Patient was given 1 L LR bolus in ED, placed on 1798 psychiatric hold Urine tox screen negative, CT negative, magnesium within normal limits, moderate, lactate normal Fingerstick every 6 hours within normal limits [place] suicide risk assessment was low risk. Major depression index was 6 points; no depression. Plan: - Seroquel 50 mg twice daily - Hydroxyzine as needed for mild agitation - Needs medical clearance for evaluation by social service assistant - Seizure precaution - Referral to social service assistant for further evaluation - Continue gabapentin low-dose - Pending medical clearance for psychiatric evaluation. #Hypertension Patient has history of hypertension on benazepril 40 mg daily, Lasix 20 mg p.o. daily at home - Continue lisinopril 20 mg p.o. daily - Continue metoprolol tartrate 25 mg p.o. twice daily #Alcohol use Per patient's history, patient takes alcohol, drinks medications with alcohol at times. Was on CIWA protocol, no withdrawal noted. #Acute kidney injury, resolved On presentation BUN 26, creatinine 1.6, GFR 40, baseline within normal limits Patient received 1 L LR bolus in ED plan Responded well to IV fluids, RAMON is resolved. Plan: - Avoid nephrotoxic agents - Renally dose medication - Follow CMP in a.m. #Severe anxiety DVT prophylaxis: Heparin every 12 hours GI prophylaxis: Protonix IV daily Diet: Full liquid Lines: Peripheral IV Code status: Full code Dispo: After diet is advanced, can be medically cleared - Patient's plan and care discussed with my attending, Dr. Arya Nevarez MD Internal Medicine PGY-2 Attending Provider Attestation/Addendum I have examined the patient, reviewed labs and imaging findings, discussed the case with the resident(s), and reviewed entered orders. I agree with the plan of care as outlined in this note, with these additional summaries/recommendations: Patient seen at bedside. No acute overnight events. Patient continues to show improvement in her mental status. She denies any hallucinations at this time. Patient underwent cholecystectomy yesterday with general surgery and appears to have tolerated the procedure well. We will advance her diet to low fat and monitor for bowel movement. Patient also underwent ERCP two days prior which revealed papillary stenosis, dilated CBD with stricture, choledocholithiasis with complete removal by biliary sphincterotomy and balloon extraction and stent placement. Patient will need to follow-up with GI outpatient and stent exchange in 3 months. Leukocytosis improving. Continue IV abx. Once medically cleared we will notify case management to have patient transferred for psychiatric evaluation. Patient showed understanding of the plan. Dr. Arya MD
[2024-11-30] VITALS (9 sets, daily range): BP systolic 138–150; BP diastolic 79–97; PULSE 74–96; RESP 16–18; TEMP 36.2–36.9; O2SAT 93–97; BMI 34.0
[2024-11-30] MEDS: PIPER/TAZO 3.375 GM PREMIX 3.375 GM/50 ML BAG IV ×3 (05:12→21:10)
[2024-11-30 06:59] LABS: Basophils % (Auto) 0 % (0-2.5); Eosinophils % (Auto) 0 % (0-10); Hematocrit 31.3 % (36.0-46.0); Hemoglobin 10.7 g/dL (12.0-16.0); Immature Granulocytes % (Auto) 1 % (0-0); Immature Granulocytes Auto 0.07 Thou/mm3 (0.00-0.00); Lymphocytes # (Auto) 1.3 Thou/mm3 (1.0-4.8); Lymphocytes % (Auto) 8 % (10-50); Mean Corpuscular HGB Conc 34.2 g/dl (31.0-37.0); Mean Corpuscular Volume 97 fL (80-100); Monocytes % (Auto) 7 % (0-12); Neutrophils # (Auto) 12.8 Thou/mm3 (1.8-7.7); Neutrophils % (Auto) 84 % (37-80); Nucleated Red Blood Cell % 0 /100 WBC (0); Platelet Count 227 Thou/mm3 (140-440); RDW Standard Deviation 43.1 fL (36.4-46.3); Red Blood Count 3.24 Miln/mm3 (4.00-5.20); White Blood Count 15.2 Thou/mm3 (3.6-11.0)
[2024-11-30 07:30] LABS: Alanine Aminotransferase 33 U/L (10-49); Albumin, Serum 3.8 gm/dL (3.5-5.0); Albumin/Globulin Ratio 1.6 (1.2-2.2); Alkaline Phosphatase 83 U/L (46-116); Anion Gap 14 (7-16); Aspartate Amino Transferase 27 U/L (0-34); BUN/Creatinine Ratio 9 Ratio (12-20); Bilirubin,Total 0.5 mg/dL (0.3-1.2); Blood Urea Nitrogen 6 mg/dL (9-23); Calcium 8.4 mg/dL (8.3-10.6); Calcium (Corrected) 8.6 mg/dL (8.5-10.1); Chloride 101 mMol/L (98-107); Creatinine (Component) 0.7 mg/dL (0.6-1.3); Estimated Creatinine Clearance 89.7 mL/min (>60); Globulin 2.4 gm/dL (2.3-3.5); Glucose 106 mg/dL (74-106); Osmolality,Calculated 273 (275-295); Phosphorous 2.6 mg/dL (2.4-5.1); Sodium 138 mMol/L (136-145); Total Protein 6.2 gm/dL (5.7-8.2); eGFR > 60 See Note
[2024-11-30] MEDS: QUEtiapine FUMARATE 25 MG TABLET 50 MG PO ×2 (07:58→20:40)
[2024-11-30] MEDS: GABAPENTIN 100 MG CAPSULE PO ×2 (07:59→20:40)
[2024-11-30] MEDS: Lisinopril 20 MG TABLET PO (07:59)
[2024-11-30] MEDS: METOPROLOL TARTRATE 25 MG TABLET PO ×2 (08:00→20:40)
[2024-11-30] MEDS: PANTOPRAZOLE INJ 40 MG VIAL IVP (08:00)
[2024-11-30] MEDS: POTASSIUM CHL 10 mEq IVPB 10 MEQ/100 ML BAG 50 MEQ IV ×4 (09:20→15:33)
[2024-11-30] MEDS: POLYETHYLENE GLYCOL 17 GM PACKET PO (09:21)
--- NOTE | 2024-11-30 10:09 | ESPR_ITS ---
Documentation for date of: 11/30/24 Subjective Subjective Narrative: Patient is seen and examined. She is resting comfortably. She is tolerating diet without nausea or vomiting and pain is improving Exam Vital Signs Temp Pulse Resp BP Pulse Ox O2 Del Method O2 Flow Rate 97.8 F 96 17 145/79 H 95 Room Air 8 11/30/24 07:58 11/30/24 08:00 11/30/24 07:58 11/30/24 08:00 11/30/24 07:58 11/30/24 07:58 11/28/24 13:55 Constitutional Constitutional: no acute distress Routine Abdominal Exam Comments: Abdomen is soft and nondistended. Incisions are clean, dry and intact Assessment & Plan Assessment Additional comments: Postop day #2 status post laparoscopic cholecystectomy Plan Patient can be discharged from surgical standpoint. Diet as tolerated. Follow- up with Dr Atwood in 2 weeks Procedures Procedures Laparoscopic cholecystectomy
--- NOTE | 2024-11-30 11:01 | PD.RESPRO ---
Documentation for date of: 11/30/24 Subjective Subjective Interval history: Patient was seen and examined at bedside this AM. No acute exents overnight. Patient tolerating diet, adequate urine output and mentation is at baseline. Patient feels well today. She had 4 bowel movements in the past 48 hours Blood culture from 11/27/2024 grew GPC in 1 bottle. Likely contaminant. Patient now day 2 postop laparoscopic cholecystectomy, tolerating diet and has bowel movements. She is now medically cleared for discharge. Pending crisis evaluation Exam Vital Signs Temp Pulse Resp BP Pulse Ox O2 Del Method O2 Flow Rate 97.8 F 74 17 145/79 H 95 Room Air 8 11/30/24 07:58 11/30/24 08:00 11/30/24 07:58 11/30/24 08:00 11/30/24 07:58 11/30/24 07:58 11/28/24 13:55 Narrative Exam GEN: AOx3, able to speak full sentences, flat mood and affect HEENT: NC/AC, oral mucosa moist, neck supple CVS: RRR, S1-S2 present, no murmurs appreciated RESP: CTAB GI: soft, surgical sites covered with no signs of bleeding or leak. Non distended, non tender, NBS MSK: able to move all 4 limbs, no lower extremity edema SKIN: warm and dry SOCIAL SERVICES ASSISTANT: CN II-XII and Sensation grossly intact. Objective Labs 12/01/24 05:21 12/01/24 05:21 Labs: Laboratory Results - last 24 hr 11/30/24 06:27 WBC 15.2 H RBC 3.24 L Hgb 10.7 L Hct 31.3 L MCV 97 MCH 33.0 MCHC 34.2 RDW Std Deviation 43.1 Plt Count 227 Neut % (Auto) 84 H Lymph % (Auto) 8 L Coffee % (Auto) 7 Eos % (Auto) 0 Baso % (Auto) 0 Neut # (Auto) 12.8 H Lymph # (Auto) 1.3 Coffee # (Auto) 1.0 H Eos # (Auto) 0.0 Baso # (Auto) 0.0 Immature Gran # (Auto) 0.07 H Absolute Nucleated RBC 0.00 Immature Gran % 1 H Nucleated RBC % 0 Sodium 138 Potassium 3.0 L D Chloride 101 Carbon Dioxide 23.0 Anion Gap 14 BUN 6 L Creatinine 0.7 Estim Creat Clear Calc 89.7 eGFR > 60 BUN/Creatinine Ratio 9 L Glucose 106 Calculated Osmolality 273 L Calcium 8.4 Corrected Calcium 8.6 Phosphorus 2.6 Magnesium 2.0 Total Bilirubin 0.5 AST 27 ALT 33 Alkaline Phosphatase 83 Total Protein 6.2 Albumin 3.8 Globulin 2.4 Albumin/Globulin Ratio 1.6 Quality Measures Quality Measures none Assessment & Plan Assessment Current Active Medications: Generic Name Dose Route Start Last Admin Trade Name Freq PRN Reason Stop Dose Admin Acetaminophen 650 mg 11/13/24 17:28 11/28/24 00:36 Acetaminophen 325 Mg Tablet PO 12/13/24 17:27 650 mg Q6H PRN Administration Pain (1-3) & Fever >100.4 Hydrocodone Bitart/Acetaminophen 1 tab 11/28/24 14:42 11/28/24 15:29 Hydrocodone/Apap 5/325 Tablet PO 12/03/24 14:41 1 tab Q6HR PRN Administration PAIN 4-6 Olanzapine 2.5 mg/ Sterile 0 mg 11/27/24 15:59 Water 2.1 ml IM 12/27/24 15:58 Q2HR PRN AGITATION Protocol Gabapentin 100 mg 11/14/24 21:00 11/30/24 07:59 Gabapentin 100 Mg Capsule PO 12/14/24 20:59 100 mg BID URSULA Administration Hydroxyzine HCl 50 mg 11/27/24 16:00 11/29/24 21:46 Hydroxyzine Hcl 25 Mg Tablet PO 12/22/24 21:59 50 mg TID PRN Administration AGITATION (MILD) Piperacillin/Tazobactam/Dextrose 3.375 gm in 50 mls @ 12.5 mls/hr 11/27/24 14:00 11/30/24 05:12 Zosyn IV 12/04/24 13:59 12.5 mls/hr Q8HR URSULA Administration Potassium Chloride 10 meq in 100 mls @ 50 mls/hr 11/30/24 08:30 11/30/24 09:20 Kcl Ivpb IV 11/30/24 16:29 50 mls/hr Q2H URSULA Administration Lisinopril 20 mg 11/16/24 09:00 11/30/24 07:59 Lisinopril 20 Mg Tablet PO 12/16/24 08:59 20 mg QDAY URSULA Administration Metoprolol Tartrate 25 mg 11/16/24 21:00 11/30/24 08:00 Metoprolol Tartrate 25 Mg Tablet PO 12/16/24 20:59 25 mg BID URSULA Administration Morphine Sulfate 2 mg 11/28/24 14:42 Morphine Sulf Inj 10 Mg/Ml Vial IVP 12/03/24 14:41 Q3H PRN PAIN SCALE 7-10 (Severe Pantoprazole Sodium 40 mg 11/14/24 09:00 11/30/24 08:00 Pantoprazole Inj 40 Mg Vial IVP 12/14/24 08:59 40 mg QDAY URSULA Administration Quetiapine Fumarate 50 mg 11/19/24 21:00 11/30/24 07:58 Quetiapine Fumarate 25 Mg Tablet PO 12/19/24 20:59 50 mg BID URUSLA Administration Sennosides 2 tab 11/13/24 17:28 11/27/24 08:21 Senna Tablet PO 12/13/24 17:27 2 tab BID PRN Administration CONSTIPATION Protocol Plan Assessment and plan: Summary: Ms. Day is a 48-year-old female with past medical history of fibromyalgia, anxiety, depression, insomnia and hypertension who presented to [facility] emergency department on 11/13/2024 with a chief complaint of syncopal episode. # Choledocholithiasis and stricture, s/p ERCP with sphincterotomy, balloon extraction and biliary stent placement on 11/26 # Transaminitis?resolved # D2 post laproscopic cholecystectomy 11/28 AST 130, ALT 312 on presentation, possible in setting of medication overdose US indicated dilated CBD Patient asymptomatic with normal total bilirubin. Hepatitis panel negative. Direct Bilirubin 0.2. MRCP done which showed Cholelithiasis Abnormal enlargement common hepatic common bile duct with abrupt termination of the distal common bile duct. Gallbladder nuclear medicine scan showed abnormal study, no gallbladder activity, cystic duct obstruction MRI 11/18/24: Extrahepatic biliary tract dilatation with abrupt termination of the distal common bile duct CA 19-9, within normal limits ERCP completed on 11/26/2024 findings include: Entire main bile duct was dilated secondary to stricture. Choledocholithiasis was found and biliary sphincterotomy and balloon extraction were completed. Full metal stent was placed. Plan: ? Follow-up with GI for stent exchange at ERCP in 3 months ? GI consulted appreciate recommendations. ? Patient medically cleared for crisis evaluation. #Possible bacteremia Preliminary report of blood culture resulted in GPC in 1 bottle. Her WBCs downtrending. Blood culture from 11/27 grew GPC in 1 bottle. Likely contaminant, will consider discontinuing Zosyn Plan ? Continue patient on Zosyn ? Follow-up with final results of blood culture. #Prolonged QTC QTc 524 from EKG 11/27 Plan: -Continue Olanzapine prn #Medication overdose #Underlying psychiatric disorder #Auditory and visual hallucinations #?Suicidal ideation #Dizziness #Recurrent falls #?Syncope Patient reported that she was in her room when she passed out, reports that she was dehydrated. Patient also reports history of multiple falls, reports that she has been falling multiple times in the last couple of days. Patient complains of throbbing headache, otherwise denies any pain. 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 Patient's son informed that patient was found last night on the ground having a breakdown with empty bottles of medications surrounding her. Most of the pills were on the ground and unaccounted for versus possible overdose. States there were three bottles that were broken and/or do not have lids. Medications unaccounted for and filled on 11/03/2024 include: 100mg Gabapentin 90 tablets, 10mg Propanolol 120 tablets, 20mg Furosemide 30 tablets, Tizanidine (filled 11/11/2024), 20mg Baclofen 120 tablets (bottle empty and covered), Venlafaxine (30 tablets left and 4-5 tablets are unaccounted for). EKG in ED shows sinus rhythm, QTc 450, CT scan of the head negative for any acute hemorrhage, mass effect or midline shift. Serial EKG negative, no acute evaluation noted Patient was given 1 L LR bolus in ED, placed on 1799 psychiatric hold Urine tox screen negative, CT negative, magnesium within normal limits, moderate, lactate normal Fingerstick every 6 hours within normal limits [place] suicide risk assessment was low risk. Major depression index was 6 points; no depression. Plan: - Seroquel 50 mg twice daily - Hydroxyzine as needed for mild agitation - Needs medical clearance for evaluation by social media project manager - Seizure precaution - Referral to social media project manager for further evaluation - Continue gabapentin low-dose - Pending medical clearance for psychiatric evaluation. #Hypertension Patient has history of hypertension on benazepril 40 mg daily, Lasix 20 mg p.o. daily at home - Continue lisinopril 20 mg p.o. daily - Continue metoprolol tartrate 25 mg p.o. twice daily #Alcohol use Per patient's history, patient takes alcohol, drinks medications with alcohol at times. Was on CIWA protocol, no withdrawal noted. #Acute kidney injury, resolved On presentation BUN 26, creatinine 1.6, GFR 40, baseline within normal limits Patient received 1 L LR bolus in ED plan Responded well to IV fluids, RAMON is resolved. Plan: - Avoid nephrotoxic agents - Renally dose medication - Follow CMP in a.m. #Severe anxiety DVT prophylaxis: Heparin every 12 hours GI prophylaxis: Protonix IV daily Diet: Full liquid Lines: Peripheral IV Code status: Full code Dispo: Medically cleared for crisis evaluation Plan of care discussed with Attending Dr. Arya Devi MD PGY 1 Disclaimer: This note was dictated by speech recognition. Minor errors in railroad design consultant may be present due to voice recognition software. Attending Provider Attestation/Addendum I have examined the patient, reviewed labs and imaging findings, discussed the case with the resident(s), and reviewed entered orders. I agree with the plan of care as outlined in this note, with these additional summaries/recommendations: Patient seen at bedside. No acute overnight events. Patient continues to show improvement in her mental status. She denies any hallucinations at this time. Patient is s/p cholecystectomy with general surgery and appears to have tolerated the procedure well. She is having bowel movements and tolerating diet. Leukocytosis still present and we will continue abx to complete treatment course. Patient also underwent ERCP which revealed papillary stenosis, dilated CBD with stricture, choledocholithiasis with complete removal by biliary sphincterotomy and balloon extraction and stent placement. Patient will need to follow-up with GI outpatient and stent exchange in 3 months. Leukocytosis improving. Continue IV abx. Medically cleared for crisis evaluation. Patient showed understanding of the plan. Dr. Arya MD
[2024-11-30] MEDS: hydrOXYzine HCL 25 MG TABLET 50 MG PO ×2 (15:34→23:57)
--- NOTE | 2024-11-30 19:26 | PC.CC ---
Pt Charlee Day, is a 48-year-old female brought in to ED by ambulance on a voluntary hold. Steamer Operator met with pt to complete Mental Heal Evaluation. Pt presents disheveled. Pt easily engaged and was able to sit up on gurney and make direct eye contact as encounter progressed. Pt is noted to be alert and oriented to person, current place and year. Son and mother at bedside, Pt asked to have both stay for eval. Pt reports hx of mental health and reports depression/anxiety but never being enrolled in Mental Health services. Pt reports has been prescribed psych medication for depression, anxiety, and insomnia for the past years but is currently not taking medication. Pt denies previous 5150 holds. Pt placed in Room 356. Pt reports living with Mother Alka Giron [phone] [place] [id number] ED Corrections Nurse encountered Pt for mental health evaluation. ED Corrections Nurse used the following interventions: empathy, unconditional positive regard, Socratic dialogue including clarifying and probing questions. Pt was receptive and was able to disclosed depression and responding to outside stimuli and not being able to control responses. Pt reported she has suffered with mental health since age 24 but has never received treatment. ED Corrections Nurse used C-SSRS to support process and assessed for SI/HI, self-harming behaviors, method, access to lethal means, plan/intent. Pt was responsive to mental health evaluation and reported hx of suicide attempt on Apr 2006. Pt allowed Mother to give report. Mother reported Pt has difficulty engaging, locks self in room for days, has self-harmed and attempted to overdose. Mother reported has health conditions and is unable to ensure Pt safety if Pt returns home. ED Corrections Nurse consulted with district plant supervisor Jasmine Hernandez and it was agreed to place Pt on a 5150 DTS hold due to Pt impulsively, reacting to outside stimuli, and no viable safety plan. Pt was informed and reported she understood she was placed on a 5150 hold. 5150 was placed on 11/30/24 at 6:10 pm. Packet was sent out to all accepting LPS facilites via [employer] Fax and [employer] IP.
[2024-11-30 19:38] LABS: COVID-19 Antigen (In-House) Negative (Negative)
[2024-12-01] VITALS (10 sets, daily range): BP systolic 133–161; BP diastolic 71–98; PULSE 72–97; RESP 15–18; TEMP 36.4–37; O2SAT 96–99; BMI 34.0
[2024-12-01] MEDS: PIPER/TAZO 3.375 GM PREMIX 3.375 GM/50 ML BAG IV ×2 (05:17→14:48)
[2024-12-01 06:17] LABS: Basophils # (Auto) 0.1 Thou/mm3 (0.0-0.2); Basophils % (Auto) 0 % (0-2.5); Eosinophils # (Auto) 0.2 Thou/mm3 (0.0-0.5); Eosinophils % (Auto) 2 % (0-10); Hematocrit 30.4 % (36.0-46.0); Hemoglobin 10.8 g/dL (12.0-16.0); Immature Granulocytes % (Auto) 1 % (0-0); Immature Granulocytes Auto 0.11 Thou/mm3 (0.00-0.00); Lymphocytes # (Auto) 1.6 Thou/mm3 (1.0-4.8); Lymphocytes % (Auto) 13 % (10-50); Mean Corpuscular HGB Conc 35.5 g/dl (31.0-37.0); Mean Corpuscular Hemoglobin 33.4 pg (25.0-35.0); Mean Corpuscular Volume 94 fL (80-100); Monocytes # (Auto) 0.8 Thou/mm3 (0.0-0.8); Monocytes % (Auto) 6 % (0-12); Neutrophils # (Auto) 9.9 Thou/mm3 (1.8-7.7); Neutrophils % (Auto) 79 % (37-80); Nucleated Red Blood Cell % 0 /100 WBC (0); Platelet Count 268 Thou/mm3 (140-440); RDW Standard Deviation 42.7 fL (36.4-46.3); Red Blood Count 3.23 Miln/mm3 (4.00-5.20); White Blood Count 12.6 Thou/mm3 (3.6-11.0)
[2024-12-01] MEDS: HYDROcodone/APAP 5/325 TABLET 1 TAB PO ×2 (06:21→23:19)
[2024-12-01 06:35] LABS: Alanine Aminotransferase 63 U/L (10-49); Albumin, Serum 3.9 gm/dL (3.5-5.0); Albumin/Globulin Ratio 1.6 (1.2-2.2); Alkaline Phosphatase 80 U/L (46-116); Anion Gap 11 (7-16); Aspartate Amino Transferase 60 U/L (0-34); BUN/Creatinine Ratio 8 Ratio (12-20); Bilirubin,Total 0.4 mg/dL (0.3-1.2); Blood Urea Nitrogen < 5 mg/dL (9-23); Calcium 8.6 mg/dL (8.3-10.6); Calcium (Corrected) 8.7 mg/dL (8.5-10.1); Carbon Dioxide 21.4 mMol/L (20.0-31.0); Chloride 104 mMol/L (98-107); Creatinine (Component) 0.6 mg/dL (0.6-1.3); Estimated Creatinine Clearance 104.7 mL/min (>60); Globulin 2.5 gm/dL (2.3-3.5); Glucose 100 mg/dL (74-106); Osmolality,Calculated 269 (275-295); Phosphorous 2.4 mg/dL (2.4-5.1); Potassium 3.2 mMol/L (3.4-5.1); Sodium 136 mMol/L (136-145); Total Protein 6.4 gm/dL (5.7-8.2); eGFR > 60 See Note
--- NOTE | 2024-12-01 07:53 | PC.SS ---
Addendum entered by JESSICA Howard 12/01/24 16:54: [facility]- no female beds available at this time [facility]-no answer, [facility]ic[facility]- referral inque [facility]- referral inque Addendum entered by JESSICA Howard 12/01/24 12:06: SS follow up: [facility] staff informed they declined to accept the patient. Original Note: SS update: sent updated packet to all listed adult [facility] facilities via [employer] platform. Pending responses.
[2024-12-01] MEDS: PANTOPRAZOLE INJ 40 MG VIAL IVP (08:14)
[2024-12-01] MEDS: GABAPENTIN 100 MG CAPSULE PO ×2 (08:14→20:00)
[2024-12-01] MEDS: METOPROLOL TARTRATE 25 MG TABLET PO ×2 (08:14→20:00)
[2024-12-01] MEDS: QUEtiapine FUMARATE 25 MG TABLET 50 MG PO ×2 (08:14→20:00)
[2024-12-01] MEDS: Lisinopril 20 MG TABLET PO (08:15)
[2024-12-01] MEDS: POTASSIUM CHL 10 mEq IVPB 10 MEQ/100 ML BAG 100 MEQ IV ×2 (09:16→10:29)
[2024-12-01] MEDS: POTASSIUM CHLORIDE 10% 20 MEQ/15 ML UDC 40 MEQ PO (09:16)
[2024-12-01] MEDS: POTASSIUM CHL 10 mEq IVPB 10 MEQ/100 ML BAG 75 MEQ IV ×2 (11:45→13:18)
[2024-12-01] MEDS: hydrOXYzine HCL 25 MG TABLET 50 MG PO (15:30)
--- NOTE | 2024-12-01 16:02 | PC.SS ---
SS followed up with the following [facility] facilities: [facility]-Insurance out of network [facility]- No female beds available [facility]- No female beds available [facility]- [facility]-At capacity [facility] Voicemail [facility]No beds available [facility]-Requesting to re-fax [facility]-unable to leave [facility]-Left Voicemail
--- NOTE | 2024-12-01 17:37 | PD.RESPRO ---
Documentation for date of: 12/01/24 Subjective Subjective Interval history: Patient was seen and examined at bedside. Patient denied any new symptoms, she has been having regular bowel movements denied any nausea or vomiting except mild abdominal discomfort. Patient was medically cleared yesterday for discharge and to follow-up in outpatient settings. Blood pressure was 160/95, pulse rate of 92 we will continue to monitor. Exam Vital Signs Temp Pulse Resp BP Pulse Ox O2 Del Method O2 Flow Rate 97.6 F 91 15 133/83 H 99 Room Air 8 12/01/24 15:45 12/01/24 16:00 12/01/24 15:45 12/01/24 15:45 12/01/24 15:45 12/01/24 12:00 11/28/24 13:55 Narrative Exam GEN: AOx3, able to speak full sentences, flat mood and affect HEENT: NC/AC, oral mucosa moist, neck supple CVS: RRR, S1-S2 present, no murmurs appreciated RESP: CTAB GI: soft, surgical sites covered with no signs of bleeding or leak. Non distended, non tender, NBS MSK: able to move all 4 limbs, no lower extremity edema SKIN: warm and dry HYGIENE COORDINATOR: CN II-XII and Sensation grossly intact. Objective Labs 12/03/24 05:05 12/07/24 04:35 Labs: Laboratory Results - last 24 hr 11/30/24 12/01/24 19:06 05:21 WBC 12.6 H RBC 3.23 L Hgb 10.8 L Hct 30.4 L MCV 94 MCH 33.4 MCHC 35.5 RDW Std Deviation 42.7 Plt Count 268 D Neut % (Auto) 79 Lymph % (Auto) 13 [place] % (Auto) 6 Eos % (Auto) 2 Baso % (Auto) 0 Neut # (Auto) 9.9 H Lymph # (Auto) 1.6 [place] # (Auto) 0.8 Eos # (Auto) 0.2 Baso # (Auto) 0.1 Immature Gran # (Auto) 0.11 H Absolute Nucleated RBC 0.00 Immature Gran % 1 H Nucleated RBC % 0 Sodium 136 Potassium 3.2 L Chloride 104 Carbon Dioxide 21.4 Anion Gap 11 BUN < 5 L Creatinine 0.6 Estim Creat Clear Calc 104.7 eGFR > 60 BUN/Creatinine Ratio 8 L Glucose 100 Calculated Osmolality 269 L Calcium 8.6 Corrected Calcium 8.7 Phosphorus 2.4 Magnesium 2.0 Total Bilirubin 0.4 AST 60 H ALT 63 H Alkaline Phosphatase 80 Total Protein 6.4 Albumin 3.9 Globulin 2.5 Albumin/Globulin Ratio 1.6 SARS-CoV-2 Ag (Rapid) Negative Quality Measures Quality Measures none Assessment & Plan Assessment Current Active Medications: Generic Name Dose Route Start Last Admin Trade Name Freq PRN Reason Stop Dose Admin Acetaminophen 650 mg 11/13/24 17:28 11/28/24 00:36 Acetaminophen 325 Mg Tablet PO 12/13/24 17:27 650 mg Q6H PRN Administration Pain (1-3) & Fever >100.4 Hydrocodone Bitart/Acetaminophen 1 tab 11/28/24 14:42 12/01/24 06:21 Hydrocodone/Apap 5/325 Tablet PO 12/03/24 14:41 1 tab Q6HR PRN Administration PAIN 4-6 Amoxicillin/Clavulanate Potassium 1 tab 12/01/24 21:00 Amoxicillin/Pot Clav 875 Tablet PO 12/08/24 20:59 BID URSULA Olanzapine 2.5 mg/ Sterile 0 mg 11/27/24 15:59 Water 2.1 ml IM 12/27/24 15:58 Q2HR PRN AGITATION Protocol Gabapentin 100 mg 11/14/24 21:00 12/01/24 08:14 Gabapentin 100 Mg Capsule PO 12/14/24 20:59 100 mg BID URSULA Administration Hydroxyzine HCl 50 mg 11/27/24 16:00 11/30/24 23:57 Hydroxyzine Hcl 25 Mg Tablet PO 12/22/24 21:59 50 mg TID PRN Administration AGITATION (MILD) Lisinopril 20 mg 11/16/24 09:00 12/01/24 08:15 Lisinopril 20 Mg Tablet PO 12/16/24 08:59 20 mg QDAY URSULA Administration Metoprolol Tartrate 25 mg 11/16/24 21:00 12/01/24 08:14 Metoprolol Tartrate 25 Mg Tablet PO 12/16/24 20:59 25 mg BID URSULA Administration Morphine Sulfate 2 mg 11/28/24 14:42 Morphine Sulf Inj 10 Mg/Ml Vial IVP 12/03/24 14:41 Q3H PRN PAIN SCALE 7-10 (Severe Pantoprazole Sodium 40 mg 11/14/24 09:00 12/01/24 08:14 Pantoprazole Inj 40 Mg Vial IVP 12/14/24 08:59 40 mg QDAY URSULA Administration Quetiapine Fumarate 50 mg 11/19/24 21:00 12/01/24 08:14 Quetiapine Fumarate 25 Mg Tablet PO 12/19/24 20:59 50 mg BID URSULA Administration Sennosides 2 tab 11/13/24 17:28 11/27/24 08:21 Senna Tablet PO 12/13/24 17:27 2 tab BID PRN Administration CONSTIPATION Protocol Plan Assessment and plan: Summary: Ms. Day is a 48-year-old female with past medical history of fibromyalgia, anxiety, depression, insomnia and hypertension who presented to [facility] emergency department on 11/13/2024 with a chief complaint of syncopal episode. # Choledocholithiasis and stricture, s/p ERCP with sphincterotomy, balloon extraction and biliary stent placement on 11/26 # Transaminitis?resolved # D2 post laproscopic cholecystectomy 11/28 AST 130, ALT 312 on presentation, possible in setting of medication overdose US indicated dilated CBD Patient asymptomatic with normal total bilirubin. Hepatitis panel negative. Direct Bilirubin 0.2. MRCP done which showed Cholelithiasis Abnormal enlargement common hepatic common bile duct with abrupt termination of the distal common bile duct. Gallbladder nuclear medicine scan showed abnormal study, no gallbladder activity, cystic duct obstruction MRI 11/18/24: Extrahepatic biliary tract dilatation with abrupt termination of the distal common bile duct CA 19-9, within normal limits ERCP completed on 11/26/2024 findings include: Entire main bile duct was dilated secondary to stricture. Choledocholithiasis was found and biliary sphincterotomy and balloon extraction were completed. Full metal stent was placed. Plan: ? Follow-up with GI for stent exchange at ERCP in 3 months ? GI consulted appreciate recommendations. ? Patient was cleared medically, crisis eval recommended transfer for a psych facility. #Possible bacteremia Preliminary report of blood culture resulted in GPC in 1 bottle. Her WBCs downtrending. Blood culture from 11/27 grew GPC in 1 bottle. Likely contaminant, will consider discontinuing Zosyn Plan ? Continue patient on Zosyn ? Follow-up with final results of blood culture. #Prolonged QTC QTc 524 from EKG 11/27 Plan: -Continue Olanzapine prn #Medication overdose #Underlying psychiatric disorder #Auditory and visual hallucinations #?Suicidal ideation #Anxiety #Dizziness #Recurrent falls #?Syncope Patient reported that she was in her room when she passed out, reports that she was dehydrated. Patient also reports history of multiple falls, reports that she has been falling multiple times in the last couple of days. Patient complains of throbbing headache, otherwise denies any pain. 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 Patient's son informed that patient was found last night on the ground having a breakdown with empty bottles of medications surrounding her. Most of the pills were on the ground and unaccounted for versus possible overdose. States there were three bottles that were broken and/or do not have lids. Medications unaccounted for and filled on 11/03/2024 include: 100mg Gabapentin 90 tablets, 10mg Propanolol 120 tablets, 20mg Furosemide 30 tablets, Tizanidine (filled 11/11/2024), 20mg Baclofen 120 tablets (bottle empty and covered), Venlafaxine (30 tablets left and 4-5 tablets are unaccounted for). EKG in ED shows sinus rhythm, QTc 450, CT scan of the head negative for any acute hemorrhage, mass effect or midline shift. Serial EKG negative, no acute evaluation noted Patient was given 1 L LR bolus in ED, placed on 179 psychiatric hold Urine tox screen negative, CT negative, magnesium within normal limits, moderate, lactate normal Fingerstick every 6 hours within normal limits [place] suicide risk assessment was low risk. Major depression index was 6 points; no depression. Plan: - Seroquel 50 mg twice daily - Hydroxyzine as needed for mild agitation - Needs medical clearance for evaluation by social human services assistants - Seizure precaution - Referral to social human services assistants for further evaluation - Continue gabapentin low-dose - Patient was cleared medically and was evaluated by crisis team and decided that the patient need to be transferred for psych facility. #Hypertension Patient has history of hypertension on benazepril 40 mg daily, Lasix 20 mg p.o. daily at home - Continue lisinopril 20 mg p.o. daily - Continue metoprolol tartrate 25 mg p.o. twice daily #Alcohol use Per patient's history, patient takes alcohol, drinks medications with alcohol at times. Was on CIWA protocol, no withdrawal noted. #Acute kidney injury, resolved On presentation BUN 26, creatinine 1.6, GFR 40, baseline within normal limits Patient received 1 L LR bolus in ED plan Responded well to IV fluids, RAMON is resolved. Plan: - Avoid nephrotoxic agents - Renally dose medication - Follow CMP in a.m. DVT prophylaxis: Heparin every 12 hours GI prophylaxis: Protonix IV daily Diet: Low-fat diet Lines: Peripheral IV Code status: Full code Dispo: Pending placement at psych facility - Patient's plan and care discussed with my attending, Dr. Arya Nevarez MD Internal Medicine PGY-2 Attending Provider Attestation/Addendum I have examined the patient, reviewed labs and imaging findings, discussed the case with the resident(s), and reviewed entered orders. I agree with the plan of care as outlined in this note, with these additional summaries/recommendations: Patient seen at bedside. No acute overnight events. She denies abdominal pain at this time. She denies any hallucinations at this time. Patient is s/p cholecystectomy with general surgery and appears to have tolerated the procedure well. She is having bowel movements and tolerating diet. Leukocytosis still present and we will continue oral abx to complete treatment course. Patient also underwent ERCP which revealed papillary stenosis, dilated CBD with stricture, choledocholithiasis with complete removal by biliary sphincterotomy and balloon extraction and stent placement. Patient will need to follow-up with GI outpatient and stent exchange in 3 months. Medically cleared for crisis evaluation. Patient showed understanding of the plan and in agreement. Dr. Arya MD
[2024-12-01] MEDS: AMOXICILLIN/POT CLAV 875 TABLET 1 TAB PO (20:00)
[2024-12-02] VITALS (10 sets, daily range): BP systolic 125–158; BP diastolic 82–97; PULSE 82–104; RESP 19–21; TEMP 36.3–37.1; O2SAT 97–98
[2024-12-02] MEDS: hydrOXYzine HCL 25 MG TABLET 50 MG PO (01:09)
[2024-12-02 06:09] LABS: Basophils # (Auto) 0.1 Thou/mm3 (0.0-0.2); Basophils % (Auto) 1 % (0-2.5); Eosinophils # (Auto) 0.4 Thou/mm3 (0.0-0.5); Eosinophils % (Auto) 3 % (0-10); Hematocrit 30.8 % (36.0-46.0); Hemoglobin 10.4 g/dL (12.0-16.0); Immature Granulocytes % (Auto) 1 % (0-0); Immature Granulocytes Auto 0.07 Thou/mm3 (0.00-0.00); Lymphocytes # (Auto) 1.9 Thou/mm3 (1.0-4.8); Lymphocytes % (Auto) 15 % (10-50); Mean Corpuscular HGB Conc 33.8 g/dl (31.0-37.0); Mean Corpuscular Hemoglobin 32.8 pg (25.0-35.0); Mean Corpuscular Volume 97 fL (80-100); Monocytes # (Auto) 0.9 Thou/mm3 (0.0-0.8); Monocytes % (Auto) 7 % (0-12); Neutrophils # (Auto) 9.4 Thou/mm3 (1.8-7.7); Neutrophils % (Auto) 74 % (37-80); Nucleated Red Blood Cell % 0 /100 WBC (0); Platelet Count 317 Thou/mm3 (140-440); RDW Standard Deviation 44.3 fL (36.4-46.3); Red Blood Count 3.17 Miln/mm3 (4.00-5.20); White Blood Count 12.7 Thou/mm3 (3.6-11.0)
[2024-12-02 06:34] LABS: Alanine Aminotransferase 79 U/L (10-49); Albumin/Globulin Ratio 1.5 (1.2-2.2); Alkaline Phosphatase 82 U/L (46-116); Anion Gap 12 (7-16); Aspartate Amino Transferase 53 U/L (0-34); BUN/Creatinine Ratio 7 Ratio (12-20); Bilirubin,Total 0.3 mg/dL (0.3-1.2); Blood Urea Nitrogen < 5 mg/dL (9-23); Chloride 103 mMol/L (98-107); Creatinine (Component) 0.7 mg/dL (0.6-1.3); Estimated Creatinine Clearance 89.7 mL/min (>60); Globulin 2.6 gm/dL (2.3-3.5); Glucose 100 mg/dL (74-106); Magnesium 2.1 mg/dL (1.6-2.6); Osmolality,Calculated 271 (275-295); Phosphorous 3.2 mg/dL (2.4-5.1); Potassium 3.8 mMol/L (3.4-5.1); Sodium 137 mMol/L (136-145); Total Protein 6.6 gm/dL (5.7-8.2); eGFR > 60 See Note
--- NOTE | 2024-12-02 07:08 | PC.SS ---
Addendum entered by JESSICA Howard 12/02/24 10:56: Received a call from [facility] requesting to know if patient continues needing placement, notified them that she did. Referral placed in their inque. Original Note: SS follow up: received a voicemail from [facility] regarding if patient needs placement. Returned call back and spoke with admission to confirm that the patient is still needing placement. Provided them appropriate contact information to [facility] and [facility] as the patient is located [facility]. Was also informed by admissions that the patient was declined by [facility] for Psychiatry and [facility] as they were unable to accommodate.
[2024-12-02] MEDS: Lisinopril 20 MG TABLET PO (08:25)
[2024-12-02] MEDS: PANTOPRAZOLE INJ 40 MG VIAL IVP (08:25)
[2024-12-02] MEDS: AMOXICILLIN/POT CLAV 875 TABLET 1 TAB PO ×2 (08:25→21:09)
[2024-12-02] MEDS: GABAPENTIN 100 MG CAPSULE PO ×2 (08:26→21:10)
[2024-12-02] MEDS: METOPROLOL TARTRATE 25 MG TABLET PO ×2 (08:26→21:09)
[2024-12-02] MEDS: QUEtiapine FUMARATE 25 MG TABLET 50 MG PO ×2 (08:26→21:10)
--- NOTE | 2024-12-02 08:46 | PC.SS ---
SS follow up note; SS sent referral packet for placement through [employer] to all [facility] facilities.
--- NOTE | 2024-12-02 09:59 | PC.SS ---
[address] [place] [address] was contacted for placement by MAXIMILIAN[facility] Arriaga and it was reported by intake that they declined due to no bed availability.
--- NOTE | 2024-12-02 10:00 | PC.SS ---
MAXIMILIANO Arriaga contacted [facility] for placement for this pt is in Queue.
--- NOTE | 2024-12-02 10:02 | PC.SS ---
Addendum entered by Alva Man 12/02/24 11:07: [facility]: No available female beds Addendum entered by Alva Man 12/02/24 11:02: [facility] contacted: [facility]: 2nd call as they did not answer the first time. No answer again. [facility]: Intake reported the packet is being reviewed for all three locations; [facility] Psychiatry. [facility]: Intake reported their contact with [facility] is not renewed and until that gets resolved then they cannot take our patients. [facility]: Original Note: 1002-SS contacted [facility] facility [facility] and intake stated at this time there are no beds. However, they will contact [facility] if they are able to accept the pt upon d/c today. [facility] facilities contacted: [facility]-declined due to at capacity. [facility]-no beds available and not reviewing packets. [phone] [facility]-Intake Michelle reported pt is in Queue and will review shortly. [facility] Kelly-[phone]: No beds and they are at capacity. But if they d/c today, they will call back. [facility]-Intake Erma, reported they did not receive the fax, please fax to [phone] Fax. [facility]-At capacity, but they will look at her today. She will be next in queue. [facility]-Intake reported they do not have any beds. [facility]-Intake Azeem reported they did not receive the fax and asked to fax to [phone] Fax. [facility]-no answer.
--- NOTE | 2024-12-02 11:03 | PD.RESPRO ---
Documentation for date of: 12/02/24 Subjective Subjective Interval history: Patient was seen and examined at bedside this AM. No acute exents overnight. No code robert. Patient tolerating diet, adequate urine output, is having bowel movements and mentation is at baseline. Patient currently has no complaints. Denies any suicidal/homicidal ideations. Patient was medically and surgically cleared for discharge since 11/30/2024. She has completed crisis evaluation and is pending placement in a psychiatric facility. Currently she is on oral antibiotics with Augmentin to complete 2 more days. Last day on 12/03/2024. Exam Vital Signs Temp Pulse Resp BP Pulse Ox O2 Del Method O2 Flow Rate 97.8 F 96 20 158/97 H 98 Room Air 8 12/02/24 08:00 12/02/24 08:26 12/02/24 08:00 12/02/24 08:26 12/02/24 08:00 12/02/24 08:00 11/28/24 13:55 Narrative Exam Constitutional Alert, oriented x 3 and comfortable HEENT Vision grossly intact. Patent nares. Trachea midline Respiratory Chest normal on inspection and clear auscultation bilaterally Cardiovascular S1 and S2 audible, RRR. No murmurs carotid bruit. No gross JVD. Abdominal Soft and non tender to palpation in all quadrants. BS + Genitourinary No bladder tenderness, no flank pain. Normal to palpation Musculoskeletal Extremities tone within normal limits. No LE edema. Neurological CN II - XII grossly intact. Extremity motor and sensation grossly intact. Skin Warm, dry and intact. No apparent lesions. Psychiatric Patient has good affect, is cooperative Objective Labs 12/02/24 05:16 12/02/24 05:16 Labs: Laboratory Results - last 24 hr 12/02/24 05:16 WBC 12.7 H RBC 3.17 L Hgb 10.4 L Hct 30.8 L MCV 97 MCH 32.8 MCHC 33.8 RDW Std Deviation 44.3 Plt Count 317 D Neut % (Auto) 74 Lymph % (Auto) 15 Mower % (Auto) 7 Eos % (Auto) 3 Baso % (Auto) 1 Neut # (Auto) 9.4 H Lymph # (Auto) 1.9 Mower # (Auto) 0.9 H Eos # (Auto) 0.4 Baso # (Auto) 0.1 Immature Gran # (Auto) 0.07 H Absolute Nucleated RBC 0.00 Immature Gran % 1 H Nucleated RBC % 0 Sodium 137 Potassium 3.8 D Chloride 103 Carbon Dioxide 22.0 Anion Gap 12 BUN < 5 L Creatinine 0.7 Estim Creat Clear Calc 89.7 eGFR > 60 BUN/Creatinine Ratio 7 L Glucose 100 Calculated Osmolality 271 L Calcium 9.0 Corrected Calcium 9.0 Phosphorus 3.2 Magnesium 2.1 Total Bilirubin 0.3 AST 53 H ALT 79 H Alkaline Phosphatase 82 Total Protein 6.6 Albumin 4.0 Globulin 2.6 Albumin/Globulin Ratio 1.5 Quality Measures Quality Measures none Assessment & Plan Assessment Current Active Medications: Generic Name Dose Route Start Last Admin Trade Name Freq PRN Reason Stop Dose Admin Acetaminophen 650 mg 11/13/24 17:28 11/28/24 00:36 Acetaminophen 325 Mg Tablet PO 12/13/24 17:27 650 mg Q6H PRN Administration Pain (1-3) & Fever >100.4 Hydrocodone Bitart/Acetaminophen 1 tab 11/28/24 14:42 12/01/24 23:19 Hydrocodone/Apap 5/325 Tablet PO 12/03/24 14:41 1 tab Q6HR PRN Administration PAIN 4-6 Amoxicillin/Clavulanate Potassium 1 tab 12/01/24 21:00 12/02/24 08:25 Amoxicillin/Pot Clav 875 Tablet PO 12/08/24 20:59 1 tab BID URSULA Administration Olanzapine 2.5 mg/ Sterile 0 mg 11/27/24 15:59 Water 2.1 ml IM 12/27/24 15:58 Q2HR PRN AGITATION Protocol Gabapentin 100 mg 11/14/24 21:00 12/02/24 08:26 Gabapentin 100 Mg Capsule PO 12/14/24 20:59 100 mg BID URSULA Administration Hydroxyzine HCl 50 mg 11/27/24 16:00 12/02/24 01:09 Hydroxyzine Hcl 25 Mg Tablet PO 12/22/24 21:59 50 mg TID PRN Administration AGITATION (MILD) Lisinopril 20 mg 11/16/24 09:00 12/02/24 08:25 Lisinopril 20 Mg Tablet PO 12/16/24 08:59 20 mg QDAY URSULA Administration Metoprolol Tartrate 25 mg 11/16/24 21:00 12/02/24 08:26 Metoprolol Tartrate 25 Mg Tablet PO 12/16/24 20:59 25 mg BID URSULA Administration Pantoprazole Sodium 40 mg 11/14/24 09:00 12/02/24 08:25 Pantoprazole Inj 40 Mg Vial IVP 12/14/24 08:59 40 mg QDAY URSULA Administration Quetiapine Fumarate 50 mg 11/19/24 21:00 12/02/24 08:26 Quetiapine Fumarate 25 Mg Tablet PO 12/19/24 20:59 50 mg BID URSULA Administration Sennosides 2 tab 11/13/24 17:28 11/27/24 08:21 Senna Tablet PO 12/13/24 17:27 2 tab BID PRN Administration CONSTIPATION Protocol Plan Assessment and plan: Summary: Ms. Day is a 48-year-old female with past medical history of fibromyalgia, anxiety, depression, insomnia and hypertension who presented to [facility] emergency department on 11/13/2024 with a chief complaint of syncopal episode. # Choledocholithiasis and stricture, s/p ERCP with sphincterotomy, balloon extraction and biliary stent placement on 11/26 # Transaminitis?resolved # D4 post laproscopic cholecystectomy 11/28 AST 130, ALT 312 on presentation, possible in setting of medication overdose US indicated dilated CBD Patient asymptomatic with normal total bilirubin. Hepatitis panel negative. Direct Bilirubin 0.2. MRCP done which showed Cholelithiasis Abnormal enlargement common hepatic common bile duct with abrupt termination of the distal common bile duct. Gallbladder nuclear medicine scan showed abnormal study, no gallbladder activity, cystic duct obstruction MRI 11/18/24: Extrahepatic biliary tract dilatation with abrupt termination of the distal common bile duct CA 19-9, within normal limits ERCP completed on 11/26/2024 findings include: Entire main bile duct was dilated secondary to stricture. Choledocholithiasis was found and biliary sphincterotomy and balloon extraction were completed. Full metal stent was placed. Plan: - To continue Augmentin 1 tab p.o. twice daily for 1 more day to complete on 12/03 ? Follow-up with GI for stent exchange at ERCP in 3 months ? GI consulted appreciate recommendations. ? Patient was cleared medically, crisis eval recommended transfer for a psych facility. #Bacteremia ruled out Preliminary report of blood culture resulted in GPC in 1 bottle. Her WBCs downtrending. Blood culture from 11/27 grew GPC in 1 bottle. Likely contaminant #Prolonged QTC - resolvcing QTc 524 from EKG 11/27 Plan: -Continue Olanzapine prn #Medication overdose #Underlying psychiatric disorder #Auditory and visual hallucinations #?Suicidal ideation #Anxiety #Dizziness #Recurrent falls #?Syncope Patient reported that she was in her room when she passed out, reports that she was dehydrated. Patient also reports history of multiple falls, reports that she has been falling multiple times in the last couple of days. Patient complains of throbbing headache, otherwise denies any pain. 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 Patient's son informed that patient was found last night on the ground having a breakdown with empty bottles of medications surrounding her. Most of the pills were on the ground and unaccounted for versus possible overdose. States there were three bottles that were broken and/or do not have lids. Medications unaccounted for and filled on 11/03/2024 include: 100mg Gabapentin 90 tablets, 10mg Propanolol 120 tablets, 20mg Furosemide 30 tablets, Tizanidine (filled 11/11/2024), 20mg Baclofen 120 tablets (bottle empty and covered), Venlafaxine (30 tablets left and 4-5 tablets are unaccounted for). EKG in ED shows sinus rhythm, QTc 450, CT scan of the head negative for any acute hemorrhage, mass effect or midline shift. Serial EKG negative, no acute evaluation noted Patient was given 1 L LR bolus in ED, placed on 1799 psychiatric hold Urine tox screen negative, CT negative, magnesium within normal limits, moderate, lactate normal Fingerstick every 6 hours within normal limits [place] suicide risk assessment was low risk. Major depression index was 6 points; no depression. Plan: - Seroquel 50 mg twice daily - Hydroxyzine as needed for mild agitation - Needs medical clearance for evaluation by psychosocial rehabilitation counselor - Seizure precaution - Referral to psychosocial rehabilitation counselor for further evaluation - Continue gabapentin low-dose - Patient was cleared medically and was evaluated by crisis team and decided that the patient need to be transferred for psych facility. #Hypertension Patient has history of hypertension on benazepril 40 mg daily, Lasix 20 mg p.o. daily at home - Continue lisinopril 20 mg p.o. daily - Continue metoprolol tartrate 25 mg p.o. twice daily #Alcohol use Per patient's history, patient takes alcohol, drinks medications with alcohol at times. Was on CIWA protocol, no withdrawal noted. #Acute kidney injury, resolved On presentation BUN 26, creatinine 1.6, GFR 40, baseline within normal limits Patient received 1 L LR bolus in ED plan Responded well to IV fluids, RAMON is resolved. Plan: - Avoid nephrotoxic agents - Renally dose medication - Follow CMP in a.m. DVT prophylaxis: Heparin every 12 hours GI prophylaxis: Protonix IV daily Diet: Low-fat diet Lines: Peripheral IV Code status: Full code Dispo: Pending placement at [facility] facility Plan of care discussed with Attending Dr. Temi Devi MD PGY 1 Disclaimer: This note was dictated by speech recognition. Minor errors in road repairer may be present due to voice recognition software. Attending Provider Attestation/Addendum I attest that I was physically present for the evaluation, physical examination, lab and imaging review of the patient with the residents. I discussed the case with the residents and agree with the findings and plans of care as documented above. At bedside today, patient appears comfortable and denies any complaints. Alert and oriented x 4, able to answer questions and follow commands appropriately. Vital signs have been stable, patient is tolerating diet well, mentation back to baseline. Patient is status post ERCP with stent placement. Continues to be on amoxicillin and clavulanic acid orally. Lab results have been stable except for mild elevation in liver enzymes, likely related to her recent procedure. Patient is medically cleared for discharge, awaiting transfer to a psychiatric facility as recommended by crisis team. Franklyn Membreno MD
--- NOTE | 2024-12-02 11:07 | PC.SS ---
Addendum entered by Alva Man 12/02/24 11:39: RODRIGUE Man spoke with Diann Nolan and clarified that pt does not need a [id number] hearing as pt will still need to evaluated for a potential second hold. Original Note: 1107-RODRIGUE Man sent an email to Diann Nolan regarding the possibility of a [id number] court hearing for the pt, as her 5150 hold expires tomorrow.
--- NOTE | 2024-12-02 11:17 | PC.SS ---
SS follow up note: SS contacted the following [facility] facilities: [facility]: No Female beds available, next [facility]: [place] [facility]-Denied due to medical reasons [facility], [facility]- will refax clinicals
--- NOTE | 2024-12-02 12:00 | PC.SS ---
SS follow up note; SS spoke attending Dr. Membreno and and residents to input clear documentation regarding patient's medical clearance.
--- NOTE | 2024-12-02 16:18 | PC.SS ---
SS followed up with the following facilities: [facility]- [place]-1 Bed available, will review [facility]- [facility]-Insurance- No beds [facility]- No female beds available [facility]- No female beds available [facility]- [place]-Will review [facility]-At capacity [facility] [id number]-Tsoi review this afternoon [facility]-Declined [facility]-No beds available [facility]-Requesting to re-fax [facility]-unable to leave [facility]-Left Voicemail [facility]-Left Voicemail
[2024-12-03] VITALS (12 sets, daily range): BP systolic 129–180; BP diastolic 70–97; PULSE 64–100; RESP 18–20; TEMP 36.1–37.2; O2SAT 94–99
[2024-12-03] MEDS: hydrOXYzine HCL 25 MG TABLET 50 MG PO (04:46)
[2024-12-03 06:25] LABS: Basophils # (Auto) 0.1 Thou/mm3 (0.0-0.2); Basophils % (Auto) 1 % (0-2.5); Eosinophils # (Auto) 0.6 Thou/mm3 (0.0-0.5); Eosinophils % (Auto) 5 % (0-10); Hematocrit 33.2 % (36.0-46.0); Hemoglobin 11.3 g/dL (12.0-16.0); Immature Granulocytes % (Auto) 1 % (0-0); Immature Granulocytes Auto 0.06 Thou/mm3 (0.00-0.00); Lymphocytes % (Auto) 17 % (10-50); Mean Corpuscular Hemoglobin 32.9 pg (25.0-35.0); Mean Corpuscular Volume 97 fL (80-100); Monocytes # (Auto) 0.7 Thou/mm3 (0.0-0.8); Monocytes % (Auto) 6 % (0-12); Neutrophils # (Auto) 8.2 Thou/mm3 (1.8-7.7); Neutrophils % (Auto) 71 % (37-80); Nucleated Red Blood Cell % 0 /100 WBC (0); Platelet Count 382 Thou/mm3 (140-440); RDW Standard Deviation 43.7 fL (36.4-46.3); Red Blood Count 3.43 Miln/mm3 (4.00-5.20); White Blood Count 11.6 Thou/mm3 (3.6-11.0)
[2024-12-03 07:15] LABS: Alanine Aminotransferase 114 U/L (10-49); Albumin, Serum 4.4 gm/dL (3.5-5.0); Albumin/Globulin Ratio 1.7 (1.2-2.2); Alkaline Phosphatase 95 U/L (46-116); Anion Gap 11 (7-16); Aspartate Amino Transferase 63 U/L (0-34); BUN/Creatinine Ratio 9 Ratio (12-20); Bilirubin,Total 0.4 mg/dL (0.3-1.2); Blood Urea Nitrogen 6 mg/dL (9-23); Carbon Dioxide 22.1 mMol/L (20.0-31.0); Chloride 103 mMol/L (98-107); Creatinine (Component) 0.7 mg/dL (0.6-1.3); Estimated Creatinine Clearance 85.2 mL/min (>60); Globulin 2.6 gm/dL (2.3-3.5); Glucose 100 mg/dL (74-106); Magnesium 2.2 mg/dL (1.6-2.6); Osmolality,Calculated 269 (275-295); Phosphorous 3.7 mg/dL (2.4-5.1); Potassium 3.4 mMol/L (3.4-5.1); Sodium 136 mMol/L (136-145); eGFR > 60 See Note
--- NOTE | 2024-12-03 07:15 | PC.SS ---
LATE NOTE: On 12/02/24, RODRIGUE Man completed a mental health evaluation on the pt at bedside. Upon arrival, RODRIGUE Man witnessed pt sitting on her chair and upon entry, but was calm. RODRIGUE Man informed the pt of my role and reason for the visit. RODRIGUE Man was clear and forthcoming that SS is searching for LPS placement for the pt. RODRIGUE Man informed pt that her original 5150 Hold expires tomorrow 12/03/24 and at that time, she will be re-evaluated. The re-evaluation will decide if she will need a second hold or if she can be discharged on a safety plan and pt understood. Pt reported that she understands and is prepared to go to placement. Pt reported she is ready for change and has come to the understanding that she needs help. Pt reports she has family support from her mother and sister, but feels at times that is limited. Pt denies SI/HI, denies AVH, denies thoughts of DTS/DTO. Pt states she is wanting outpatient mental health services as well. Pt states fine with a second hold and possible placement as she reports she wants help. She states she is also fine with outpatient services. Pt is cooperative and calm. Her demeanor was calm, soft and was viewed to be coherent AOX4. Pt was informed that she will be re-assessed today for a second 5150 Hold. SS to f/u with pt and re-evaluate for a second 5150 Hold.
[2024-12-03] MEDS: QUEtiapine FUMARATE 25 MG TABLET 50 MG PO ×2 (08:41→21:35)
[2024-12-03] MEDS: METOPROLOL TARTRATE 25 MG TABLET PO ×2 (08:41→21:35)
[2024-12-03] MEDS: Lisinopril 20 MG TABLET PO (08:42)
[2024-12-03] MEDS: AMOXICILLIN/POT CLAV 875 TABLET 1 TAB PO (08:42)
[2024-12-03] MEDS: GABAPENTIN 100 MG CAPSULE PO ×2 (08:42→21:35)
[2024-12-03] MEDS: PANTOPRAZOLE INJ 40 MG VIAL IVP (08:43)
--- NOTE | 2024-12-03 09:04 | PC.SS ---
Addendum entered by JESSICA Howard 12/03/24 13:41: PT eval was faxed to Adarsh Taylor [facility]. Addendum entered by JESSICA Howard 12/03/24 13:35: SS update: PT note was completed. Note indicates the patient is independent. Addendum entered by JESSICA Howard 12/03/24 10:19: SS follow up: per SS staff, Adarsh Taylor requesting a PT evaluation for the patient. Notified attending Temi of request for PT eval, informs he will order it. Original Note: SS follow up: spoke with Resident Dr. Nevarez regarding updated note from today indicating clear documentation of medical clearance to send updated packet to [facility] facilities. He informed they could update a new note today after they round with the patient this morning.
--- NOTE | 2024-12-03 11:58 | PC.SS ---
SS follow up note; SS was was informed by patient's nurse, Delvin regarding the patients mother, Alka Giron requesting to speak SS. Mother and Women'S Studies Lecturer met a bedside to discuss the hold process. The patient's mother inquired about the next steps in the process which were explained to her by SS. Patient's mother verbalized understanding of the information provided and requested a call back to be informed of the outcome once established. SS will rely the message to Sandie LOPEZ. SS will stand by for further needs.
--- NOTE | 2024-12-03 13:31 | PC.SS ---
SS follow up note; SS attempted to contact DR. Membreno, however did not answer, SS contacted Dr. Turner and he informed SS he would input note once they are able too. SS will stand by for further needs. PT note pending as well.
--- NOTE | 2024-12-03 13:35 | PC.SS ---
SS follow up note; SS attempted to contact DR. Membreno, however did not answer, SS contacted Dr. Turner and he informed SS he would input note once they are able too. SS will stand by for further needs.
--- NOTE | 2024-12-03 14:08 | ESPR_ITS ---
<Statement entered by Nima Nevarez MD - 12/04/24 17:06> Patient was seen and examined at bedside, agree on most of the assessment and plan in this note. Patient was medically and surgically cleared for discharge and pending psych placement by crisis team. - Patient's plan and care discussed with my attending, Dr. Rebecca Nevarez MD Internal Medicine PGY-2 Documentation for date of: 12/03/24 Subjective Subjective Interval history: Patient was seen and examined at bedside this AM. No acute exents overnight. No code robert. Patient tolerating diet, adequate urine output, is having bowel movements and mentation is at baseline. Patient currently has no complaints. Denies any suicidal/homicidal ideations. Patient was medically and surgically cleared for discharge since 11/30/2024. She has completed crisis evaluation and is pending placement in a psychiatric facility. Poison control has also cleared her Currently she is on oral antibiotics with Augmentin which will be completed today. Physical therapy has evaluated her and recommend no further intervention. Currently from a medical standpoint patient is clear for discharge. It is up to the patient and 7th grade social studies teacher if she will need to be transferred to a psychiatric facility or can follow-up with outpatient services. Exam Vital Signs Temp Pulse Resp BP Pulse Ox O2 Del Method O2 Flow Rate 97.0 F 64 18 148/89 H 98 Room Air 8 12/03/24 12:00 12/03/24 12:00 12/03/24 12:00 12/03/24 12:00 12/03/24 12:00 12/03/24 12:00 11/28/24 13:55 Narrative Exam Constitutional Alert, oriented x 3 and comfortable HEENT Vision grossly intact. Patent nares. Trachea midline Respiratory Chest normal on inspection and clear auscultation bilaterally Cardiovascular S1 and S2 audible, RRR. No murmurs carotid bruit. No gross JVD. Abdominal Soft and non tender to palpation in all quadrants. BS + Genitourinary No bladder tenderness, no flank pain. Normal to palpation Musculoskeletal Extremities tone within normal limits. No LE edema. Neurological CN II - XII grossly intact. Extremity motor and sensation grossly intact. Skin Warm, dry and intact. No apparent lesions. Psychiatric Patient has good affect, is cooperative Objective Labs 12/03/24 05:12/03/24 05:05 Labs: Laboratory Results - last 24 hr 12/03/24 05:05 WBC 11.6 H RBC 3.43 L Hgb 11.3 L Hct 33.2 L MCV 97 MCH 32.9 MCHC 34.0 RDW Std Deviation 43.7 Plt Count 382 D Neut % (Auto) 71 Lymph % (Auto) 17 [place] % (Auto) 6 Eos % (Auto) 5 Baso % (Auto) 1 Neut # (Auto) 8.2 H Lymph # (Auto) 2.0 [place] # (Auto) 0.7 Eos # (Auto) 0.6 H Baso # (Auto) 0.1 Immature Gran # (Auto) 0.06 H Absolute Nucleated RBC 0.00 Immature Gran % 1 H Nucleated RBC % 0 Sodium 136 Potassium 3.4 Chloride 103 Carbon Dioxide 22.1 Anion Gap 11 BUN 6 L Creatinine 0.7 Estim Creat Clear Calc 85.2 eGFR > 60 BUN/Creatinine Ratio 9 L Glucose 100 Calculated Osmolality 269 L Calcium 9.0 Corrected Calcium 9.0 Phosphorus 3.7 Magnesium 2.2 Total Bilirubin 0.4 AST 63 H ALT 114 H Alkaline Phosphatase 95 Total Protein 7.0 Albumin 4.4 Globulin 2.6 Albumin/Globulin Ratio 1.7 Quality Measures Quality Measures none Assessment & Plan Assessment Current Active Medications: Generic Name Dose Route Start Last Admin Trade Name Freq PRN Reason Stop Dose Admin Acetaminophen 650 mg 11/13/24 17:28 11/28/24 00:36 Acetaminophen 325 Mg Tablet PO 12/13/24 17:27 650 mg Q6H PRN Administration Pain (1-3) & Fever >100.4 Hydrocodone Bitart/Acetaminophen 1 tab 11/28/24 14:42 12/01/24 23:19 Hydrocodone/Apap 5/325 Tablet PO 12/03/24 14:41 1 tab Q6HR PRN Administration PAIN 4-6 Amoxicillin/Clavulanate Potassium 1 tab 12/01/24 21:00 12/03/24 08:42 Amoxicillin/Pot Clav 875 Tablet PO 12/03/24 20:59 1 tab BID URSULA Administration Olanzapine 2.5 mg/ Sterile 0 mg 11/27/24 15:59 Water 2.1 ml IM 12/27/24 15:58 Q2HR PRN AGITATION Protocol Gabapentin 100 mg 11/14/24 21:00 12/03/24 08:42 Gabapentin 100 Mg Capsule PO 12/14/24 20:59 100 mg BID URSULA Administration Hydroxyzine HCl 50 mg 11/27/24 16:00 12/03/24 04:46 Hydroxyzine Hcl 25 Mg Tablet PO 12/22/24 21:59 50 mg TID PRN Administration AGITATION (MILD) Labetalol HCl 10 mg 12/03/24 09:19 Labetalol Inj 5 Mg/Ml Vial 20 Ml IVP 01/02/25 09:18 Q2H PRN SBP >180 Lisinopril 10 mg/ Lisinopril 30 mg 12/04/24 09:00 20 mg PO 01/03/25 08:59 QDAY URSULA Metoprolol Tartrate 25 mg 11/16/24 21:00 12/03/24 08:41 Metoprolol Tartrate 25 Mg Tablet PO 12/16/24 20:59 25 mg BID URSULA Administration Pantoprazole Sodium 40 mg 11/14/24 09:00 12/03/24 08:43 Pantoprazole Inj 40 Mg Vial IVP 12/14/24 08:59 40 mg QDAY URSULA Administration Quetiapine Fumarate 50 mg 11/19/24 21:00 12/03/24 08:41 Quetiapine Fumarate 25 Mg Tablet PO 12/19/24 20:59 50 mg BID URSULA Administration Sennosides 2 tab 11/13/24 17:28 11/27/24 08:21 Senna Tablet PO 12/13/24 17:27 2 tab BID PRN Administration CONSTIPATION Protocol Plan Assessment and plan: Summary: Ms. Day is a 48-year-old female with past medical history of fibromyalgia, anxiety, depression, insomnia and hypertension who presented to [facility] emergency department on 11/13/2024 with a chief complaint of syncopal episode. # Choledocholithiasis and stricture, s/p ERCP with sphincterotomy, balloon extraction and biliary stent placement on 11/26 # Transaminitis?resolved # D4 post laproscopic cholecystectomy 11/28 AST 130, ALT 312 on presentation, possible in setting of medication overdose US indicated dilated CBD Patient asymptomatic with normal total bilirubin. Hepatitis panel negative. Direct Bilirubin 0.2. MRCP done which showed Cholelithiasis Abnormal enlargement common hepatic common bile duct with abrupt termination of the distal common bile duct. Gallbladder nuclear medicine scan showed abnormal study, no gallbladder activity, cystic duct obstruction MRI 11/18/24: Extrahepatic biliary tract dilatation with abrupt termination of the distal common bile duct CA 19-9, within normal limits ERCP completed on 11/26/2024 findings include: Entire main bile duct was dilated secondary to stricture. Choledocholithiasis was found and biliary sphincterotomy and balloon extraction were completed. Full metal stent was placed. Plan: - To complete last dose of Augmentin tonight. ? Follow-up with GI for stent exchange at ERCP in 3 months ? GI consulted appreciate recommendations. ? Patient was cleared medically, crisis eval recommended transfer for a psych facility or follow-up with outpatient services. #Bacteremia ruled out Preliminary report of blood culture resulted in GPC in 1 bottle. Her WBCs downtrending. Blood culture from 11/27 grew GPC in 1 bottle. Likely contaminant #Prolonged QTC - resolvcing QTc 524 from EKG 11/27 Plan: -Continue Olanzapine prn #Medication overdose #Underlying psychiatric disorder #Auditory and visual hallucinations #?Suicidal ideation #Anxiety #Dizziness #Recurrent falls #?Syncope Patient reported that she was in her room when she passed out, reports that she was dehydrated. Patient also reports history of multiple falls, reports that she has been falling multiple times in the last couple of days. Patient complains of throbbing headache, otherwise denies any pain. 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 Patient's son informed that patient was found last night on the ground having a breakdown with empty bottles of medications surrounding her. Most of the pills were on the ground and unaccounted for versus possible overdose. States there were three bottles that were broken and/or do not have lids. Medications unaccounted for and filled on 11/03/2024 include: 100mg Gabapentin 90 tablets, 10mg Propanolol 120 tablets, 20mg Furosemide 30 tablets, Tizanidine (filled 11/11/2024), 20mg Baclofen 120 tablets (bottle empty and covered), Venlafaxine (30 tablets left and 4-5 tablets are unaccounted for). EKG in ED shows sinus rhythm, QTc 450, CT scan of the head negative for any acute hemorrhage, mass effect or midline shift. Serial EKG negative, no acute evaluation noted Patient was given 1 L LR bolus in ED, placed on 1798 psychiatric hold Urine tox screen negative, CT negative, magnesium within normal limits, moderate, lactate normal Fingerstick every 6 hours within normal limits [place] suicide risk assessment was low risk. Major depression index was 6 points; no depression. Plan: - Seroquel 50 mg twice daily - Hydroxyzine as needed for mild agitation - Needs medical clearance for evaluation by 7th grade social studies teacher - Seizure precaution - Referral to 7th grade social studies teacher for further evaluation - Continue gabapentin low-dose - Patient was cleared medically and was evaluated by crisis team and decided that the patient need to be transferred for psych facility or follow-up with outpatient services. #Hypertension Patient has history of hypertension on benazepril 40 mg daily, Lasix 20 mg p.o. daily at home - Continue lisinopril 20 mg p.o. daily - Continue metoprolol tartrate 25 mg p.o. twice daily #Alcohol use Per patient's history, patient takes alcohol, drinks medications with alcohol at times. Was on CIWA protocol, no withdrawal noted. #Acute kidney injury, resolved On presentation BUN 26, creatinine 1.6, GFR 40, baseline within normal limits Patient received 1 L LR bolus in ED plan Responded well to IV fluids, RAMON is resolved. Plan: - Avoid nephrotoxic agents - Renally dose medication - Follow CMP in a.m. DVT prophylaxis: Heparin every 12 hours GI prophylaxis: Protonix IV daily Diet: Low-fat diet Lines: Peripheral IV Code status: Full code Dispo: Pending placement at psych facility or follow-up with outpatient services. Plan of care discussed with Attending Dr. Membreno and PGY 2 Dr. Geri Devi MD PGY 1 Disclaimer: This note was dictated by speech recognition. Minor errors in orthodontist small business owner may be present due to voice recognition software. Attending Provider Attestation/Addendum I attest that I was physically present for the evaluation, physical examination, lab and imaging review of the patient with the residents. I discussed the case with the residents and agree with the findings and plans of care as documented above. At bedside today, patient is alert and oriented, able to answer question and follow commands appropriately. Appears comfortable and cooperative with exam. Denies any suicidal ideations. Patient is status post ERCP with a sphincterotomy, balloon extraction and biliary stent placement for choledocholithiasis and stricture. Continues to be on oral Augmentin, to be completed today. Continues to be on Seroquel, Zyprexa and as needed hydroxyzine. Vital signs have been stable. Lab results show improving WBC count. She has mild elevation in liver enzymes but rest of the labs are nonconcerning. Patient has completed crisis evaluation and is pending placement in psychiatric facility. She is medically cleared for discharge. Franklyn Membreno MD
--- NOTE | 2024-12-03 14:50 | PD.IMPROG ---
Documentation for date of: 12/03/24 Subjective Subjective Interval history: s/p ERCP with metallic stent in cbd Exam Vital Signs Temp Pulse Resp BP Pulse Ox O2 Del Method O2 Flow Rate 97.0 F 64 18 148/89 H 98 Room Air 8 12/03/24 12:00 12/03/24 12:00 12/03/24 12:00 12/03/24 12:00 12/03/24 12:00 12/03/24 12:00 11/28/24 13:55 Objective Labs 12/03/24 05:05 12/03/24 05:05 Labs: Laboratory Results - last 24 hr 12/03/24 05:05 WBC 11.6 H RBC 3.43 L Hgb 11.3 L Hct 33.2 L MCV 97 MCH 32.9 MCHC 34.0 RDW Std Deviation 43.7 Plt Count 382 D Neut % (Auto) 71 Lymph % (Auto) 17 [place] % (Auto) 6 Eos % (Auto) 5 Baso % (Auto) 1 Neut # (Auto) 8.2 H Lymph # (Auto) 2.0 [place] # (Auto) 0.7 Eos # (Auto) 0.6 H Baso # (Auto) 0.1 Immature Gran # (Auto) 0.06 H Absolute Nucleated RBC 0.00 Immature Gran % 1 H Nucleated RBC % 0 Sodium 136 Potassium 3.4 Chloride 103 Carbon Dioxide 22.1 Anion Gap 11 BUN 6 L Creatinine 0.7 Estim Creat Clear Calc 85.2 eGFR > 60 BUN/Creatinine Ratio 9 L Glucose 100 Calculated Osmolality 269 L Calcium 9.0 Corrected Calcium 9.0 Phosphorus 3.7 Magnesium 2.2 Total Bilirubin 0.4 AST 63 H ALT 114 H Alkaline Phosphatase 95 Total Protein 7.0 Albumin 4.4 Globulin 2.6 Albumin/Globulin Ratio 1.7 Assessment & Plan A&P Narrative s/p ERCP with stent placement, fully covered metallic stent. no abdominal pain. with biopsy needs out pt ERCP with Spyglass in next 2-4 weeks as out pt Follow with GI in 2-4 weeks Needs ERCP with Spyglass advance diet Time Spent With Patient Time: Total time spent is greater than 50% in coordination of care (as documented) at patient's floor/unit and/or counseling patient:
--- NOTE | 2024-12-03 15:03 | ESDS_ITS ---
<Statement entered by Nima Nevarez MD - 12/03/24 15:51> PATIENT WAS SEEN AND EXAMINED AT BEDSIDE. PATIENT DENIED ANY DELUSIONAL, HALLUCINATION, VISIONS,. PATIENT DENIED ANY SUICIDAL IDEATION, INTENTION TO HURT HERSELF OR OTHERS. FROM A MEDICAL STANDPOINT PATIENT IS CLEARED FOR DISCHARGE AND FOLLOW-UP IN OUTPATIENT SETTINGS INSTRUCTED BELOW. - Patient's plan and care discussed with my attending, Dr. Rebecca Nevarez MD Internal Medicine PGY-2 Planned Discharge Date 12/03/24 DS: Providers Provider Date of admission: 11/13/24 16:49 Primary care physician: Physician No Primary/Family Admitting Provider: Max Wood DO Attending Provider on Admission: Franklyn Membreno MD Consults: 11/13/24 13:58 Referral Wound Care Routine Comment: 11/13/24 14:29 Referral Psych Eval Stat Comment: 11/13/24 17:34 Referral Psych Eval Stat Comment: 11/17/24 14:07 Consult to Gastroenterology Urgent Comment: exclude stricture at the ampulla-MRCP Findings Consulting Provider: Beau Patten 11/18/24 16:23 Consult to General Surgery Routine Comment: Cystic Duct Obstruction Consulting Provider: Al Atwood 12/03/24 10:17 Referral Physical Therapy Stat Comment: Physician Instructions: Attending Provider on DC: Franklyn Membreno MD Discharging Provider: Saurabh Devi MD DS: Diagnosis Problem List Completed Was Problem List Reviewed/Reconciled?: Yes Hospital Course Hospital Course Hospital course: Ms. Day is a 48-year-old female with past medical history of fibromyalgia, anxiety, depression, insomnia and hypertension who presented to [facility] emergency department on 11/13/2024 with a chief complaint of syncopal episode. Patient's drug overdose, she was plan by poison control and crisis evaluation. Physical therapy also assessed her and recommended no further intervention. [place] suicide risk assessment was low risk. Major depression index was 6 point; no depression. Patient is medically cleared and fit for discharge to either psychiatric facility or to home to follow-up with outpatient services. The decision is with the patient and social work coordinator if she wants to be transferred or follow-up outpatient. Incidentally patient was found to have choledocholithiasis and cholelithiasis on MRCP and gallbladder ultrasound. US indicated dilated CBD Patient asymptomatic with normal total bilirubin. Hepatitis panel negative. Direct Bilirubin 0.2. MRCP done which showed Cholelithiasis Abnormal enlargement common hepatic common bile duct with abrupt termination of the distal common bile duct. Gallbladder nuclear medicine scan showed abnormal study, no gallbladder activity, cystic duct obstruction She underwent ERCP with sphincterectomy, balloon extraction and biliary stent placement on 11/26. Also she had cholecystectomy on 11/28. Dr. Marin COTA recommends she follows up for stent exchange at ERCP in [address] Funes also recommends she follows up as outpatient within the next 2 to 4 weeks for ERCP with spyglass. For patient's anxiety she was started on Seroquel 50 Mg twice daily as well as hydroxyzine as needed. Her mood stabilized during hospitalization and she now has a good affect and no further suicidal or homicidal ideations. Patient is now clinically stable and fit for discharge to psychiatric facility. Discharge diagnosis: 1. Choledocholithiasis and stricture s/p ERCP with sphincterotomy, balloon extraction and biliary stent placement on 11/26 2. Transaminitis?resolving 3. Day 5 postop laparoscopic cholecystectomy 11/28 4. Bacteremia ruled out 5. Prolonged QTc?resolving 6. Medication overdose?resolved 7. Anxiety 8. Primary hypertension 9. Acute kidney injury?resolved Discharge planning: - Continue all your medications as listed below. ? For evaluation of psychiatric hospital. ? Continue outpatient psychiatric follow-up - Follow-up with Dr. Marin COTA within 2-4 weeks of discharge for ERCP with spyglass. - Follow up with your primary care physician within 1 week of discharge. If you do not have a primary care physician, please follow up with the [facility] Residents clinic ([phone]) ? If you experience any new, worsening or persistent symptoms either call your primary doctor, or dial 911 or present to the emergency department. Plan of care discussed with Attending Dr. Membreno and PGY 2 Dr. Geri Devi MD PGY 1 Disclaimer: This note was dictated by speech recognition. Minor errors in clothing room supervisor may be present due to voice recognition software. Time Spent with Patient Time attestation: Total time spent providing and/or coordinating discharge services: Time spent: Less than 30 minutes (38) Exam Vital Signs Temp Pulse Resp BP Pulse Ox O2 Del Method O2 Flow Rate 97.0 F 64 18 148/89 H 98 Room Air 8 12/03/24 12:00 12/03/24 12:00 12/03/24 12:00 12/03/24 12:00 12/03/24 12:00 12/03/24 12:00 11/28/24 13:55 Narrative Exam Constitutional Alert, oriented x 3 and comfortable HEENT Vision grossly intact. Patent nares. Trachea midline Respiratory Chest normal on inspection and clear auscultation bilaterally Cardiovascular S1 and S2 audible, RRR. No murmurs carotid bruit. No gross JVD. Abdominal Soft and non tender to palpation in all quadrants. BS + Genitourinary No bladder tenderness, no flank pain. Normal to palpation Musculoskeletal Extremities tone within normal limits. No LE edema. Neurological CN II - XII grossly intact. Extremity motor and sensation grossly intact. Skin Warm, dry and intact. No apparent lesions. Psychiatric Patient has good affect, is cooperative Discharge Plan Plan Patient Disposition: [facility] Patient condition on transfer: Stable Care Plan Goals: - Continue all your medications as listed below. - We have stopped your medications alprazolam, Lasix, HCTZ, naproxen and venlafaxine. Do not take these anymore and discard of any extra pills at home. ? For evaluation of psychiatric hospital. ? Continue outpatient psychiatric follow-up - Follow-up with Dr. Marin COTA within 2-4 weeks of discharge for ERCP with spyglass. - Follow up with your primary care physician within 1 week of discharge. If you do not have a primary care physician, please follow up with the [facility] clinic ([phone]) ? If you experience any new, worsening or persistent symptoms either call your primary doctor, or dial 911 or present to the emergency department. - Also if you begin to experience any suicidal/homicidal ideations or any ideas of hurting others or yourself either dial 911 or present to the emergency department immediately. Prescriptions/Referrals Prescriptions/Med Rec: New quetiapine 25 mg Tablet 50 mg PO BID 7 Days Qty: 28 0RF sennosides [senna] 8.6 mg Tablet 8.6 mg PO BID PRN (Reason: Constipation) 10 Days Qty: 20 0RF lisinopril 30 mg Tablet 30 mg PO QDAY 10 Days Qty: 10 0RF hydroxyzine HCl 25 mg Tablet 50 mg PO TID PRN (Reason: Agitation (Mild)) Qty: 10 0RF gabapentin 100 mg Capsule 100 mg PO BID Qty: 14 0RF metoprolol tartrate 25 mg Tablet 25 mg PO BID 10 Days Qty: 10 0RF Continued baclofen 20 MG tablet 20 mg PO HS Qty: 0 Benazepril Hcl 40 MG tablet 40 mg PO QDAY Qty: 0 Discontinued alprazolam [Xanax] 1 MG tablet 1 mg PO TID Qty: 0 hydrochlorothiazide 25 MG tablet 25 mg PO QAM Qty: 0 furosemide [Lasix] 20 MG tablet 20 mg PO QDAY Qty: 0 Venlafaxine * (EFFEXOR *) 75 MG tablet 150 mg PO QDAY Qty: 0 naproxen [Naprosyn] 500 mg tablet 500 mg PO BID PRN (Reason: pain) Qty: 30 0RF Referrals: No Primary/Family,Physician [Primary Care Provider] - Patient/Caregiver Discharge Instructions Discharge Activity: as per physical therapy Education Materials: Preventing Surgical Site Infections Print Language: [place] Stand Alone Forms: Brandi Award Info., Patient Portal Info Letter Discharge Order Discharge Orders: Discharge (Routine); Ordered 12/03/24 Ordered By: Saurabh Devi Quality Discharge Quality Measures VTE prophylaxis Attestestation Attestation I attest that I was physically present for the evaluation, physical examination, lab and imaging review of the patient with the residents. I discussed the case with the residents and agree with the findings and plans of care as documented above. Franklyn Membreno MD
--- NOTE | 2024-12-03 16:08 | PC.NURSE ---
PT 0503 ORDER BEING EXTENDED PER MEDICAL RECORDS RECEPTIONIST
--- NOTE | 2024-12-03 16:29 | PC.SS ---
Sandie HUSAIN met with the patient for re-evaluation as the patient's initial 5150 Hold expires today. ASW met with the patient and was informed or role and reason for re-evaluation. The patient appeared to present with a flat affect and her demeanor appeared to be sad and depressed. The patient's body language was sluggish and she appeared to be restless, patient is speaking in soft and low tone of voice. The patient was placed on a 5150 Hold on 11/30/24 due to danger to self as she originally presented to the Emergency Department on an overdose. Today, the patient denies SI and HI. The patient is also denying audio and visual hallucinations. However, in speaking to the patient she appears to be responding to internal stimuli. The patient whispers statements in a very low tone voice and when asked what she stated, the patient changes the topic or question being asked. Per medical staff, during patient's stay at the hospital she has been observed to be speaking to herself, responding to internal stimuli. The patient has a history of being diagnosed with depression. Patient has not been complaint with outpatient mental health services or medication intake. The patient states she has gotten worse and better since she has been in the hospital. Patient indicates she has improved as she is receiving medication, however has became worse as she is sad and lost her family . Patient informs her time here has been a blur . Otherwise, the patient reports she has been eating, sleeping, and ambulating to use the restroom without any issues. The patient was asked where she would go if discharged from the hospital and she indicated she has no where to go . Patient is unable/unwilling to engage in a safety plan at this time and family would like for the patient to receive treatment at a mental health facility. Patient reports she is aware if needed to be placed on a second hold she understands why and states she would not care. After clinical consultation with Jasmine VILLALOBOS, the patient will be placed on a second consecutive 5150 hold for danger to self. Patient is unable/unwilling to engage in a safety plan at this time. Patient was provided with advisement and asked for her son, Nikos to be notified. Patient informs she is in agreement, she would like to participate in the hearing held if appropriate. Attending Dr. Membreno, bed side nurse Delvin, and patient's son Nikos were updated on disposition plan.
--- NOTE | 2024-12-03 17:08 | PC.SS ---
SS update: packet was sent to listed adult LPS facilities via [employer]. Patient pending LPS placement.
[2024-12-03] MEDS: HYDROcodone/APAP 5/325 TABLET 1 TAB PO (21:35)
[2024-12-04] VITALS (8 sets, daily range): BP systolic 123–144; BP diastolic 74–88; PULSE 68–103; RESP 16–18; TEMP 36.4–36.7; O2SAT 95–100; BMI 31.3
--- NOTE | 2024-12-04 07:24 | PC.SS ---
Addendum entered by JESSICA Howard 12/04/24 12:14: Patient was updated on hearing date/time and had no further questions at this time. Addendum entered by JESSICA Howard 12/04/24 11:25: SS update: spoke with patient's rights advocate Bunny , he requested to speak with the patient. After speaking with the patient, the patient would like to contest the hearing and a contesting hearing will take place on 12/05/24 at 2:00pm. ASW to update staff to be aware of hearing date/time. Addendum entered by JESSICA Howard 12/04/24 10:50: SS follow up: staff Shantel Beal informed SS staff that patient was denied for placement for medical reasons. [facility] will [facility]-present [facility] case to their providers, however does not appear promising due to high medical acuity. Original Note: SS follow up: patient's right advocate was notified via email regarding second consecutive hold.
--- NOTE | 2024-12-04 09:13 | ESPR_ITS ---
<Statement entered by Nima Nevarez MD - 12/04/24 16:26> Patient was seen and examined at bedside. Patient denied any new symptoms, NITRO MAN reported that the night team reported to him that patient slept well with no issues. Patient has been cleared from medical and surgical standpoint since 30 Nov 2024. Pending psych facility placement. - Patient's plan and care discussed with my attending, Dr. Rebecca Nevarez MD Internal Medicine PGY-2 Documentation for date of: 12/04/24 Subjective Subjective Interval history: Patient was seen and examined at bedside this AM. No acute exents overnight. No code robert. Patient tolerating diet, adequate urine output, is having bowel movements and mentation is at baseline. Patient currently has no complaints. Denies any suicidal/homicidal ideations. Patient was medically and surgically cleared for discharge since 11/30/2024. She has completed crisis evaluation and is pending placement in a psychiatric facility. Poison control has also cleared her Completed antibitoics on 12/03/2024. Currently only on treatment for her chronic medical conditions Physical therapy has evaluated her and recommend no further intervention. Currently from a medical standpoint patient is clear for discharge. It is up to the patient and manager social responsibility if she will need to be transferred to a psychiatric facility or can follow-up with outpatient services. Exam Vital Signs Temp Pulse Resp BP Pulse Ox O2 Del Method O2 Flow Rate 97.6 F 102 H 17 144/88 H 100 Room Air 8 12/04/24 08:00 12/04/24 08:00 12/04/24 08:00 12/04/24 08:00 12/04/24 08:00 12/04/24 08:00 11/28/24 13:55 Narrative Exam Constitutional Alert, oriented x 3 and comfortable HEENT Vision grossly intact. Patent nares. Trachea midline Respiratory Chest normal on inspection and clear auscultation bilaterally Cardiovascular S1 and S2 audible, RRR. No murmurs carotid bruit. No gross JVD. Abdominal Soft and non tender to palpation in all quadrants. BS + Genitourinary No bladder tenderness, no flank pain. Normal to palpation Musculoskeletal Extremities tone within normal limits. No LE edema. Neurological CN II - XII grossly intact. Extremity motor and sensation grossly intact. Skin Warm, dry and intact. No apparent lesions. Psychiatric Patient has good affect, is cooperative Objective Labs 12/03/24 05:05 12/03/24 05:05 Quality Measures Quality Measures VTE prophylaxis Assessment & Plan Assessment Current Active Medications: Generic Name Dose Route Start Last Admin Trade Name Freq PRN Reason Stop Dose Admin Acetaminophen 650 mg 11/13/24 17:28 11/28/24 00:36 Acetaminophen 325 Mg Tablet PO 12/13/24 17:27 650 mg Q6H PRN Administration Pain (1-3) & Fever >100.4 Hydrocodone Bitart/Acetaminophen 1 tab 12/03/24 21:08 12/03/24 21:35 Hydrocodone/Apap 5/325 Tablet PO 12/08/24 21:07 1 tab Q6HR PRN Administration PAIN SCALE 7-10 (Severe Olanzapine 2.5 mg/ Sterile 0 mg 11/27/24 15:59 Water 2.1 ml IM 12/27/24 15:58 Q2HR PRN AGITATION Protocol Gabapentin 100 mg 11/14/24 21:00 12/03/24 21:35 Gabapentin 100 Mg Capsule PO 12/14/24 20:59 100 mg BID URSULA Administration Hydroxyzine HCl 50 mg 11/27/24 16:00 12/03/24 04:46 Hydroxyzine Hcl 25 Mg Tablet PO 12/22/24 21:59 50 mg TID PRN Administration AGITATION (MILD) Labetalol HCl 10 mg 12/03/24 09:19 Labetalol Inj 5 Mg/Ml Vial 20 Ml IVP 01/02/25 09:18 Q2H PRN SBP >180 Lisinopril 10 mg/ Lisinopril 30 mg 12/04/24 09:00 20 mg PO 01/03/25 08:59 QDAY URSULA Metoprolol Tartrate 25 mg 11/16/24 21:00 12/03/24 21:35 Metoprolol Tartrate 25 Mg Tablet PO 12/16/24 20:59 25 mg BID URSULA Administration Pantoprazole Sodium 40 mg 11/14/24 09:00 12/03/24 08:43 Pantoprazole Inj 40 Mg Vial IVP 12/14/24 08:59 40 mg QDAY URSULA Administration Quetiapine Fumarate 50 mg 11/19/24 21:00 12/03/24 21:35 Quetiapine Fumarate 25 Mg Tablet PO 12/19/24 20:59 50 mg BID URSULA Administration Sennosides 2 tab 11/13/24 17:28 11/27/24 08:21 Senna Tablet PO 12/13/24 17:27 2 tab BID PRN Administration CONSTIPATION Protocol Plan Assessment and plan: Summary: Ms. Day is a 48-year-old female with past medical history of fibromyalgia, anxiety, depression, insomnia and hypertension who presented to [facility] emergency department on 11/13/2024 with a chief complaint of syncopal episode. # Choledocholithiasis and stricture, s/p ERCP with sphincterotomy, balloon extraction and biliary stent placement on 11/26 # Transaminitis?resolved # D4 post laproscopic cholecystectomy 11/28 AST 130, ALT 312 on presentation, possible in setting of medication overdose US indicated dilated CBD Patient asymptomatic with normal total bilirubin. Hepatitis panel negative. Direct Bilirubin 0.2. MRCP done which showed Cholelithiasis Abnormal enlargement common hepatic common bile duct with abrupt termination of the distal common bile duct. Gallbladder nuclear medicine scan showed abnormal study, no gallbladder activity, cystic duct obstruction MRI 11/18/24: Extrahepatic biliary tract dilatation with abrupt termination of the distal common bile duct CA 19-9, within normal limits ERCP completed on 11/26/2024 findings include: Entire main bile duct was dilated secondary to stricture. Choledocholithiasis was found and biliary sphincterotomy and balloon extraction were completed. Full metal stent was placed. Plan: - Completed course of Augmentin ? Follow-up with GI for stent exchange at ERCP in 3 months ? GI consulted appreciate recommendations. ? Patient was cleared medically, crisis eval recommended transfer for a psych facility or follow-up with outpatient services. #Bacteremia ruled out Preliminary report of blood culture resulted in GPC in 1 bottle. Her WBCs downtrending. Blood culture from 11/27 grew GPC in 1 bottle. Likely contaminant #Prolonged QTC - resolvcing QTc 524 from EKG 11/27 Plan: -Continue Olanzapine prn #Medication overdose #Underlying psychiatric disorder #Auditory and visual hallucinations #?Suicidal ideation #Anxiety #Dizziness #Recurrent falls #?Syncope Patient reported that she was in her room when she passed out, reports that she was dehydrated. Patient also reports history of multiple falls, reports that she has been falling multiple times in the last couple of days. Patient complains of throbbing headache, otherwise denies any pain. 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 Patient's son informed that patient was found last night on the ground having a breakdown with empty bottles of medications surrounding her. Most of the pills were on the ground and unaccounted for versus possible overdose. States there were three bottles that were broken and/or do not have lids. Medications unaccounted for and filled on 11/03/2024 include: 100mg Gabapentin 90 tablets, 10mg Propanolol 120 tablets, 20mg Furosemide 30 tablets, Tizanidine (filled 11/11/2024), 20mg Baclofen 120 tablets (bottle empty and covered), Venlafaxine (30 tablets left and 4-5 tablets are unaccounted for). EKG in ED shows sinus rhythm, QTc 450, CT scan of the head negative for any acute hemorrhage, mass effect or midline shift. Serial EKG negative, no acute evaluation noted Patient was given 1 L LR bolus in ED, placed on 1798 psychiatric hold Urine tox screen negative, CT negative, magnesium within normal limits, moderate, lactate normal Fingerstick every 6 hours within normal limits [place] suicide risk assessment was low risk. Major depression index was 6 points; no depression. Plan: - Seroquel 50 mg twice daily - Hydroxyzine as needed for mild agitation - Needs medical clearance for evaluation by manager social responsibility - Seizure precaution - Referral to manager social responsibility for further evaluation - Continue gabapentin low-dose - Patient was cleared medically and was evaluated by crisis team and decided that the patient need to be transferred for psych facility or follow-up with outpatient services. #Hypertension Patient has history of hypertension on benazepril 40 mg daily, Lasix 20 mg p.o. daily at home - Continue lisinopril 20 mg p.o. daily - Continue metoprolol tartrate 25 mg p.o. twice daily #Alcohol use Per patient's history, patient takes alcohol, drinks medications with alcohol at times. Was on CIWA protocol, no withdrawal noted. #Acute kidney injury, resolved On presentation BUN 26, creatinine 1.6, GFR 40, baseline within normal limits Patient received 1 L LR bolus in ED plan Responded well to IV fluids, RAMON is resolved. Plan: - Avoid nephrotoxic agents - Renally dose medication - Follow CMP in a.m. DVT prophylaxis: Heparin every 12 hours GI prophylaxis: Protonix IV daily Diet: Low-fat diet Lines: Peripheral IV Code status: Full code Dispo: Pending placement at psych facility or follow-up with outpatient services. Plan of care discussed with Attending Dr. Membreno and PGY 2 Dr. Geri Devi MD PGY 1 Disclaimer: This note was dictated by speech recognition. Minor errors in prop sawyer may be present due to voice recognition software. Attending Provider Attestation/Addendum I attest that I was physically present for the evaluation, physical examination, lab and imaging review of the patient with the residents. I discussed the case with the residents and agree with the findings and plans of care as documented above. Patient appears comfortable at bedside, denies any new complaints, has been tolerating diet well, has been calm and able to follow instructions appropriately. PT evaluation was done, patient did not require help with ambulation, no additional PT needed. Patient was pulled on second 5150 hold due to danger to self after ED evaluation yesterday. Awaiting placement to psychiatric facility. Patient will have hearing tomorrow regarding continuation of her hold. Vital signs have been stable, lab results from yesterday were stable. Patient is medically stable for discharge, pending placement. Franklyn Membreno MD
[2024-12-04] MEDS: GABAPENTIN 100 MG CAPSULE PO ×2 (09:59→22:29)
[2024-12-04] MEDS: METOPROLOL TARTRATE 25 MG TABLET PO ×2 (09:59→22:29)
[2024-12-04] MEDS: QUEtiapine FUMARATE 25 MG TABLET 50 MG PO ×2 (09:59→22:29)
[2024-12-04] MEDS: PANTOPRAZOLE INJ 40 MG VIAL IVP (10:00)
--- NOTE | 2024-12-04 12:15 | PC.SS ---
Addendum entered by JESSICA Howard 12/04/24 16:01: SS update: updated packet sent via [employer] to designated [facility] adult facilities. Addendum entered by JESSICA Howard 12/04/24 13:39: ASW spoke with [facility] and she informed they would like to wait on the outcome of the [id number] Hearing disposition to determine if patient will still continue needing placement. SS to follow up with [facility] if patient continues needing placement after hearing disposition. Addendum entered by JESSICA Howard 12/04/24 12:45: ASW followed up with the following [facility] facilities: Robert Leahy-unable to meet medical/specialty needs Robin Issa-no answer Azeem Veronica- fax: [phone] Nadine Montero-fax:[phone] [facility]- referral inque [facility]-left voicemail Original Note: ASW followed up with the following [facility] facilities: Luis Manuel Perdomo-referal is inque. No female discharges expected today [facility]-referral [facility] [facility]-denied as they do not accept consecutive holds [facility]- No beds available at this time [facility]-to be reviewed by charge nurse Adarsh Taylor-denied due to medical acuity [facility]-referral inque Barb Taylor-referral inque, no female discharges at this time
--- NOTE | 2024-12-04 13:44 | PC.CC ---
Elizabeth with [facility] requested the PT Carrie. This rewriter sent PT eval via [facility] Fax.
[2024-12-04] MEDS: hydrOXYzine HCL 25 MG TABLET 50 MG PO (16:28)
[2024-12-05] VITALS (12 sets, daily range): BP systolic 112–131; BP diastolic 65–91; PULSE 82–107; RESP 16–20; TEMP 36.4–36.9; O2SAT 97–99; BMI 30.8; BMI 34.0
[2024-12-05] MEDS: PANTOPRAZOLE INJ 40 MG VIAL IVP (08:59)
[2024-12-05] MEDS: GABAPENTIN 100 MG CAPSULE PO ×2 (09:00→20:42)
[2024-12-05] MEDS: QUEtiapine FUMARATE 25 MG TABLET 50 MG PO ×2 (09:00→20:42)
[2024-12-05] MEDS: METOPROLOL TARTRATE 25 MG TABLET PO ×2 (10:17→20:42)
--- NOTE | 2024-12-05 14:05 | PC.NURSE ---
Addendum entered by Radha Ramírez RN 12/05/24 15:51: Addendum to correct name of SS to be Alva, not Janay Original Note: Janay from SS at bedside for [id number] hearing.
--- NOTE | 2024-12-05 15:41 | PC.CC ---
[id number] Hearing was held today via phone call. Bunny Patient Rights Advocate, pts son Nikos, and RODRIGUE Man were present and the material control supervisor was present. After the material control supervisor heard from the pt, pts son and RODRIGUE Man, it was determined that the second 5150 will be upheld. RODRIGUE Man will continue to search for LPS placement.
--- NOTE | 2024-12-05 17:15 | PC.CC ---
RODRIGUE Man submitted for LPS placement via [facility] and the following have declined: [facility]-declined due to capacity. [facility] - does not admit on a pt with 2 consecutive holds. [facility] -due to not being able to accommodate pts medical issues.
[2024-12-05] MEDS: HYDROcodone/APAP 5/325 TABLET 1 TAB PO (20:41)
--- NOTE | 2024-12-05 23:06 | PD.HHPROG ---
Documentation for date of: 12/05/24 Subjective - Hospitalist Subjective Interval history: At bedside today, patient appeared comfortable and denies any new complaints. She has been tolerating diet. Vital signs have been stable. Patient had [id number] hearing health today, it was determined that the second at 5150 will be upheld. Continues to wait for transfer to psych facility. Review of Systems Review of Systems Systems Reviewed: All systems reviewed, normal except as documented Exam Vital Signs Temp Pulse Resp BP Pulse Ox O2 Del Method O2 Flow Rate 97.7 F 107 H 18 120/91 H 99 Room Air 8 12/05/24 20:00 12/05/24 20:42 12/05/24 20:00 12/05/24 20:42 12/05/24 20:00 12/05/24 20:00 11/28/24 13:55 Narrative General: Alert and oriented, comfortable, able to answer questions and follow commands appropriately HEENT: EOMI, PERRLA, no pallor or icterus Cardio: RRR, S1 and S2 heard without murmurs Respiratory: Clear to auscultate bilaterally, no wheeze or crackles Abdomen: Soft, nontender, nondistended, bowel sound present MSK: No edema Neuro:Alert and Oriented x 4, moving all her extremities Mood: Appropriate behavior Objective - Hospitalist Labs Diagram: 12/03/24 05:05 12/03/24 05:05 Assessment & Plan Assessment: Ms. Day is a 48-year-old female with past medical history of fibromyalgia, anxiety, depression, insomnia and hypertension who presented to [facility] emergency department on 11/13/2024 with a chief complaint of syncopal episode. # Choledocholithiasis and stricture, s/p ERCP with sphincterotomy, balloon extraction and biliary stent placement on 11/26 # Transaminitis?resolved # D4 post laproscopic cholecystectomy 11/28 AST 130, ALT 312 on presentation, possible in setting of medication overdose US indicated dilated CBD Patient asymptomatic with normal total bilirubin. Hepatitis panel negative. Direct Bilirubin 0.2. MRCP done which showed Cholelithiasis Abnormal enlargement common hepatic common bile duct with abrupt termination of the distal common bile duct. Gallbladder nuclear medicine scan showed abnormal study, no gallbladder activity, cystic duct obstruction MRI 11/18/24: Extrahepatic biliary tract dilatation with abrupt termination of the distal common bile duct CA 19-9, within normal limits ERCP completed on 11/26/2024 findings include: Entire main bile duct was dilated secondary to stricture. Choledocholithiasis was found and biliary sphincterotomy and balloon extraction were completed. Full metal stent was placed. Plan: - Completed course of Augmentin ? Follow-up with GI for stent exchange at ERCP in 3 months ? GI following appreciate recommendations. ? Patient was cleared medically, crisis eval recommended transfer for a psych facility or follow-up with outpatient services. #Medication overdose #Underlying psychiatric disorder #Auditory and visual hallucinations #?Suicidal ideation #Anxiety #Dizziness #Recurrent falls #?Syncope Patient reported that she was in her room when she passed out, reports that she was dehydrated. Patient also reports history of multiple falls, reports that she has been falling multiple times in the last couple of days. Patient complains of throbbing headache, otherwise denies any pain. 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 Patient's son informed that patient was found last night on the ground having a breakdown with empty bottles of medications surrounding her. Most of the pills were on the ground and unaccounted for versus possible overdose. States there were three bottles that were broken and/or do not have lids. Medications unaccounted for and filled on 11/03/2024 include: 100mg Gabapentin 90 tablets, 10mg Propanolol 120 tablets, 20mg Furosemide 30 tablets, Tizanidine (filled 11/11/2024), 20mg Baclofen 120 tablets (bottle empty and covered), Venlafaxine (30 tablets left and 4-5 tablets are unaccounted for). EKG in ED shows sinus rhythm, QTc 450, CT scan of the head negative for any acute hemorrhage, mass effect or midline shift. Serial EKG negative, no acute evaluation noted Patient was given 1 L LR bolus in ED, placed on 179 psychiatric hold Urine tox screen negative, CT negative, magnesium within normal limits, moderate, lactate normal Fingerstick every 6 hours within normal limits Plan: - Seroquel 50 mg twice daily - Hydroxyzine as needed for mild agitation - Needs medical clearance for evaluation by social media project manager - Seizure precaution - Referral to social media project manager for further evaluation - Continue gabapentin low-dose - Patient had a hearing this afternoon regarding her 5150 hold, her second hold was determined to be upheld, pending transfer to [facility] facility #Hypertension Patient has history of hypertension on benazepril 40 mg daily, Lasix 20 mg p.o. daily at home - Continue lisinopril 20 mg p.o. daily - Continue metoprolol tartrate 25 mg p.o. twice daily #Alcohol use Per patient's history, patient takes alcohol, drinks medications with alcohol at times. Was on CIWA protocol, no withdrawal noted. #Acute kidney injury, resolved On presentation BUN 26, creatinine 1.6, GFR 40, baseline within normal limits Patient received 1 L LR bolus in ED plan Responded well to IV fluids, RAMON is resolved. Plan: - Avoid nephrotoxic agents - Renally dose medication - Follow CMP in a.m. DVT prophylaxis: Heparin every 12 hours GI prophylaxis: Protonix IV daily Diet: Low-fat diet Lines: Peripheral IV Code status: Full code Dispo: Medically stable for discharge, pending placement at [facility] facility Franklyn Membreno MD Time Spent with Patient Time: Total time spent is greater than 50% in coordination of care (as documented) at patient's floor/unit and/or counseling patient: Time with patient: Greater than 35 minutes Reason for Continued Stay Reason for continued stay: other Quality Measures Quality Measures VTE prophylaxis
[2024-12-06] VITALS (11 sets, daily range): BP systolic 106–128; BP diastolic 70–84; PULSE 77–105; RESP 16–19; TEMP 36.2–36.9; O2SAT 97–99; BMI 30.1
[2024-12-06] MEDS: PANTOPRAZOLE 40 MG TABLET PO (08:59)
[2024-12-06] MEDS: METOPROLOL TARTRATE 25 MG TABLET PO ×2 (08:59→20:16)
[2024-12-06] MEDS: QUEtiapine FUMARATE 25 MG TABLET 50 MG PO ×2 (09:00→20:11)
[2024-12-06] MEDS: GABAPENTIN 100 MG CAPSULE PO ×2 (09:01→20:11)
--- NOTE | 2024-12-06 09:40 | PD.RESPRO ---
Documentation for date of: 12/06/24 Subjective Subjective Interval history: Patient was seen and examined at bedside this AM. No acute exents overnight. Patient tolerating diet, adequate urine output, ambulating and mentation is at baseline. Patient currently has no complaints and denies any suicidal/homicidal ideations. Patient had a court hearing with regards to her 5150 hold yesterday. The 5150 will be upheld. Patient currently only on medication for her hypertension and undiagnosed psychiatric disorder. Currently pending transfer to a psychiatric facility for further management. Patient is medically clear and clinically stable for discharge/transfer. Exam Vital Signs Temp Pulse Resp BP Pulse Ox O2 Del Method O2 Flow Rate 98.1 F 102 H 16 128/77 98 Room Air 8 12/06/24 08:00 12/06/24 09:00 12/06/24 08:00 12/06/24 09:00 12/06/24 08:00 12/06/24 08:00 11/28/24 13:55 Narrative Exam Constitutional Alert, oriented x 3 and comfortable HEENT Vision grossly intact. Patent nares. Trachea midline Respiratory Chest normal on inspection and clear auscultation bilaterally Cardiovascular S1 and S2 audible, RRR. No murmurs carotid bruit. No gross JVD. Abdominal Soft and non tender to palpation in all quadrants. BS + Genitourinary No bladder tenderness, no flank pain. Normal to palpation Musculoskeletal Extremities tone within normal limits. No LE edema. Neurological CN II - XII grossly intact. Extremity motor and sensation grossly intact. Skin Warm, dry and intact. No apparent lesions. Psychiatric Patient has good affect, is cooperative Objective Labs 12/03/24 05:05 12/03/24 05:05 Quality Measures Quality Measures VTE prophylaxis Assessment & Plan Assessment Current Active Medications: Generic Name Dose Route Start Last Admin Trade Name Freq PRN Reason Stop Dose Admin Acetaminophen 650 mg 11/13/24 17:28 11/28/24 00:36 Acetaminophen 325 Mg Tablet PO 12/13/24 17:27 650 mg Q6H PRN Administration Pain (1-3) & Fever >100.4 Hydrocodone Bitart/Acetaminophen 1 tab 12/03/24 21:08 12/05/24 20:41 Hydrocodone/Apap 5/325 Tablet PO 12/08/24 21:07 1 tab Q6HR PRN Administration PAIN SCALE 7-10 (Severe Olanzapine 2.5 mg/ Sterile 0 mg 11/27/24 15:59 Water 2.1 ml IM 12/27/24 15:58 Q2HR PRN AGITATION Protocol Gabapentin 100 mg 11/14/24 21:00 12/06/24 09:01 Gabapentin 100 Mg Capsule PO 12/14/24 20:59 100 mg BID URSULA Administration Hydroxyzine HCl 50 mg 11/27/24 16:00 12/04/24 16:28 Hydroxyzine Hcl 25 Mg Tablet PO 12/22/24 21:59 50 mg TID PRN Administration AGITATION (MILD) Labetalol HCl 10 mg 12/03/24 09:19 Labetalol Inj 5 Mg/Ml Vial 20 Ml IVP 01/02/25 09:18 Q2H PRN SBP >180 Lisinopril 10 mg/ Lisinopril 30 mg 12/04/24 09:00 12/06/24 09:00 20 mg PO 01/03/25 08:59 30 mg QDAY URSULA Administration Metoprolol Tartrate 25 mg 11/16/24 21:00 12/06/24 08:59 Metoprolol Tartrate 25 Mg Tablet PO 12/16/24 20:59 25 mg BID URSULA Administration Pantoprazole Sodium 40 mg 12/06/24 09:00 12/06/24 08:59 Pantoprazole 40 Mg Tablet PO 12/14/24 08:59 40 mg QDAY URSULA Administration Quetiapine Fumarate 50 mg 11/19/24 21:00 12/06/24 09:00 Quetiapine Fumarate 25 Mg Tablet PO 12/19/24 20:59 50 mg BID URSULA Administration Sennosides 2 tab 11/13/24 17:28 11/27/24 08:21 Senna Tablet PO 12/13/24 17:27 2 tab BID PRN Administration CONSTIPATION Protocol Plan Assessment and plan: Summary: Ms. Day is a 48-year-old female with past medical history of fibromyalgia, anxiety, depression, insomnia and hypertension who presented to [facility] emergency department on 11/13/2024 with a chief complaint of syncopal episode. # Choledocholithiasis and stricture, s/p ERCP with sphincterotomy, balloon extraction and biliary stent placement on 11/26 # Transaminitis?resolved # D4 post laproscopic cholecystectomy 11/28 AST 130, ALT 312 on presentation, possible in setting of medication overdose US indicated dilated CBD Patient asymptomatic with normal total bilirubin. Hepatitis panel negative. Direct Bilirubin 0.2. MRCP done which showed Cholelithiasis Abnormal enlargement common hepatic common bile duct with abrupt termination of the distal common bile duct. Gallbladder nuclear medicine scan showed abnormal study, no gallbladder activity, cystic duct obstruction MRI 11/18/24: Extrahepatic biliary tract dilatation with abrupt termination of the distal common bile duct CA 19-9, within normal limits ERCP completed on 11/26/2024 findings include: Entire main bile duct was dilated secondary to stricture. Choledocholithiasis was found and biliary sphincterotomy and balloon extraction were completed. Full metal stent was placed. Plan: - Completed course of Augmentin ? Follow-up with GI for stent exchange at ERCP in 3 months ? GI consulted appreciate recommendations. ? Patient was cleared medically, crisis eval recommended transfer for a psych facility or follow-up with outpatient services. #Bacteremia ruled out Preliminary report of blood culture resulted in GPC in 1 bottle. Her WBCs downtrending. Blood culture from 11/27 grew GPC in 1 bottle. Likely contaminant #Prolonged QTC - resolvcing QTc 524 from EKG 11/27 Plan: -Continue Olanzapine prn #Medication overdose #Underlying psychiatric disorder #Auditory and visual hallucinations #?Suicidal ideation #Anxiety #Dizziness #Recurrent falls #?Syncope Patient reported that she was in her room when she passed out, reports that she was dehydrated. Patient also reports history of multiple falls, reports that she has been falling multiple times in the last couple of days. Patient complains of throbbing headache, otherwise denies any pain. 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 Patient's son informed that patient was found last night on the ground having a breakdown with empty bottles of medications surrounding her. Most of the pills were on the ground and unaccounted for versus possible overdose. States there were three bottles that were broken and/or do not have lids. Medications unaccounted for and filled on 11/03/2024 include: 100mg Gabapentin 90 tablets, 10mg Propanolol 120 tablets, 20mg Furosemide 30 tablets, Tizanidine (filled 11/11/2024), 20mg Baclofen 120 tablets (bottle empty and covered), Venlafaxine (30 tablets left and 4-5 tablets are unaccounted for). EKG in ED shows sinus rhythm, QTc 450, CT scan of the head negative for any acute hemorrhage, mass effect or midline shift. Serial EKG negative, no acute evaluation noted Patient was given 1 L LR bolus in ED, placed on 1799 psychiatric hold Urine tox screen negative, CT negative, magnesium within normal limits, moderate, lactate normal Fingerstick every 6 hours within normal limits [place] suicide risk assessment was low risk. Major depression index was 6 points; no depression. Plan: - Seroquel 50 mg twice daily - Hydroxyzine as needed for mild agitation - Needs medical clearance for evaluation by long term care social worker - Seizure precaution - Referral to long term care social worker for further evaluation - Continue gabapentin low-dose - Patient was cleared medically and was evaluated by crisis team and decided that the patient need to be transferred for psych facility or follow-up with outpatient services. #Hypertension Patient has history of hypertension on benazepril 40 mg daily, Lasix 20 mg p.o. daily at home - Continue lisinopril 20 mg p.o. daily - Continue metoprolol tartrate 25 mg p.o. twice daily #Alcohol use Per patient's history, patient takes alcohol, drinks medications with alcohol at times. Was on CIWA protocol, no withdrawal noted. #Acute kidney injury, resolved On presentation BUN 26, creatinine 1.6, GFR 40, baseline within normal limits Patient received 1 L LR bolus in ED plan Responded well to IV fluids, RAMON is resolved. Plan: - Avoid nephrotoxic agents - Renally dose medication - Follow CMP in a.m. DVT prophylaxis: Heparin every 12 hours GI prophylaxis: Protonix IV daily Diet: Low-fat diet Lines: Peripheral IV Code status: Full code Dispo: Pending placement at psych facility Plan of care discussed with Attending Dr. Temi Devi MD PGY 1 Disclaimer: This note was dictated by speech recognition. Minor errors in quality control technician may be present due to voice recognition software. Attending Provider Attestation/Addendum I attest that I was physically present for the evaluation, physical examination, lab and imaging review of the patient with the residents. I discussed the case with the residents and agree with the findings and plans of care as documented above. Franklyn Membreno MD
--- NOTE | 2024-12-06 16:03 | PC.SS ---
Addendum entered by Dalia Adkins 12/06/24 17:24: Packets were faxed. SW notified bedside RN-Loc. Original Note: Digital Marketing Program Manager, Dalia reviewed patient's 5150 hold which was expiring on at 1600. SW met with patient [id number] to complete a mental health evaluation. SW introduced self, role and reason for contact. SW discussed limits of confidentiality. Patient appeared alert and oriented to self, place and situation. Patient was guarded, her mood was depressed with flat affect, and behavior was disinhibited. Patient appeared with poor insight to her mental health needs. Patient was tangential but easily redirectable. Patient was admitted to [facility] (ED) on 11/13/2024, for altered mental status. During her work-up, her son, Nikos reported to Dr. Diaz that patient's medications (list of medications: 100mg Gabapentin 90 tablets, 10mg Propanolol 120 tablets, 20mg Furosemide 30 tablets, Tizanidine (filled 11/11/2024), 20mg Baclofen 120 tablets (bottle empty and covered), Venlafaxine (30 tablets left and 4-5 tablets are unaccounted for), Benazepril filled 11/03/2024 is accounted for) were found at home with several pills missing. Patient was medically admitted for further medical treatment. During her medical admission, on 11/18/2024, it was recommended by General Surgery, Dr. Atwood that patient go through an ERCP, then a cholecystectomy. On 11/30/2024, patient was medically cleared by internal medicine and general surgery. Patient was placed on a 5150 hold for DTS. Patient was re-evaluated on 12/03/2024, and placed on another 5150 hold for DTS. On 12/05/2024, patient had her [id number] Hearing with Patient Right Advocate, Bunny and Ergonomist, Vipul Goodrich, in which Mr. Goodrich, upheld 5150 hold for danger to self. On today's encounter, patient reported that when she presented to the ED on 11/13/2024, she had been suffering from insomnia. Patient reported that she would go weeks without sleeping, then crashing out from being so tired. Patient reported that she was taking her pills impulsively and wrecklessly to help herself. Patient denied this being an intentional suicide attempt. Patient reported that her since divorce on 04/05/2020, she has been experiencing anhedonia. Patient reported that she has low motivation to complete some of her ADLs, which she is physically able to complete. Patient reported feeling numbed from her emotions. Patient reported that she has not been successful at finding a job either. Patient relies on her mother, Alka for housing and financial assistance. Patient reported that she often has these vivid dreams, in which she is able to narrate older memories or dreams; patient denies these dreams being hallucinations. Per bedside Chelsie, patient was observed talking to herself and attempting to grab items that are not visible. Patient reported that she had a suicide attempt in 2008; at the time, patient and her had dropped off her child at school, on their way home, patient attempted to jump from a truck, then she returned home and overdosed on her medications. Patient reported that she was made to minimize her depressive symptoms for many years. In 2023, patient attended therapy; however, it was unsuccessful and she self-discontinued after 3-visits. Patient denied any HI, SI; however, remains with hypnagogic hallucinations. Patient was unable to disclose a safe plan for discharge. SW discussed case with Shivani Velasquez LCSW. It was determined that patient meets criteria for Gravely Disabled Adult. Patient is unable to secure usp, food or clothing without redirection.
[2024-12-07] VITALS (11 sets, daily range): BP systolic 104–128; BP diastolic 66–86; PULSE 85–103; RESP 13–20; TEMP 36.1–36.7; O2SAT 95–98
[2024-12-07 06:03] LABS: Alanine Aminotransferase 91 U/L (10-49); Albumin, Serum 4.5 gm/dL (3.5-5.0); Albumin/Globulin Ratio 1.6 (1.2-2.2); Alkaline Phosphatase 109 U/L (46-116); Anion Gap 12 (7-16); Aspartate Amino Transferase 26 U/L (0-34); BUN/Creatinine Ratio 9 Ratio (12-20); Bilirubin,Total 0.2 mg/dL (0.3-1.2); Blood Urea Nitrogen 7 mg/dL (9-23); Calcium 9.2 mg/dL (8.3-10.6); Calcium (Corrected) 9.2 mg/dL (8.5-10.1); Carbon Dioxide 23.3 mMol/L (20.0-31.0); Chloride 103 mMol/L (98-107); Creatinine (Component) 0.8 mg/dL (0.6-1.3); Estimated Creatinine Clearance 73.7 mL/min (>60); Globulin 2.8 gm/dL (2.3-3.5); Glucose 108 mg/dL (74-106); Osmolality,Calculated 274 (275-295); Sodium 138 mMol/L (136-145); Total Protein 7.3 gm/dL (5.7-8.2); eGFR > 60 See Note
--- NOTE | 2024-12-07 08:18 | PC.CC ---
0757- ASW Isatu Man faxed to the the following [facility] facilities: [facility], [facility] At this time, I am waiting for responses on all those facilities mentioned.
--- NOTE | 2024-12-07 08:45 | PD.HHPROG ---
Documentation for date of: 12/07/24 Subjective - Hospitalist Subjective Interval history: At bedside today, patient is states she is feeling well and does not have any complaints. Resting comfortably on bed, tolerating diet. States that her mood has been good. Continues to be on 5150 hold awaiting transfer to psychiatric facility for further management. Patient has been medically cleared to be transferred to psych facility. Review of Systems Review of Systems Systems Reviewed: All systems reviewed, normal except as documented Exam Vital Signs Temp Pulse Resp BP Pulse Ox O2 Del Method O2 Flow Rate 97.8 F 96 17 128/86 H 97 Room Air 8 12/07/24 08:00 12/07/24 08:00 12/07/24 08:00 12/07/24 08:00 12/07/24 08:00 12/07/24 08:00 11/28/24 13:55 Narrative General: Alert and oriented, comfortable, able to answer questions and follow commands appropriately HEENT: EOMI, PERRLA, no pallor or icterus Cardio: RRR, S1 and S2 heard without murmurs Respiratory: Clear to auscultate bilaterally, no wheeze or crackles Abdomen: Soft, nontender, bowel sounds present MSK: No edema Neuro:Alert and Oriented x 4, moving all extremities, no focal neurological deficit Psych: Appropriate mood and behaviour Objective - Hospitalist Labs Diagram: 12/03/24 05:12/07/24 04:35 Labs: Laboratory Results - last 24 hr 12/07/24 04:35 Sodium 138 Potassium 4.0 Chloride 103 Carbon Dioxide 23.3 Anion Gap 12 BUN 7 L Creatinine 0.8 Estim Creat Clear Calc 73.7 eGFR > 60 BUN/Creatinine Ratio 9 L Glucose 108 H Calculated Osmolality 274 L Calcium 9.2 Corrected Calcium 9.2 Total Bilirubin 0.2 L AST 26 ALT 91 H Alkaline Phosphatase 109 Total Protein 7.3 Albumin 4.5 Globulin 2.8 Albumin/Globulin Ratio 1.6 Assessment & Plan Assessment: Ms. Day is a 48-year-old female with past medical history of fibromyalgia, anxiety, depression, insomnia and hypertension who presented to [facility] emergency department on 11/13/2024 with a chief complaint of syncopal episode. # Choledocholithiasis and stricture, s/p ERCP with sphincterotomy, balloon extraction and biliary stent placement on 11/26 # Transaminitis?resolved # D4 post laproscopic cholecystectomy 11/28 AST 130, ALT 312 on presentation, possible in setting of medication overdose US indicated dilated CBD Patient asymptomatic with normal total bilirubin. Hepatitis panel negative. Direct Bilirubin 0.2. MRCP done which showed Cholelithiasis Abnormal enlargement common hepatic common bile duct with abrupt termination of the distal common bile duct. Gallbladder nuclear medicine scan showed abnormal study, no gallbladder activity, cystic duct obstruction MRI 11/18/24: Extrahepatic biliary tract dilatation with abrupt termination of the distal common bile duct CA 19-9, within normal limits ERCP completed on 11/26/2024 findings include: Entire main bile duct was dilated secondary to stricture. Choledocholithiasis was found and biliary sphincterotomy and balloon extraction were completed. Full metal stent was placed. Plan: - Completed course of Augmentin ? Follow-up with GI for stent exchange at ERCP in 3 months ? GI following appreciate recommendations. ? Patient was cleared medically, crisis eval recommended transfer for a psych facility or follow-up with outpatient services. #Medication overdose #Underlying psychiatric disorder #Auditory and visual hallucinations #?Suicidal ideation #Anxiety #Dizziness #Recurrent falls #?Syncope Patient reported that she was in her room when she passed out, reports that she was dehydrated. Patient also reports history of multiple falls, reports that she has been falling multiple times in the last couple of days. Patient complains of throbbing headache, otherwise denies any pain. 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 Patient's son informed that patient was found last night on the ground having a breakdown with empty bottles of medications surrounding her. Most of the pills were on the ground and unaccounted for versus possible overdose. States there were three bottles that were broken and/or do not have lids. Medications unaccounted for and filled on 11/03/2024 include: 100mg Gabapentin 90 tablets, 10mg Propanolol 120 tablets, 20mg Furosemide 30 tablets, Tizanidine (filled 11/11/2024), 20mg Baclofen 120 tablets (bottle empty and covered), Venlafaxine (30 tablets left and 4-5 tablets are unaccounted for). EKG in ED shows sinus rhythm, QTc 450, CT scan of the head negative for any acute hemorrhage, mass effect or midline shift. Serial EKG negative, no acute evaluation noted Patient was given 1 L LR bolus in ED, placed on 179 psychiatric hold Urine tox screen negative, CT negative, magnesium within normal limits, moderate, lactate normal Fingerstick every 6 hours within normal limits Plan: - Seroquel 50 mg twice daily - Hydroxyzine as needed for mild agitation - Needs medical clearance for evaluation by psychiatric social worker - Seizure precaution - Referral to psychiatric social worker for further evaluation - Continue gabapentin low-dose - Continues to be on 5150 hold, pending transfer to [facility] facility #Hypertension Patient has history of hypertension on benazepril 40 mg daily, Lasix 20 mg p.o. daily at home - Continue lisinopril 20 mg p.o. daily - Continue metoprolol tartrate 25 mg p.o. twice daily #Alcohol use Per patient's history, patient takes alcohol, drinks medications with alcohol at times. Was on CIWA protocol, no withdrawal noted. #Acute kidney injury, resolved On presentation BUN 26, creatinine 1.6, GFR 40, baseline within normal limits Patient received 1 L LR bolus in ED plan Responded well to IV fluids, RAMON is resolved. Plan: - Avoid nephrotoxic agents - Renally dose medication - Follow CMP in a.m. DVT prophylaxis: Heparin every 12 hours GI prophylaxis: Protonix IV daily Diet: Low-fat diet Lines: Peripheral IV Code status: Full code Dispo: Medically stable for discharge, pending placement at [facility] Franklyn Membreno MD Time Spent with Patient Time: Total time spent is greater than 50% in coordination of care (as documented) at patient's floor/unit and/or counseling patient: Time with patient: 25 - 35 minutes Reason for Continued Stay Reason for continued stay: other Quality Measures Quality Measures VTE prophylaxis
[2024-12-07] MEDS: GABAPENTIN 100 MG CAPSULE PO ×2 (09:23→20:17)
[2024-12-07] MEDS: PANTOPRAZOLE 40 MG TABLET PO (09:23)
[2024-12-07] MEDS: QUEtiapine FUMARATE 25 MG TABLET 50 MG PO ×2 (09:23→20:17)
[2024-12-07] MEDS: METOPROLOL TARTRATE 25 MG TABLET PO ×2 (09:23→20:17)
--- NOTE | 2024-12-07 09:35 | PC.CC ---
RODRIGUE Man re-submitted the updated packet on Darrell care to all [facility] facilities. At this time, aligner typewriter is waiting for a response.
--- NOTE | 2024-12-07 12:43 | PC.CC ---
Addendum entered by Alva Man 12/07/24 15:51: 1545: Sales Associate Key Holder spoke with [facility] and Intake stated they will be reviewing the pts chart next and will call for questions or acceptance. Addendum entered by Alva Man 12/07/24 13:21: 1245: RODRIGUE Man met with the pt at bedside and pt was viewed to alert, oriented to time and environment. Sales Associate Key Holder informed pt that as of now, there has been no accepting LPS facilities. Pt stated she understands and states she is ready to go home. Pt reports she does not want her family to feel unsafe and understands the reasons why she is here. Pt reports she never meant to hurt anyone and stated she feels remorseful for her actions here at the hospital and at home. Pt stated she wants help and continues to believe that she needs help. Pt reports she no longer wants to feel as if she is out of control and has now realized she needs help when in the past she was in denial. Pt was viewed to be genuine in her disclosures, her demeanor was calm and she stated that this is her norm. Pt stated she knows she needs to make changes and is ready. Addendum entered by Alva Man 12/07/24 12:54: Sales Associate Key Holder contacted [facility] facility [facility] [phone] and was told by Rayo in Intake that they are at capacity. Original Note: RODRIGUE Man called the following LPS facilities: [facility], spoke with Anabell, and reported that there are no discharges until tomorrow. Luis Manuel Kelly-transfered to [facility] and left a message Luis Manuel Perdomo-at capacity and will have discharges tomorrow. Call tomorrow morning. [facility]-spoke with Archana, who stated they're at capacity and will have open beds tomorrow. However, [facility] stated they never received the fax, so this music writer re-faxed the packet.
[2024-12-07] MEDS: ACETAMINOPHEN 325 MG TABLET 650 MG PO (14:09)
[2024-12-08] VITALS (11 sets, daily range): BP systolic 95–121; BP diastolic 54–86; PULSE 88–102; RESP 13–18; TEMP 36.1–36.8; O2SAT 95–99
--- NOTE | 2024-12-08 07:58 | EKG_ITS ---
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 : 1975 Requested By: Saurabh Devi Order Number: [id number] Reading MD: Saurabh Devi Measurements Intervals [place] Rate: 89 P: 36 NH: 127 QRS: -14 QRSD: 98 T: -9 QT: 364 QTc: 443 Interpretive Statements SINUS RHYTHM LOW QRS VOLTAGE IN PRECORDIAL LEADS POSSIBLE RIGHT VENTRICULAR CONDUCTION DELAY MINIMAL VOLTAGE CRITERIA FOR LVH, CONSIDER NORMAL VARIANT POSSIBLE ANTERIOR MYOCARDIAL INFARCTION , PROBABLY OLD Compared to ECG 11/29/2024 08:39:00 Low QRS voltage now present Short NH interval no longer present Incomplete right bundle-branch block no longer present Myocardial infarct finding still present /store/S0/[id number]
[2024-12-08] MEDS: GABAPENTIN 100 MG CAPSULE PO ×2 (08:54→20:22)
[2024-12-08] MEDS: METOPROLOL TARTRATE 25 MG TABLET PO ×2 (08:54→20:22)
[2024-12-08] MEDS: QUEtiapine FUMARATE 25 MG TABLET 50 MG PO ×2 (08:54→20:22)
[2024-12-08] MEDS: PANTOPRAZOLE 40 MG TABLET PO (08:55)
--- NOTE | 2024-12-08 09:44 | PD.RESPRO ---
Documentation for date of: 12/08/24 Subjective Subjective Interval history: Patient was seen and examined at bedside this AM. No acute exents overnight. Patient tolerating diet, adequate urine output and mentation is at baseline. Patient currently has no complaints. On 5150 hold, pending transfer to psychiatric facility. Patient is only on medication for hypertension and undiagnosed psychiatric condition at this moment. Patient was medically cleared and fit for transfer. Exam Vital Signs Temp Pulse Resp BP Pulse Ox O2 Del Method O2 Flow Rate 97.9 F 98 17 113/75 98 Room Air 8 12/08/24 07:33 12/08/24 08:54 12/08/24 07:33 12/08/24 08:54 12/08/24 07:33 12/08/24 07:33 11/28/24 13:55 Narrative Exam Constitutional Alert, oriented x 3 and comfortable HEENT Vision grossly intact. Patent nares. Trachea midline Respiratory Chest normal on inspection and clear auscultation bilaterally Cardiovascular S1 and S2 audible, RRR. No murmurs carotid bruit. No gross JVD. Abdominal Soft and non tender to palpation in all quadrants. BS + Genitourinary No bladder tenderness, no flank pain. Normal to palpation Musculoskeletal Extremities tone within normal limits. No LE edema. Neurological CN II - XII grossly intact. Extremity motor and sensation grossly intact. Skin Warm, dry and intact. No apparent lesions. Psychiatric Patient has good affect, is cooperative Objective Labs 12/03/24 05:12/07/24 04:35 Quality Measures Quality Measures VTE prophylaxis Assessment & Plan Assessment Current Active Medications: Generic Name Dose Route Start Last Admin Trade Name Freq PRN Reason Stop Dose Admin Acetaminophen 650 mg 11/13/24 17:28 12/07/24 14:09 Acetaminophen 325 Mg Tablet PO 12/13/24 17:27 650 mg Q6H PRN Administration Pain (1-3) & Fever >100.4 Hydrocodone Bitart/Acetaminophen 1 tab 12/03/24 21:08 12/05/24 20:41 Hydrocodone/Apap 5/325 Tablet PO 12/08/24 21:07 1 tab Q6HR PRN Administration PAIN SCALE 7-10 (Severe Olanzapine 2.5 mg/ Sterile 0 mg 11/27/24 15:59 Water 2.1 ml IM 12/27/24 15:58 Q2HR PRN AGITATION Protocol Gabapentin 100 mg 11/14/24 21:00 12/08/24 08:54 Gabapentin 100 Mg Capsule PO 12/14/24 20:59 100 mg BID URSULA Administration Hydroxyzine HCl 50 mg 11/27/24 16:00 12/04/24 16:28 Hydroxyzine Hcl 25 Mg Tablet PO 12/22/24 21:59 50 mg TID PRN Administration AGITATION (MILD) Labetalol HCl 10 mg 12/03/24 09:19 Labetalol Inj 5 Mg/Ml Vial 20 Ml IVP 01/02/25 09:18 Q2H PRN SBP >180 Lisinopril 10 mg/ Lisinopril 30 mg 12/04/24 09:00 12/08/24 08:51 20 mg PO 01/03/25 08:59 30 mg QDAY URSULA Administration Metoprolol Tartrate 25 mg 11/16/24 21:00 12/08/24 08:54 Metoprolol Tartrate 25 Mg Tablet PO 12/16/24 20:59 25 mg BID URSULA Administration Pantoprazole Sodium 40 mg 12/06/24 09:00 12/08/24 08:55 Pantoprazole 40 Mg Tablet PO 12/14/24 08:59 40 mg QDAY URSULA Administration Quetiapine Fumarate 50 mg 11/19/24 21:00 12/08/24 08:54 Quetiapine Fumarate 25 Mg Tablet PO 12/19/24 20:59 50 mg BID URSULA Administration Sennosides 2 tab 11/13/24 17:28 11/27/24 08:21 Senna Tablet PO 12/13/24 17:27 2 tab BID PRN Administration CONSTIPATION Protocol Plan Assessment and plan: Summary: Ms. Day is a 48-year-old female with past medical history of fibromyalgia, anxiety, depression, insomnia and hypertension who presented to [facility] emergency department on 11/13/2024 with a chief complaint of syncopal episode. # Choledocholithiasis and stricture, s/p ERCP with sphincterotomy, balloon extraction and biliary stent placement on 11/26 # Transaminitis?resolved # D4 post laproscopic cholecystectomy 11/28 AST 130, ALT 312 on presentation, possible in setting of medication overdose US indicated dilated CBD Patient asymptomatic with normal total bilirubin. Hepatitis panel negative. Direct Bilirubin 0.2. MRCP done which showed Cholelithiasis Abnormal enlargement common hepatic common bile duct with abrupt termination of the distal common bile duct. Gallbladder nuclear medicine scan showed abnormal study, no gallbladder activity, cystic duct obstruction MRI 11/18/24: Extrahepatic biliary tract dilatation with abrupt termination of the distal common bile duct CA 19-9, within normal limits ERCP completed on 11/26/2024 findings include: Entire main bile duct was dilated secondary to stricture. Choledocholithiasis was found and biliary sphincterotomy and balloon extraction were completed. Full metal stent was placed. Plan: - Completed course of Augmentin ? Follow-up with GI for stent exchange at ERCP in 3 months ? GI consulted appreciate recommendations. ? Patient was cleared medically, crisis eval recommended transfer for a psych facility or follow-up with outpatient services. #Bacteremia ruled out Preliminary report of blood culture resulted in GPC in 1 bottle. Her WBCs downtrending. Blood culture from 11/27 grew GPC in 1 bottle. Likely contaminant #Prolonged QTC - resolvcing QTc 524 from EKG 11/27 Plan: -Continue Olanzapine prn #Medication overdose #Underlying psychiatric disorder #Auditory and visual hallucinations #?Suicidal ideation #Anxiety #Dizziness #Recurrent falls #?Syncope Patient reported that she was in her room when she passed out, reports that she was dehydrated. Patient also reports history of multiple falls, reports that she has been falling multiple times in the last couple of days. Patient complains of throbbing headache, otherwise denies any pain. 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 Patient's son informed that patient was found last night on the ground having a breakdown with empty bottles of medications surrounding her. Most of the pills were on the ground and unaccounted for versus possible overdose. States there were three bottles that were broken and/or do not have lids. Medications unaccounted for and filled on 11/03/2024 include: 100mg Gabapentin 90 tablets, 10mg Propanolol 120 tablets, 20mg Furosemide 30 tablets, Tizanidine (filled 11/11/2024), 20mg Baclofen 120 tablets (bottle empty and covered), Venlafaxine (30 tablets left and 4-5 tablets are unaccounted for). EKG in ED shows sinus rhythm, QTc 450, CT scan of the head negative for any acute hemorrhage, mass effect or midline shift. Serial EKG negative, no acute evaluation noted Patient was given 1 L LR bolus in ED, placed on 1799 psychiatric hold Urine tox screen negative, CT negative, magnesium within normal limits, moderate, lactate normal Fingerstick every 6 hours within normal limits [place] suicide risk assessment was low risk. Major depression index was 6 points; no depression. Plan: - Seroquel 50 mg twice daily - Hydroxyzine as needed for mild agitation - Needs medical clearance for evaluation by social sciences chair - Seizure precaution - Referral to social sciences chair for further evaluation - Continue gabapentin low-dose - Patient was cleared medically and was evaluated by crisis team and decided that the patient need to be transferred for psych facility or follow-up with outpatient services. #Hypertension Patient has history of hypertension on benazepril 40 mg daily, Lasix 20 mg p.o. daily at home - Continue lisinopril 20 mg p.o. daily - Continue metoprolol tartrate 25 mg p.o. twice daily #Alcohol use Per patient's history, patient takes alcohol, drinks medications with alcohol at times. Was on CIWA protocol, no withdrawal noted. #Acute kidney injury, resolved On presentation BUN 26, creatinine 1.6, GFR 40, baseline within normal limits Patient received 1 L LR bolus in ED plan Responded well to IV fluids, RAMON is resolved. Plan: - Avoid nephrotoxic agents - Renally dose medication - Follow CMP in a.m. DVT prophylaxis: Heparin every 12 hours GI prophylaxis: Protonix IV daily Diet: Low-fat diet Lines: Peripheral IV Code status: Full code Dispo: Pending placement at psych facility Plan of care discussed with Attending Dr. Temi Devi MD PGY 1 Disclaimer: This note was dictated by speech recognition. Minor errors in photocomposition keyboard operator may be present due to voice recognition software. Attending Provider Attestation/Addendum I attest that I was physically present for the evaluation, physical examination, lab and imaging review of the patient with the residents. I discussed the case with the residents and agree with the findings and plans of care as documented above. At bedside, patient states he is feeling well and does not have new complaints. Examination findings have been stable. States that her mood is good. Patient is medically cleared for discharge, awaiting transfer to a psychiatric facility for further management. Franklyn Membreno MD
--- NOTE | 2024-12-08 14:25 | PC.SS ---
SS update: sent updated LPS packet via [facility] to designated adult LPS facilities. Pending responses.
--- NOTE | 2024-12-08 14:43 | PC.SS ---
ASW followed up with the following [facility] facilities: [facility]-requested updated packet, which was sent [place]- will review updated packet [facility]- denied due to medical acuity [facility]- does not accept consecutive holds [facility]- re-opened up referral due to patient continued needing placement, to review [facility]- re-opened up referral due to patient continued needing placement, to review [facility]- re-opened up referral due to patient continued needing placement, to review [facility]erral [place] [facility]- [place], staff informs they have a long list of referrals [place] [facility]- no answer, voicemail provided
[2024-12-08] MEDS: ACETAMINOPHEN 325 MG TABLET 650 MG PO (16:22)
[2024-12-08] MEDS: HYDROcodone/APAP 5/325 TABLET 1 TAB PO (20:22)
[2024-12-09 04:00] VITALS: BP 92/58; PULSE 92; RESP 19; TEMP 36.3; O2SAT 99
[2024-12-09 08:00] VITALS: BP 93/62; PULSE 86; RESP 18; TEMP 36.1; O2SAT 99
[2024-12-09 08:49] VITALS: BP 99/58; PULSE 96
[2024-12-09 08:50] VITALS: BP 99/58; PULSE 96
[2024-12-09] MEDS: GABAPENTIN 100 MG CAPSULE PO (08:50)
[2024-12-09] MEDS: PANTOPRAZOLE 40 MG TABLET PO (08:51)
[2024-12-09] MEDS: QUEtiapine FUMARATE 25 MG TABLET 50 MG PO (08:51)
--- NOTE | 2024-12-09 10:23 | PD.RESPRO ---
Documentation for date of: 12/09/24 Subjective Subjective Interval history: Patient was seen and examined at bedside this AM. No acute exents overnight. Patient tolerating diet, adequate urine output and mentation is at baseline. Patient currently has no complaints. On 0 hold, pending transfer to psychiatric facility. Patient is only on medication for hypertension and undiagnosed psychiatric condition at this moment. Patient was medically cleared and fit for transfer for > 1 week. CBC and CMP completed on 12/09/2024 , within normal limits Exam Vital Signs Temp Pulse Resp BP Pulse Ox O2 Del Method O2 Flow Rate 97.0 F 96 18 99/58 L 99 Room Air 8 12/09/24 08:00 12/09/24 08:50 12/09/24 08:00 12/09/24 08:50 12/09/24 08:00 12/09/24 08:00 11/28/24 13:55 Narrative Exam Constitutional Alert, oriented x 3 and comfortable HEENT Vision grossly intact. Patent nares. Trachea midline Respiratory Chest normal on inspection and clear auscultation bilaterally Cardiovascular S1 and S2 audible, RRR. No murmurs carotid bruit. No gross JVD. Abdominal Soft and non tender to palpation in all quadrants. BS + Genitourinary No bladder tenderness, no flank pain. Normal to palpation Musculoskeletal Extremities tone within normal limits. No LE edema. Neurological CN II - XII grossly intact. Extremity motor and sensation grossly intact. Skin Warm, dry and intact. No apparent lesions. Psychiatric Patient has good affect, is cooperative Objective Labs 12/09/24 12:08 12/09/24 13:46 Quality Measures Quality Measures VTE prophylaxis Assessment & Plan Assessment Current Active Medications: Generic Name Dose Route Start Last Admin Trade Name Freq PRN Reason Stop Dose Admin Acetaminophen 650 mg 11/13/24 17:28 12/08/24 16:22 Acetaminophen 325 Mg Tablet PO 12/13/24 17:27 650 mg Q6H PRN Administration Pain (1-3) & Fever >100.4 Olanzapine 2.5 mg/ Sterile 0 mg 11/27/24 15:59 Water 2.1 ml IM 12/27/24 15:58 Q2HR PRN AGITATION Protocol Gabapentin 100 mg 11/14/24 21:00 12/09/24 08:50 Gabapentin 100 Mg Capsule PO 12/14/24 20:59 100 mg BID URSULA Administration Hydroxyzine HCl 50 mg 11/27/24 16:00 12/04/24 16:28 Hydroxyzine Hcl 25 Mg Tablet PO 12/22/24 21:59 50 mg TID PRN Administration AGITATION (MILD) Labetalol HCl 10 mg 12/03/24 09:19 Labetalol Inj 5 Mg/Ml Vial 20 Ml IVP 01/02/25 09:18 Q2H PRN SBP >180 Lisinopril 10 mg/ Lisinopril 30 mg 12/04/24 09:00 12/09/24 08:49 20 mg PO 01/03/25 08:59 Not Given QDAY URSULA Loratadine 10 mg 12/09/24 09:45 Loratadine 10 Mg Tablet PO 01/08/25 09:44 QDAY URSULA Metoprolol Tartrate 25 mg 11/16/24 21:00 12/09/24 08:50 Metoprolol Tartrate 25 Mg Tablet PO 12/16/24 20:59 Not Given BID URSULA Pantoprazole Sodium 40 mg 12/06/24 09:00 12/09/24 08:51 Pantoprazole 40 Mg Tablet PO 12/14/24 08:59 40 mg QDAY URSULA Administration Quetiapine Fumarate 50 mg 11/19/24 21:00 12/09/24 08:51 Quetiapine Fumarate 25 Mg Tablet PO 12/19/24 20:59 50 mg BID URSULA Administration Sennosides 2 tab 11/13/24 17:28 11/27/24 08:21 Senna Tablet PO 12/13/24 17:27 2 tab BID PRN Administration CONSTIPATION Protocol Plan Assessment and plan: Summary: Ms. Day is a 48-year-old female with past medical history of fibromyalgia, anxiety, depression, insomnia and hypertension who presented to [facility] emergency department on 11/13/2024 with a chief complaint of syncopal episode. # Choledocholithiasis and stricture, s/p ERCP with sphincterotomy, balloon extraction and biliary stent placement on 11/26 # Transaminitis?resolved # D4 post laproscopic cholecystectomy 11/28 AST 130, ALT 312 on presentation, possible in setting of medication overdose US indicated dilated CBD Patient asymptomatic with normal total bilirubin. Hepatitis panel negative. Direct Bilirubin 0.2. MRCP done which showed Cholelithiasis Abnormal enlargement common hepatic common bile duct with abrupt termination of the distal common bile duct. Gallbladder nuclear medicine scan showed abnormal study, no gallbladder activity, cystic duct obstruction MRI 11/18/24: Extrahepatic biliary tract dilatation with abrupt termination of the distal common bile duct CA 19-9, within normal limits ERCP completed on 11/26/2024 findings include: Entire main bile duct was dilated secondary to stricture. Choledocholithiasis was found and biliary sphincterotomy and balloon extraction were completed. Full metal stent was placed. Plan: - Completed course of Augmentin ? Follow-up with GI for stent exchange at ERCP in 3 months ? GI consulted appreciate recommendations. ? Patient was cleared medically, crisis eval recommended transfer for a psych facility or follow-up with outpatient services. #Bacteremia ruled out Preliminary report of blood culture resulted in GPC in 1 bottle. Her WBCs downtrending. Blood culture from 11/27 grew GPC in 1 bottle. Likely contaminant #Prolonged QTC - resolvcing QTc 524 from EKG 11/27 Plan: -Continue Olanzapine prn #Medication overdose #Underlying psychiatric disorder #Auditory and visual hallucinations #?Suicidal ideation #Anxiety #Dizziness #Recurrent falls #?Syncope Patient reported that she was in her room when she passed out, reports that she was dehydrated. Patient also reports history of multiple falls, reports that she has been falling multiple times in the last couple of days. Patient complains of throbbing headache, otherwise denies any pain. 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 Patient's son informed that patient was found last night on the ground having a breakdown with empty bottles of medications surrounding her. Most of the pills were on the ground and unaccounted for versus possible overdose. States there were three bottles that were broken and/or do not have lids. Medications unaccounted for and filled on 11/03/2024 include: 100mg Gabapentin 90 tablets, 10mg Propanolol 120 tablets, 20mg Furosemide 30 tablets, Tizanidine (filled 11/11/2024), 20mg Baclofen 120 tablets (bottle empty and covered), Venlafaxine (30 tablets left and 4-5 tablets are unaccounted for). EKG in ED shows sinus rhythm, QTc 450, CT scan of the head negative for any acute hemorrhage, mass effect or midline shift. Serial EKG negative, no acute evaluation noted Patient was given 1 L LR bolus in ED, placed on 1799 psychiatric hold Urine tox screen negative, CT negative, magnesium within normal limits, moderate, lactate normal Fingerstick every 6 hours within normal limits [place] suicide risk assessment was low risk. Major depression index was 6 points; no depression. Plan: - Seroquel 50 mg twice daily - Hydroxyzine as needed for mild agitation - Needs medical clearance for evaluation by high school social studies teacher - Seizure precaution - Referral to high school social studies teacher for further evaluation - Continue gabapentin low-dose - Patient was cleared medically and was evaluated by crisis team and decided that the patient need to be transferred for psych facility or follow-up with outpatient services. #Hypertension Patient has history of hypertension on benazepril 40 mg daily, Lasix 20 mg p.o. daily at home - Continue lisinopril 20 mg p.o. daily - Continue metoprolol tartrate 25 mg p.o. twice daily #Alcohol use Per patient's history, patient takes alcohol, drinks medications with alcohol at times. Was on CIWA protocol, no withdrawal noted. #Acute kidney injury, resolved On presentation BUN 26, creatinine 1.6, GFR 40, baseline within normal limits Patient received 1 L LR bolus in ED plan Responded well to IV fluids, RAMON is resolved. Plan: - Avoid nephrotoxic agents - Renally dose medication - Follow CMP in a.m. DVT prophylaxis: Heparin every 12 hours GI prophylaxis: Protonix IV daily Diet: Low-fat diet Lines: Peripheral IV Code status: Full code Dispo: Pending placement at psych facility Plan of care discussed with Attending Dr. Arya Devi MD PGY 1 Disclaimer: This note was dictated by speech recognition. Minor errors in popcorn candy maker may be present due to voice recognition software. Attending Provider Attestation/Addendum I have examined the patient, reviewed labs and imaging findings, discussed the case with the resident(s), and reviewed entered orders. I agree with the plan of care as outlined in this note, with these additional summaries/recommendations: Patient seen at bedside. No acute overnight events. Patient continues to be medically cleared for discharge. Hematology panel shows no evidence of anemia or leukocytosis. Chemistry panel relatively within normal limits and patient has no medical reason to remain hospitalized. She is medically cleared for discharge to a psychiatric facility. Her only required medical follow-up at this point is following up with gastroenterology in 3 months for stent exchange and following up with general surgery outpatient in 2 weeks for routine postsurgical follow-up evaluation. Patient pending placement. Dr. Arya MD
[2024-12-09] MEDS: SALINE NASAL 45 ML BTL 1 SPRAY NASAL (11:09)
[2024-12-09] MEDS: lorataDINE 10 MG TABLET PO (11:09)
--- NOTE | 2024-12-09 11:30 | PC.SS ---
SS followed up with the following [facility] facilities: [facility]- [place] [facility]- Declined- not able to provide reason [facility]-Insurance out of network, not able to provide bed for patient do to medical needs [facility]- No female beds available, not reviewing referrals at the time [facility]- No female beds available. not reviewing at the time [facility]- [place], have not reviewed at the time [facility]- SS left [facility]-At capacity, pending discharges [facility]-No adult beds at the time, have not reviewed referrals [facility]- no beds available, will review and follow up with SS [facility]-medical reason, unable to meet needs [facility]- [place], still have not reviewed referral do to list of referrals that need to be reviewed [facility]-unable to leave [facility] On hold for a while, no answer [facility]-Left [facility]- At capacity, no beds available [facility]- Denied by their intake When SS asked they said it was do to medical, not able to provide further information [facility]
[2024-12-09 11:50] VITALS: BP 112/83; PULSE 109; RESP 18; TEMP 36.2; O2SAT 99
--- NOTE | 2024-12-09 11:52 | PC.SS ---
Addendum entered by JESSICA Howard 12/09/24 12:17: SS update: bed side nurse Carmen is also aware of the request and informs she will notify SS when labs results have been completed. Addendum entered by JESSICA Howard 12/09/24 12:16: SS update: [facility] requesting updated labs and progress note from the medical provider with clear indication of medical clearance (clear indication of what patient was treated for, what has already been resolved) Spoke with the attending Dr. Koenig to notify of this request, he informs labs have been ordered and will have associate medical director complete a clear progress note for today. Original Note: SS update: [facility] social science manager requested packet to be sent over for review, faxed packet to the facility.
--- NOTE | 2024-12-09 12:08 | PC.SS ---
SS follow up note; Melva from contacted SS and informed SS that at the time they are reviewing the patient's referral, however they are requesting updated labs and updated progress notes from today. WEALTH MANAGEMENT MANAGERAnnabella Hooper will contact attending Dr. Koenig in regards to progress note. Josey already contacted patient's nurse, Carmen and informed her that updated labs are needed. Carmen updated Team B. Once labs and progress note are available, SS will fax and send to Josey. She informed SS once all requested information is available she will have their intake review. SS will stand by for further needs.
[2024-12-09 13:54] LABS: Basophils % (Auto) 0 % (0-2.5); Eosinophils # (Auto) 0.2 Thou/mm3 (0.0-0.5); Eosinophils % (Auto) 2 % (0-10); Hematocrit 34.4 % (36.0-46.0); Hemoglobin 12.2 g/dL (12.0-16.0); Immature Granulocytes % (Auto) 1 % (0-0); Immature Granulocytes Auto 0.04 Thou/mm3 (0.00-0.00); Lymphocytes # (Auto) 2.6 Thou/mm3 (1.0-4.8); Lymphocytes % (Auto) 33 % (10-50); Mean Corpuscular HGB Conc 35.5 g/dl (31.0-37.0); Mean Corpuscular Hemoglobin 32.7 pg (25.0-35.0); Mean Corpuscular Volume 92 fL (80-100); Monocytes # (Auto) 0.5 Thou/mm3 (0.0-0.8); Monocytes % (Auto) 6 % (0-12); Neutrophils # (Auto) 4.6 Thou/mm3 (1.8-7.7); Neutrophils % (Auto) 58 % (37-80); Nucleated Red Blood Cell % 0 /100 WBC (0); Platelet Count 331 Thou/mm3 (140-440); RDW Standard Deviation 41.8 fL (36.4-46.3); Red Blood Count 3.73 Miln/mm3 (4.00-5.20); White Blood Count 7.9 Thou/mm3 (3.6-11.0)
[2024-12-09 14:18] LABS: Alanine Aminotransferase 50 U/L (10-49); Albumin, Serum 4.3 gm/dL (3.5-5.0); Albumin/Globulin Ratio 1.7 (1.2-2.2); Alkaline Phosphatase 98 U/L (46-116); Anion Gap 9 (7-16); Aspartate Amino Transferase 18 U/L (0-34); BUN/Creatinine Ratio 17 Ratio (12-20); Bilirubin,Total 0.2 mg/dL (0.3-1.2); Blood Urea Nitrogen 12 mg/dL (9-23); Calcium 9.2 mg/dL (8.3-10.6); Calcium (Corrected) 9.2 mg/dL (8.5-10.1); Carbon Dioxide 22.2 mMol/L (20.0-31.0); Chloride 102 mMol/L (98-107); Creatinine (Component) 0.7 mg/dL (0.6-1.3); Estimated Creatinine Clearance 83.5 mL/min (>60); Globulin 2.5 gm/dL (2.3-3.5); Glucose 123 mg/dL (74-106); Osmolality,Calculated 267 (275-295); Potassium 3.6 mMol/L (3.4-5.1); Sodium 133 mMol/L (136-145); Total Protein 6.8 gm/dL (5.7-8.2); eGFR > 60 See Note
--- NOTE | 2024-12-09 15:10 | PC.SS ---
Addendum entered by JESSICA Howard 12/09/24 16:26: Late note: patient was re-evaluated as third hold expires today. Patient continues presenting depressed, with flat affect. Patient has to be prompted and redirected to take care of her personal needs. Patient is unable/unwilling to safety plan. After clinical consultation with WILFREDO Hernandez, the patient was placed on fourth 5150 consecutive hold for GD. Patient has been accepted to [facility] this evening. Patient was provided with advisement and family and attending Provider Solange Koenig, including bed side RN Carmen are aware of the disposition plan. Addendum entered by JESSICA Howard 12/09/24 16:21: Patient was provided with advisement. Patient's son Nikos was notified. Patient's mother Alka was also notified. Addendum entered by JESSICA Howard 12/09/24 16:05: [facility] ETA 1900. Original Note: Elizabeth with [facility] provided accepting information for the patient. Accepting medical provider: Dr. Haile. Unit [address] 1. Requested arrival time 1999. Nurse to nurse by 1900, phone number .
--- NOTE | 2024-12-09 15:36 | ESDS_ITS ---
Planned Discharge Date 12/09/24 DS: Providers Provider Date of admission: 11/13/24 16:49 Primary care physician: Physician No Primary/Family Admitting Provider: Max Wood DO Attending Provider on Admission: Franklyn Membreno MD Consults: 11/13/24 13:58 Referral Wound Care Routine Comment: 11/13/24 14:29 Referral Psych Eval Stat Comment: 11/13/24 17:34 Referral Psych Eval Stat Comment: 11/17/24 14:07 Consult to Gastroenterology Urgent Comment: exclude stricture at the ampulla-MRCP Findings Consulting Provider: Beau Patten 11/18/24 16:23 Consult to General Surgery Routine Comment: Cystic Duct Obstruction Consulting Provider: Al Atwood 12/03/24 10:17 Referral Physical Therapy Stat Comment: Physician Instructions: Attending Provider on DC: Rad Koenig MD Discharging Provider: Saurabh Devi MD DS: Diagnosis Problem List Completed Was Problem List Reviewed/Reconciled?: Yes Hospital Course Hospital Course Hospital course: Ms. Day is a 48-year-old female with past medical history of fibromyalgia, anxiety, depression, insomnia and hypertension who presented to [facility] emergency department on 11/13/2024 with a chief complaint of syncopal episode. At home patient ingested multiple pills from different bottles including gabapentin, propranolol, furosemide, tizanidine, baclofen and venlafaxine. During hospitalization she was cleared by poison control and manic symptoms resolved. She was started on quetiapine 50 Mg p.o. at bedtime on which her symptoms were adequately controlled. On ultrasound, there was CBD dilatation and this was followed up by MRCP which showed cholelithiasis with enlargement of common hepatic duct and abrupt termination of distal common bile duct. Patient underwent ERCP with sphincterotomy, balloon extraction and biliary stent placement on 11/26. Subsequently she underwent laparoscopic cholecystectomy on 11/28. Patient completed a course of Augmentin p.o. postoperatively. Patient is completely asymptomatic and all lab values [CBC, CMP] are within normal limits. Patient was on a 5150 hold and required transfer to a psychiatric facility for mental health evaluation. All patient's labs are now within normal limits. Patient is now clinically stable and fit for transfer to [facility]. Discharge diagnoses: 1. Choledocholithiasis and stricture s/p ERCP with sphincterotomy, balloon extraction and biliary stent placement on 11/11 2. Transaminitis?resolved 3. Cholelithiasis s/p laparoscopic cholecystectomy on 11/28 4. Bacteremia ruled out 5. Prolonged QTc?resolved 6. Medication overdose 7. Underlying psychiatric disorder 8. Auditory and visual hallucinations?resolving 9. Primary hypertension 10. Acute kidney injury?resolved Discharge plan: - Continue all your medications as listed below. - We have stopped your medications alprazolam, Lasix, HCTZ, naproxen and venlafaxine. Do not take these anymore and discard of any extra pills at home. ? For evaluation of psychiatric hospital. ? Continue outpatient psychiatric follow-up - Follow-up with GI, Dr. Funes within 2-4 weeks of discharge for ERCP with spyglass. - Follow up with your primary care physician within 1 week of discharge. If you do not have a primary care physician, please follow up with the [facility] Residents clinic ([phone]) ? If you experience any new, worsening or persistent symptoms either call your primary doctor, or dial 911 or present to the emergency department. - Also if you begin to experience any suicidal/homicidal ideations or any ideas of hurting others or yourself either dial 911 or present to the emergency department immediately. We are grateful to be able to participate in Ms. Day's care. We wish her the best. Plan of care discussed with Attending Dr. Arya Devi MD PGY 1 Disclaimer: This note was dictated by speech recognition. Minor errors in spinning operator may be present due to voice recognition software.. Time Spent with Patient Time attestation: Total time spent providing and/or coordinating discharge services: Time spent: Greater than 30 minutes (48) Exam Vital Signs Temp Pulse Resp BP Pulse Ox O2 Del Method O2 Flow Rate 97.2 F 109 H 18 112/83 99 Room Air 8 12/09/24 11:50 12/09/24 11:50 12/09/24 11:50 12/09/24 11:50 12/09/24 11:50 12/09/24 08:00 11/28/24 13:55 Narrative Exam Constitutional Alert, oriented x 3 and comfortable HEENT Vision grossly intact. Patent nares. Trachea midline Respiratory Chest normal on inspection and clear auscultation bilaterally Cardiovascular S1 and S2 audible, RRR. No murmurs carotid bruit. No gross JVD. Abdominal Soft and non tender to palpation in all quadrants. BS + Genitourinary No bladder tenderness, no flank pain. Normal to palpation Musculoskeletal Extremities tone within normal limits. No LE edema. Neurological CN II - XII grossly intact. Extremity motor and sensation grossly intact. Skin Warm, dry and intact. No apparent lesions. Psychiatric Patient has good affect, is cooperative Discharge Plan Plan Patient Disposition: [facility] Facility Disposition Comment: [facility] Patient condition on transfer: Stable Care Plan Goals: - Continue all your medications as listed below. - We have stopped your medications alprazolam, Lasix, HCTZ, naproxen and venlafaxine. Do not take these anymore and discard of any extra pills at home. ? For evaluation of psychiatric hospital. ? Continue outpatient psychiatric follow-up - Follow-up with GI, Dr. Funes within 2-4 weeks of discharge for ERCP with spyglass. - Follow up with your primary care physician within 1 week of discharge. If you do not have a primary care physician, please follow up with the [facility] Residents clinic ([phone]) ? If you experience any new, worsening or persistent symptoms either call your primary doctor, or dial 911 or present to the emergency department. - Also if you begin to experience any suicidal/homicidal ideations or any ideas of hurting others or yourself either dial 911 or present to the emergency department immediately. Prescriptions/Referrals Prescriptions/Med Rec: New sennosides [senna] 8.6 mg Tablet 8.6 mg PO BID PRN (Reason: Constipation) 10 Days Qty: 20 0RF lisinopril 30 mg Tablet 30 mg PO QDAY 10 Days Qty: 10 0RF hydroxyzine HCl 25 mg Tablet 50 mg PO TID PRN (Reason: Agitation (Mild)) Qty: 10 0RF gabapentin 100 mg Capsule 100 mg PO BID Qty: 14 0RF metoprolol tartrate 25 mg Tablet 25 mg PO BID 10 Days Qty: 10 0RF Continued baclofen 20 MG tablet 20 mg PO HS Qty: 0 Benazepril Hcl 40 MG tablet 40 mg PO QDAY Qty: 0 Discontinued alprazolam [Xanax] 1 MG tablet 1 mg PO TID Qty: 0 hydrochlorothiazide 25 MG tablet 25 mg PO QAM Qty: 0 furosemide [Lasix] 20 MG tablet 20 mg PO QDAY Qty: 0 Venlafaxine * (EFFEXOR *) 75 MG tablet 150 mg PO QDAY Qty: 0 naproxen [Naprosyn] 500 mg tablet 500 mg PO BID PRN (Reason: pain) Qty: 30 0RF Referrals: No Primary/Family,Physician [Primary Care Provider] - Patient/Caregiver Discharge Instructions Discharge Activity: as per physical therapy Education Materials: Preventing Surgical Site Infections Print Language: Ukrainian Stand Alone Forms: Brandi Award Info., Patient Portal Info Letter Discharge Order Discharge Orders: Discharge (Routine); Ordered 12/09/24 Ordered By: Saurabh Devi Quality Discharge Quality Measures VTE prophylaxis Attestestation MD Attestation I have examined the patient, reviewed labs and imaging findings, discussed the case with the resident(s), and reviewed entered orders. I agree with the plan of care as outlined in this note. Time Spent: [address] Arya MD
[2024-12-09 16:00] VITALS: BP 136/91; PULSE 113; RESP 18; TEMP 36.7; O2SAT 98
== END 2024-12-09 18:48 | DRG 793 ==
LOC: SERX 18:03 → S3NX 18:08
PROVIDERS: Internal Medicine; Internal Medicine Gastroenterology; Student in an Organized Health Care Education/Training Program; Surgery; Admitting Provider Student in an Organized Health Care Education/Training Program; Emergency Provider Emergency Medicine; Visit Provider Student in an Organized Health Care Education/Training Program
PROC: (CPT 43260; principal; 2024-11-26 13:45)
PROC: 0FT44ZZ Resection of Gallbladder, Percutaneous Endoscopic Approach (ICD-10-PCS; CPT 47562; principal; 2024-11-28 13:15)
DX: T50.991A Poisoning by other drugs, medicaments and biological substances, accidental (unintentional), initial encounter (principal); F41.9 Anxiety disorder, unspecified; M79.7 Fibromyalgia; I10 Essential (primary) hypertension; G47.00 Insomnia, unspecified; E86.0 Dehydration; R29.6 Repeated falls; N17.9 Acute kidney failure, unspecified; R74.01 Elevation of levels of liver transaminase levels; E87.6 Hypokalemia; F31.9 Bipolar disorder, unspecified; G92.9 Unspecified toxic encephalopathy; K80.65 Calculus of gallbladder and bile duct with chronic cholecystitis with obstruction; Z79.899 Other long term (current) drug therapy; Z91.81 History of falling; Z78.1 Physical restraint status
CPT/HCPCS: 36415; 70450; 74181; 74330; 76705; 78227; 80053; 80061; 80069; 80074; 80307; 80320; 80329; 81001; 81025; 82105; 82140; 82247; 82248; 82550; 83036; 83605; 83735; 83880; 84100; 84443; 84484; 84703; 85025; 85610; 86301; 86703; 87040; 87811; 90839; 93005; 93225; 94762; 96127; 96360; 97161; 97162; 99291; A4217; A4649; A9537; C1874; C1889; J0131; J0694; J1100; J1630; J1644; J1885; J2060; J2250; J2371; J2405; J2470; J2543; J2704; J3010; J3475; J3480; J3490; J7030; J7120; S8037; A9270; G0480; J1920